=== PATIENT | female | born 1940 | race Caucasian/White ===

== ENCOUNTER → 2017-09-13 | Outpatient (REF) | payer MEDICARE, BC ==
[2017-09-13 19:43] LABS: VITAMIN B12 LEVEL 512 PG/ML (247-911)
== END ==
LOC: M LAB REF 18:09
DX: R21 Rash and other nonspecific skin eruption (principal)
CPT/HCPCS: 82607

== ENCOUNTER 2018-07-04 06:10 | Inpatient (IN) | payer MEDICARE, BC ==
--- NOTE | 2018-06-24 14:26 | HPE ---
DATE OF ADMISSION: 07/04/2018 CHIEF COMPLAINT: Lumbar spinal stenosis with myelopathy. HISTORY OF PRESENT ILLNESS: Briana is a pleasant, 77-year-old female with progressively worsening low back pain and bilateral lower extremity radiculopathy and myelopathy. She has failed to improve with conservative treatment. She has elected for surgery for her continued symptoms. She has pain with weightbearing activities and her activities of daily living. Her MRI was notable for subacute mild to moderate compression fracture at L4, severe spinal canal stenosis at L3-4 and L4-5, impingement upon the cauda equina L3-4 and L4-5. She has consented for a left unilateral laminectomy at L3-4 and L4-5 with posterior lateral fusion in situ. Medical optimization was by Dr. Sauceda. ALLERGIES: COMPAZINE. CURRENT MEDICATIONS: - Advair Diskus 250/50 mcg one twice a day - rimantadine tartrate - fluticasone propionate 50 mcg 2 sprays in each nostril daily - gabapentin 100 mg one at bedtime - ibuprofen 200 mg as needed - Synthroid 50 mcg a day - metformin 500 mg twice a day - Tradjenta 5 mg once a day - tramadol 50 mg one every 4-6 as needed - venlafaxine HCl 25 mg a day - Ventolin inhaler 2 puffs four times a day as needed PAST MEDICAL HISTORY: Includes diabetes, hypertension, and hypothyroidism. PAST SURGICAL HISTORY: Was not provided. SOCIAL HISTORY: The patient does not smoke or drink. She is retired. FAMILY HISTORY: Is noncontributory. REVIEW OF SYSTEMS: This patient denies chest pain, heart palpitations, cough, wheezing, difficulty breathing, and shortness of breath. She denies abdominal pain, nausea, vomiting, diarrhea, or constipation. She denies recent upper respiratory infection or urinary tract infection symptoms. She does complain of persistent pain in the low back and intermittently in both lower extremities. PHYSICAL EXAMINATION: General: She is well-nourished, well-developed, in no acute distress, alert female patient. She walks with a slow, steady gait today. She is not favoring or using assistive devices. Vital signs: She is 5 feet 1-1/2, weighs 140.6 pounds. Temperature of 98.3, blood pressure 130/80, pulse 86 and respirations of 14. Neck was supple without adenopathy or jugular venous distension. There were no carotid bruits upon auscultation. Lungs were clear to auscultation without rales or wheeze throughout. Heart: Regular rate and rhythm. Abdomen: Bowel sounds were present. Examination of the back revealed intact skin. LABORATORY DATA: No laboratory data was requested. She did have a preoperative EKG that showed sinus rhythm at 72 beats per minute. IMPRESSION: L3-4 and L4-5 severe spinal stenosis with impingement of the cauda equina causing bilateral lower extremity radiculopathy and myelopathy. PLAN: Consented for a left unilateral laminectomy at L3-4 and L4-5 with fusion in situ by Dr. Ashok Manning.
[2018-07-04] VITALS (8 sets, daily range): BP systolic 129–153; BP diastolic 64–76
[~2018-07-04] VITALS: Ht 157.5 cm; Wt 67.1 kg
[~2018-07-04 06:10] MED LIST: ADV250INH INH; BRIM2OPD OU; CIPR-249 PO; FLUTISP; GABA-1171 PO; GABAPENTIN 300 MG CAP PO ONE; IBUPOTC PO; LEVO50TA5 PO; LR 1,000 ML IV ONE; METF500T13 PO; PERCOCET 5MG/325MG TAB PO ONE; VENL1TAB35 PO; VENTAER INH; [UNRECOGNIZED DRUG - CODE] TOP
[2018-07-04] MEDS ORDERED: BUPIVACAINE/EPIN 0.25% 30 ML VIAL As Ordered ONE (07:10)
[2018-07-04] MEDS ORDERED: VANCOMYCIN HCL 500 MG/10 ML VIAL (J3370) As Ordered ONE (07:11)
[2018-07-04] MEDS ORDERED: BACITRACIN PWD 50,000 UNITS VIAL As Ordered ONE (07:11)
[2018-07-04] MEDS ORDERED: THROMBIN SOLN 20,000 UNITS KIT As Ordered ONE (07:11)
[2018-07-04] MEDS ORDERED: dexameTHASONE 4 MG/ML 1ML VIAL (J1100) As Ordered ONE (07:58)
[2018-07-04] MEDS ORDERED: LABETALOL HCL 100 MG/20 ML VIAL As Ordered ONE (08:15)
[2018-07-04] MEDS ORDERED: MIDAZOLAM INJ 2 MG/2 ML VIAL (J2250) As Ordered ONE (08:16)
[2018-07-04] MEDS ORDERED: PROPOFOL 200 MG/20 ML VIAL As Ordered ONE (08:16)
[2018-07-04] MEDS ORDERED: fentaNYL 100 MCG/2 ML INJECTION (J3010) As Ordered ONE ×2 (08:16→08:52)
[2018-07-04] MEDS ORDERED: LIDOCAINE 2% INJ 100 MG/5 ML SDV (FOR ANES.) As Ordered ONE (08:16)
[2018-07-04] MEDS ORDERED: ROCURONIUM BROMIDE 50 MG/5 ML VIAL As Ordered ONE (08:16)
[2018-07-04] MEDS ORDERED: ONDANSETRON 4MG/2ML VIAL (J2405) As Ordered ONE ×2 (08:20→11:38)
[2018-07-04] MEDS ORDERED: ePHEDrine SULFATE 25 MG/5 ML(5MG/ML) SYRINGE As Ordered ONE (08:23)
[2018-07-04] MEDS ORDERED: PHENYLephrine HCL 500 MCG/5 ML (100MCG/ML) SYRINGE (J2370) As Ordered ONE (08:36)
[2018-07-04] MEDS ORDERED: BUPIVACAINE HCL 0.5% 10 ML VIAL As Ordered ONE (09:07)
[2018-07-04] MEDS ORDERED: BUPIVACAINE LIPOSOME/PF 1.3% 20ML VIAL (13.3MG/ML)(EXPAREL)(C9290 PER1MG) As Ordered ONE (09:07)
[2018-07-04] MEDS ORDERED: PHENYLEPHRINE INJ 10MG/ML VIAL (J2370) As Ordered ONE (09:19)
[2018-07-04] MEDS ORDERED: DESFLURANE 240 ML INHALANT As Ordered ONE (09:54)
[2018-07-04] MEDS ORDERED: EPINEPHrine INJ 1 MG/ML 1ML AMP As Ordered ONE (10:39)
[2018-07-04] MEDS ORDERED: TRANEXAMIC ACID 100 MG/ML 10ML VIAL As Ordered ONE (10:39)
[2018-07-04] MEDS ORDERED: HYDROmorphone HCL 2 MG/ML 1ML VIAL (J1170) As Ordered ONE (11:12)
[2018-07-04] MEDS ORDERED: GLYCOPYRROLATE INJ 0.2 MG/ML 2 ML VIAL As Ordered ONE (11:38)
[2018-07-04] MEDS ORDERED: NEOSTIGMINE 10 MG/10 ML VIAL (J2710) As Ordered ONE (11:38)
--- NOTE | 2018-07-04 12:17 | REP ---
PARTIAL LUMBAR SPINE, ONE VIEW: HISTORY: Spinal stenosis. A single portable lateral radiograph was obtained. Two metal probes are present overlying the neural arch at the L3-4 and L5-S1 levels. Electronically Signed by Mauro Marin MD 07/04/2018 12:24 P
[2018-07-04] MEDS ORDERED: HYDROMORPHONE HCL 0.5 MG/ 0.5 ML SYRINGE (J1170 PER 1) IV PRN ×2 (13:15)
[2018-07-04] MEDS ORDERED: PERCOCET 5MG/325MG TAB PO PRN (13:15)
[2018-07-04] MEDS ORDERED: ACETAMINOPHEN TAB 650MG DOSE (2X325MG) PO PRN (13:15)
[2018-07-04] MEDS ORDERED: LR 1,000 ML IV SCH (13:15)
[2018-07-04] MEDS ORDERED: PILL CRUSHER/CUTTER 1 EACH XX PRN (13:15)
[2018-07-04] MEDS ORDERED: ALBUTEROL 90 MCG/ACT 8GM HFA INHALER INH PRN (13:15)
[2018-07-04] MEDS ORDERED: diazePAM 5 MG TAB PO PRN (13:15)
[2018-07-04] MEDS ORDERED: ONDANSETRON 4MG/2ML VIAL (J2405) IV PRN (13:15)
[2018-07-04] MEDS ORDERED: fentaNYL 100 MCG/2 ML INJECTION (J3010) IV PRN (13:15)
--- NOTE | 2018-07-04 14:35 | RO ---
DATE OF PROCEDURE: 07/04/2018 PREOPERATIVE DIAGNOSIS: Spinal stenosis L3-4, L4-5, spondylolisthesis at L4-5, neurogenic claudication left more than right. POSTOPERATIVE DIAGNOSIS: Spinal stenosis L3-4, L4-5, spondylolisthesis at L4-5 neurogenic claudication left more than right. PROCEDURE PERFORMED: Left L3 unilateral laminectomy for decompression of the thecal sac and exiting nerve root, left unilateral laminectomy L4 additional level, left unilateral laminectomy L5 additional level, posterior intertransverse spinal fusion in situ using iliac crest and donor bone graft, harvest and placement of iliac crest bone graft, harvest and placement of local bone graft and use of donor graft. SURGEON: Ashok Manning MD BREAST BUFFER: AMRIK Sanon ANESTHESIA: General. Estimated blood loss was 150 mL, replaced with crystalloid. No complications. INDICATIONS: Progressive neurogenic claudication effecting both lower extremities impacting the patient's ability to participate in activities of daily living. At this point, the patient has elected for operative intervention. Consent reviewed in detail including a mallory discussion of the pathology involved, the procedure proposed, alternatives including doing nothing and risks including but not limited to pain, failure, infection, bleeding, blood loss, incomplete relief of symptoms, need for additional surgery and other issues. The patient agrees to proceed with surgery. OPERATIVE COURSE: Identified in holding area. Site side verified. Brought to the operating room. Once anesthesia was administered, we positioned her for exposure on the Sagar frame. Once I and the marina dry dock manager were comfortable with the patient's positioning, she was then sterilely prepped and draped in usual fashion. At the beginning of the procedure, I stood on the patient's left and Mr. Keys stood on the right but at pertinent points we did swap sides. Next, first portion of procedure I did utilize 3.5 loupe ,magnification as well as a headlamp for the decompression to the procedure I did use a sterilely draped operating microscope. Next, time-out was accomplished. Incision was based on palpation of bony landmarks outlined with a marking pen infiltrated with 0.25% Marcaine with epinephrine made with a #10 blade knife developed down through skin and subcuticular tissues. We then reflected the posterior lumbar fascia off the spinous processes of the left of midline, dissected down to the L4 and L5 lamina and exposed the L3 lamina and inferior aspect. I drilled divots in the L3 and the L5 lamina, placed a curette and a probe in the L3 and L5 lamina. We then obtained a cross-table lateral x-ray to verify our levels as appropriate. Next, the dissection continued exposing out to the transverse processes. Mr. Keys utilized the Maulik retractor to assist in exposing the transverse processes. I completed the right-sided posterior spinal fascial and muscular dissection out to the transverse processes as well using a hot knife and Mr. Keys utilizing the Maulik. Next, once this exposure was accomplished, I packed the right side with a with a lap pad. We had utilized bipolar cautery for hemostasis. Next, I applied retractors on the left side. I removed posterior lamina using Leksell's and this was retained for use as bone graft. Next, once this was accomplished, the sterilely draped operating microscope was brought in. My loupes were exchanged out. We then utilized the high-speed bur and a Lukens trap to implement a left unilateral laminectomy across the midline beginning at L5 and extending superiorly undercutting the spinous processes to facilitate the midline decompression bur millings were collected using the Lukens trap and added to bone graft. Next, care was taken to preserve at least 50% of L3-4 facet complex and at least 50% of the L4-5 facet complex. Next, once the bony lamina had been removed adequately, I utilized curved curettes, Kerrison's and pituitaries to remove posterior longitudinal ligament. It was quite hypertrophic and causing stenosis. Next, once this was accomplished in the midline, I then utilized curettes to loosen hypertrophied ligamentum flavum in the subarticular space on the right side at L4-5 and L3-4, and was then further debrided using #2 Kerrison's decompressing the right lateral recess and subarticular space. Next, once this was accomplished, Mr. Keys then utilized to Radha suction retractor and we further decompressed the left lateral recess at L4-5 and L3-4. Able to pass a Christine Sudhir out the neural foramina at both levels. Next, thrombin Gelfoam was used utilized for hemostasis. I also instilled approximately 50 mL of tranexamic acid (TXA) solution in the wound for hemostasis. We irrigated the wound with saline solution. Next, at this stage, we obtained morselized iliac crest from the left posterior superior iliac spine through a separate fascial incision which was opened with the hot knife while Mr. Keys assisted in exposure using the Maulik retractor. I did remove iliac crest bone graft using Leksell and large Hatfield curettes. The harvest site was irrigated. I also utilized Exparel solution around the soft tissues, around the site as a local anesthetic and I closed the wound over Gelfoam. Next, once this was accomplished, Mr. Keys utilized Maulik retractors to expose the left transverse processes. I irrigated and then I decorticated the left transverse processes at L3, L4, and L5 using the high-speed bur and then I placed iliac crest bone graft over the transverse processes, and then over the top of the iliac crest bone graft I placed a mixture of local bone collected from the [facility] trap donor bone from the bone bank morselized and demineralized bone matrix putty as a bone graft sales representative raw fibers. Next, once this was accomplished, we sprinkled a small amount of vancomycin crystals in the wound. We removed Gelfoam from the lateral recess. We verified the were no cottonoids left in the decompression site of the wound. Next, we then exposed the intertransverse space using the Maulik retractor on the right side and again decorticated the transverse processes as well as the facet and lamina complexes on the patient's right side, then placed the remaining iliac crest bone graft and donor bone local bone mixture over the exposed bone. Again, sprinkled some vancomycin crystals in this area. Next, once this was accomplished, we inspected for bleeding. All counts were correct. Posterior lumbar fascia was approximated with interrupted stitch, deep dermis with interrupted stitch. Pernio dressing was utilized on skin. Then, the patient was able to be moved to the hospital bed, extubated and moved to recovery room in good condition. For further details, please refer to medical record. [facility]
[2018-07-04] MEDS ORDERED: ONDANSETRON 4 MG TAB (S0181) PO PRN (15:45)
[2018-07-04] MEDS ORDERED: DEXTROSE 50% 50 ML SYRINGE IV PRN (16:30)
[2018-07-04] MEDS ORDERED: GLUCOSE 4 GM CHEW TABLET PO PRN (16:30)
[2018-07-04] MEDS ORDERED: GLUCAGON FOR INJ 1 MG VIAL (J1610) SC PRN (16:30)
--- NOTE | 2018-07-04 16:40 | CR ---
DATE OF CONSULTATION: 07/04/2018 CONSULTATION REPORT FOR: Ashok Manning MD INFORMATICA ARCHITECT: Hospitalist group. This is a 77-year-old patient of Dr. Sauceda who underwent spinal surgery for spinal stenosis today. The patient's medical history is significant for recent episode of Escherichia (E) coli urinary tract infection (UTI) based on urine culture from 05/31/2018. She also had E. coli Enterobacter bacteremia from blood culture from 05/29/2018, apparently was treated through Dr. Sauceda's office. Her past medical history shows chronic lung disease for which she is on an inhaler, type 2 diabetes treated with metformin, hypothyroidism on thyroid replacement, history of depression for which she is taking venlafaxine. OUTPATIENT MEDICATIONS: - gabapentin 100 mg at bedtime - Flonase spray for nasal allergies - metformin 500 mg twice a day - levothyroxine 50 mcg daily - venlafaxine 12.5 mg twice a day - albuterol inhaler two puffs four times a day as needed - Advair 250/50 one inhalation twice a day - ibuprofen as needed - Valium 5 mg three times a day as needed - eye drops ALLERGIES: COMPAZINE SOCIAL HISTORY: Nonsmoker. CODE STATUS: FULL CODE. SURGICAL HISTORY: Porcine aortic valve replacement, I do not see where she is on aspirin on her home medication list, cataract extraction, ileostomy 07/19/1972, kidney stones removed on several occasions, some nasal surgery, sinus surgery. PHYSICAL EXAMINATION: She is lying in bed in no acute distress. Pupils are equal, round, reactive to light. Tympanic membranes (TMs) and oropharynx benign. Neck: No masses. Lungs: Clear. Heart: Regular rhythm, 1/6 systolic ejection murmur. Abdomen: Soft, nontender, no masses. No peripheral edema. IMPRESSION: 1. Type 2 diabetes. Sliding scale of insulin, finger stick blood sugars until her oral intake is assured, in which case she could restart her metformin. 2. History of chronic obstructive pulmonary disease (COPD) or asthma. Continue albuterol inhaler on an as needed basis. 3. Hypothyroidism. Continue her dose of levothyroxine. 4. History of chronic anxiety. She is on Valium it looks on a scheduled basis. I would recommend this be ordered on an as needed basis as we were not sure how sedated she will be from her anesthesia and her pain medications. 5. Obstructive sleep apnea (KYLE). In looking through her outpatient record she is on continuous positive airway pressure (CPAP) at home. Will make the nursing staff aware of this. She can use her own CPAP while she is here. The hospitalist will assume her medical care tomorrow.
[2018-07-04 18:17] LABS: APPEARANCE, URINE CLEAR (CLEAR); BACTERIA, URINE AUTO NEGATIVE (NEGATIVE); BILIRUBIN, URINE AUTO NEGATIVE (NEGATIVE); BLOOD, URINE BLOOD 1+ (NEGATIVE); COLOR, URINE YELLOW (YELLOW); GLUCOSE, URINE (UA) AUTO 1+ mg/dL (NEGATIVE); KETONE, URINE AUTO NEGATIVE (NEGATIVE); LEUKOCYTE ESTERASE, URINE AUTO NEGATIVE (NEGATIVE); MUCUS, URINE SMALL (NEGATIVE); NITRITE, URINE AUTO NEGATIVE (NEGATIVE); PROTEIN, URINE AUTO NEGATIVE (NEGATIVE); RBC, URINE AUTO 11 /HPF (0-3); SPECIFIC GRAVITY URINE AUTO 1.016 (1.002-1.035); SQUAMOUS EPITHELIAL CELL UR AU 1 /HPF (0-6); UROBILINOGEN, URINE AUTO 0.2 mg/dL (0.0-2.0); WBC, URINE AUTO 2 /HPF (0-3)
[2018-07-04] MEDS: HumaLOG INSULIN (NovoLOG) PER UNIT SC SCH (18:19)
[2018-07-04] MEDS: VENLAFAXINE 25 MG TAB PO SCH (20:32)
[2018-07-04] MEDS: ADVAIR HFA 115/21MCG INHALER INH SCH (20:57)
[2018-07-04] MEDS ORDERED: GABAPENTIN 100 MG CAP PO SCH (21:00)
[2018-07-04] MEDS ORDERED: ENTER DRUG NAME HERE (PATIENT'S OWN MED) OU SCH (21:00)
[2018-07-04] MEDS ORDERED: BRIMONIDINE 0.15% OPHTH SOLN 5 ML OU SCH (21:00)
[2018-07-04] MEDS ORDERED: HumaLOG INSULIN (NovoLOG) PER UNIT SC SCH (21:00)
[2018-07-04] MEDS: HYDROMORPHONE HCL 0.5 MG/ 0.5 ML SYRINGE (J1170 PER 1) IV PRN (23:59)
[2018-07-05 01:30] VITALS: BP 138/78
[2018-07-05 03:30] VITALS: BP 129/71
[2018-07-05] MEDS: HYDROMORPHONE HCL 0.5 MG/ 0.5 ML SYRINGE (J1170 PER 1) IV PRN (04:20)
[2018-07-05 05:30] VITALS: BP 97/58
[2018-07-05] MEDS ORDERED: LEVOTHYROXINE 50MCG TABLET (0.05MG) PO SCH (06:00)
[2018-07-05 06:38] LABS: HEMATOCRIT 27.7 % (36.0-47.0); HEMOGLOBIN 8.9 g/dl (12.0-15.5); MEAN CORPUSCULAR HEMOGLOBIN 27.9 pg (27.0-33.0); MEAN CORPUSCULAR HGB CONC 32.1 g/dl (32.0-36.5); MEAN CORPUSCULAR VOLUME 86.8 fl (80.0-96.0); PLATELET COUNT, AUTOMATED 249 10^3/uL (150-450); RED BLOOD COUNT 3.19 10^6/uL (4.00-5.40); WHITE BLOOD COUNT 10.8 10^3/uL (4.0-10.0)
[2018-07-05 06:59] LABS: CALCIUM LEVEL 8.6 MG/DL (8.8-10.2); CREATININE FOR GFR 1.16 MG/DL (0.55-1.30); GLOMERULAR FILTRATION RATE 48.1 (>39); POTASSIUM SERUM 3.7 MEQ/L (3.5-5.1)
[2018-07-05] MEDS: HumaLOG INSULIN (NovoLOG) PER UNIT SC SCH ×2 (07:30→12:17)
[2018-07-05 07:59] VITALS: BP 107/59
[2018-07-05] MEDS ORDERED: metFORMIN (GLUCOPHAGE) 500 MG TAB PO SCH (08:00)
[2018-07-05] MEDS: PERCOCET 5MG/325MG TAB PO PRN ×2 (09:00→13:17)
[2018-07-05] MEDS ORDERED: MOM 30ML SUSPENSION UDC PO SCH (09:00)
[2018-07-05] MEDS ORDERED: MIRALAX *UNIT DOSE* 17GM PACKET PO SCH (09:00)
[2018-07-05] MEDS: VENLAFAXINE 25 MG TAB PO SCH (09:00)
[2018-07-05] MEDS: ADVAIR HFA 115/21MCG INHALER INH SCH (09:05)
[2018-07-05 10:00] VITALS: BP 142/76
--- NOTE | 2018-07-05 21:51 | IPNPDOC ---
Date Seen The patient was seen on 07/05/18. Progress Note SUBJECTIVE: Patient without any acute complaint but requesting food that can soothe her throat. Patient is being discharged today to rehabilitation by surgery. Continue current medical management rehabilitation. OBJECTIVE PHYSICAL EXAMINATION: VITAL SIGNS: Please see below GENERAL APPEARANCE: Resting comfortably HEENT: Normocephalic, PERRLA, Mucous moist, CARDIOVASCULAR: S1,S2, pulse present, regularly, regular, no obvious murmur LUNGS: Equal air entry b/l, no wheezes or crackle ABDOMEN: Soft, BS present, no tenderness, no guarding EXTREMITIES: B/L no edema, capillary refill present SKIN: Warm, No fever NEUROLOGICAL: Cranial nerves grossly intact PSYCHIATRIC: Normal mood and affect for current situation LABORATORY DATA, IMAGING STUDIES, MICROBIOLOGY: Please see below. ASSESSMENT AND PLAN:77-year-old patient of Dr. Saucdea who underwent spinal surgery for spinal stenosis. The patient's medical history is significant for recent episode of Escherichia (E) coli urinary tract infection (UTI) based on urine culture from 05/31/2018. She also had E. coli Enterobacter bacteremia from blood culture from 05/29/2018, apparently was treated through Dr. Sauceda's office. Her past medical history shows chronic lung disease for which she is on an inhaler, type 2 diabetes treated with metformin, hypothyroidism on thyroid replacement, history of depression for which she is taking venlafaxine. IMPRESSION: 1. Type 2 diabetes. Sliding scale of insulin, finger stick blood sugars until her oral intake is assured, in which case she could restart her metformin. 2. History of chronic obstructive pulmonary disease (COPD) or asthma. Continue albuterol inhaler on an as needed basis. 3. Hypothyroidism. Continue her dose of levothyroxine. 4. History of chronic anxiety. She is on Valium it looks on a scheduled basis. I would recommend this be ordered on an as needed basis as we were not sure how sedated she will be from her anesthesia and her pain medications. 5. Obstructive sleep apnea (KYLE). In looking through her outpatient record she is on continuous positive airway pressure (CPAP) at home. Will make the nursing staff aware of this. She can use her own CPAP while she is here. DISPOSITION: [as per sx]. VS, I&O, 24H, Fishbone Vital Signs/I&O Vital Signs Date Time Temp Pulse Resp B/P (MAP) Pulse Ox O2 Delivery O2 Flow Rate FiO2 07/05/18 13:17 16 07/05/18 10:00 98.0 102 142/76 (98) 95 I&O- Last 24 Hours up to 6 AM 07/05/18 06:00 Intake Total 3287 ml Output Total 1850 ml Balance 1437 ml Laboratory Data 24H LABS Laboratory Tests 2 07/05/18 06:13: Nucleated Red Blood Cells % (auto) 0.0, Anion Gap 6L, Glomerular Filtration Rate 48.1, Blood Urea Nitrogen 14, Creatinine 1.16, Sodium Level 135L, Potassium Level 3.7, Chloride Level 102, Carbon Dioxide Level 27, Calcium Level 8.6L 07/05/18 11:49: Bedside Glucose (Misc Panel) 152H CBC/BMP Laboratory Tests 07/05/18 06:13 Red Blood Count 3.19 L, Mean Corpuscular Volume 86.8, Mean Corpuscular Hemog lobin 27.9, Mean Corpuscular Hemoglobin Concent 32.1, Red Cell Distribution Width 13.3, Calcium Level 8.6 L Microbiology Microbiology 07/04/18 Urine Culture - Final, Complete ADEN HAYDEN MD Jul 05, 2018 21:51
== END 2018-07-05 14:10 | DRG 454 ==
LOC: M OR 06:10 → M MS5PR 14:00
PROVIDERS: ADMIT Orthopaedic Surgery; ATTEND Orthopaedic Surgery
PROC: 0SG00AJ Fusion of Lumbar Vertebral Joint with Interbody Fusion Device, Posterior Approach, Anterior Column, Open Approach (ICD-10-PCS; 2018-07-04)
PROC: 0QB30ZZ Excision of Left Pelvic Bone, Open Approach (ICD-10-PCS; 2018-07-04)
PROC: 0SG0071 Fusion of Lumbar Vertebral Joint with Autologous Tissue Substitute, Posterior Approach, Posterior Column, Open Approach (ICD-10-PCS; principal; 2018-07-04 07:30)
DX: M48.062 Spinal stenosis, lumbar region with neurogenic claudication (principal); G83.4 Cauda equina syndrome; Z79.899 Other long term (current) drug therapy; E11.9 Type 2 diabetes mellitus without complications; E03.9 Hypothyroidism, unspecified; I10 Essential (primary) hypertension; Z88.8 Allergy status to other drugs, medicaments and biological substances; F32.9 Major depressive disorder, single episode, unspecified; Z95.2 Presence of prosthetic heart valve; J44.9 Chronic obstructive pulmonary disease, unspecified; G47.33 Obstructive sleep apnea (adult) (pediatric)

== ENCOUNTER 2018-07-05 13:10 | Inpatient (IN) | payer BC, MEDICARE ==
[~2018-07-05] VITALS: Ht 157.5 cm; Wt 64.2 kg
[~2018-07-05 13:10] MED LIST changes: -GABAPENTIN 300 MG CAP PO ONE; -LR 1,000 ML IV ONE; -PERCOCET 5MG/325MG TAB PO ONE
[2018-07-05 14:45] VITALS: BP 148/63
--- NOTE | 2018-07-05 17:17 | HPEPDOC ---
Director Of Volunteer Services Note DATE OF ADMISSION: Jul 05, 2018 at 14:20 SOURCE OF ADMISSION INFORMATION: patient and [facility] records CHIEF COMPLAINT: cauda equina syndrome 77F pmh hypothyroidism, HTN, diabetes, COPD anxiety, ileostomy, and low back pain with worsening bilateral lower extremity pain and weakness with myelopathy who presented to [facility] ED for elective surgery after having been cleared by medicine. She reports she had been to a chiropractor prior without any relief and denies any urinary incontinence or retention prior to the surgery. Most recent MRI from outside hospital showed a compression fracture of L4, severe spinal canal stenosis at L3-L4 and L4-L5 with cauda equina impingement. She was evaluated by Dr. Manning from orthopedics and underwent a left unilateral laminectomy L3-L4 and L4-L5 with posterior lateral fusion without complication. She was evaluated by therapy and found to have gait and ADL deficits below her prior level of function and deemed medically appropriate for discharge to ARU on 07/05/18. Upon arrival she states she has never been prescribed aspirin or anticoagulation for her prosthetic aortic valve. REVIEW OF SYSTEMS: The following is a completed review of systems and has been reviewed. Review of systems otherwise unremarkable. PAIN: Patient self reports incisional back pain EYES: Negative recent vision loss EARS, NOSE, & THROAT: denies dysphagia or sinus pressure CARDIOVASCULAR: denies chest pain or palpitations PULMONARY: Negative. Denies shortness of breath GASTROINTESTINAL: +ileostomy GENITOURINARY: +retention MUSCULOSKELETAL: low back pain and LE weakness NEUROLOGICAL: no tremor or seizure activity SKIN: lumbar incision and ostomy site c/d/i PSYCHIATRIC: Unremarkable All other review of systems found to be negative. PAST MEDICAL HISTORY: as per HPI PAST SURGICAL HISTORY: Porcine aortic valve replacement cataract surgery ileostomy 07/19/1972 kidney stone removal nasal and sinus surgery ALLERGIES: Please see below. MEDICATIONS: Please see below. SOCIAL HISTORY:non-smoker, no ETOH, lives alone, no illicit drugs, recently DIET: Regular PHYSICAL EXAMINATION: VITAL SIGNS: Please see below. GENERAL: Pleasant and cooperative. No acute distress. HEENT: PERRL. Extraocular movements intact. Clear conjunctiva CARDIOVASCULAR: Regular rate and rhythm. No murmurs, rubs, or gallops LUNGS: Clear to auscultation bilaterally. No wheezes. No rhonchi ABDOMEN: Soft, nontender, nondistended. Positive bowel sounds. Normal active bowel sounds, +ileostomy NEUROLOGICAL: Alert and oriented times three. Cranial nerves II through XII grossly intact. Sensation grossly intact to light touch EXTREMITIES: 5\5 strength bilateral upper extremities. 5-\5 strength right lower extremity. 4+/5 strength in left lower extremity. 3+ patellar reflexes SKIN: lumbar incision c/d/i, ostomy site c/d/i, no sacral ulcers FUNCTIONAL STATUS: Premorbid: Independent with all activities of daily life as well as mobility On Admission: Min assist for functional transfers, contact guard for ambulation 15 feet. GOALS: Modified Independent for household distances with RW, supervision for community ambulation, Mod-I for dressing, bathing, toileting, grooming, medical optimization, assess for DME needs. ASSESSMENT:77-year-old F with past medical history of HTN, anxiety, low back pain who presents status post laminectomy and fusion for cauda equina syndrome. PLAN: 1. rehab: PT/OT, assess for DME needs 2. Neuro: s/p left unilateral laminectomy L3-L4 and L4-L5 with posterior lateral fusion on 07/04/18 for cauda equina syndrome- laminectomy precautions, f/u with Dr. Manning on discharge-will consult ortho 3. CArdio: pmh aortic valve replacement, not on aspirin or anticoagulation- will consult medicine to follow 4. resp: omh COPD c/u breathing treatments, encourage incentive spirometry 5. Endo: pmh DM will do sliding scale coverage and monitor off metformin for now -Synthroid for hypothyroidism 6. Psych: pmh anxiety c/u effexor, was on valium, will hold while on opioids for pain 7. Pain: oxycodone prn, tylenol, gabapentin 8. : f/u admission UA and Ucx, monitor PVRs 9. GI ppx: protonix 10. DVT ppx: TEDs and heparin 11. Dispo: TBD POST ADMISSION PHYSICIAN EVALUATION: Medical and functional status: Description of medical status, medical ass essment: As above. Rehabilitation diagnosis and current and prior cold morbid medical conditions as above. Risk of complications and plans to mitigate them as above. Description of functional status current status is as above. Prior status as above. Status compared to preadmission: There are no clinically significant differences between the patient's current status and the information described on the preadmission screening document. Treatment plan anticipated: Treatment plan is as described above. Required disciplines including physical therapy, occupational therapy, others as noted above. Intensity of services: 3 hours a day, 6 days a week. Special considerations: There are no specific special or safety considerations that would likely preclude immediate implementation of an intensive rehabilitation program or subsequently influence the plan of care. ATTESTATION: Considering all the information above, it is my best judgment that this patient requires intensive rehabilitation therapy as described above and an inpatient hospital environment due to the complexity of nursing, medical, and rehabilitation needs required by the patient. Furthermore, this patient can reasonably be expected to participate in an benefit from an inpatient rehabilitation stay with an interdisciplinary team approach to the delivery of rehabilitation care under the direction and supervision of rehabilitation physician. PROGNOSIS: Excellent ESTIMATED LENGTH OF STAY:12-14 days. PROJECTED DISCHARGE DESTINATION: Home with family support and any durable medical equipment required to increase functional safety and mobility. TIME SPENT COUNSELING AND COORDINATING INITIAL CARE: Greater than 70 minutes. Vital Signs Vital Sign - Last 24 Hours 07/05/18 14:45 Temp 98.1 Pulse 97 Resp 19 B/P (MAP) 148/63 (91) Pulse Ox 97 Laboratory Data Labs 24H Laboratory Tests 2 07/05/18 16:35: Bedside Glucose (Misc Panel) 149H FSBS Laboratory Tests Test 07/05/18 16:35 Range/Units Bedside Glucose (Misc Panel) 149 83-110 MG/DL Home Medications Scheduled Brimonidine Tartrate (Brimonidine Tartrate) 100 Drop/5 Ml Soln, 1 DROP OU QHS, (Reported) Fluticasone Propionate (Fluticasone Propionate) 50 Mcg/Act Spr, 1 SPRAY NA BID, (Reported) Gabapentin (Gabapentin) 100 Mg Cap, 100 MG PO QHS, (Reported) Levothyroxine Sodium (Levothyroxine Sodium) 50 Mcg Tab, 50 MCG PO DAILY, (Reported) Metformin HCl (Metformin HCl) 500 Mg Tab, 500 MG PO BID, (Reported) Salmeterol/Fluticasone (Advair 250-50 Diskus) 14 Puff/Inhaler Aerp, 1 PUFF INH BID, (Reported) Venlafaxine HCl (Venlafaxine HCl) 25 Mg Tab, 12.5 MG PO BID, (Reported) Scheduled PRN Albuterol Sulfate (Ventolin Hfa) 108 Mcg/Act Aer, 108 MCG INH PRN PRN for SOB/WHEEZING, (Reported) Ibuprofen (Ibuprofen) 200 Mg Tab, 400 MG PO PRN PRN for PAIN, (Reported) Allergies Coded Allergies: [place] Solvents (Verified Allergy, Severe, RESPIRATORY ISSUES, 07/04/18) prochlorperazine (Verified Adverse Reaction, Intermediate, EYES ROLLED BACK, 07/04/18) AKSHAT MOORE MD Jul 05, 2018 17:17
[2018-07-05] MEDS ORDERED: ALBUTEROL 90 MCG/ACT 8GM HFA INHALER INH PRN (17:30)
[2018-07-05] MEDS ORDERED: BISACODYL 10 MG SUPP PR PRN (17:30)
[2018-07-05] MEDS ORDERED: oxyCODONE 5MG TAB PO PRN ×2 (17:30)
[2018-07-05] MEDS ORDERED: MOM 30ML SUSPENSION UDC PO PRN (17:30)
[2018-07-05] MEDS ORDERED: DEXTROSE 50% 50 ML SYRINGE IV PRN (17:30)
[2018-07-05] MEDS ORDERED: GLUCAGON FOR INJ 1 MG VIAL (J1610) SC PRN (17:30)
[2018-07-05] MEDS ORDERED: ONDANSETRON 4 MG TAB (S0181) PO PRN (17:30)
[2018-07-05] MEDS ORDERED: GLUCOSE 4 GM CHEW TABLET PO PRN (17:30)
[2018-07-05] MEDS ORDERED: MAALOX 30 ML SUSP *UDC PO PRN (17:30)
[2018-07-05] MEDS ORDERED: PILL CRUSHER/CUTTER 1 EACH XX PRN (17:45)
[2018-07-05] MEDS: HumaLOG INSULIN (NovoLOG) PER UNIT SC SCH ×2 (18:48→20:46)
[2018-07-05 20:00] VITALS: BP 140/64
[2018-07-05] MEDS: ADVAIR HFA 230/21MCG INHALER INH SCH (20:26)
[2018-07-05] MEDS: VENLAFAXINE 25 MG TAB PO SCH (20:43)
[2018-07-05] MEDS: SENNA 8.6 MG TAB (SENOKOT) PO SCH ×2 (20:43→20:47)
[2018-07-05] MEDS: SODIUM CHLORIDE NASAL 0.65% SPRAY BTL (OCEAN) SCH (20:43)
[2018-07-05] MEDS: ACETAMINOPHEN TAB 650MG DOSE (2X325MG) PO PRN (20:43)
[2018-07-05] MEDS: DOCUSATE SODIUM 100 MG CAP PO SCH ×2 (20:43→20:47)
[2018-07-05] MEDS: BRIMONIDINE 0.15% OPHTH SOLN 5 ML OU SCH (20:44)
[2018-07-05] MEDS ORDERED: GABAPENTIN 100 MG CAP PO SCH (21:00)
[2018-07-05 21:07] LABS: APPEARANCE, URINE CLEAR (CLEAR); BACTERIA, URINE AUTO NEGATIVE (NEGATIVE); BILIRUBIN, URINE AUTO NEGATIVE (NEGATIVE); BLOOD, URINE BLOOD NEGATIVE (NEGATIVE); COLOR, URINE STRAW (YELLOW); GLUCOSE, URINE (UA) AUTO NEGATIVE (NEGATIVE); KETONE, URINE AUTO NEGATIVE (NEGATIVE); LEUKOCYTE ESTERASE, URINE AUTO TRACE (NEGATIVE); NITRITE, URINE AUTO NEGATIVE (NEGATIVE); PROTEIN, URINE AUTO NEGATIVE (NEGATIVE); RBC, URINE AUTO 2 /HPF (0-3); SPECIFIC GRAVITY URINE AUTO 1.005 (1.002-1.035); SQUAMOUS EPITHELIAL CELL UR AU 0 /HPF (0-6); UROBILINOGEN, URINE AUTO 0.2 mg/dL (0.0-2.0); WBC, URINE AUTO 1 /HPF (0-3)
[2018-07-06] MEDS: PERCOCET 5MG/325MG TAB PO PRN ×2 (02:38→11:24)
--- NOTE | 2018-07-06 02:46 | CR.PDOC ---
General Date of Consultation: Jul 06, 2018 Consultation REASON FOR CONSULTATION/CHIEF COMPLAINT: back pain; Medical management. HISTORY OF PRESENT ILLNESS: 77 y/o F who was found with compression fracture of L4, severe spinal canal stenosis at L3-L4 and L4-L5 with cauda equina impingement and underwent a left unilateral laminectomy L3-L4 and L4-L5 with posterior lateral fusion without complication. Pt was admitted to inpatient rehab. Hospitalist service was consulted for comanagement and pain management. PAST MEDICAL HISTORY: hypothyroidism, HTN, diabetes, COPD anxiety, and low back pain with worsening bilateral lower extremity pain and weakness with myelopathy PAST SURGICAL HISTORY: [place] aortic valve replacement, cataract surgery, ileostomy 07/19/1972, kidney stone removal, nasal and sinus surgery, left unilateral laminectomy L3-L4 and L4-L5 with posterior lateral fusion for compression fracture of L4 and cauda equina syndrome on 07/04/18 Allergies- please see below Home meds- reviewed, please refer to permanent medical records SOCIAL HISTORY:non-smoker, no ETOH, lives alone, no illicit drugs, recently FH- reviewed non contributory REVIEW OF SYSTEMS: 10 points review of system was performed and it was negative except as per HPI PHYSICAL EXAMINATION: General- AAO x 3, not in acute distress HENT- oral mucosa moist RS- clear to auscultation, no added sounds. CVS- S1/S2 + Extremities- b/l lower extremities neurovascularly intact, no edema Abdomen- soft, colostomy bag in place COMMISSION SPECIALIST- NO focal deficit Psychiatry- mood normal LABORATORY DATA: reviewed, Hb 8.9 was 12.8 on 09/06/2015 ASSESSMENT: back pain related to recent laminectomy and fusion for cauda equina syndrome. PLAN: 1. Back pain to continue rehab: PT/OT, will start on PO percocet 1 tab q 6h prn for pain, continue gabapentin, tylenol 2. s/p left unilateral laminectomy L3-L4 and L4-L5 with posterior lateral fusion on for cauda equina syndrome- laminectomy precautions, f/u with Dr. Manning after discharge 3. H/o aortic valve replacement, not on aspirin or anticoagulation(might be related to chronic anemia) 4. COPD c/u breathing treatments, encourage incentive spirometry 5. DM type 2 sliding scale coverage and monitor off metformin for now 6. Hypothryoidism Home meds 7. Anxiety home meds 8. Chronic anemia- pt might have chronic anemia o/p GI and hematology f/u 9. DVT ppx: TEDs and lovenox Thank you for letting us participate in taking care of this patient Vital Signs/I&O Vital Signs Date Time Temp Pulse Resp B/P (MAP) Pulse Ox O2 Delivery O2 Flow Rate FiO2 07/05/18 23:00 98.7 07/05/18 20:00 115 20 140/64 (89) 95 I&O- Last 24 Hours up to 6 AM 07/06/18 05:59 Intake Total 180 ml Output Total 825 ml Balance -645 ml Laboratory Data Labs 24H Laboratory Tests 2 07/05/18 16:35: Bedside Glucose (Misc Panel) 149H 07/05/18 20:37: Bedside Glucose (Misc Panel) 159H 07/05/18 20:38: Urine Appearance CLEAR, Urine Color STRAW, Urine pH 5.0, Urine Specific [place] 1.005, Urine Protein NEGATIVE, Urine Glucose (UA) NEGATIVE, Urine Ketones NEGATIVE, Urine Urobilinogen 0.2, Urine Bilirubin NEGATIVE, Urine Leukocyte Esterase TRACEH, Urine Blood NEGATIVE, Urine Nitrite NEGATIVE, Urine WBC (Auto) 1, Urine RBC (Auto) 2, Urine Hyaline Casts (Auto) 0, Urine Bacteria (Auto) NEGATIVE, Urine Squamous Epithelial Cells 0, Urine Sperm (Auto) Microbiology Microbiology 07/05/18 Urine Culture, Received Pending Allergies Coded Allergies: [place] Solvents (Verified Allergy, Severe, RESPIRATORY ISSUES, 07/04/18) prochlorperazine (Verified Adverse Reaction, Intermediate, EYES ROLLED BACK, 07/04/18) Home Medications Scheduled Brimonidine Tartrate (Brimonidine Tartrate) 100 Drop/5 Ml Soln, 1 DROP OU QHS, (Reported) Fluticasone Propionate (Fluticasone Propionate) 50 Mcg/Act Spr, 1 SPRAY NA BID, #1 (Reported) Gabapentin (Gabapentin) 100 Mg Cap, 100 MG PO QHS, (Reported) Levothyroxine Sodium (Levothyroxine Sodium) 50 Mcg Tab, 50 MCG PO DAILY, (Reported) Metformin HCl (Metformin HCl) 500 Mg Tab, 500 MG PO BID, (Reported) Salmeterol/Fluticasone (Advair 250-50 Diskus) 14 Puff/Inhaler Aerp, 1 PUFF INH BID, (Reported) Venlafaxine HCl (Venlafaxine HCl) 25 Mg Tab, 12.5 MG PO BID, (Reported) Scheduled PRN Albuterol Sulfate (Ventolin Hfa) 108 Mcg/Act Aer, 108 MCG INH PRN PRN for SOB/WHEEZING, (Reported) Ibuprofen (Ibuprofen) 200 Mg Tab, 400 MG PO PRN PRN for PAIN, (Reported) PANCHO MONDRAGON MD Jul 06, 2018 02:44
[2018-07-06 06:00] VITALS: BP 137/71
[2018-07-06] MEDS: LEVOTHYROXINE 50MCG TABLET (0.05MG) PO SCH (06:10)
[2018-07-06 06:59] LABS: BASO # 0.1 10^3/uL (0.0-0.2); BASO % 0.7 % (0.0-1.0); EOS # 0.1 10^3/uL (0.0-0.50); EOS % 0.5 % (0.0-3.0); HEMATOCRIT 27.4 % (36.0-47.0); HEMOGLOBIN 8.9 g/dl (12.0-15.5); LYMPH # 1.3 10^3/uL (1.5-4.5); LYMPH % 12.9 % (24.0-44.0); MEAN CORPUSCULAR HEMOGLOBIN 28.7 pg (27.0-33.0); MEAN CORPUSCULAR HGB CONC 32.5 g/dl (32.0-36.5); MEAN CORPUSCULAR VOLUME 88.4 fl (80.0-96.0); MONO # 0.9 10^3/uL (0.0-0.8); MONO % 8.8 % (0.0-5.0); NEUTROPHILS # 7.8 10^3/uL (1.8-7.7); NEUTROPHILS % 76.6 % (36.0-66.0); PLATELET COUNT, AUTOMATED 237 10^3/uL (150-450); WHITE BLOOD COUNT 10.1 10^3/uL (4.0-10.0)
[2018-07-06 07:28] LABS: ALBUMIN 2.8 GM/DL (3.2-5.2); BILIRUBIN,TOTAL 0.6 MG/DL (0.2-1.0); CALCIUM LEVEL 8.4 MG/DL (8.8-10.2); CREATININE FOR GFR 1.03 MG/DL (0.55-1.30); GLOMERULAR FILTRATION RATE 55.2 (>39); PERCENT SATURATION 5.5 % (13.2-45.0); POTASSIUM SERUM 3.8 MEQ/L (3.5-5.1); TOTAL PROTEIN 6.7 GM/DL (6.4-8.2)
[2018-07-06] MEDS: HumaLOG INSULIN (NovoLOG) PER UNIT SC SCH ×4 (07:30→21:00)
[2018-07-06] MEDS: VENLAFAXINE 25 MG TAB PO SCH ×2 (08:15→21:03)
[2018-07-06] MEDS: ACETAMINOPHEN TAB 650MG DOSE (2X325MG) PO PRN (08:15)
[2018-07-06] MEDS: DOCUSATE SODIUM 100 MG CAP PO SCH ×2 (08:16→21:04)
[2018-07-06] MEDS: FLUTICASONE PROP 0.05% NASAL SPRAY 16 GM (FLONASE) NARES SCH (08:16)
[2018-07-06] MEDS: ENOXAPARIN 40 MG/0.4 ML SYRINGE (J1650) SC SCH (08:16)
[2018-07-06] MEDS: SODIUM CHLORIDE NASAL 0.65% SPRAY BTL (OCEAN) SCH ×3 (08:17→21:05)
[2018-07-06] MEDS: ADVAIR HFA 230/21MCG INHALER INH SCH ×2 (08:30→21:16)
--- NOTE | 2018-07-06 10:18 | IPNPDOC ---
PM&R Progress Note DATE OF SERVICE: Jul 06, 2018 Industrial Nurse Progress Note Subjective: Patient reports she has pain with certain movements, but otherwise has no pain with walking. REVIEW OF SYSTEMS: The following is a completed review of systems and has been reviewed. Review of systems otherwise unremarkable. PAIN: Patient self reports incisional back pain EYES: Negative recent vision loss EARS, NOSE, & THROAT: denies dysphagia or sinus pressure CARDIOVASCULAR: denies chest pain or palpitations PULMONARY: Negative. Denies shortness of breath GASTROINTESTINAL: +ileostomy GENITOURINARY: +retention (improving) MUSCULOSKELETAL: low back pain and LE weakness NEUROLOGICAL: no tremor or seizure activity SKIN: lumbar incision and ostomy site c/d/i PSYCHIATRIC: Unremarkable All other review of systems found to be negative. PHYSICAL EXAMINATION: VITAL SIGNS: Please see below. GENERAL: Pleasant and cooperative. No acute distress. HEENT: PERRL. Extraocular movements intact. Clear conjunctiva CARDIOVASCULAR: Regular rate and rhythm. No murmurs, rubs, or gallops LUNGS: Clear to auscultation bilaterally. No wheezes. No rhonchi ABDOMEN: Soft, nontender, nondistended. Positive bowel sounds. Normal active bowel sounds, +ileostomy NEUROLOGICAL: Alert and oriented times three. Cranial nerves II through XII grossly intact. Sensation grossly intact to light touch EXTREMITIES: 5\5 strength bilateral upper extremities. 5-\5 strength right lower extremity. 4+/5 strength in left lower extremity. 3+ patellar reflexes SKIN: lumbar incision c/d/i, ostomy site c/d/i, no sacral ulcers ASSESSMENT:77-year-old F with past medical history of HTN, anxiety, low back pain who presents status post laminectomy and fusion for cauda equina syndrome. PLAN: 1. rehab: PT/OT, assess for DME needs 2. Neuro: s/p left unilateral laminectomy L3-L4 and L4-L5 with posterior lateral fusion on 07/04/18 for cauda equina syndrome- laminectomy precautions, f/u with Dr. Manning on discharge-will consult ortho 3. CArdio: pmh aortic valve replacement, not on aspirin or anticoagulation- will consult medicine to follow 4. resp: omh COPD c/u breathing treatments, encourage incentive spirometry 5. Endo: pmh DM will do sliding scale coverage and monitor off metformin for now -Synthroid for hypothyroidism 6. Psych: pmh anxiety c/u effexor, was on valium, will hold while on opioids for pain 7. Pain: oxycodone prn, tylenol, gabapentin 8. : f/u admission UA and Ucx, monitor PVRs, retention improved today 9. GI ppx: protonix 10. DVT ppx: TEDs and heparin 11. Dispo: TBD Allergies Coded Allergies: [place] Solvents (Verified Allergy, Severe, RESPIRATORY ISSUES, 07/04/18) prochlorperazine (Verified Adverse Reaction, Intermediate, EYES ROLLED BACK, 07/04/18) Vital Signs Vital Signs Date Time Temp Pulse Resp B/P (MAP) Pulse Ox O2 Delivery O2 Flow Rate FiO2 07/06/18 06:00 97.8 95 18 137/71 (93) 96 Laboratory Data CBC/BMP Laboratory Tests 07/06/18 06:06 Red Blood Count 3.10 L, Mean Corpuscular Volume 88.4, Mean Corpuscular Hemoglobin 28.7, Mean Corpuscular Hemoglobin Concent 32.5, Red Cell Distribution Width 13.7, Neutrophils (%) (Auto) 76.6 H, Lymphocytes (%) (Auto) 12.9 L, Monocytes (%) (Auto) 8.8 H, Eosinophils (%) (Auto) 0.5, Basophils (%) (Auto) 0.7, Neutrophils # (Auto) 7.8 H, Lymphocytes # (Auto) 1.3 L, Monocytes # (Auto) 0.9 H, Eosinophils # (Auto) 0.1, Basophils # (Auto) 0.1, Calcium Level 8.4 L, Aspartate Amino Transf (AST/SGOT) 32, Alanine Aminotransferase (ALT/SGPT) 34, Alkaline Phosphatase 40 L, Total Bilirubin 0.6, Total Protein 6.7, Albumin 2.8 L Labs 24H Laboratory Tests 2 07/05/18 16:35: Bedside Glucose (Misc Panel) 149H 07/05/18 20:37: Bedside Glucose (Misc Panel) 159H 07/05/18 20:38: Urine Appearance CLEAR, Urine Color STRAW, Urine pH 5.0, Urine Specific [place] 1.005, Urine Protein NEGATIVE, Urine Glucose (UA) NEGATIVE, Urine Ketones NEGATIVE, Urine Urobilinogen 0.2, Urine Bilirubin NEGATIVE, Urine Leukocyte Esterase TRACEH, Urine Blood NEGATIVE, Urine Nitrite NEGATIVE, Urine WBC (Auto) 1, Urine RBC (Auto) 2, Urine Hyaline Casts (Auto) 0, Urine Bacteria (Auto) NEGATIVE, Urine Squamous Epithelial Cells 0, Urine Sperm (Auto) 07/06/18 06:06: Immature Granulocyte % (Auto) 0.5, White Blood Count 10.1H, Red Blood Count 3.10L, Hemoglobin 8.9L, Hematocrit 27.4L, Mean Corpuscular Volume 88.4, Mean Corpuscular Hemoglobin 28.7, Mean Corpuscular Hemoglobin Concent 32.5, Red Cell Distribution Width 13.7, Platelet Count 237, Neutrophils (%) (Auto) 76.6H, Lymphocytes (%) (Auto) 12.9L, Monocytes (%) (Auto) 8.8H, Eosinophils (%) (Auto) 0.5, Basophils (%) (Auto) 0.7, Neutrophils # (Auto) 7.8H, Lymphocytes # (Auto) 1.3L, Monocytes # (Auto) 0.9H, Eosinophils # (Auto) 0.1, Basophils # (Auto) 0.1, Nucleated Red Blood Cells % (auto) 0.0, Anion Gap 7L, Glomerular Filtration Rate 55.2, Blood Urea Nitrogen 11, Creatinine 1.03, Sodium Level 139, Potassium Level 3.8, Chloride Level 104, Carbon Dioxide Level 28, Calcium Level 8.4L, Aspartate Amino Transf (AST/SGOT) 32, Alanine Aminotransferase (ALT/SGPT) 34, Alkaline Phosphatase 40L, Total Bilirubin 0.6, Total Protein 6.7, Albumin 2.8L, Iron Level 17L, Total Iron Binding Capacity 309, Transferrin % Saturation 5.5L, Ferritin 71, Albumin/Globulin Ratio 0.72L 07/06/18 06:19: Bedside Glucose (Misc Panel) 133H Microbiology Microbiology 07/05/18 Urine Culture, Received Pending Current Medications Current Medications Current Medications Acetaminophen (Tylenol Tab) 650 mg Q4HP PRN PO MILD PAIN (PS 1-4) Last administered on 07/06/18at 08:15; Start 07/05/18 at 17:30 Al Hydrox/Mg Hydrox/Simethicone (Mylanta) 30 ml Q4HP PRN PO DYSPEPSIA; Start 07/05/18 at 17:30 Albuterol Sulfate (Proventil, Ventolin Hfa) 2 puff Q4HP PRN INH SHORTNESS OF BREATH; Start 07/05/18 at 17:30 Bisacodyl (Dulcolax Suppository) 10 mg DAILYPRN PRN [place] CONSTIPATION; Start 07/05/18 at 17:30 Brimonidine Tartrate (Alphagan P 0.15%) 1 drop QHS OU Last administered on 07/05/18at 20:44; Start 07/05/18 at 21:00 Dextrose (Dextrose 50%) 25 ml ASDIRECTED PRN IV SEE LABEL COMMENTS; Start 07/05/18 at 17:30 Docusate Sodium (Colace) 100 mg BID PO ; Start 07/05/18 at 21:00 Enoxaparin Sodium (Lovenox) 40 mg DAILY SC Last administered on 07/06/18at 08:16; Start 07/06/18 at 09:00 Fluticasone Propionate (Flonase 0.05% Nasal [place]) 2 spray DAILY NARES Last administered on 07/06/18at 08:16; Start 07/06/18 at 09:00 Gabapentin (Neurontin) 100 mg QHS PO Last administered on 07/05/18at 20:43; Start 07/05/18 at 21:00 Glucagon (Glucagon) 1 mg ASDIRECTED PRN SC SEE LABEL COMMENTS; Start 07/05/18 at 17:30 Glucose (Glucose) 16 GM ASDIRECTED PRN PO SEE LABEL COMMENTS; Start 07/05/18 at 17:30 Insulin Human Lispro (HumaLOG INSULIN) SEE PROTOCOL TABLE AC SC Last administered on 07/06/18at 07:30; Start 07/05/18 at 17:30 Insulin Human Lispro (HumaLOG INSULIN) SEE PROTOCOL TABLE QHS SC ; Start 07/05/18 at 21:00 Levothyroxine Sodium (Synthroid) 50 mcg DAILY@06 PO Last administered on 07/06/18at 06:10; Start 07/06/18 at 06:00 Magnesium Hydroxide (Milk Of Magnesia) 30 ml DAILYPRN PRN PO CONSTIPATION; Start 07/05/18 at 17:30 Ondansetron HCl (Zofran) 4 mg Q6HP PRN PO NAUSEA; Start 07/05/18 at 17:30 Oxycodone HCl (Roxicodone, Oxyir) 5 mg Q4HP PRN PO PAIN; Start 07/05/18 at 17:30; Stop 07/05/18 at 18:31; Status DC Oxycodone HCl (Roxicodone, Oxyir) 10 mg Q4HP PRN PO SEVERE PAIN (PS 8-10); Start 07/05/18 at 17:30; Stop 07/05/18 at 18:31; Status DC Oxycodone/ Acetaminophen (Percocet 5mg/ 325mg Tablet) 1 tab Q6HP PRN PO MILD/MODERATE PAIN (PS 1-7) Last administered on 07/06/18at 02:38; Start 07/06/18 at 02:30 Salmeterol Xinafoate/ Fluticasone (Advair Hfa 230/ 21) 2 puff BID INH Last administered on 07/06/18at 08:30; Start 07/05/18 at 21:00 Senna (Senokot) 1 tab QHS PO ; Start 07/05/18 at 21:00 Sodium Chloride ([place] Nasal [place]) 2 spray TID NA Last administered on 07/06/18at 08:17; Start 07/05/18 at 21:00 Venlafaxine HCl (Effexor) 12.5 mg BID PO Last administered on 07/06/18at 08:15; Start 07/05/18 at 21:00 A-FIB/CHADSVASC A-FIB History Current/History of A-Fib/PAF?: No Current Oral Anticoagulant The: No AKSHAT MOORE MD Jul 06, 2018 10:18
[2018-07-06 14:00] VITALS: BP 152/74
[2018-07-06] MEDS ORDERED: oxyCODONE 5MG TAB PO PRN (15:30)
[2018-07-06] MEDS ORDERED: ACETAMINOPHEN TAB 650MG DOSE (2X325MG) PO SCH (16:00)
[2018-07-06] MEDS: GABAPENTIN 100 MG CAP PO SCH ×2 (16:11→21:04)
[2018-07-06] MEDS: ACETAMINOPHEN 500 MG TAB PO SCH ×2 (16:11→21:03)
--- NOTE | 2018-07-06 20:23 | IPNPDOC ---
Date Seen The patient was seen on 07/06/18. Progress Note SUBJECTIVE: Feeling better. No complaints of sore throat today. Working with PT/OT. No complaint of dysuria. OBJECTIVE PHYSICAL EXAMINATION: VITAL SIGNS: Please see below GENERAL APPEARANCE: Resting comfortably HEENT: Normocephalic, PERRLA, Mucous moist, CARDIOVASCULAR: S1,S2, pulse present, regularly, regular, LUNGS: Equal air entry b/l, no wheezes or crackle ABDOMEN: Soft, BS present, no tenderness, no guarding EXTREMITIES: B/L no edema, capillary refill present SKIN: Warm, No fever NEUROLOGICAL: Cranial nerves grossly intact PSYCHIATRIC: Normal mood and affect for current situation LABORATORY DATA, IMAGING STUDIES, MICROBIOLOGY: Please see below. ASSESSMENT AND PLAN: 77 y/o F who was found with compression fracture of L4, severe spinal canal stenosis at L3-L4 and L4-L5 with cauda equina impingement and underwent a left unilateral laminectomy L3-L4 and L4-L5 with posterior la teral fusion without complication. Pt was admitted to inpatient rehab. Rehab as per primary team UA culture no growth Type 2 diabetes. May resume home regimen History of chronic obstructive pulmonary disease (COPD) or asthma. -Continue albuterol inhaler on an as needed basis. Hypothyroidism. Continue her dose of levothyroxine. History of chronic anxiety. Resume home regimen Obstructive sleep apnea (KYLE) -She can use her own CPAP while she is here. Anemia, likely hospital induce -limit blood draw if possible -outpatient anemia workup -monitor for active bleed -Iron supplement prn DVT prop as per rehab VS, I&O, 24H, Fishbone Vital Signs/I&O Vital Signs Date Time Temp Pulse Resp B/P (MAP) Pulse Ox O2 Delivery O2 Flow Rate FiO2 07/06/18 14:00 98.1 103 19 152/74 (100) 96 I&O- Last 24 Hours up to 6 AM 07/06/18 06:00 Intake Total 360 ml Output Total 1825 ml Balance -1465 ml Laboratory Data 24H LABS Laboratory Tests 2 07/05/18 20:37: Bedside Glucose (Misc Panel) 159H 07/05/18 20:38: Urine Appearance CLEAR, Urine Color STRAW, Urine pH 5.0, Urine Specific [place] 1.005, Urine Protein NEGATIVE, Urine Glucose (UA) NEGATIVE, Urine Ketones NEGATIVE, Urine Urobilinogen 0.2, Urine Bilirubin NEGATIVE, Urine Leukocyte Esterase TRACEH, Urine Blood NEGATIVE, Urine Nitrite NEGATIVE, Urine WBC (Auto) 1, Urine RBC (Auto) 2, Urine Hyaline Casts (Auto) 0, Urine Bacteria (Auto) NEGATIVE, Urine Squamous Epithelial Cells 0, Urine Sperm (Auto) 07/06/18 06:06: Immature Granulocyte % (Auto) 0.5, White Blood Count 10.1H, Red Blood Count 3.10L, Hemoglobin 8.9L, Hematocrit 27.4L, Mean Corpuscular Volume 88.4, Mean Corpuscular Hemoglobin 28.7, Mean Corpuscular Hemoglobin Concent 32.5, Red Cell Distribution Width 13.7, Platelet Count 237, Neutrophils (%) (Auto) 76.6H, Lymphocytes (%) (Auto) 12.9L, Monocytes (%) (Auto) 8.8H, Eosinophils (%) (Auto) 0.5, Basophils (%) (Auto) 0.7, Neutrophils # (Auto) 7.8H, Lymphocytes # (Auto) 1.3L, Monocytes # (Auto) 0.9H, Eosinophils # (Auto) 0.1, Basophils # (Auto) 0.1, Nucleated Red Blood Cells % (auto) 0.0, Anion Gap 7L, Glomerular Filtration Rate 55.2, Blood Urea Nitrogen 11, Creatinine 1.03, Sodium Level 139, Potassium Level 3.8, Chloride Level 104, Carbon Dioxide Level 28, Calcium Level 8.4L, Aspartate Amino Transf (AST/SGOT) 32, Alanine Aminotransferase (ALT/SGPT) 34, Alkaline Phosphatase 40L, Total Bilirubin 0.6, Total Protein 6.7, Albumin 2.8L, Iron Level 17L, Total Iron Binding Capacity 309, Transferrin % Saturation 5.5L, [place] ritin 71, Albumin/Globulin Ratio 0.72L 07/06/18 06:19: Bedside Glucose (Misc Panel) 133H 07/06/18 11:22: Bedside Glucose (Misc Panel) 131H CBC/BMP Laboratory Tests 07/06/18 06:06 Red Blood Count 3.10 L, Mean Corpuscular Volume 88.4, Mean Corpuscular Hemoglobin 28.7, Mean Corpuscular Hemoglobin Concent 32.5, Red Cell Distribution Width 13.7, Neutrophils (%) (Auto) 76.6 H, Lymphocytes (%) (Auto) 12.9 L, Monocytes (%) (Auto) 8.8 H, Eosinophils (%) (Auto) 0.5, Basophils (%) (Auto) 0.7, Neutrophils # (Auto) 7.8 H, Lymphocytes # (Auto) 1.3 L, Monocytes # (Auto) 0.9 H, Eosinophils # (Auto) 0.1, Basophils # (Auto) 0.1, Calcium Level 8.4 L, Aspartate Amino Transf (AST/SGOT) 32, Alanine Aminotransferase (ALT/SGPT) 34, Alkaline Phosphatase 40 L, Total Bilirubin 0.6, Total Protein 6.7, Albumin 2.8 L Microbiology Microbiology 07/05/18 Urine Culture - Final, Complete ADEN HAYDEN MD Jul 06, 2018 20:23
[2018-07-06 20:46] VITALS: BP 148/80
[2018-07-06] MEDS: SENNA 8.6 MG TAB (SENOKOT) PO SCH (21:04)
[2018-07-06] MEDS: BRIMONIDINE 0.15% OPHTH SOLN 5 ML OU SCH (21:04)
[2018-07-07 05:55] VITALS: BP 137/77
[2018-07-07] MEDS: LEVOTHYROXINE 50MCG TABLET (0.05MG) PO SCH (06:03)
[2018-07-07] MEDS: DOCUSATE SODIUM 100 MG CAP PO SCH ×2 (07:33→21:00)
[2018-07-07] MEDS: HumaLOG INSULIN (NovoLOG) PER UNIT SC SCH ×4 (07:33→21:00)
[2018-07-07] MEDS: ACETAMINOPHEN 500 MG TAB PO SCH ×4 (07:49→22:20)
[2018-07-07] MEDS: ADVAIR HFA 230/21MCG INHALER INH SCH ×2 (08:05→20:17)
[2018-07-07] MEDS: ENOXAPARIN 40 MG/0.4 ML SYRINGE (J1650) SC SCH (09:20)
[2018-07-07] MEDS: FLUTICASONE PROP 0.05% NASAL SPRAY 16 GM (FLONASE) NARES SCH (09:21)
[2018-07-07] MEDS: VENLAFAXINE 25 MG TAB PO SCH ×2 (09:21→20:45)
[2018-07-07] MEDS: SODIUM CHLORIDE NASAL 0.65% SPRAY BTL (OCEAN) SCH ×3 (09:21→21:00)
[2018-07-07] MEDS: GABAPENTIN 100 MG CAP PO SCH ×3 (09:21→20:45)
--- NOTE | 2018-07-07 10:14 | IPNPDOC ---
PM&R Progress Note DATE OF SERVICE: Jul 07, 2018 [employer] Progress Note Subjective: Patient reports she would like to try increasing her depression medication and is apprehensive about returning home without her . REVIEW OF SYSTEMS: The following is a completed review of systems and has been reviewed. Review of systems otherwise unremarkable. PAIN: Patient self reports incisional back pain EYES: Negative recent vision loss EARS, NOSE, & THROAT: denies dysphagia or sinus pressure CARDIOVASCULAR: denies chest pain or palpitations PULMONARY: Negative. Denies shortness of breath GASTROINTESTINAL: +ileostomy GENITOURINARY: +retention (improving) MUSCULOSKELETAL: low back pain and LE weakness NEUROLOGICAL: no tremor or seizure activity SKIN: lumbar incision and ostomy site c/d/i PSYCHIATRIC: Unremarkable All other review of systems found to be negative. PHYSICAL EXAMINATION: VITAL SIGNS: Please see below. GENERAL: Pleasant and cooperative. No acute distress. HEENT: PERRL. Extraocular movements intact. Clear conjunctiva CARDIOVASCULAR: Regular rate and rhythm. No murmurs, rubs, or gallops LUNGS: Clear to auscultation bilaterally. No wheezes. No rhonchi ABDOMEN: Soft, nontender, nondistended. Positive bowel sounds. Normal active bowel sounds, +ileostomy NEUROLOGICAL: Alert and oriented times three. Cranial nerves II through XII grossly intact. Sensation grossly intact to light touch EXTREMITIES: 5\5 strength bilateral upper extremities. 5-\5 strength right lower extremity. 4+/5 strength in left lower extremity. 3+ patellar reflexes SKIN: lumbar incision c/d/i, ostomy site c/d/i, no sacral ulcers ASSESSMENT:77-year-old F with past medical history of HTN, anxiety, low back pain who presents status post laminectomy and fusion for cauda equina syndrome. PLAN: 1. rehab: PT/OT, assess for DME needs, ambulating with RW 2. Neuro: s/p left unilateral laminectomy L3-L4 and L4-L5 with posterior lateral fusion on 07/04/18 for cauda equina syndrome- laminectomy precautions, f/u with Dr. Manning on discharge-ortho consulted 3. CArdio: pmh aortic valve replacement, not on aspirin or anticoagulation- will consult medicine to follow 4. resp: omh COPD c/u breathing treatments, encourage incentive spirometry 5. Endo: pmh DM will do sliding scale coverage and monitor off metformin for now -Synthroid for hypothyroidism 6. Psych: pmh anxiety will increase daytime effexor dosing and monitor, was on valium, will hold while on opioids for pain 7. Pain: oxycodone prn, tylenol, gabapentin 8. : admission UA and Ucx negative, monitor PVRs, retention slightly worse today 9. GI ppx: protonix 10. DVT ppx: TEDs and heparin 11. Dispo: TBD Allergies Coded Allergies: [place] Solvents (Verified Allergy, Severe, RESPIRATORY ISSUES, 07/04/18) prochlorperazine (Verified Adverse Reaction, Intermediate, EYES ROLLED BA CK, 07/04/18) Vital Signs Vital Signs Date Time Temp Pulse Resp B/P (MAP) Pulse Ox O2 Delivery O2 Flow Rate FiO2 07/07/18 05:55 98.8 102 18 137/77 (97) 98 Laboratory Data Labs 24H Laboratory Tests 2 07/06/18 11:22: Bedside Glucose (Misc Panel) 131H 07/06/18 16:42: Bedside Glucose (Misc Panel) 139H 07/06/18 20:43: Bedside Glucose (Misc Panel) 131H 07/07/18 05:50: Bedside Glucose (Misc Panel) 104 Microbiology Microbiology 07/05/18 Urine Culture - Final, Complete Current Medications Current Medications Current Medications Acetaminophen (Tylenol Tab) 650 mg Q4HP PRN PO MILD PAIN (PS 1-4) Last administered on 07/06/18at 08:15; Start 07/05/18 at 17:30; Stop 07/06/18 at 13:53; Status DC Acetaminophen (Tylenol Tab) 1,000 mg TID PO ; Start 07/06/18 at 16:00; Stop 07/06/18 at 16:03; Status DC Acetaminophen (Tylenol Tab) 1,000 mg TID PO Last administered on 07/07/18at 07:49; Start 07/06/18 at 16:00 Al Hydrox/Mg Hydrox/Simethicone (Mylanta) 30 ml Q4HP PRN PO DYSPEPSIA; Start 07/05/18 at 17:30 Albuterol Sulfate (Proventil, Ventolin Hfa) 2 puff Q4HP PRN INH SHORTNESS OF BREATH; Start 07/05/18 at 17:30 Bisacodyl (Dulcolax Suppository) 10 mg DAILYPRN PRN SC CONSTIPATION; Start 07/05/18 at 17:30 Brimonidine Tartrate ([place] P 0.15%) 1 drop QHS OU Last administered on 07/06/18at 21:04; Start 07/05/18 at 21:00 Dextrose (Dextrose 50%) 25 ml ASDIRECTED PRN IV SEE LABEL COMMENTS; Start 06/14 05/31 at 17:30 Docusate Sodium (Colace) 100 mg BID PO Last administered on 07/06/18at 21:04; Start 07/05/18 at 21:00 Enoxaparin Sodium (Lovenox) 40 mg DAILY SC Last administered on 07/07/18at 09:20; Start 07/06/18 at 09:00 Fluticasone Propionate (Flonase 0.05% Nasal [place]) 2 spray DAILY NARES Last administered on 07/07/18 09:21; Start 07/06/18 at 09:00 Gabapentin (Neurontin) 100 mg QHS PO Last administered on 07/05/18at 20:43; Start 07/05/18 at 21:00; Stop 07/06/18 at 13:53; Status DC Gabapentin (Neurontin) 100 mg TID PO Last administered on 07/07/18at 09:21; Start 07/06/18 at 16:00 Glucagon (Glucagon) 1 mg ASDIRECTED PRN SC SEE LABEL COMMENTS; Start 07/05/18 at 17:30 Glucose (Glucose) 16 GM ASDIRECTED PRN PO SEE LABEL COMMENTS; Start 07/05/18 at 17:30 Insulin Human Lispro (HumaLOG INSULIN) SEE PROTOCOL TABLE AC SC Last administered on 07/07/18at 07:33; Start 07/05/18 at 17:30 Insulin Human Lispro (HumaLOG INSULIN) SEE PROTOCOL TABLE QHS SC ; Start 07/05/18 at 21:00 Levothyroxine Sodium (Synthroid) 50 mcg DAILY@06 PO Last administered on 07/07/18at 06:03; Start 07/06/18 at 06:00 Magnesium Hydroxide (Milk Of Magnesia) 30 ml DAILYPRN PRN PO CONSTIPATION; Start 07/05/18 at 17:30 Ondansetron HCl (Zofran) 4 mg Q6HP PRN PO NAUSEA; Start 07/05/18 at 17:30 Oxycodone HCl (Roxicodone, Oxyir) 5 mg Q4HP PRN PO PAIN; Start 07/05/18 at 17:30; Stop 07/05/18 at 18:31; Status DC Oxycodone HCl (Roxicodone, Oxyir) 5 mg Q6HP PRN PO PAIN Last administered on 07/06/18at 21:44; Start 07/06/18 at 15:30 Oxycodone HCl (Roxicodone, Oxyir) 10 mg Q4HP PRN PO SEVERE PAIN (PS 8-10); Start 07/05/18 at 17:30; Stop 07/05/18 at 18:31; Status DC Oxycodone/ Acetaminophen (Percocet 5mg/ 325mg Tablet) 1 tab Q6HP PRN PO MILD/MODERATE PAIN (PS 1-7) Last administered on 07/06/18 11:24; Start 07/06/18 at 02:30; Stop 07/06/18 at 15:23; Status DC Salmeterol Xinafoate/ Fluticasone (Advair Hfa 230/ 21) 2 puff BID INH Last administered on 07/07/18 08:05; Start 07/05/18 at 21:00 Senna (Senokot) 1 tab QHS PO Last administered on 07/06/18 21:04; Start 07/05/18 at 21:00 Sodium Chloride ([place] Nasal [place]) 2 spray TID NA Last administered on 07/07/18 09:21; Start 07/05/18 at 21:00 Venlafaxine HCl (Effexor) 12.5 mg BID PO Last administered on 07/07/18 09:21; Start 07/05/18 at 21:00 A-FIB/CHADSVASC A-FIB History Current/History of A-Fib/PAF?: No AKSHAT MOORE MD Jul 07, 2018 10:14
--- NOTE | 2018-07-07 12:31 | REP ---
Bilateral lower extremity Duplex Doppler venous ultrasound: Real time compression and duplex Doppler interrogation of the bilateral lower extremity deep venous system is performed. Bilaterally, the common femoral, superficial femoral and popliteal veins are fully compressible with transducer pressure and demonstrate normal spontaneous and phasic flow, without evidence of deep venous thrombosis. Impression: No evidence of deep venous thrombosis of the bilateral lower extremity femoral popliteal venous system. Electronically Signed by Reagan Yip MD 07/07/2018 12:23 P
[2018-07-07 14:00] VITALS: BP 142/77
--- NOTE | 2018-07-07 17:11 | IPNPDOC ---
Date Seen The patient was seen on 07/07/18. Progress Note SUBJECTIVE: Patient more perky today. Patient cooperated with physical therapy. Patient still has a Montalvo but states that she was glad she had an overnight as she did not have to get up to use the restroom and got some rest overnight. Urine culture showed no growth. Did inform patient that at some point her Montalvo will need to be removed. In having Montalvo would increase her risk of infection. Patient seemed to understand. Lower extremity Doppler negative for DVT bilaterally. OBJECTIVE PHYSICAL EXAMINATION: VITAL SIGNS: Please see below GENERAL APPEARANCE: Resting comfortably HEENT: Normocephalic, PERRLA, Mucous moist, CARDIOVASCULAR: S1,S2, pulse present, regularly, regular, LUNGS: Equal air entry b/l, no wheezes or crackle ABDOMEN: Soft, BS present, no tenderness, no guarding EXTREMITIES: B/L no edema, capillary refill present SKIN: Warm, No fever NEUROLOGICAL: Cranial nerves grossly intact PSYCHIATRIC: Normal mood and affect for current situation LABORATORY DATA, IMAGING STUDIES, MICROBIOLOGY: Please see below. ASSESSMENT AND PLAN: 77 y/o F who was found with compression fracture of L4, severe spinal canal stenosis at L3-L4 and L4-L5 with cauda equina impingement and underwent a left unilateral laminectomy L3-L4 and L4-L5 with posterior lateral fusion without complication. Pt was admitted to inpatient rehab. Rehab as per primary team UA culture no growth, remove Montalvo as soon as possible and as tolerated Type 2 diabetes. May resume home regimen History of chronic obstructive pulmonary disease (COPD) or asthma. -Continue albuterol inhaler on an as needed basis. Hypothyroidism. Continue her dose of levothyroxine. History of chronic anxiety. Resume home regimen Obstructive sleep apnea (KYLE) -She can use her own CPAP while she is here. Anemia, likely hospital induce -limit blood draw if possible -outpatient anemia workup -monitor for active bleed -Iron supplement prn DVT prop as per rehab, lower extremity Doppler negative for DVT bilaterally VS, I&O, 24H, Fishbone Vital Signs/I&O Vital Signs Date Time Temp Pulse Resp B/P (MAP) Pulse Ox O2 Delivery O2 Flow Rate FiO2 07/07/18 14:00 98.7 102 18 142/77 (98) 98 I&O- Last 24 Hours up to 6 AM 07/07/18 06:00 Intake Total 1840 ml Output Total 1925 ml Balance -85 ml Laboratory Data 24H LABS Laboratory Tests 2 07/06/18 20:43: Bedside Glucose (Misc Panel) 131H 07/07/18 05:50: Bedside Glucose (Misc Panel) 104 07/07/18 11:29: Bedside Glucose (Misc Panel) 100 07/07/18 16:17: Bedside Glucose (Misc Panel) 111H Microbiology Microbiology 07/05/18 Urine Culture - Final, Complete ADEN HAYDEN MD Jul 07, 2018 17:11
[2018-07-07 20:00] VITALS: BP 135/73
[2018-07-07] MEDS ORDERED: VENLAFAXINE 25 MG TAB PO SCH (21:00)
[2018-07-07] MEDS ORDERED: ACETAMINOPHEN 325 MG TAB PO SCH (21:00)
[2018-07-07] MEDS: SENNA 8.6 MG TAB (SENOKOT) PO SCH (21:00)
[2018-07-07] MEDS: BRIMONIDINE 0.15% OPHTH SOLN 5 ML OU SCH (21:00)
[2018-07-08 05:46] VITALS: BP 130/90
[2018-07-08] MEDS: LEVOTHYROXINE 50MCG TABLET (0.05MG) PO SCH (06:00)
[2018-07-08 07:08] LABS: HEMATOCRIT 27.6 % (36.0-47.0); HEMOGLOBIN 8.7 g/dl (12.0-15.5); MEAN CORPUSCULAR HEMOGLOBIN 27.6 pg (27.0-33.0); MEAN CORPUSCULAR HGB CONC 31.5 g/dl (32.0-36.5); MEAN CORPUSCULAR VOLUME 87.6 fl (80.0-96.0); PLATELET COUNT, AUTOMATED 322 10^3/uL (150-450); RED BLOOD COUNT 3.15 10^6/uL (4.00-5.40); WHITE BLOOD COUNT 8.2 10^3/uL (4.0-10.0)
[2018-07-08] MEDS: DOCUSATE SODIUM 100 MG CAP PO SCH (07:34)
[2018-07-08 07:36] LABS: BLOOD UREA NITROGEN 11 MG/DL (7-18); CALCIUM LEVEL 8.2 MG/DL (8.8-10.2); CARBON DIOXIDE LEVEL 28 MEQ/L (21-32); CHLORIDE LEVEL 105 MEQ/L (98-107); FREE T4 1.35 NG/DL (0.76-1.46); GLOMERULAR FILTRATION RATE > 60.0 (>39); GLUCOSE, FASTING 121 MG/DL (70-100); POTASSIUM SERUM 3.8 MEQ/L (3.5-5.1); SODIUM LEVEL 139 MEQ/L (136-145)
[2018-07-08] MEDS: ENOXAPARIN 40 MG/0.4 ML SYRINGE (J1650) SC SCH (07:48)
[2018-07-08] MEDS: GABAPENTIN 100 MG CAP PO SCH ×3 (07:49→21:11)
[2018-07-08] MEDS: VENLAFAXINE 25 MG TAB PO SCH ×2 (07:49→21:11)
[2018-07-08] MEDS: HumaLOG INSULIN (NovoLOG) PER UNIT SC SCH ×4 (07:49→21:00)
[2018-07-08] MEDS: ACETAMINOPHEN 500 MG TAB PO SCH ×3 (07:51→21:11)
[2018-07-08] MEDS: FLUTICASONE PROP 0.05% NASAL SPRAY 16 GM (FLONASE) NARES SCH (07:52)
[2018-07-08] MEDS: SODIUM CHLORIDE NASAL 0.65% SPRAY BTL (OCEAN) SCH ×3 (07:52→21:14)
[2018-07-08] MEDS: ADVAIR HFA 230/21MCG INHALER INH SCH ×2 (08:20→19:29)
--- NOTE | 2018-07-08 12:09 | IPNPDOC ---
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 REVIEW OF SYSTEMS: The following is a completed review of systems and has been reviewed. Review of systems otherwise unremarkable. PAIN: Patient self reports incisional back pain EYES: Negative recent vision loss EARS, NOSE, & THROAT: denies dysphagia or sinus pressure CARDIOVASCULAR: denies chest pain or palpitations PULMONARY: Negative. Denies shortness of breath GASTROINTESTINAL: +ileostomy GENITOURINARY: +retention (improving) MUSCULOSKELETAL: low back pain and LE weakness NEUROLOGICAL: no tremor or seizure activity SKIN: lumbar incision and ostomy site c/d/i PSYCHIATRIC: Unremarkable All other review of systems found to be negative. PHYSICAL EXAMINATION: VITAL SIGNS: Please see below. GENERAL: Pleasant and cooperative. No acute distress. HEENT: PERRL. Extraocular movements intact. Clear conjunctiva CARDIOVASCULAR: Regular rate and rhythm. No murmurs, rubs, or gallops LUNGS: Clear to auscultation bilaterally. No wheezes. No rhonchi ABDOMEN: Soft, nontender, nondistended. Positive bowel sounds. Normal active bowel sounds, +ileostomy NEUROLOGICAL: Alert and oriented times three. Cranial nerves II through XII grossly intact. Sensation grossly intact to light touch EXTREMITIES: 5\5 strength bilateral upper extremities. 5-\5 strength right lower extremity. 4+/5 strength in left lower extremity. 3+ patellar reflexes SKIN: lumbar incision c/d/i, ostomy site c/d/i, no sacral ulcers ASSESSMENT:77-year-old F with past medical history of HTN, anxiety, low back pain who presents status post laminectomy and fusion for cauda equina syndrome. PLAN: 1. rehab: PT/OT, assess for DME needs, ambulating with RW 2. Neuro: s/p left unilateral laminectomy L3-L4 and L4-L5 with posterior lateral fusion on 07/04/18 for cauda equina syndrome- laminectomy precautions, f/u with Dr. Manning on discharge-ortho consulted 3. CArdio: pmh aortic valve replacement, not on aspirin or anticoagulation- will consult medicine to follow -elevated BPs and slighlty tachycardic, will start beta-gt 4. resp: omh COPD c/u breathing treatments, encourage incentive spirometry 5. Endo: pmh DM will do sliding scale coverage and monitor off metformin for now -Synthroid for hypothyroidism- TSH and FT4 normal 6. Psych: pmh anxiety wc/u increase daytime effexor dosing and monitor, was on valium, will hold while on opioids for pain 7. Pain: oxycodone prn, tylenol, gabapentin 8. : admission UA and Ucx negative, monitor PVRs, retention slightly worse today 9. GI ppx: protonix 10. DVT ppx: TEDs and heparin 11. Dispo: 07/15/18 to home, progressing towards goals. Allergies Coded Allergies: [place] Solvents (Verified Allergy, Severe, RESPIRATORY ISSUES, 07/04/18) prochlorperazine (Verified Adverse Reaction, Intermediate, EYES ROLLED BACK, 07/04/18) Vital Signs Vital Signs Date Time Temp Pulse Resp B/P (MAP) Pulse Ox O2 Delivery O2 Flow Rate FiO2 07/08/18 05:46 98.6 100 20 130/90 (103) 100 Laboratory Data CBC/BMP Laboratory Tests 07/08/18 06:43 Red Blood Count 3.15 L, Mean Corpuscular Volume 87.6, Mean Corpuscular Hemoglobin 27.6, Mean Corpuscular Hemoglobin Concent 31.5 L, Red Cell Distribution Width 13.9, Calcium Level 8.2 L Labs 24H Laboratory Tests 2 07/07/18 16:17: Bedside Glucose (Misc Panel) 111H 07/07/18 20:21: Bedside Glucose (Misc Panel) 131H 07/08/18 05:48: Bedside Glucose (Misc Panel) 116H 07/08/18 06:43: Nucleated Red Blood Cells % (auto) 0.0, Anion Gap 6L, Glomerular Filtration Rate > 60.0, Blood Urea Nitrogen 11, Creatinine 0.90, Sodium Level 139, Potassium Level 3.8, Chloride Level 105, Carbon Dioxide Level 28, Calcium Level 8.2L, Thyroid Stimulating Hormone (TSH) 3.650, Free Thyroxine 1.35 07/08/18 11:32: Bedside Glucose (Misc Panel) 198H Microbiology Microbiology 07/05/18 Urine Culture - Final, Complete Current Medications Current Medications Current Medications Acetaminophen (Tylenol Tab) 650 mg Q4HP PRN PO MILD PAIN (PS 1-4) Last administered on 07/06/18at 08:15; Start 07/05/18 at 17:30; Stop 07/06/18 at 13:53; Status DC Acetaminophen (Tylenol Tab) 650 mg QHS PO ; Start 07/07/18 at 21:00; Stop at 21:00; Status DC Acetaminophen (Tylenol Tab) 1,000 mg TID PO ; Start 07/06/18 at 16:00; Stop 07/06/18 at 16:03; Status DC Acetaminophen (Tylenol Tab) 1,000 mg TID PO Last administered on 07/08/18at 07:51; Start 07/06/18 at 16:00 Al Hydrox/Mg Hydrox/Simethicone (Mylanta) 30 ml Q4HP PRN PO DYSPEPSIA; Start 07/05/18 at 17:30 Albuterol Sulfate (Proventil, Ventolin Hfa) 2 puff Q4HP PRN INH SHORTNESS OF BREATH; Start 07/05/18 at 17:30 Bisacodyl (Dulcolax Suppository) 10 mg DAILYPRN PRN [place] CONSTIPATION; Start 07/05/18 at 17:30 Brimonidine Tartrate (Alphagan P 0.15%) 1 drop QHS OU Last administered on 07/07/18at 21:00; Start 07/05/18 at 21:00 Dextrose (Dextrose 50%) 25 ml ASDIRECTED PRN IV SEE LABEL COMMENTS; Start 07/05/18 at 17:30 Docusate Sodium (Colace) 100 mg BID PO Last administered on 07/06/18at 21:04; Start 07/05/18 at 21:00 Enoxaparin Sodium (Lovenox) 40 mg DAILY SC Last administered on 07/08/18at 07:48; Start 07/06/18 at 09:00 Fluticasone Propionate (Flonase 0.05% Nasal [place]) 2 spray DAILY NARES Last administered on 07/08/18at 07:52; Start 07/06/18 at 09:00 Gabapentin (Neurontin) 100 mg QHS PO Last administered on 07/05/18at 20:43; Start 07/05/18 at 21:00; Stop 07/06/18 at 13:53; Status DC Gabapentin (Neurontin) 100 mg TID PO Last administered on 07/08/18at 07:49; Start 07/06/18 at 16:00 Glucagon (Glucagon) 1 mg ASDIRECTED PRN SC SEE LABEL COMMENTS; Start 07/05/18 at 17:30 Glucose (Glucose) 16 GM ASDIRECTED PRN PO SEE LABEL COMMENTS; Start 07/05/18 at 17:30 Insulin Human Lispro (HumaLOG INSULIN) SEE PROTOCOL TABLE AC SC Last administered on 07/08/18at 07:49; Start 07/05/18 at 17:30 Insulin Human Lispro (HumaLOG INSULIN) SEE PROTOCOL TABLE QHS SC ; Start 07/05/18 at 21:00 Levothyroxine Sodium (Synthroid) 50 mcg DAILY@06 PO Last administered on 07/08at 06:00; Start 07/06/18 at 06:00 Magnesium Hydroxide (Milk Of Magnesia) 30 ml DAILYPRN PRN PO CONSTIPATION; Start 07/05/18 at 17:30 Ondansetron HCl (Zofran) 4 mg Q6HP PRN PO NAUSEA; Start 07/05/18 at 17:30 Oxycodone HCl (Roxicodone, Oxyir) 5 mg Q4HP PRN PO PAIN; Start 07/05/18 at 17:30; Stop 07/05/18 at 18:31; Status DC Oxycodone HCl (Roxicodone, Oxyir) 5 mg Q6HP PRN PO PAIN Last administered on 07/06/18at 21:44; Start 07/06/18 at 15:30; Stop 07/07/18 at 10:17; Status DC Oxycodone HCl (Roxicodone, Oxyir) 10 mg Q4HP PRN PO SEVERE PAIN (PS 8-10); Start 07/05/18 at 17:30; Stop 07/05/18 at 18:31; Status DC Oxycodone/ Acetaminophen (Percocet 5mg/ 325mg Tablet) 1 tab Q6HP PRN PO MILD/M ODERATE PAIN (PS 1-7) Last administered on 07/06/18at 11:24; Start 07/06/18 at 02:30; Stop 07/06/18 at 15:23; Status DC Salmeterol Xinafoate/ Fluticasone (Advair Hfa 230/ 21) 2 puff BID INH Last admi nistered on 07/07/18at 20:17; Start 07/05/18 at 21:00 Senna (Senokot) 1 tab QHS PO Last administered on 07/06/18at 21:04; Start 07/05/18 at 21:00 Sodium Chloride ([place] Nasal [place]) 2 spray TID NA Last administered on 07/08/18at 07:52; Start 07/05/18 at 21:00 Venlafaxine HCl (Effexor) 12.5 mg BID PO Last administered on 07/07/18at 09:21; Start 07/05/18 at 21:00; Stop 07/07/18 at 10:10; Status DC Venlafaxine HCl (Effexor) 12.5 mg QHS PO Last administered on 07/07/18at 20:45; Start 07/07/18 at 21:00 Venlafaxine HCl (Effexor) 25 mg BID PO ; Start 07/07/18 at 21:00; Stop 07/07/18 at 21:00; Status DC Venlafaxine HCl (Effexor) 25 mg DAILY PO Last administered on 07/08/18at 07:49; Start 07/08/18 at 09:00 A-FIB/CHADSVASC A-FIB History Current/History of A-Fib/PAF?: No AKSHAT MOORE MD Jul 08, 2018 12:09
[2018-07-08 14:00] VITALS: BP 170/78
[2018-07-08] MEDS: METOPROLOL SUCC *XL* 12.5MG PER 1/2 TAB (TopROL *XL*) PO SCH (14:14)
[2018-07-08] MEDS: guaiFENesin 200 MG TAB PO SCH ×2 (16:51→21:11)
--- NOTE | 2018-07-08 17:58 | IPNPDOC ---
Date Seen The patient was seen on 07/08/18. Progress Note SUBJECTIVE: Patient was in bed when I saw her today. Patient states that she might have over exerted herself today. Patient still utilizing Montalvo. Have informed patient that at some point the Montalvo will have to be removed. Patient express understanding. Patient resting until her next activity. OBJECTIVE PHYSICAL EXAMINATION: VITAL SIGNS: Please see below GENERAL APPEARANCE: Resting comfortably HEENT: Normocephalic, PERRLA, Mucous moist, CARDIOVASCULAR: S1,S2, pulse present, regularly, regular, LUNGS: Equal air entry b/l, no wheezes or crackle ABDOMEN: Soft, BS present, no tenderness, no guarding EXTREMITIES: B/L no edema, capillary refill present SKIN: Warm, No fever NEUROLOGICAL: Cranial nerves grossly intact PSYCHIATRIC: Normal mood and affect for current situation LABORATORY DATA, IMAGING STUDIES, MICROBIOLOGY: Please see below. ASSESSMENT AND PLAN: 77 y/o F who was found with compression fracture of L4, severe spinal canal stenosis at L3-L4 and L4-L5 with cauda equina impingement and underwent a left unilateral laminectomy L3-L4 and L4-L5 with posterior lateral fusion without complication. Pt was admitted to inpatient rehab. Rehab as per primary team UA culture no growth, remove Montalvo as soon as possible and as tolerated Type 2 diabetes. May resume home regimen History of chronic obstructive pulmonary disease (COPD) or asthma. -Continue albuterol inhaler on an as needed basis. Hypothyroidism. Continue her dose of levothyroxine. History of chronic anxiety. Resume home regimen Obstructive sleep apnea (KYLE) -She can use her own CPAP while she is here. Anemia, likely hospital induce -limit blood draw if possible -outpatient anemia workup -monitor for active bleed -Iron supplement prn DVT prop as per rehab, lower extremity Doppler negative for DVT bilaterally . VS, I&O, 24H, Fishbone Vital Signs/I&O Vital Signs Date Time Temp Pulse Resp B/P (MAP) Pulse Ox O2 Delivery O2 Flow Rate FiO2 07/08/18 14:14 104 170/78 07/08/18 14:00 98.6 19 96 I&O- Last 24 Hours up to 6 AM 07/08/18 06:00 Intake Total 1900 ml Output Total 2275 ml Balance -375 ml Laboratory Data 24H LABS Laboratory Tests 2 07/07/18 20:21: Bedside Glucose (Misc Panel) 131H 07/08/18 05:48: Bedside Glucose (Misc Panel) 116H 07/08/18 06:43: Nucleated Red Blood Cells % (auto) 0.0, Anion Gap 6L, Glomerular Filtration Rate > 60.0, Blood Urea Nitrogen 11, Creatinine 0.90, Sodium Level 139, Potassium Level 3.8, Chloride Level 105, Carbon Dioxide Level 28, Calcium Level 8.2L, Thyroid Stimulating Hormone (TSH) 3.650, Free Thyroxine 1.35 07/08/18 11:32: Bedside Glucose (Misc Panel) 198H 07/08/18 16:32: Bedside Glucose (Misc Panel) 78L CBC/BMP Laboratory Tests 07/08/18 06:43 Red Blood Count 3.15 L, Mean Corpuscular Volume 87.6, Mean Corpuscular Hemoglobin 27.6, Mean Corpuscular Hemoglobin Concent 31.5 L, Red Cell Distribution Width 13.9, Calcium Level 8.2 L Microbiology Microbiology 07/05/18 Urine Culture - Final, Complete ADEN HAYDEN MD Jul 08, 2018 17:58
[2018-07-08 20:00] VITALS: BP 141/78
[2018-07-08] MEDS: BRIMONIDINE 0.15% OPHTH SOLN 5 ML OU SCH (21:14)
[2018-07-09 06:00] VITALS: BP 157/77
[2018-07-09] MEDS: LEVOTHYROXINE 50MCG TABLET (0.05MG) PO SCH (06:23)
[2018-07-09] MEDS: HumaLOG INSULIN (NovoLOG) PER UNIT SC SCH ×4 (07:30→21:00)
[2018-07-09] MEDS: ADVAIR HFA 230/21MCG INHALER INH SCH ×2 (08:44→20:30)
[2018-07-09] MEDS: ENOXAPARIN 40 MG/0.4 ML SYRINGE (J1650) SC SCH (08:49)
[2018-07-09] MEDS: ACETAMINOPHEN 500 MG TAB PO SCH (08:49)
[2018-07-09] MEDS: GABAPENTIN 100 MG CAP PO SCH ×3 (08:49→21:05)
[2018-07-09] MEDS: VENLAFAXINE 25 MG TAB PO SCH ×2 (08:51→21:05)
[2018-07-09] MEDS: METOPROLOL SUCC *XL* 12.5MG PER 1/2 TAB (TopROL *XL*) PO SCH (08:51)
[2018-07-09] MEDS: guaiFENesin 200 MG TAB PO SCH ×3 (08:51→21:05)
[2018-07-09] MEDS: FLUTICASONE PROP 0.05% NASAL SPRAY 16 GM (FLONASE) NARES SCH (08:53)
[2018-07-09] MEDS: SODIUM CHLORIDE NASAL 0.65% SPRAY BTL (OCEAN) SCH ×3 (08:53→21:06)
[2018-07-09 14:00] VITALS: BP 136/66
--- NOTE | 2018-07-09 15:25 | IPNPDOC ---
Date Seen The patient was seen on 07/09/18. Progress Note SUBJECTIVE: Patient again in bed today. Not in acute distress. She states she had some extra pain overnight. Her pain medication was adjusted today to have lower dose TID but with additional PRN medications. OBJECTIVE PHYSICAL EXAMINATION: VITAL SIGNS: Please see below GENERAL APPEARANCE: Resting comfortably HEENT: Normocephalic, PERRLA, Mucous moist, CARDIOVASCULAR: S1,S2, pulse present, regularly, regular, LUNGS: Equal air entry b/l, no wheezes or crackle ABDOMEN: Soft, BS present, no tenderness, no guarding EXTREMITIES: B/L no edema, capillary refill present SKIN: Warm, No fever NEUROLOGICAL: Cranial nerves grossly intact PSYCHIATRIC: Normal mood and affect for current situation LABORATORY DATA, IMAGING STUDIES, MICROBIOLOGY: Please see below. ASSESSMENT AND PLAN: 77 y/o F who was found with compression fracture of L4, severe spinal canal stenosis at L3-L4 and L4-L5 with cauda equina impingement an d underwent a left unilateral laminectomy L3-L4 and L4-L5 with posterior lateral fusion without complication. Pt was admitted to inpatient rehab. Rehab as per primary team UA culture no growth, remove Montalvo as soon as possible and as tolerated Type 2 diabetes. May resume home regimen History of chronic obstructive pulmonary disease (COPD) or asthma. -Continue albuterol inhaler on an as needed basis. Hypothyroidism. Continue her dose of levothyroxine. History of chronic anxiety. Resume home regimen Obstructive sleep apnea (KYLE) -She can use her own CPAP while she is here. Anemia, likely hospital induce -limit blood draw if possible -outpatient anemia workup -monitor for active bleed -Iron supplement prn DVT prop as per rehab, lower extremity Doppler negative for DVT bilaterally. VS, I&O, 24H, [place] Vital Signs/I&O Vital Signs Date Time Temp Pulse Resp B/P (MAP) Pulse Ox O2 Delivery O2 Flow Rate FiO2 07/09/18 14:00 97.9 89 18 96 07/09/18 08:51 150/78 I&O- Last 24 Hours up to 6 AM 07/09/18 06:00 Intake Total 1740 ml Output Total 2000 ml Balance -260 ml Laboratory Data 24H LABS Laboratory Tests 2 07/08/18 16:32: Bedside Glucose (Misc Panel) 78L 07/08/18 19:52: Bedside Glucose (Misc Panel) 147H 07/09/18 05:57: Bedside Glucose (Misc Panel) 106 07/09/18 11:32: Bedside Glucose (Misc Panel) 108 Microbiology Microbiology 07/05/18 Urine Culture - Final, Complete ADEN HAYDEN MD Jul 09, 2018 15:25
[2018-07-09] MEDS: ACETAMINOPHEN TAB 650MG DOSE (2X325MG) PO SCH ×2 (16:11→21:05)
[2018-07-09 20:00] VITALS: BP 166/75
[2018-07-09] MEDS: BRIMONIDINE 0.15% OPHTH SOLN 5 ML OU SCH (21:06)
[2018-07-10] MEDS: ACETAMINOPHEN 500 MG TAB PO PRN (03:22)
[2018-07-10 06:00] VITALS: BP 156/88
[2018-07-10] MEDS: LEVOTHYROXINE 50MCG TABLET (0.05MG) PO SCH (06:34)
[2018-07-10] MEDS: ADVAIR HFA 230/21MCG INHALER INH SCH ×2 (07:33→20:39)
[2018-07-10] MEDS: HumaLOG INSULIN (NovoLOG) PER UNIT SC SCH ×4 (09:14→21:00)
[2018-07-10] MEDS: GABAPENTIN 100 MG CAP PO SCH ×3 (09:14→22:07)
[2018-07-10] MEDS: ENOXAPARIN 40 MG/0.4 ML SYRINGE (J1650) SC SCH (09:14)
[2018-07-10] MEDS: VENLAFAXINE 25 MG TAB PO SCH ×2 (09:14→22:07)
[2018-07-10] MEDS: guaiFENesin 200 MG TAB PO SCH ×3 (09:14→22:09)
[2018-07-10] MEDS: ACETAMINOPHEN TAB 650MG DOSE (2X325MG) PO SCH ×3 (09:15→22:06)
[2018-07-10] MEDS: METOPROLOL SUCC *XL* 25MG TAB (TopROL *XL*) PO SCH (09:17)
[2018-07-10] MEDS: SODIUM CHLORIDE NASAL 0.65% SPRAY BTL (OCEAN) SCH ×3 (09:17→22:08)
[2018-07-10] MEDS: FLUTICASONE PROP 0.05% NASAL SPRAY 16 GM (FLONASE) NARES SCH (09:18)
[2018-07-10 14:30] VITALS: BP 127/64
--- NOTE | 2018-07-10 15:41 | IPNPDOC ---
Date Seen The patient was seen on 07/10/18. Progress Note SUBJECTIVE: Patient without complaint today. Patient wants to try voiding trial. Will DC Montalvo today. Medication adjustment yesterday adequate for control of pain. OBJECTIVE PHYSICAL EXAMINATION: VITAL SIGNS: Please see below GENERAL APPEARANCE: Resting comfortably HEENT: Normocephalic, PERRLA, Mucous moist, CARDIOVASCULAR: S1,S2, pulse present, regularly, regular, LUNGS: Equal air entry b/l, no wheezes or crackle ABDOMEN: Soft, BS present, no tenderness, no guarding EXTREMITIES: B/L no edema, capillary refill present SKIN: Warm, No fever NEUROLOGICAL: Cranial nerves grossly intact PSYCHIATRIC: Normal mood and affect for current situation LABORATORY DATA, IMAGING STUDIES, MICROBIOLOGY: Please see below. ASSESSMENT AND PLAN: 77 y/o F who was found with compression fracture of L4, severe spinal canal stenosis at L3-L4 and L4-L5 with cauda equina impingement and underwent a left unilateral laminectomy L3-L4 and L4-L5 with posterior lateral fusion without complication. Pt was admitted to inpatient rehab. Rehab as per primary team UA culture no growth, remove Montalvo as soon as possible and as tolerated Type 2 diabetes. May resume home regimen History of chronic obstructive pulmonary disease (COPD) or asthma. -Continue albuterol inhaler on an as needed basis. Hypothyroidism. Continue her dose of levothyroxine. History of chronic anxiety. Resume home regimen Obstructive sleep apnea (KYLE) -She can use her own CPAP while she is here. Anemia, likely hospital induce -limit blood draw if possible -outpatient anemia workup -monitor for active bleed -Iron supplement prn DVT prop as per rehab, lower extremity Doppler negative for DVT bilaterally. VS, I&O, 24H, [facility] Vital Signs/I&O Vital Signs Date Time Temp Pulse Resp B/P (MAP) Pulse Ox O2 Delivery O2 Flow Rate FiO2 07/10/18 14:30 97.2 100 18 127/64 (85) 97 I&O- Last 24 Hours up to 6 AM 07/10/18 06:00 Intake Total 1380 ml Output Total 2225 ml Balance -845 ml Laboratory Data 24H LABS Laboratory Tests 2 07/09/18 16:34: Bedside Glucose (Misc Panel) 102 07/09/18 21:09: Bedside Glucose (Misc Panel) 118H 07/10/18 06:45: Bedside Glucose (Misc Panel) 114H 07/10/18 12:18: Bedside Glucose (Misc Panel) 100 Microbiology Microbiology 07/05/18 Urine Culture - Final, Complete ADEN HAYDEN MD Jul 10, 2018 15:41
[2018-07-10 20:00] VITALS: BP 160/78
[2018-07-10] MEDS: BRIMONIDINE 0.15% OPHTH SOLN 5 ML OU SCH (22:09)
[2018-07-11] MEDS: ACETAMINOPHEN 500 MG TAB PO PRN (05:31)
[2018-07-11] MEDS: LEVOTHYROXINE 50MCG TABLET (0.05MG) PO SCH (05:31)
[2018-07-11 05:35] VITALS: BP 160/80
[2018-07-11 06:43] LABS: HEMATOCRIT 27.1 % (36.0-47.0); HEMOGLOBIN 8.4 g/dl (12.0-15.5); MEAN CORPUSCULAR HEMOGLOBIN 27.4 pg (27.0-33.0); MEAN CORPUSCULAR VOLUME 88.3 fl (80.0-96.0); PLATELET COUNT, AUTOMATED 400 10^3/uL (150-450); RED BLOOD COUNT 3.07 10^6/uL (4.00-5.40)
[2018-07-11] MEDS: ADVAIR HFA 230/21MCG INHALER INH SCH ×2 (08:31→21:38)
[2018-07-11] MEDS: HumaLOG INSULIN (NovoLOG) PER UNIT SC SCH ×4 (08:45→21:00)
[2018-07-11] MEDS: ENOXAPARIN 40 MG/0.4 ML SYRINGE (J1650) SC SCH (08:45)
[2018-07-11] MEDS: GABAPENTIN 100 MG CAP PO SCH ×3 (08:46→22:07)
[2018-07-11] MEDS: VENLAFAXINE 25 MG TAB PO SCH ×2 (08:46→22:05)
[2018-07-11] MEDS: guaiFENesin 200 MG TAB PO SCH ×3 (08:46→22:07)
[2018-07-11] MEDS: METOPROLOL SUCC *XL* 25MG TAB (TopROL *XL*) PO SCH ×2 (08:47→22:06)
[2018-07-11] MEDS: ACETAMINOPHEN TAB 650MG DOSE (2X325MG) PO SCH ×3 (08:47→22:06)
[2018-07-11] MEDS: FLUTICASONE PROP 0.05% NASAL SPRAY 16 GM (FLONASE) NARES SCH (08:48)
[2018-07-11] MEDS: SODIUM CHLORIDE NASAL 0.65% SPRAY BTL (OCEAN) SCH ×3 (08:48→22:07)
--- NOTE | 2018-07-11 09:16 | DSES ---
DATE OF ADMISSION: 07/04/2018 DATE OF DISCHARGE: 07/05/2018 ATTENDING PHYSICIAN: Dr. Ashok Manning MD ADMISSION DIAGNOSIS: 1. Spinal stenosis at L3-4, L4-5 with spondylolisthesis at L4-5 with neurogenic claudication on the left greater than right. OTHER DIAGNOSES: 1. Diabetes 2. Hypertension 3. Hypothyroid 4. Asthma. DISCHARGE DIAGNOSIS: 1. Spinal stenosis at L3-4, L4-5 with spondylolisthesis at L4-5 and neurogenic claudication status post left unilateral laminectomy at L3-4 and L4-5 with fusion in situ. HISTORY: The patient is a 77-year-old female with progressively worsening low back and bilateral lower extremity radiculopathy. She failed to improve with conservative treatment. She consented for an elective left unilateral laminectomy at L3-4 and L4-5 with posterolateral fusion in situ by Dr. Manning. OPERATION PERFORMED: Left L3 unilateral laminectomy for decompression of the thecal sac in exiting nerve root, left unilateral laminectomy at L4 additional level, left unilateral laminectomy at L5 additional level, posterior intertransverse spinal fusion in situ using iliac crest and donor bone graft, harvest and placement of iliac crest bone graft, harvest and placement of local bone graft and use of donor graft. HOSPITAL COURSE: The patient underwent a left unilateral laminectomy at L3-4 and L4-5 with fusion in situ under general anesthesia which was uneventful. Her hospital course was without complication. She was discharged on oral pain medications and will resume her preoperative medications and diet. The patient will use her thromboembolic deterrent stockings as directed to prevent deep venous thrombosis. She will followup in our office in 7-10 days for wound check and reevaluation. She is encouraged to contact our office sooner if there is any increase in pain, drainage, redness, numbness or tingling in the lower extremities radiating pain into lower extremities, fever of greater than 101 degrees or any other concerns. Please see medical record for additional details. WINDYD
--- NOTE | 2018-07-11 16:10 | IPNPDOC ---
Date Seen The patient was seen on 07/11/18. Progress Note SUBJECTIVE: Patient working in physical therapy today. Patient is to return home but not planned for discharge for another 2 days. Patient denies any acute distress or pain. OBJECTIVE PHYSICAL EXAMINATION: VITAL SIGNS: Please see below GENERAL APPEARANCE: Resting comfortably HEENT: Normocephalic, PERRLA, Mucous moist, CARDIOVASCULAR: S1,S2, pulse present, regularly, regular LUNGS: Equal air entry b/l, no wheezes or crackle ABDOMEN: Soft, BS present, no tenderness, no guarding EXTREMITIES: B/L no edema, ca Is UA rehabilitation PMNR is a discharge summary for 3 pillary refill present SKIN: Warm, No fever NEUROLOGICAL: Cranial nerves grossly intact PSYCHIATRIC: Normal mood and affect for current situation LABORATORY DATA, IMAGING STUDIES, MICROBIOLOGY: Please see below. ASSESSMENT AND PLAN: 77 y/o F who was found with compression fracture of L4, severe spinal canal stenosis at L3-L4 and L4-L5 with cauda equina impingement and underwent a left unilateral laminectomy L3-L4 and L4-L5 with posterior lateral fusion without complication. Pt was admitted to inpatient rehab. Rehab as per primary team UA culture no growth, remove Montalvo as soon as possible and as tolerated Type 2 diabetes. May resume home regimen History of chronic obstructive pulmonary disease (COPD) or asthma. -Continue albuterol inhaler on an as needed basis. Hypothyroidism. Continue her dose of levothyroxine. History of chronic anxiety. Resume home regimen Obstructive sleep apnea (KYLE) -She can use her own CPAP while she is here. Anemia, likely hospital induce -limit blood draw if possible -outpatient anemia workup -monitor for active bleed -Iron supplement prn DVT prop as per rehab, lower extremity Doppler negative for DVT bilaterally. . VS, I&O, 24H, [place] Vital Signs/I&O Vital Signs Date Time Temp Pulse Resp B/P (MAP) Pulse Ox O2 Delivery O2 Flow Rate FiO2 07/11/18 08:47 85 160/80 07/11/18 05:35 98.8 18 98 I&O- Last 24 Hours up to 6 AM 07/11/18 06:00 Intake Total 2040 ml Output Total 975 ml Balance 1065 ml Laboratory Data 24H LABS Laboratory Tests 2 07/10/18 17:25: Bedside Glucose (Misc Panel) 165H 07/10/18 20:15: Bedside Glucose (Misc Panel) 126H 07/11/18 06:05: Nucleated Red Blood Cells % (auto) 0.0 07/11/18 06:19: Bedside Glucose (Misc Panel) 107 07/11/18 12:02: Bedside Glucose (Misc Panel) 101 CBC/BMP Laboratory Tests 07/11/18 06:05 Red Blood Count 3.07 L, Mean Corpuscular Volume 88.3, Mean Corpuscular Hemoglobin 27.4, Mean Corpuscular Hemoglobin Concent 31.0 L, Red Cell Distribution Width 13.8 Microbiology Microbiology 07/05/18 Urine Culture - Final, Complete ADEN HAYDEN MD Jul 11, 2018 16:10
[2018-07-11 20:28] VITALS: BP 149/67
[2018-07-11] MEDS: BRIMONIDINE 0.15% OPHTH SOLN 5 ML OU SCH (22:07)
[2018-07-12] MEDS: ACETAMINOPHEN 500 MG TAB PO PRN (03:26)
[2018-07-12] MEDS: LEVOTHYROXINE 50MCG TABLET (0.05MG) PO SCH (05:50)
[2018-07-12 05:59] VITALS: BP 154/72
[2018-07-12] MEDS: HumaLOG INSULIN (NovoLOG) PER UNIT SC SCH ×4 (07:53→20:26)
[2018-07-12] MEDS: VENLAFAXINE 25 MG TAB PO SCH ×2 (08:00→20:23)
[2018-07-12] MEDS: ENOXAPARIN 40 MG/0.4 ML SYRINGE (J1650) SC SCH (08:00)
[2018-07-12] MEDS: GABAPENTIN 100 MG CAP PO SCH ×3 (08:00→20:23)
[2018-07-12] MEDS: ADVAIR HFA 230/21MCG INHALER INH SCH ×3 (08:00→21:08)
[2018-07-12] MEDS: guaiFENesin 200 MG TAB PO SCH ×3 (08:01→20:23)
[2018-07-12] MEDS: ACETAMINOPHEN TAB 650MG DOSE (2X325MG) PO SCH ×3 (08:01→20:25)
[2018-07-12] MEDS: METOPROLOL SUCC *XL* 25MG TAB (TopROL *XL*) PO SCH ×2 (08:02→20:24)
[2018-07-12] MEDS: SODIUM CHLORIDE NASAL 0.65% SPRAY BTL (OCEAN) SCH ×3 (08:02→20:29)
[2018-07-12] MEDS: FLUTICASONE PROP 0.05% NASAL SPRAY 16 GM (FLONASE) NARES SCH (08:03)
[2018-07-12 14:00] VITALS: BP 142/57
--- NOTE | 2018-07-12 15:18 | IPNPDOC ---
Subjective Date Seen The patient was seen on 07/12/18. Subjective Chief Complaint/HPI 77 y/o F who was found with compression fracture of L4, severe spinal canal stenosis at L3-L4 and L4-L5 with cauda equina impingement and underwent a left unilateral laminectomy L3-L4 and L4-L5 with posterior lateral fusion without complication. Pt was admitted to inpatient rehab. Events since last encounter Reports weakness is really improving, was able to ambulate outside today with physical therapy. Feels she is walking really well. Staff reports patient still having some difficulty managing her right ileostomy. Otherwise, general improvement Objective Physical Examination Other physical findings Gen.: Elderly female in no acute distress. Skin: Warm, dry, intact. Cardiovascular: Regular rate and rhythm, systolic murmur noted, no jugular venous distention, no edema. Respiratory: Light auscultation bilaterally, no accessory muscle use noted. Abdomen: Bowel sounds present, Ileostomy draining, port intact, no erythema or drainage to Ileostomy site. Musculoskeletal: No joint deformities, Neurologic: Left-sided weakness, alert and oriented 3 Psychiatric: Appropriate mood and affect, no anxiety or agitation. A-FIB/CHADSVASC A-FIB History Current/History of A-Fib/PAF?: No Assessment /Plan Problems (1) Compression fracture of lumbar vertebra Status: Acute Response to Treatment: Improving Problem Text: -Status post left unilateral laminectomy --Currently in rehabilitation for immobilization and strengthening -Improving (2) Diabetes mellitus Status: Chronic Response to Treatment: Controlled Problem Text: -Fingerstick checks prior to meals and bedtime -Coverage with insulin per sliding scale protocol (3) Hypothyroidism Status: Chronic Response to Treatment: Stable Problem Text: -Continue Synthroid (4) Anemia Status: Chronic Response to Treatment: Stable Problem Text: -No acute sign of bleeding -Continue to monitor, transfuse. 4. Hemodynamic instability or hemoglobin less than 8 (5) COPD (chronic obstructive pulmonary disease) Status: Chronic Response to Treatment: Stable Problem Text: -No acute exacerbation (6) Obstructive sleep apnea Status: Chronic Response to Treatment: Stable Problem Text: -Continue CPAP use at bedtime Plan/VTE VTE Prophylaxis Ordered?: Yes VS, I&O, 24H, Fishbone Vital Signs/I&O Vital Signs Date Time Temp Pulse Resp B/P (MAP) Pulse Ox O2 Delivery O2 Flow Rate FiO2 07/12/18 14:00 97.9 80 17 142/57 (85) 99 I&O- Last 24 Hours up to 6 AM 07/12/18 06:00 Intake Total 3280 ml Output Total 325 ml Balance 2955 ml Laboratory Data 24H LABS Laboratory Tests 2 07/11/18 16:40: Bedside Glucose (Misc Panel) 88 07/11/18 20:06: Bedside Glucose (Misc Panel) 157H 07/12/18 05:54: Bedside Glucose (Misc Panel) 105 07/12/18 11:32: Bedside Glucose (Misc Panel) 84 Microbiology Microbiology 07/05/18 Urine Culture - Final, Complete DONG BENJAMIN SILO MAN Jul 12, 2018 15:18
--- NOTE | 2018-07-12 17:40 | IPNPDOC ---
PM&R Progress Note DATE OF SERVICE: Jul 12, 2018 Window Trimmer Apprentice Progress Note Subjective: Patient reports she fthinks she had trouble with her ileostomy care because she did not have her supplies set up as usual. REVIEW OF SYSTEMS: The following is a completed review of systems and has been reviewed. Review of systems otherwise unremarkable. PAIN: Patient self reports incisional back pain EYES: Negative recent vision loss EARS, NOSE, & THROAT: denies dysphagia or sinus pressure CARDIOVASCULAR: denies chest pain or palpitations PULMONARY: Negative. Denies shortness of breath GASTROINTESTINAL: +ileostomy GENITOURINARY: +retention (improving) MUSCULOSKELETAL: low back pain and LE weakness NEUROLOGICAL: no tremor or seizure activity SKIN: lumbar incision and ostomy site c/d/i PSYCHIATRIC: Unremarkable All other review of systems found to be negative. PHYSICAL EXAMINATION: VITAL SIGNS: Please see below. GENERAL: Pleasant and cooperative. No acute distress. HEENT: PERRL. Extraocular movements intact. Clear conjunctiva CARDIOVASCULAR: Regular rate and rhythm. No murmurs, rubs, or gallops LUNGS: Clear to auscultation bilaterally. No wheezes. No rhonchi ABDOMEN: Soft, nontender, nondistended. Positive bowel sounds. Normal active bowel sounds, +ileostomy NEUROLOGICAL: Alert and oriented times three. Cranial nerves II through XII grossly intact. Sensation grossly intact to light touch EXTREMITIES: 5\5 strength bilateral upper extremities. 5-\5 strength right lower extremity. 4+/5 strength in left lower extremity. 3+ patellar reflexes SKIN: lumbar incision c/d/i, ostomy site c/d/i, no sacral ulcers ASSESSMENT:77-year-old F with past medical history of HTN, anxiety, low back pain who presents status post laminectomy and fusion for cauda equina syndrome. PLAN: 1. rehab: PT/OT, assess for DME needs, ambulating further with RW at [facility], however safety concerns in OT with motor planning 2. Neuro: s/p left unilateral laminectomy L3-L4 and L4-L5 with posterior lateral fusion on 07/04/18 for cauda equina syndrome- laminectomy precautions, f/u with Dr. Manning on discharge-ortho consulted 3. CArdio: pmh aortic valve replacement, not on aspirin or anticoagulation- will consult medicine to follow -elevated BPs and slighlty tachycardic, c/u beta-gt, improving 4. resp: omh COPD c/u breathing treatments, encourage incentive spirometry 5. Endo: pmh DM will do sliding scale coverage and monitor off metformin for now -Synthroid for hypothyroidism- TSH and FT4 normal 6. Psych: pmh anxiety wc/u increase daytime effexor dosing and monitor, was on valium, will hold while on opioids for pain 7. Pain: oxycodone prn, tylenol, gabapentin 8. : admission UA and Ucx negative, monitor PVRs, wesley placed over the weekend, then discontinued, voiding well 9. GI ppx: protonix 10. DVT ppx: TEDs and heparin 11. Dispo: 07/15/18 to home, progressing towards goals Allergies Coded Allergies: [place] Solvents (Verified Allergy, Severe, RESPIRATORY ISSUES, 07/04/18) prochlorperazine (Verified Adverse Reaction, Intermediate, EYES ROLLED BACK, 07/04/18) Vital Signs Vital Signs Date Time Temp Pulse Resp B/P (MAP) Pulse Ox O2 Delivery O2 Flow Rate FiO2 07/12/18 14:00 97.9 80 17 142/57 (85) 99 Laboratory Data Labs 24H Laboratory Tests 2 07/11/18 20:06: Bedside Glucose (Misc Panel) 157H 07/12/18 05:54: Bedside Glucose (Misc Panel) 105 07/12/18 11:32: Bedside Glucose (Misc Panel) 84 07/12/18 16:38: Bedside Glucose (Misc Panel) 139H Microbiology Microbiology 07/05/18 Urine Culture - Final, Complete Current Medications Current Medications Current Medications Acetaminophen (Tylenol Tab) 500 mg Q6HP PRN PO PAIN / FEVER Last administered on 07/12/18at 03:26; Start 07/09/18 at 10:45 Acetaminophen (Tylenol Tab) 650 mg Q4HP PRN PO MILD PAIN (PS 1-4) Last administered on 07/06/18at 08:15; Start 07/05/18 at 17:30; Stop 07/06/18 at 13:53; Status DC Acetaminophen (Tylenol Tab) 650 mg QHS PO ; Start 07/07/18 at 21:00; Stop 07/07/18 at 21:00; Status DC Acetaminophen (Tylenol Tab) 650 mg TID PO Last administered on 07/12/18at 16:22; Start 07/09/18 at 16:00 Acetaminophen (Tylenol Tab) 1,000 mg TID PO ; Start 07/06/18 at 16:00; Stop 07/06/18 at 16:03; Status DC Acetaminophen (Tylenol Tab) 1,000 mg TID PO Last administered on 07/09/18 08:49; Start 07/06/18 at 16:00; Stop 07/09/18 at 10:37; Status DC Al Hydrox/Mg Hydrox/Simethicone (Mylanta) 30 ml Q4HP PRN PO DYSPEPSIA; Start 07/05/18 at 17:30 Albuterol Sulfate (Proventil, Ventolin Hfa) 2 puff Q4HP PRN INH SHORTNESS OF BREATH; Start 07/05/18 at 17:30 Bisacodyl (Dulcolax Suppository) [address] CONSTIPATION; Start 07/05/18 at 17:30 Brimonidine Tartrate (Alphagan P 0.15%) 1 drop QHS OU Last administered on 07/11/18at 22:07; Start 07/05/18 at 21:00 Dextrose (Dextrose 50%) 25 ml ASDIRECTED PRN IV SEE LABEL COMMENTS; Start 07/05/18 at 17:30 Docusate Sodium (Colace) 100 mg BID PO Last administered on 07/06/18at 21:04; Start 07/05/18 at 21:00; Stop 07/08/18 at 12:07; Status DC Enoxaparin Sodium (Lovenox) 40 mg DAILY SC Last administered on 07/12/18at 08:00; Start 07/06/18 at 09:00 Fluticasone Propionate (Flonase 0.05% Nasal [place]) 2 spray DAILY NARES Last administered on 07/12/18 08:03; Start 07/06/18 at 09:00 Gabapentin (Neurontin) 100 mg QHS PO Last administered on 07/05/18at 20:43; Start 07/05/18 at 21:00; Stop 07/06/18 at 13:53; Status DC Gabapentin (Neurontin) 100 mg TID PO Last administered on 07/12/18 16:22; Start 07/06/18 at 16:00 Glucagon (Glucagon) 1 mg ASDIRECTED PRN SC SEE LABEL COMMENTS; Start 07/05/18 at 17:30 Glucose (Glucose) 16 GM ASDIRECTED PRN PO SEE LABEL COMMENTS; Start 07/05/18 at 17:30 Guaifenesin (Robitussin Tab) 400 mg TID PO Last administered on 07/12/18at 16:22; Start 07/08/18 at 16:00 Insulin Human Lispro (HumaLOG INSULIN) SEE PROTOCOL TABLE AC SC Last administered on 07/12/18at 07:53; Start 07/05/18 at 17:30 Insulin Human Lispro (HumaLOG INSULIN) SEE PROTOCOL TABLE QHS SC ; Start 07/05/18 at 21:00 Levothyroxine Sodium (Synthroid) 50 mcg DAILY@06 PO Last administered on 07/12/18at 05:50; Start 07/06/18 at 06:00 Magnesium Hydroxide (Milk Of Magnesia) 30 ml DAILYPRN PRN PO CONSTIPATION; Start 07/05/18 at 17:30 Metoprolol Succinate (TopROL XL) 12.5 mg DAILY PO Last administered on 07/09/18at 08:51; Start 07/08/18 at 09:00; Stop 07/09/18 at 10:35; Status DC Metoprolol Succinate (TopROL XL) 25 mg BID PO Last administered on 07/12/18at 08:02; Start 07/11/18 at 21:00 Metoprolol Succinate (TopROL XL) 25 mg DAILY PO Last administered on 07/11/18at 08:47; Start 07/10/18 at 09:00; Stop 07/11/18 at 09:37; Status DC Miscellaneous (Unresolved Clarification Entry) SEE LABEL COMMENTS DAILY XX ; Start 07/12/18 at 09:00; Stop 07/12/18 at 14:07; Status DC Ondansetron HCl (Zofran) 4 mg Q6HP PRN PO NAUSEA; Start 07/05/18 at 17:30 Oxycodone HCl (Roxicodone, Oxyir) 5 mg Q4HP PRN PO PAIN; Start 07/05/18 at 17:30; Stop 07/05/18 at 18:31; Status DC Oxycodone HCl (Roxicodone, Oxyir) 5 mg Q6HP PRN PO PAIN Last administered on 07/06/18at 21:44; Start 07/06/18 at 15:30; Stop 07/07/18 at 10:17; Status DC Oxycodone HCl (Roxicodone, Oxyir) 10 mg Q4HP PRN PO SEVERE PAIN (PS 8-10); Start 07/05/18 at 17:30; Stop 07/05/18 at 18:31; Status DC Oxycodone/ Acetaminophen (Percocet 5mg/ 325mg Tablet) 1 tab Q6HP PRN PO MILD/MODERATE PAIN (PS 1-7) Last administered on 07/06/18 11:24; Start 07/06/18 at 02:30; Stop 07/06/18 at 15:23; Status DC Salmeterol Xinafoate/ Fluticasone (Advair Hfa 230/ 21) 2 puff BID INH Last administered on 07/11/18at 21:38; Start 07/05/18 at 21:00 Senna (Senokot) 1 tab QHS PO Last administered on 07/06/18 21:04; Start 07/05/18 at 21:00; Stop 07/08/18 at 12:07; Status DC Sodium Chloride ([place] Nasal [place]) 2 spray TID NA Last administered on 07/12/18 16:22; Start 07/05/18 at 21:00 Venlafaxine HCl (Effexor) 12.5 mg BID PO Last administered on 07/07/18 09:21; Start 07/05/18 at 21:00; Stop 07/07/18 at 10:10; Status DC Venlafaxine HCl (Effexor) 12.5 mg QHS PO Last administered on 07/11/18at 22:05; Start 07/07/18 at 21:00 Venlafaxine HCl (Effexor) 25 mg BID PO ; Start 07/07/18 at 21:00; Stop 07/07/18 at 21:00; Status DC Venlafaxine HCl (Effexor) 25 mg DAILY PO Last administered on 07/12/18at 08:00; Start 07/08/18 at 09:00 A-FIB/CHADSVASC A-FIB History Current/History of A-Fib/PAF?: No AKSHAT MOORE MD Jul 12, 2018 17:40
[2018-07-12 20:00] VITALS: BP 152/70
[2018-07-12] MEDS: BRIMONIDINE 0.15% OPHTH SOLN 5 ML OU SCH (20:28)
[2018-07-13] MEDS: ACETAMINOPHEN 500 MG TAB PO PRN (01:44)
[2018-07-13 06:00] VITALS: BP 139/67
[2018-07-13] MEDS: LEVOTHYROXINE 50MCG TABLET (0.05MG) PO SCH (06:20)
[2018-07-13] MEDS: ADVAIR HFA 230/21MCG INHALER INH SCH ×2 (07:37→20:16)
[2018-07-13] MEDS: GABAPENTIN 100 MG CAP PO SCH ×3 (08:32→21:36)
[2018-07-13] MEDS: HumaLOG INSULIN (NovoLOG) PER UNIT SC SCH ×2 (08:32→12:15)
[2018-07-13] MEDS: VENLAFAXINE 25 MG TAB PO SCH ×2 (08:32→21:36)
[2018-07-13] MEDS: METOPROLOL SUCC *XL* 25MG TAB (TopROL *XL*) PO SCH ×2 (08:32→21:36)
[2018-07-13] MEDS: ENOXAPARIN 40 MG/0.4 ML SYRINGE (J1650) SC SCH (08:32)
[2018-07-13] MEDS: guaiFENesin 200 MG TAB PO SCH ×3 (08:33→21:35)
[2018-07-13] MEDS: ACETAMINOPHEN TAB 650MG DOSE (2X325MG) PO SCH ×3 (08:33→21:37)
[2018-07-13] MEDS: SODIUM CHLORIDE NASAL 0.65% SPRAY BTL (OCEAN) SCH ×3 (08:33→21:40)
[2018-07-13] MEDS: FLUTICASONE PROP 0.05% NASAL SPRAY 16 GM (FLONASE) NARES SCH (08:33)
--- NOTE | 2018-07-13 10:38 | IPNPDOC ---
Subjective Date Seen The patient was seen on 07/13/18. Subjective Chief Complaint/HPI 77 y/o F who was found with compression fracture of L4, severe spinal canal stenosis at L3-L4 and L4-L5 with cauda equina impingement and underwent a left unilateral laminectomy L3-L4 and L4-L5 with posterior lateral fusion without complication. Pt was admitted to inpatient rehab. medical team following for management of underlying medicaL co-morbidities Events since last encounter Currently in rehab with therapists. Complains of persisting left thigh outer asp ect discomfort like a mild strain. otherwise doing well. Objective Physical Examination Other physical findings Gen.: Elderly female in rehab chair, in no acute distress. Skin: Warm, dry, intact. Cardiovascular: Regular rate and rhythm, systolic murmur noted, no jugular venous distention, no edema. Respiratory: clear to auscultation bilaterally, no accessory muscle use noted. Abdomen: Bowel sounds present, Ileostomy draining, port intact, no erythema or drainage to Ileostomy site. Musculoskeletal: No joint deformities, Neurologic: Left-sided weakness, alert and oriented 3 Psychiatric: Appropriate mood and affect, no anxiety or agitation. A-FIB/CHADSVASC A-FIB History Current/History of A-Fib/PAF?: No Assessment /Plan Problems (1) Compression fracture of lumbar vertebra Status: Acute Response to Treatment: Improving Problem Text: --S/P left unilateral laminectomy --Currently in rehabilitation for immobilization and strengthening --no acute issues --continues to improve (2) Diabetes mellitus Status: Chronic Response to Treatment: Controlled Problem Text: -fasting blood glucose has been usually <150 -continue fingerstick checks prior to meals and bedtime -Coverage with insulin per sliding scale protocol (3) Hypothyroidism Status: Chronic Response to Treatment: Stable Problem Text: -Continue Synthroid (4) Anemia Status: Chronic Response to Treatment: Stable Problem Text: -No acute sign of bleeding -Continue to monitor, transfuse. 4. Hemodynamic instability or hemoglobin less than 8 (5) COPD (chronic obstructive pulmonary disease) Status: Chronic Response to Treatment: Stable Problem Text: -No acute exacerbation (6) Obstructive sleep apnea Status: Chronic Response to Treatment: Stable Problem Text: -Continue CPAP use at bedtime Plan/VTE VTE Prophylaxis Ordered?: Yes (lovenox 40mg daily) VS, I&O, 24H, Fishbone Vital Signs/I&O Vital Signs Date Time Temp Pulse Resp B/P (MAP) Pulse Ox O2 Delivery O2 Flow Rate FiO2 07/13/18 08:32 74 139/67 07/13/18 06:00 98.2 18 96 I&O- Last 24 Hours up to 6 AM 07/13/18 05:59 Intake Total 1220 ml Balance 1220 ml Laboratory Data 24H LABS Laboratory Tests 2 07/12/18 11:32: Bedside Glucose (Misc Panel) 84 07/12/18 16:38: Bedside Glucose (Misc Panel) 139H 07/12/18 19:36: Bedside Glucose (Misc Panel) 122H 07/13/18 06:28: Bedside Glucose (Misc Panel) 116H Microbiology Microbiology 07/05/18 Urine Culture - Final, Complete DONG BENJAMIN PROMOTIONAL MARKETING ANALYST July 13, 2018 10:38
--- NOTE | 2018-07-13 10:57 | IPNPDOC ---
PM&R Progress Note DATE OF SERVICE: July 13, 2018 Chief Environmental Commitment Officer Progress Note Subjective: Patient reports she thinks her mood is better with the increased daily Effexor dose. REVIEW OF SYSTEMS: The following is a completed review of systems and has been reviewed. Review of systems otherwise unremarkable. PAIN: Patient self reports incisional back pain EYES: Negative recent vision loss EARS, NOSE, & THROAT: denies dysphagia or sinus pressure CARDIOVASCULAR: denies chest pain or palpitations PULMONARY: Negative. Denies shortness of breath GASTROINTESTINAL: +ileostomy GENITOURINARY: +retention (improving) MUSCULOSKELETAL: low back pain and LE weakness NEUROLOGICAL: no tremor or seizure activity SKIN: lumbar incision and ostomy site c/d/i PSYCHIATRIC: Unremarkable All other review of systems found to be negative. PHYSICAL EXAMINATION: VITAL SIGNS: Please see below. GENERAL: Pleasant and cooperative. No acute distress. HEENT: PERRL. Extraocular movements intact. Clear conjunctiva CARDIOVASCULAR: Regular rate and rhythm. No murmurs, rubs, or gallops LUNGS: Clear to auscultation bilaterally. No wheezes. No rhonchi ABDOMEN: Soft, nontender, nondistended. Positive bowel sounds. Normal active bowel sounds, +ileostomy NEUROLOGICAL: Alert and oriented times three. Cranial nerves II through XII grossly intact. Sensation grossly intact to light touch EXTREMITIES: 5\5 strength bilateral upper extremities. 5-\5 strength right lower extremity. 4+/5 strength in left lower extremity. 3+ patellar reflexes SKIN: lumbar incision c/d/i, ostomy site c/d/i, no sacral ulcers ASSESSMENT:77-year-old F with past medical history of HTN, anxiety, low back pain who presents status post laminectomy and fusion for cauda equina syndrome. PLAN: 1. rehab: PT/OT, assess for DME needs, ambulating further with RW at [facility] level, however safety concerns in OT with motor planning 2. Neuro: s/p left unilateral laminectomy L3-L4 and L4-L5 with posterior lateral fusion on 07/04/18 for cauda equina syndrome- laminectomy precautions, f/u with Dr. Manning on discharge-ortho consulted 3. CArdio: pmh aortic valve replacement, not on aspirin or anticoagulation- will consult medicine to follow -elevated BPs and slighlty tachycardic, c/u beta-gt, improving 4. resp: omh COPD c/u breathing treatments, encourage incentive spirometry 5. Endo: pmh DM will d/c sliding scale coverage and monitor off metformin for now with BID FS -Synthroid for hypothyroidism- TSH and FT4 normal 6. Psych: pmh anxiety c/u increase daytime effexor dosing and monitor-patient reporting feeling better mood in the daytime 7. Pain: oxycodone prn, tylenol, gabapentin 8. : admission UA and Ucx negative, monitor PVRs, wesley placed over the weekend, then discontinued, voiding well 9. GI ppx: protonix 10. DVT ppx: TEDs and heparin 11. Dispo: 07/15/18 to home, progressing towards goals Allergies Coded Allergies: [place] Solvents (Verified Allergy, Severe, RESPIRATORY ISSUES, 07/04/18) prochlorperazine (Verified Adverse Reaction, Intermediate, EYES ROLLED BACK, 07/04/18) Vital Signs Vital Signs Date Time Temp Pulse Resp B/P (MAP) Pulse Ox O2 Delivery O2 Flow Rate FiO2 07/13/18 08:32 74 139/67 07/13/18 06:00 98.2 18 96 Laboratory Data Labs 24H Laboratory Tests 2 07/12/18 11:32: Bedside Glucose (Misc Panel) 84 07/12/18 16:38: Bedside Glucose (Misc Panel) 139H 07/12/18 19:36: Bedside Glucose (Misc Panel) 122H 07/13/18 06:28: Bedside Glucose (Misc Panel) 116H Microbiology Microbiology 07/05/18 Urine Culture - Final, Complete Current Medications Current Medications Current Medications Acetaminophen (Tylenol Tab) 500 mg Q6HP PRN PO PAIN / FEVER Last administered on 07/13/18at 01:44; Start 07/09/18 at 10:45 Acetaminophen (Tylenol Tab) 650 mg Q4HP PRN PO MILD PAIN (PS 1-4) Last administered on 07/06/18at 08:15; Start 07/05/18 at 17:30; Stop 07/06/18 at 13:53; Status DC Acetaminophen (Tylenol Tab) 650 mg QHS PO ; Start 07/07/18 at 21:00; Stop 07/07/18 at 21:00; Status DC Acetaminophen (Tylenol Tab) 650 mg TID PO Last administered on 07/13/18at 08:33; Start 07/09/18 at 16:00 Acetaminophen (Tylenol Tab) 1,000 mg TID PO ; Start 07/06/18 at 16:00; Stop 07/06/18 at 16:03; Status DC Acetaminophen (Tylenol Tab) 1,000 mg TID PO Last administered on 07/09/18at 08:49; Start 07/06/18 at 16:00; Stop 07/09/18 at 10:37; Status DC Al Hydrox/Mg Hydrox/Simethicone (Mylanta) 30 ml Q4HP PRN PO DYSPEPSIA; Start 07/05/18 at 17:30 Albuterol Sulfate (Proventil, Ventolin Hfa) 2 puff Q4HP PRN INH SHORTNESS OF BREATH; Start 07/05/18 at 17:30 Bisacodyl (Dulcolax Suppository) 10 mg DAILYPRN PRN [place] CONSTIPATION; Start 07/05/18 at 17:30 Brimonidine Tartrate (Alphagan P 0.15%) 1 drop QHS OU Last administered on 07/12/18 20:28; Start 07/05/18 at 21:00 Dextrose (Dextrose 50%) 25 ml ASDIRECTED PRN IV SEE LABEL COMMENTS; Start 07/05/18 at 17:30 Docusate Sodium (Colace) 100 mg BID PO Last administered on 07/06/18 21:04; Start 07/05/18 at 21:00; Stop 07/08/18 at 12:07; Status DC Enoxaparin Sodium (Lovenox) 40 mg DAILY SC Last administered on 07/13/18 08:32; Start 07/06/18 at 09:00 Fluticasone Propionate (Flonase 0.05% Nasal [place]) 2 spray DAILY NARES Last administered on 07/13/18 08:33; Start 07/06/18 at 09:00 Gabapentin (Neurontin) 100 mg QHS PO Last administered on 07/05/18at 20:43; Start 07/05/18 at 21:00; Stop 07/06/18 at 13:53; Status DC Gabapentin (Neurontin) 100 mg TID PO Last administered on 07/13/18 08:32; Start 07/06/18 at 16:00 Glucagon (Glucagon) 1 mg ASDIRECTED PRN SC SEE LABEL COMMENTS; Start 07/05/18 at 17:30 Glucose (Glucose) 16 GM ASDIRECTED PRN PO SEE LABEL COMMENTS; Start 07/05/18 at 17:30 Guaifenesin (Robitussin Tab) 400 mg TID PO Last administered on 07/13/18at 08:33; Start 07/08/18 at 16:00 Insulin Human Lispro (HumaLOG INSULIN) SEE PROTOCOL TABLE AC SC Last administered on 07/13/18at 08:32; Start 07/05/18 at 17:30 Insulin Human Lispro (HumaLOG INSULIN) SEE PROTOCOL TABLE QHS SC ; Start 07/05/18 at 21:00 Levothyroxine Sodium (Synthroid) 50 mcg DAILY@06 PO Last administered on 07/13/18at 06:20; Start 07/06/18 at 06:00 Magnesium Hydroxide (Milk Of Magnesia) 30 ml DAILYPRN PRN PO CONSTIPATION; Start 07/05/18 at 17:30 Metoprolol Succinate (TopROL XL) 12.5 mg DAILY PO Last administered on 07/09/18at 08:51; Start 07/08/18 at 09:00; Stop 07/09/18 at 10:35; Status DC Metoprolol Succinate (TopROL XL) 25 mg BID PO Last administered on 07/13/18at 08:32; Start 07/11/18 at 21:00 Metoprolol Succinate (TopROL XL) 25 mg DAILY PO Last administered on 07/11/18at 08:47; Start 07/10/18 at 09:00; Stop 07/11/18 at 09:37; Status DC Miscellaneous (Unresolved Clarification Entry) SEE LABEL COMMENTS DAILY XX ; Start 07/12/18 at 09:00; Stop 07/12/18 at 14:07; Status DC Ondansetron HCl (Zofran) 4 mg Q6HP PRN PO NAUSEA; Start 07/05/18 at 17:30 Oxycodone HCl (Roxicodone, Oxyir) 5 mg Q4HP PRN PO PAIN; Start 07/05/18 at 17:30; Stop 07/05/18 at 18:31; Status DC Oxycodone HCl (Roxicodone, Oxyir) 5 mg Q6HP PRN PO PAIN Last administered on 07/06/18at 21:44; Start 07/06/18 at 15:30; Stop 07/07/18 at 10:17; Status DC Oxycodone HCl (Roxicodone, Oxyir) 10 mg Q4HP PRN PO SEVERE PAIN (PS 8-10); Start 07/05/18 at 17:30; Stop 07/05/18 at 18:31; Status DC Oxycodone/ Acetaminophen (Percocet 5mg/ 325mg Tablet) 1 tab Q6HP PRN PO MILD/MODERATE PAIN (PS 1-7) Last administered on 07/06/18at 11:24; Start 07/06/18 at 02:30; Stop 07/06/18 at 15:23; Status DC Salmeterol Xinafoate/ Fluticasone (Advair Hfa 230/ 21) 2 puff BID INH Last administered on 07/13/18 07:37; Start 07/05/18 at 21:00 Senna (Senokot) 1 tab QHS PO Last administered on 07/06/18 21:04; Start 07/05/18 at 21:00; Stop 07/08/18 at 12:07; Status DC Sodium Chloride ([place] Nasal [place]) 2 spray TID NA Last administered on 07/13/18 08:33; Start 07/05/18 at 21:00 Venlafaxine HCl (Effexor) 12.5 mg BID PO Last administered on 07/07/18at 09:21; Start 07/05/18 at 21:00; Stop 07/07/18 at 10:10; Status DC Venlafaxine HCl (Effexor) 12.5 mg QHS PO Last administered on 07/12/18at 20:23; Start 07/07/18 at 21:00 Venlafaxine HCl (Effexor) 25 mg BID PO ; Start 07/07/18 at 21:00; Stop 07/07/18 at 21:00; Status DC Venlafaxine HCl (Effexor) 25 mg DAILY PO Last administered on 07/13/18 08:32; Start 07/08/18 at 09:00 A-FIB/CHADSVASC A-FIB History Current/History of A-Fib/PAF?: No AKSHAT MOORE MD July 13, 2018 10:57
[2018-07-13 14:00] VITALS: BP 151/70
[2018-07-13] MEDS: BRIMONIDINE 0.15% OPHTH SOLN 5 ML OU SCH (21:39)
[2018-07-13 22:00] VITALS: BP 150/70
[2018-07-14] MEDS: ACETAMINOPHEN 500 MG TAB PO PRN (02:22)
[2018-07-14 06:00] VITALS: BP 135/65
[2018-07-14] MEDS: LEVOTHYROXINE 50MCG TABLET (0.05MG) PO SCH (06:27)
[2018-07-14 07:15] LABS: HEMOGLOBIN 8.4 g/dl (12.0-15.5); MEAN CORPUSCULAR HEMOGLOBIN 27.5 pg (27.0-33.0); MEAN CORPUSCULAR HGB CONC 31.1 g/dl (32.0-36.5); MEAN CORPUSCULAR VOLUME 88.2 fl (80.0-96.0); PLATELET COUNT, AUTOMATED 439 10^3/uL (150-450); RED BLOOD COUNT 3.06 10^6/uL (4.00-5.40)
[2018-07-14 07:36] LABS: ALBUMIN 2.9 GM/DL (3.2-5.2); BILIRUBIN,TOTAL 0.2 MG/DL (0.2-1.0); CREATININE FOR GFR 0.98 MG/DL (0.55-1.30); GLOMERULAR FILTRATION RATE 58.4 (>39); POTASSIUM SERUM 4.1 MEQ/L (3.5-5.1); TOTAL PROTEIN 6.9 GM/DL (6.4-8.2)
[2018-07-14] MEDS: GABAPENTIN 100 MG CAP PO SCH ×3 (09:22→21:41)
[2018-07-14] MEDS: VENLAFAXINE 25 MG TAB PO SCH ×2 (09:22→21:42)
[2018-07-14] MEDS: guaiFENesin 200 MG TAB PO SCH ×3 (09:22→21:42)
[2018-07-14] MEDS: METOPROLOL SUCC *XL* 25MG TAB (TopROL *XL*) PO SCH ×2 (09:23→21:42)
[2018-07-14] MEDS: ENOXAPARIN 40 MG/0.4 ML SYRINGE (J1650) SC SCH (09:23)
[2018-07-14] MEDS: ACETAMINOPHEN TAB 650MG DOSE (2X325MG) PO SCH ×3 (09:23→21:42)
[2018-07-14] MEDS: SODIUM CHLORIDE NASAL 0.65% SPRAY BTL (OCEAN) SCH ×3 (09:30→21:43)
[2018-07-14] MEDS: FLUTICASONE PROP 0.05% NASAL SPRAY 16 GM (FLONASE) NARES SCH (09:31)
[2018-07-14] MEDS: ADVAIR HFA 230/21MCG INHALER INH SCH ×2 (10:16→20:16)
--- NOTE | 2018-07-14 10:50 | IPNPDOC ---
PM&R Progress Note DATE OF SERVICE: July 14, 2018 Manufacturing Analyst Progress Note Subjective: Patient reports her back and leg pain is minimal and is agreeable to seeing a counselor once she is discharged to help her through the grieving process of her 's passing. REVIEW OF SYSTEMS: The following is a completed review of systems and has been reviewed. Review of systems otherwise unremarkable. PAIN: Patient self reports incisional back pain EYES: Negative recent vision loss EARS, NOSE, & THROAT: denies dysphagia or sinus pressure CARDIOVASCULAR: denies chest pain or palpitations PULMONARY: Negative. Denies shortness of breath GASTROINTESTINAL: +ileostomy GENITOURINARY: +retention (improving) MUSCULOSKELETAL: low back pain and LE weakness NEUROLOGICAL: no tremor or seizure activity SKIN: lumbar incision and ostomy site c/d/i PSYCHIATRIC: Unremarkable All other review of systems found to be negative. PHYSICAL EXAMINATION: VITAL SIGNS: Please see below. GENERAL: Pleasant and cooperative. No acute distress. HEENT: PERRL. Extraocular movements intact. Clear conjunctiva CARDIOVASCULAR: Regular rate and rhythm. No murmurs, rubs, or gallops LUNGS: Clear to auscultation bilaterally. No wheezes. No rhonchi ABDOMEN: Soft, nontender, nondistended. Positive bowel sounds. Normal active bowel sounds, +ileostomy NEUROLOGICAL: Alert and oriented times three. Cranial nerves II through XII grossly intact. Sensation grossly intact to light touch EXTREMITIES: 5\5 strength bilateral upper extremities. 5-\5 strength right lower extremity. 4+/5 strength in left lower extremity. 3+ patellar reflexes SKIN: lumbar incision c/d/i, ostomy site c/d/i, no sacral ulcers ASSESSMENT:77-year-old F with past medical history of HTN, anxiety, low back pain who presents status post laminectomy and fusion for cauda equina syndrome. PLAN: 1. rehab: PT/OT, assess for DME needs, ambulating further with RW at Mod-I level, however safety concerns in OT with motor planning 2. Neuro: s/p left unilateral laminectomy L3-L4 and L4-L5 with posterior lateral fusion on 07/04/18 for cauda equina syndrome- laminectomy precautions, f/u with Dr. Manning on discharge-ortho consulted 3. CArdio: pmh aortic valve replacement, not on aspirin or anticoagulation- will consult medicine to follow -elevated BPs and slighlty tachycardic, c/u beta-gt, improving 4. resp: omh COPD c/u breathing treatments, encourage incentive spirometry 5. Endo: pmh DM will d/c sliding scale coverage and monitor off metformin for now with BID FS- stable -Synthroid for hypothyroidism- TSH and FT4 normal 6. Psych: pmh anxiety c/u increase daytime effexor dosing and monitor-patient reporting feeling better mood in the daytime, will set up outpatient cousneling for grieving 7. Pain: oxycodone prn, tylenol, gabapentin 8. : admission UA and Ucx negative, monitor PVRs, wesley placed over the weekend, then discontinued, voiding well 9. GI ppx: protonix 10. DVT ppx: TEDs and lovenox 11. Dispo: 07/15/18 to home, progressing towards goals Allergies Coded Allergies: [place] Solvents (Verified Allergy, Severe, RESPIRATORY ISSUES, 07/04/18) prochlorperazine (Verified Adverse Reaction, Intermediate, EYES ROLLED BACK, 07/04/18) Vital Signs Vital Signs Date Time Temp Pulse Resp B/P (MAP) Pulse Ox O2 Delivery O2 Flow Rate FiO2 07/14/18 09:23 82 135/65 07/14/18 06:00 97.5 18 96 Laboratory Data CBC/BMP Laboratory Tests 07/14/18 06:22 Red Blood Count 3.06 L, Mean Corpuscular Volume 88.2, Mean Corpuscular Hemoglobin 27.5, Mean Corpuscular Hemoglobin Concent 31.1 L, Red Cell Distribution Width 13.8, Calcium Level 9.0, Aspartate Amino Transf (AST/SGOT) 20, Alanine Aminotransferase (ALT/SGPT) 30, Alkaline Phosphatase 55, Total Bilirubin 0.2, Total Protein 6.9, Albumin 2.9 L Labs 24H Laboratory Tests 2 07/13/18 11:50: Bedside Glucose (Misc Panel) 136H 07/13/18 17:33: Bedside Glucose (Misc Panel) 163H 07/14/18 06:22: Nucleated Red Blood Cells % (auto) 0.0, Anion Gap 7L, Glomerular Filtration Rate 58.4, Blood Urea Nitrogen 13, Creatinine 0.98, Sodium Level 140, Potassium Level 4.1, Chloride Level 110H, Carbon Dioxide Level 23, Calcium Level 9.0, Aspartate Amino Transf (AST/SGOT) 20, Alanine Aminotransferase (ALT/SGPT) 30, Alkaline Phosphatase 55, Total Bilirubin 0.2, Total Protein 6.9, Albumin 2.9L, Albumin/Globulin Ratio 0.73L Microbiology Microbiology 07/05/18 Urine Culture - Final, Complete Current Medications Current Medications Current Medications Acetaminophen (Tylenol Tab) 500 mg Q6HP PRN PO PAIN / FEVER Last administered on 07/14/18at 02:22; Start 07/09/18 at 10:45 Acetaminophen (Tylenol Tab) 650 mg Q4HP PRN PO MILD PAIN (PS 1-4) Last administered on 07/06/18at 08:15; Start 07/05/18 at 17:30; Stop 07/06/18 at 13:53; Status DC Acetaminophen (Tylenol Tab) 650 mg QHS PO ; Start 07/07/18 at 21:00; Stop 07/07/18 at 21:00; Status DC Acetaminophen (Tylenol Tab) 650 mg TID PO Last administered on 07/14/18at 09:23; Start 07/09/18 at 16:00 Acetaminophen (Tylenol Tab) 1,000 mg TID PO ; Start 07/06/18 at 16:00; Stop 07/06/18 at 16:03; Status DC Acetaminophen (Tylenol Tab) 1,000 mg TID PO Last administered on 07/09/18at 08:49; Start 07/06/18 at 16:00; Stop 07/09/18 at 10:37; Status DC Al Hydrox/Mg Hydrox/Simethicone (Mylanta) 30 ml Q4HP PRN PO DYSPEPSIA; Start 07/05/18 at 17:30 Albuterol Sulfate (Proventil, Ventolin Hfa) 2 puff Q4HP PRN INH SHORTNESS OF BREATH; Start 07/05/18 at 17:30 Bisacodyl (Dulcolax Suppository) 10 mg DAILYPRN PRN AR CONSTIPATION; Start 07/05/18 at 17:30 Brimonidine Tartrate (Alphagan P 0.15%) 1 drop QHS OU Last administered on 07/13/18at 21:39; Start 07/05/18 at 21:00 Dextrose (Dextrose 50%) 25 ml ASDIRECTED PRN IV SEE LABEL COMMENTS; Start 07/05/18 at 17:30 Docusate Sodium (Colace) 100 mg BID PO Last administered on 07/06/18at 21:04; Start 07/05/18 at 21:00; Stop 07/08/18 at 12:07; Status DC Enoxaparin Sodium (Lovenox) 40 mg DAILY SC Last administered on 07/14/18at 09:23; Start 07/06/18 at 09:00 Fluticasone Propionate (Flonase 0.05% Nasal [place]) 2 spray DAILY NARES Last administered on 07/14/18at 09:31; Start 07/06/18 at 09:00 Gabapentin (Neurontin) 100 mg QHS PO Last administered on 07/05/18at 20:43; Start 07/05/18 at 21:00; Stop 07/06/18 at 13:53; Status DC Gabapentin (Neurontin) 100 mg TID PO Last administered on 07/14/18at 09:22; Start 07/06/18 at 16:00 Glucagon (Glucagon) 1 mg ASDIRECTED PRN SC SEE LABEL COMMENTS; Start 07/05/18 at 17:30 Glucose (Glucose) 16 GM ASDIRECTED PRN PO SEE LABEL COMMENTS; Start 07/05/18 at 17:30 Guaifenesin (Robitussin Tab) 400 mg TID PO Last administered on 07/14/18at 09:22; Start 07/08/18 at 16:00 Insulin Human Lispro (HumaLOG INSULIN) SEE PROTOCOL TABLE AC SC Last administered on 07/13/18at 12:15; Start 07/05/18 at 17:30; Stop 07/13/18 at 15:02; Status DC Insulin Human Lispro (HumaLOG INSULIN) SEE PROTOCOL TABLE QHS SC ; Start 07/05/18 at 21:00; Stop 07/13/18 at 15:02; Status DC Levothyroxine Sodium (Synthroid) 50 mcg DAILY@06 PO Last administered on 07/14/18at 06:27; Start 07/06/18 at 06:00 Magnesium Hydroxide (Milk Of Magnesia) 30 ml DAILYPRN PRN PO CONSTIPATION; Start 07/05/18 at 17:30 Metoprolol Succinate (TopROL XL) 12.5 mg DAILY PO Last administered on 07/09/18at 08:51; Start 07/08/18 at 09:00; Stop 07/09/18 at 10:35; Status DC Metoprolol Succinate (TopROL XL) 25 mg BID PO Last administered on 07/14/18 09:23; Start 07/11/18 at 21:00 Metoprolol Succinate (TopROL XL) 25 mg DAILY PO Last administered on 07/11/18at 08:47; Start 07/10/18 at 09:00; Stop 07/11/18 at 09:37; Status DC Miscellaneous (Unresolved Clarification Entry) SEE LABEL COMMENTS DAILY XX ; Start 07/12/18 at 09:00; Stop 07/12/18 at 14:07; Status DC Ondansetron HCl (Zofran) 4 mg Q6HP PRN PO NAUSEA; Start 07/05/18 at 17:30 Oxycodone HCl (Roxicodone, Oxyir) 5 mg Q4HP PRN PO PAIN; Start 07/05/18 at 17:30; Stop 07/05/18 at 18:31; Status DC Oxycodone HCl (Roxicodone, Oxyir) 5 mg Q6HP PRN PO PAIN Last administered on 07/06/18at 21:44; Start 07/06/18 at 15:30; Stop 07/07/18 at 10:17; Status DC Oxycodone HCl (Roxicodone, Oxyir) 10 mg Q4HP PRN PO SEVERE PAIN (PS 8-10); Start 07/05/18 at 17:30; Stop 07/05/18 at 18:31; Status DC Oxycodone/ Acetaminophen (Percocet 5mg/ 325mg Tablet) 1 tab Q6HP PRN PO MILD/MODERATE PAIN (PS 1-7) Last administered on 07/06/18at 11:24; Start 07/06/18 at 02:30; Stop 07/06/18 at 15:23; Status DC Salmeterol Xinafoate/ Fluticasone (Advair Hfa 230/ 21) 2 puff BID INH Last administered on 07/14/18at 10:16; Start 07/05/18 at 21:00 Senna (Senokot) 1 tab QHS PO Last administered on 07/06/18at 21:04; Start 07/05/18 at 21:00; Stop 4/26/19 at 12:07; Status DC Sodium Chloride ([place] Nasal [place]) 2 spray TID NA Last administered on 07/14/18at 09:30; Start 07/05/18 at 21:00 Venlafaxine HCl (Effexor) 12.5 mg BID PO Last administered on 07/07/18at 09:21; Start 07/05/18 at 21:00; Stop 07/07/18 at 10:10; Status DC Venlafaxine HCl (Effexor) 12.5 mg QHS PO Last administered on 07/13/18at 21:36; Start 07/07/18 at 21:00 Venlafaxine HCl (Effexor) 25 mg BID PO ; Start 07/07/18 at 21:00; Stop 07/07/18 at 21:00; Status DC Venlafaxine HCl (Effexor) 25 mg DAILY PO Last administered on 07/14/18at 09:22; Start 07/08/18 at 09:00 A-FIB/CHADSVASC A-FIB History Current/History of A-Fib/PAF?: No AKSHAT MOORE MD July 14, 2018 10:50
[2018-07-14] MEDS ORDERED: LEVO50TA5 PO (10:53)
[2018-07-14] MEDS ORDERED: GABA-1171 PO (10:53)
[2018-07-14] MEDS ORDERED: METO1TAB32 PO (10:53)
[2018-07-14] MEDS ORDERED: VENL1TAB35 PO ×2 (10:53)
[2018-07-14 14:00] VITALS: BP 136/60
--- NOTE | 2018-07-14 15:20 | IPNPDOC ---
Subjective Date Seen The patient was seen on 07/14/18. Subjective Chief Complaint/HPI 77 y/o F who was found with compression fracture of L4, severe spinal canal stenosis at L3-L4 and L4-L5 with cauda equina impingement and underwent a left unilateral laminectomy L3-L4 and L4-L5 with posterior lateral fusion without complication. Pt was admitted to inpatient rehab. medical team following for management of underlying medicaL co-morbidities Events since last encounter Patient has no new complaints today. Reports she was able to make scrambled eggs and a brownie today. Reports improvement with her functional status. Has been tolerating occupational therapy and physical therapy without issues. Objective Physical Examination Other physical findings Gen.: NAD. Skin: Warm, dry, intact lumbar surgical scar Cardiovascular: Regular rate and rhythm, systolic murmur noted, no jugular venous distention, no edema. Respiratory: clear to auscultation bilaterally, no accessory muscle use noted. Abdomen: Bowel sounds present, Ileostomy draining, port intact, no erythema or drainage to Ileostomy site. Musculoskeletal: No joint deformities, Neurologic: Left-sided weakness, alert and oriented 3 Psychiatric: Appropriate mood and affect, no anxiety or agitation. A-FIB/CHADSVASC A-FIB History Current/History of A-Fib/PAF?: No Current Oral Anticoagulant The: No Assessment /Plan Problems (1) Compression fracture of lumbar vertebra Status: Acute Response to Treatment: Improving Problem Text: --S/P left unilateral laminectomy --Currently in rehabilitation for mobilization and strengthening -management by primary team (2) Diabetes mellitus Status: Chronic Response to Treatment: Controlled Problem Text: - fingerstick checks prior to meals and bedtime -Coverage with insulin per sliding scale protocol (3) Hypothyroidism Status: Chronic Response to Treatment: Stable Problem Text: -Continue Synthroid (4) Anemia Status: Chronic Response to Treatment: Stable Problem Text: -hemodynamically stable --No acute sign of bleeding -Continue to monitor and transfuse for hemodynamic instability or hemoglobin less than 8 (5) COPD (chronic obstructive pulmonary disease) Status: Chronic Response to Treatment: Stable Problem Text: -No acute exacerbation (6) Obstructive sleep apnea Status: Chronic Response to Treatment: Stable Problem Text: -Continue CPAP use at bedtime Plan/VTE VTE Prophylaxis Ordered?: Yes (lovenox 40mg daily) VS, I&O, 24H, Fishbone Vital Signs/I&O Vital Signs Date Time Temp Pulse Resp B/P (MAP) Pulse Ox O2 Delivery O2 Flow Rate FiO2 07/14/18 14:00 97.8 93 18 136/60 (85) 95 I&O- Last 24 Hours up to 6 AM 07/14/18 06:00 Intake Total 2200 ml Balance 2200 ml Laboratory Data 24H LABS Laboratory Tests 2 07/13/18 17:33: Bedside Glucose (Misc Panel) 163H 07/14/18 06:22: Nucleated Red Blood Cells % (auto) 0.0, Anion Gap 7L, Glomerular Filtration Rate 58.4, Blood Urea Nitrogen 13, Creatinine 0.98, Sodium Level 140, Potassium Level 4.1, Chloride Level 110H, Carbon Dioxide Level 23, Calcium Level 9.0, Aspartate Amino Transf (AST/SGOT) 20, Alanine Aminotransferase (ALT/SGPT) 30, Alkaline Phosphatase 55, Total Bilirubin 0.2, Total Protein 6.9, Albumin 2.9L, Albumin/Globulin Ratio 0.73L CBC/BMP Laboratory Tests 07/14/18 06:22 Red Blood Count 3.06 L, Mean Corpuscular Volume 88.2, Mean Corpuscular Hemoglobin 27.5, Mean Corpuscular Hemoglobin Concent 31.1 L, Red Cell Distribution Width 13.8, Calcium Level 9.0, Aspartate Amino Transf (AST/SGOT) 20, Alanine Aminotransferase (ALT/SGPT) 30, Alkaline Phosphatase 55, Total Bilirubin 0.2, Total Protein 6.9, Albumin 2.9 L Microbiology Microbiology 07/05/18 Urine Culture - Final, Complete DONG BENJAMIN July 14, 2018 15:20
[2018-07-14 21:00] VITALS: BP 127/59
[2018-07-14] MEDS: BRIMONIDINE 0.15% OPHTH SOLN 5 ML OU SCH (21:42)
[2018-07-15] MEDS: ACETAMINOPHEN 500 MG TAB PO PRN (03:35)
[2018-07-15 06:00] VITALS: BP 139/72
[2018-07-15] MEDS: LEVOTHYROXINE 50MCG TABLET (0.05MG) PO SCH (06:47)
[2018-07-15] MEDS: ADVAIR HFA 230/21MCG INHALER INH SCH (08:08)
[2018-07-15] MEDS: ENOXAPARIN 40 MG/0.4 ML SYRINGE (J1650) SC SCH (08:50)
[2018-07-15] MEDS: GABAPENTIN 100 MG CAP PO SCH ×2 (08:50→16:08)
[2018-07-15] MEDS: VENLAFAXINE 25 MG TAB PO SCH (08:50)
[2018-07-15] MEDS: guaiFENesin 200 MG TAB PO SCH ×2 (08:52→16:09)
[2018-07-15] MEDS: ACETAMINOPHEN TAB 650MG DOSE (2X325MG) PO SCH ×2 (08:53→16:09)
[2018-07-15] MEDS: FLUTICASONE PROP 0.05% NASAL SPRAY 16 GM (FLONASE) NARES SCH (08:54)
[2018-07-15] MEDS: SODIUM CHLORIDE NASAL 0.65% SPRAY BTL (OCEAN) SCH ×2 (08:54→16:00)
[2018-07-15 09:10] VITALS: BP 142/72
[2018-07-15] MEDS: METOPROLOL SUCC *XL* 25MG TAB (TopROL *XL*) PO SCH (09:10)
--- NOTE | 2018-07-15 17:09 | PMRDS ---
DATE OF ADMISSION: 07/05/2018 DATE OF DISCHARGE: 07/15/2018 CHIEF COMPLAINT/DISCHARGE DIAGNOSIS: Cauda equina syndrome status post laminectomy. HISTORY OF PRESENT ILLNESS: This is a 77-year-old female with past medical history of hypothyroidism, hypertension, diabetes, COPD, anxiety, ileostomy and low-back pain with worsening bilateral lower extremity pain and weakness with myelopathy who presented to [facility] ED for elective surgery after having been cleared by medicine. She reports she has been to a chiropractor prior without any relief and denies any urinary incontinence or retention prior to the surgery. Most recent MRI from outside hospital showed a compression fracture of L4, severe spinal canal stenosis at L3-L4 and L4-L5 with cauda equina impingement. She was evaluated by Dr. Manning from orthopedics and underwent a left unilateral laminectomy L3-L4 and L4-L5 with posterior lateral fusion without complication. She was evaluated by therapy, found to have gait and ADL deficits below her prior level of function and deemed medically appropriate for discharge to ARU. Upon arrival she states she has never been prescribed aspirin or anticoagulation for her prosthetic aortic valve. PAST MEDICAL HISTORY: As per HPI. HOSPITAL COURSE: The patient was admitted on a comprehensive PT, OT program. She received 24-hour nursing supervision and weekly team meetings were held to discuss her progress. The patient was instructed to maintain laminectomy precautions, performed well in therapy. She was found to have elevated blood pressures and tachycardia for which beta blockers were started with improvement in these symptoms. She was maintained initially on an insulin sliding scale with good glycemic control and was later monitored off any insulin sliding scale and deemed appropriate to return home without any diabetic medication. The patient's Effexor was increased for her history of depression and recent loss of her . Her admission UA was negative, initially she had difficulty voiding and [place] was placed, after a few days it was then discontinued and she was able to void well. DISCHARGE MEDICATIONS: - gabapentin 100 three times a day - Synthroid 50 daily - metoprolol succinate 25 by mouth twice a day - venlafaxine 25 by mouth daily - venlafaxine 12.5 by mouth nightly FUNCTIONAL HISTORY UPON DISCHARGE: The patient was modified independent for all functional transfers, ambulation, able to negotiate stairs and walk on different terrains. In occupational therapy she was independent for upper and lower body dressing and bathing and deemed functionally and medically stable to return home with outpatient followup with urology, primary care physician, neurosurgeon. Thank you for this referral.
== END 2018-07-15 16:20 | disposition home or self-care (01) | DRG 74 ==
LOC: M PM&R 14:20
PROVIDERS: ADMIT Physical Medicine & Rehabilitation; ATTEND Physical Medicine & Rehabilitation
DX: G83.4 Cauda equina syndrome (principal); E03.9 Hypothyroidism, unspecified; E11.9 Type 2 diabetes mellitus without complications; J44.9 Chronic obstructive pulmonary disease, unspecified; F41.9 Anxiety disorder, unspecified; M54.5 Low back pain; I10 Essential (primary) hypertension; Z95.2 Presence of prosthetic heart valve; Z79.899 Other long term (current) drug therapy; Z88.8 Allergy status to other drugs, medicaments and biological substances; G95.9 Disease of spinal cord, unspecified; M96.1 Postlaminectomy syndrome, not elsewhere classified; G47.33 Obstructive sleep apnea (adult) (pediatric); D64.9 Anemia, unspecified

== ENCOUNTER → 2019-01-02 | Outpatient (REF) | payer MEDICARE, BC ==
[~2019-01-02] MED LIST changes: +METO1TAB32 PO
== END ==
LOC: M LAB REF 16:57
PROVIDERS: ATTEND Nurse Practitioner Adult Health
DX: E83.52 Hypercalcemia (principal)

== ENCOUNTER → 2019-04-26 | Outpatient (CLI) | payer MEDICARE, BC ==
[~2019-04-26] MED LIST changes: +ADVA115A INH; +ASPI81CH33 PO; +ATOR80TA59 PO; +BRIM0.2S13 OU; +ENOX40IN3 SC; -FLUTISP; +FLUTISP NARES; +LISI-542 PO; +PLAV1TAB2 PO; +TRAD5TAB PO
--- NOTE | 2019-04-26 14:46 | REPPI ---
Clinical: Kidney stone. Technique: Single supine view of the abdomen and pelvis. Findings: 3 x 6 mm nonobstructing right renal calculus suggested. Calcifications in the pelvis likely represent phleboliths. The bowel gas pattern is nonspecific. Evidence for prior surgical intervention. The skeletal structures demonstrate age-related osteopenia and degenerative changes. Impression: Suspected 3 x 6 mm nonobstructing right renal calculus. Electronically Signed by Giancarlo Mims MD 04/26/2019 02:38 P
== END ==
LOC: M PLAIMG 13:58 → M PLALAB 13:58
PROVIDERS: ATTEND Nurse Practitioner Family
DX: N20.0 Calculus of kidney (principal)
CPT/HCPCS: 51798; 74018; G0463

== ENCOUNTER 2019-05-04 22:50 | Emergency (ER) | payer MEDICARE, BC ==
--- NOTE | 2019-05-04 23:48 | REPVR ---
PROCEDURE INFORMATION: Exam: CT Head Without Contrast Exam date and time: 05/04/2019 11:02 PM Age: 78 years old Clinical indication: Other: Stroke TECHNIQUE: Imaging protocol: Computed tomography of the head without contrast. Radiation optimization: All CT scans at this facility use at least one of these dose optimization techniques: automated exposure control; mA and/or kV adjustment per patient size (includes targeted exams where dose is matched to clinical indication); or iterative reconstruction. COMPARISON: No relevant prior studies available. FINDINGS: Brain: Mild nonspecific hypodensities of the periventricular and deep subcortical white matter, most likely secondary to chronic small vessel ischemic change. No intracranial hemorrhage or extra-axial fluid collection. No evidence of mass effect or midline shift. Yip-white matter differentiation is normal. Ventricles: Mild prominence of the ventricles and sulci, most likely attributed to parenchymal volume loss. Bones/joints: No acute osseus lesion or fracture. Sinuses: Moderate mucosal thickening of the paranasal sinuses. Mastoid air cells: Unremarkable. Soft tissues: Unremarkable. IMPRESSION: 1. No acute intracranial pathology. ASPECTS score 10. 2. Moderate mucosal thickening of the paranasal sinuses. 3. Other chronic findings, as above. Electronically signed by: Freedom Fan On 05/04/2019 23:47:54 PM
[2019-05-05 00:14] LABS: BASO # 0.1 10^3/uL (0.0-0.2); BASO % 1.5 % (0.0-1.0); EOS # 0.5 10^3/uL (0.0-0.5); HEMOGLOBIN 8.7 g/dl (12.0-15.5); LYMPH # 1.4 10^3/uL (1.5-5.0); LYMPH % 20.9 % (24.0-44.0); MEAN CORPUSCULAR HEMOGLOBIN 26.4 pg (27.0-33.0); MEAN CORPUSCULAR HGB CONC 31.1 g/dl (32.0-36.5); MEAN CORPUSCULAR VOLUME 84.8 fl (80.0-96.0); MONO # 0.5 10^3/uL (0.0-0.8); MONO % 7.8 % (0.0-5.0); NEUTROPHILS # 4.2 10^3/uL (1.5-8.5); NEUTROPHILS % 62.5 % (36.0-66.0); PLATELET COUNT, AUTOMATED 208 10^3/uL (150-450); WHITE BLOOD COUNT 6.8 10^3/uL (4.0-10.0)
[2019-05-05 00:15] LABS: INR 1.07; PROTHROMBIN TIME 13.6 SECONDS (11.8-14.0)
[2019-05-05 00:16] LABS: PARTIAL THROMBOPLASTIN TIME 29.9 SECONDS (25.0-38.4)
[2019-05-05 00:27] LABS: CK-MB VALUE MASS 18.3 NG/ML (<3.6); MB/CK RELATIVE INDEX 3.94 (< OR =4); TROPONIN I 0.03 NG/ML (< 0.10)
[2019-05-05] MEDS ORDERED: MIDAZOLAM INJ 2 MG/2 ML VIAL (J2250) IV STA (01:04)
[2019-05-05 01:14] VITALS: BP 184/89
--- NOTE | 2019-05-05 06:58 | ECGEPIP ---
[facility] - ED Test Date: 2019-05-04 Pat Name: LANDON VIEIRA Department: Room: - Gender: Female Community Cultural Development Officer: JULIO : 1940 Requested By: DARIN Skinner Order Number: [id number] Reading MD: John Moore Measurements Intervals [place] Rate: 95 P: -9 AR: 157 QRS: -26 QRSD: 91 T: 97 QT: 351 QTc: 442 Interpretive Statements SINUS RHYTHM BORDERLINE LEFT AXIS DEVIATION NSTTW ABNORMALITIES NO PRIORS FOR COMPARISON Electronically Signed on 05-05-2019 6:58:17 EST by John Moore
--- NOTE | 2019-05-05 08:01 | REP ---
Portable chest x-ray: Single view. History: CVA. Comparison chest x-ray: May 05, 2005. Findings: Monitoring electrodes overlie the chest. Prior sternotomy wires are seen. The heart is not enlarged. Lungs are symmetrically aerated and clear. Pleural angles are sharp. There is mild linear fibrosis in the right perihilar region unchanged. Impression: Mild linear fibrosis. Prior sternotomy. No acute cardiopulmonary disease seen. Electronically Signed by Flex Perez MD 05/05/2019 07:53 A
== END 2019-05-05 01:22 | disposition short-term general hospital (02) ==
LOC: M ED 22:50
DX: I63.59 Cerebral infarction due to unspecified occlusion or stenosis of other cerebral artery (principal); E11.9 Type 2 diabetes mellitus without complications; J44.9 Chronic obstructive pulmonary disease, unspecified; N20.0 Calculus of kidney; E03.9 Hypothyroidism, unspecified; Z88.8 Allergy status to other drugs, medicaments and biological substances; Z91.09 Other allergy status, other than to drugs and biological substances; Z79.899 Other long term (current) drug therapy
CPT/HCPCS: 70450; 71045; 74018; 80047; 82550; 82553; 84484; 85025; 85610; 85730; 86850; 86900; 86901; 93005; 93041; 94760; 96374; 99285; J2250

== ENCOUNTER → 2019-05-04 | Outpatient (REF) | payer MEDICARE, BC ==
[~2019-05-04] MED LIST changes: -ADVA115A INH; -ASPI81CH33 PO; -ATOR80TA59 PO; -BRIM0.2S13 OU; -ENOX40IN3 SC; +FLUTISP; -FLUTISP NARES; -LISI-542 PO; -PLAV1TAB2 PO; -TRAD5TAB PO
[2019-05-04 13:13] LABS: PARTIAL THROMBOPLASTIN TIME 29.5 SECONDS (25.0-38.4); PROTHROMBIN TIME 12.9 SECONDS (11.8-14.0)
== END ==
LOC: M LAB REF 12:29
PROVIDERS: ATTEND Internal Medicine
DX: Z01.810 Encounter for preprocedural cardiovascular examination (principal); N20.0 Calculus of kidney

== ENCOUNTER → 2019-05-04 | Outpatient (CLI) | payer MEDICARE, BC ==
--- NOTE | 2019-05-04 10:05 | REPPI ---
Clinical: Kidney stone. Technique: Single supine view of the abdomen and pelvis. Comparison: 04/26/2019. Findings: Stable 6 mm right intrarenal calculus again noted. Bowel gas pattern is nonspecific. Evidence of prior abdominal surgery noted. Skeletal structures demonstrate degenerative changes. Impression: Stable 6 mm right intrarenal calculus unchanged. Electronically Signed by Giancarlo Mims MD 05/04/2019 09:57 A
== END ==
LOC: M PLAIMG 09:11
PROVIDERS: ATTEND Nurse Practitioner Family
DX: N20.0 Calculus of kidney (principal)

== ENCOUNTER 2019-05-09 12:55 | Inpatient (IN) | payer MEDICARE, BC ==
[~2019-05-09] VITALS: Ht 157.5 cm; Wt 63.3 kg
[~2019-05-09 12:55] MED LIST changes: -FLUTISP; +FLUTISP NARES
[2019-05-09 14:00] VITALS: BP 128/78
[2019-05-09] MEDS ORDERED: DEXTROSE 50% 50 ML SYRINGE IV PRN (14:00)
[2019-05-09] MEDS ORDERED: GLUCOSE 4 GM CHEW TABLET PO PRN (14:00)
[2019-05-09] MEDS ORDERED: MOM 30ML SUSPENSION UDC PO PRN (14:00)
[2019-05-09] MEDS ORDERED: GLUCAGON FOR INJ 1 MG VIAL (J1610) SC PRN (14:00)
[2019-05-09] MEDS ORDERED: VENL1TAB35 PO (15:20)
[2019-05-09] MEDS ORDERED: TRAD5TAB PO (15:20)
[2019-05-09] MEDS ORDERED: PLAV1TAB2 PO (15:20)
[2019-05-09] MEDS ORDERED: METF500T13 PO (15:20)
[2019-05-09] MEDS ORDERED: METO1TAB32 PO (15:20)
[2019-05-09] MEDS ORDERED: ENOX40IN3 SC (15:20)
[2019-05-09] MEDS ORDERED: ATOR80TA59 PO (15:20)
[2019-05-09] MEDS ORDERED: BRIM0.2S13 OU (15:20)
[2019-05-09] MEDS ORDERED: LISI-542 PO (15:20)
[2019-05-09] MEDS ORDERED: ASPI81CH33 PO (15:21)
[2019-05-09] MEDS ORDERED: ADVA115A INH (15:22)
--- NOTE | 2019-05-09 16:00 | CR.PDOC ---
General Date of Consultation: May 09, 2019 Consultation REASON FOR CONSULTATION/CHIEF COMPLAINT: Who was transferred to [facility] acute rehabilitation after sustaining a stroke HISTORY OF PRESENT ILLNESS: Patient is a 8-year-old female with a past medical history of [id number] diabetes mellitus type 2, hypertension, aortic valve replacement 2002, without any anticoagulation, who presented to the emergency room with complaints of right facial droop, right upper extremity flaccidity and slurred speech. Upon evaluation in emergency room, patient was suspected of having a large vessel occlusion [facility] was constant consulted and patient was transferred to that facility urgently. Patients last well known time was greater than 4.5 hours ago and no TPA was given. Patient had a CT angiogram completed at [facility] which was negative for any large vessel occlusion. She was admitted to the hospitalist service at [facility] and urology was called on consultation. She received an echocardiogram and duplex ultrasound of her carotids that was within normal limits. Patient and MRI that was consistent with acute infarct at left lateral lenticular striate and focal icad. Patients hospital course was complicated with difficulty swallowing and patient was fed temporarily with nasal cannula tube feeds. She subsequently had a swallow evaluation completed and was put on a pured diet with honey thickened liquid. She was transferred to [facility] on 05/09/2019 for continued physical therapy and occupational therapy. ALLERGIES: Please see below. HOME MEDICATIONS: Please see below. 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, suspected to be inflammatory in 1972 Kidney stone 2069 FAMILY HISTORY: - Family history has been reviewed and is currently noncontributory to current hospitalization SOCIAL HISTORY: - Denies the use of alcohol, tobacco or illicit drugs - Lives with alone - Patient is a retired since 2002; reports her when year ago REVIEW OF SYSTEMS: 10 point review of systems complete all negative otherwise stated in history of present illness PHYSICAL EXAMINATION: - Vitals: BP 128/78, HR 100, RR 18, Sat 98%RA, Temp 96.6F - General: Lying in bed, No acute distress, AAOx3 - HEENT: NC, AT, PERRLA - CVS: RRR, +S1S2 - Lungs: Fair air entry bilaterally, No appreciable wheezing / rales / rhonchi - Abdomen: Soft, Non-distended, Non-tender - Extremities: No lower extremity edema, No calf tenderness - Neuro: No focal motor or sensory deficit - Skin: No visible rashes LABORATORY DATA: Please see below. ASSESSMENT/PLAN: Acute CVA - Continues to have RUE weakens, deviated tongue and aphasia - Will continue with physical therapy and occupational therapy as per ARU - c/w ASA + Plavix and Atorvastatin Dysphagia / Difficulty swallowing - Continue with modified diet Hypothyroidism - c/w Levothyroxine NIDDM2 - c/w Metformin - c/w ISS Depression - c/w Venlafaxine HTN - BP remains well controlled - c/w Metoprolol and Lisinopril GERD - c/w Protonix DVT prophylaxis - Will start Heparin Vital Signs/I&O Vital Signs Date Time Temp Pulse Resp B/P (MAP) Pulse Ox O2 Delivery O2 Flow Rate FiO2 05/09/19 14:00 96.6 100 18 128/78 (95) 98 Room Air Laboratory Data Labs 24H Laboratory Tests 2 05/09/19 13:43: Bedside Glucose (Misc Panel) 154H Allergies Coded Allergies: Peetz Solvents (Verified Allergy, Severe, RESPIRATORY ISSUES, 05/04/19) prochlorperazine (Verified Adverse Reaction, Intermediate, EYES ROLLED BACK, 05/04/19) Home Medications Scheduled Aspirin (Aspirin) 81 Mg Tab.chew, 81 MG PO DAILY, (Reported) Atorvastatin Calcium (Atorvastatin Calcium) 80 Mg Tablet, 80 MG PO QHS, (Reported) Brimonidine Tartrate (Brimonidine Tartrate) 0.2% 5ML Drops, 1 DROP OU BID, (Reported) Clopidogrel Bisulfate (Plavix) 75 Mg Tablet, 75 MG PO DAILY, (Reported) Enoxaparin Sodium (Enoxaparin Sodium) 40 Mg/0.4 Ml Syringe, 40 MG SC DAILY, (Reported) ORDER WAS DISCONTINUED AT [facility] Fluticasone Propion/Salmeterol (Advair Hfa 115-21 Mcg Inhaler) 12 Gm Hfa.aer.ad, 1 PUFF INH BID, (Reported) Fluticasone Propionate (Fluticasone Propionate) 50 Mcg/Act Spr, 1 SPRAY NARES BID, (Reported) Levothyroxine Sodium (Levothyroxine Sodium) 50 Mcg Tab, 50 MCG PO DAILY, (Reported) Linagliptin (Tradjenta) 5 Mg Tablet, 5 MG PO DAILY, (Reported) Lisinopril (Lisinopril) 5 Mg Tablet, 5 MG PO DAILY, (Reported) Metformin HCl (Metformin HCl) 500 Mg Tablet, 500 MG PO BID, (Reported) Metoprolol Succinate (Metoprolol Succinate) 25 Mg Tab.er.24h, 25 MG PO DAILY, (Reported) Venlafaxine HCl (Venlafaxine HCl) 25 Mg Tablet, 25 MG PO BID, (Reported) Scheduled PRN Albuterol Sulfate (Ventolin Hfa) 108 Mcg/Act Aer, 2 PUFF INH Q4H PRN for SOB/WHEEZING, (Reported) MAYRA SAHU MD May 09, 2019 16:00
--- NOTE | 2019-05-09 16:16 | REP ---
Portable chest, 03:51 p.m., single AP view with the patient upright: Comparison is 05/04/2019. The lung franks are clear. The cardiac size is normal. The von, mediastinum, and skeletal structures are unremarkable. There are sternotomy wires, unchanged. Impression: Negative portable chest. There is no interval change Electronically Signed by Reagan Silva MD 05/09/2019 04:08 P
[2019-05-09] MEDS: metFORMIN (GLUCOPHAGE) 500 MG TAB PO SCH (17:21)
[2019-05-09] MEDS: HumaLOG INSULIN (NovoLOG) PER UNIT SC SCH ×2 (17:23→20:00)
--- NOTE | 2019-05-09 17:48 | HPEPDOC ---
Lithographic Etcher Note DATE OF ADMISSION: 05-09-19 DATE OF SERVICE: 05-09-19 TIME OF ADMISSION: Please refer to physician's admission order. 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 on 05-05-19 outside of the tPA window. MRI brain showed, Acute left basal ganglia infarct. CTA head did not show any large vessel occlusions, but did show, 6. 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 ECHO was negative for bubble study, showing, "mild to moderate concentric left ventricular hypertrophy...LV systolic function is normal...LVEF 55 - 60%." She had significant dysphagia and weakness in her right leg with notable expressive aphasia. She was evaluated by therapy, noted to have significant impairments in mobility and ADLs and deemed medically appropriate for discharge to ARU on 05-09-19. REVIEW OF SYSTEMS: The following is a completed review of systems and has been reviewed. Review of systems otherwise unremarkable. PAIN: Patient self reports no pain EYES: No recent vision changes EARS, NOSE, & THROAT: +dysphagia CARDIOVASCULAR: Denies chest pain or palpitations PULMONARY: Denies shortness of breath GASTROINTESTINAL: Denies constipation/diarrhea GENITOURINARY: denies dysuria MUSCULOSKELETAL: right sided weakness NEUROLOGICAL:+aphasia, dysphagia, right sided paresis HEMATOLOGICAL: denies easy bruising SKIN: intact PSYCHIATRIC: Unremarkable All other review of systems found to be negative. PAST MEDICAL HISTORY: as per HPI PAST SURGICAL HISTORY: Porcine aortic valve replacement cataract surgery ileostomy 07/19/1972 kidney stone removal nasal and sinus surgery lumbar laminectomy ALLERGIES: Please see below. MEDICATIONS: Please see below. SOCIAL HISTORY: non-smoker, no ETOH, lives alone, no illicit drugs, recently DIET: puree and honey thickened PHYSICAL EXAMINATION: VITAL SIGNS: Please see below. GENERAL: Pleasant and cooperative. No acute distress. HEENT: PERRL. Extraocular movements intact. Clear conjunctiva. +right facial droop CARDIOVASCULAR: Regular rate and rhythm. No murmurs, rubs, or gallops LUNGS: +scattered rhonchi ABDOMEN: Soft, nontender, nondistended. Positive bowel sounds. Normal active bowel sounds, +colostomy NEUROLOGICAL: Alert and oriented times 3 (despite aphasia) Cranial nerves II through XII grossly intact. Sensation grossly intact in all 4 limbs +Babinski on right +expressive aphasia EXTREMITIES: 5\\5 strength left upper extremities. +flaccid RUE, 4\\5 strength right lower extremity except 2/5 ankle DF. 5/5 strength in left lower extremity. SKIN: intact LABORATORY DATA: Please see below. IMAGING:Imaging documentation personally reviewed by record FUNCTIONAL STATUS: Premorbid: Modified Independent with all activities of daily life as well as mobility On Admission: Maximum assistance for bathing, upper body dressing, bed chair and wheelchair transfers, toilet transfers, ambulation. GOALS: Mod-I with RW or quad cane for community household distances, stairs, fu nctional transfers, toileting, dressing, bathing, medical optimization ASSESSMENT:78-year-old F with past medical history of COPD, lumbar stenosis, who presents status post stroke PLAN: 1. 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 Neuro: s/p left basal ganglia infarct with Right sided hemiparesis, aphasia, and dysphagia -c/u secondary stroke prevention with ASA, statin, and good BP control -patient on SNRI 3. CArdio: pmh AVR not on AC-medicine consulted to assist in overall management -HTN c/u metoprolol and lisinopril 4. Resp: hx of COPD with rhonchi on exam, will start Duonebs, guaifenesin, and incentive spirometry, c/u Advair -patient reports hx of KYLE and uses CPAP at night- nocturnal 02 ordered 5. GI: Protonix for GI ppx -colostomy care 6. : denies dysuria, monitor PVRs 7. DVT ppx: heparin and TEDs 8. Psych: hx of depression/anxiety- c/u Effexor 9. Endo: hypothyroidism c/u Synthroid, DM c/u metformin and ISS 10. Dispo: TBD POST ADMISSION PHYSICIAN EVALUATION: Medical and functional status: Description of medical status, medical assessment: As above. Rehabilitation diagnosis and current and prior cold morbid medical conditions as above. Risk of complications and plans to mitigate them as above. Description of functional status current status is as above. Prior status as above. Status compared to preadmission: There are no clinically significant differences between the patient's current status and the information described on the preadmission screening document. Treatment plan anticipated: Treatment plan is as described above. Required disciplines including physical therapy, occupational therapy, others as noted above. Intensity of services: 3 hours a day, 6 days a week. Special considerations: There are no specific special or safety considerations that would likely preclude immediate implementation of an intensive rehabilitation program or subsequently influence the plan of care. ATTESTATION: Considering all the information above, it is my best judgment that this patient requires intensive rehabilitation therapy as described above and an inpatient hospital environment due to the complexity of nursing, medical, and rehabilitation needs required by the patient. Furthermore, this patient can reasonably be expected to participate in an benefit from an inpatient rehabilitation stay with an interdisciplinary team approach to the delivery of rehabilitation care under the direction and supervision of rehabilitation physician. PROGNOSIS: Good ESTIMATED LENGTH OF STAY:24-28 days. PROJECTED DISCHARGE DESTINATION: Home with family support and any durable medical equipment required to increase functional safety and mobility. TIME SPENT COUNSELING AND COORDINATING INITIAL CARE: Greater than 70 minutes. Vital Signs Vital Sign - Last 24 Hours 05/09/19 14:00 Temp 96.6 Pulse 100 Resp 18 B/P (MAP) 128/78 (95) Pulse Ox 98 O2 Delivery Room Air Laboratory Data Labs 24H Laboratory Tests 2 05/09/19 13:43: Bedside Glucose (Misc Panel) 154H 05/09/19 16:38: Bedside Glucose (Misc Panel) 192H FSBS Laboratory Tests Test 05/09/19 13:43 05/09/19 16:38 Range/Units Bedside Glucose (Misc Panel) 154 192 83-110 MG/DL Home Medications Scheduled Aspirin (Aspirin) 81 Mg Tab.chew, 81 MG PO DAILY, (Reported) Atorvastatin Calcium (Atorvastatin Calcium) 80 Mg Tablet, 80 MG PO QHS, (Reported) Brimonidine Tartrate (Brimonidine Tartrate) 0.2% 5ML Drops, 1 DROP OU BID, (Reported) Clopidogrel Bisulfate (Plavix) 75 Mg Tablet, 75 MG PO DAILY, (Reported) Enoxaparin Sodium (Enoxaparin Sodium) 40 Mg/0.4 Ml Syringe, 40 MG SC DAILY, (Reported) ORDER WAS DISCONTINUED AT [facility] Fluticasone Propion/Salmeterol (Advair Hfa 115-21 Mcg Inhaler) 12 Gm Hfa.aer.ad, 1 PUFF INH BID, (Reported) Fluticasone Propionate (Fluticasone Propionate) 50 Mcg/Act Spr, 1 SPRAY NARES BID, (Reported) Levothyroxine Sodium (Levothyroxine Sodium) 50 Mcg Tab, 50 MCG PO DAILY, (Reported) Linagliptin (Tradjenta) 5 Mg Tablet, 5 MG PO DAILY, (Reported) Lisinopril (Lisinopril) 5 Mg Tablet, 5 MG PO DAILY, (Reported) Metformin HCl (Metformin HCl) 500 Mg Tablet, 500 MG PO BID, (Reported) Metoprolol Succinate (Metoprolol Succinate) 25 Mg Tab.er.24h, 25 MG PO DAILY, (Reported) Venlafaxine HCl (Venlafaxine HCl) 25 Mg Tablet, 25 MG PO BID, (Reported) Scheduled PRN Albuterol Sulfate (Ventolin Hfa) 108 Mcg/Act Aer, 2 PUFF INH Q4H PRN for SOB/WHEEZING, (Reported) Allergies Coded Allergies: Kirwin Solvents (Verified Allergy, Severe, RESPIRATORY ISSUES, 05/04/19) prochlorperazine (Verified Adverse Reaction, Intermediate, EYES ROLLED BACK, 05/04/19) A-FIB/CHADSVASC A-FIB History Current/History of A-Fib/PAF?: No AKSHAT MOORE MD May 09, 2019 17:48
[2019-05-09 20:00] VITALS: BP 113/60
[2019-05-09] MEDS: IPRATROPIUM 0.5MG/ALBUTEROL 2.5MG INH SOL UD 3ML (DUONEB)(J7620) NEB SCH (20:00)
[2019-05-09] MEDS: ADVAIR HFA 115/21MCG INHALER INH SCH (20:13)
[2019-05-09] MEDS: guaiFENesin 200 MG TAB PO SCH (20:25)
[2019-05-09] MEDS: DOCUSATE SODIUM 100 MG CAP PO SCH (20:25)
[2019-05-09] MEDS: SENNA 8.6 MG TAB (SENOKOT) PO SCH (20:25)
[2019-05-09] MEDS: ATORVASTATIN 20 MG TAB PO SCH (20:26)
[2019-05-09] MEDS: BRIMONIDINE 0.15% OPHTH SOLN 5 ML OU SCH (20:26)
[2019-05-09] MEDS: ACETAMINOPHEN TAB 650MG DOSE (2X325MG) PO PRN ×2 (20:26→21:43)
[2019-05-09] MEDS: HEPARIN SOD (PORCINE) 5000 UNITS/ML VIAL (J1644 PER 1000UNITS) SC SCH (20:26)
[2019-05-09] MEDS: FLUTICASONE PROP 0.05% NASAL SPRAY 16 GM (FLONASE) NARES SCH (20:26)
[2019-05-09] MEDS: VENLAFAXINE 25 MG TAB PO SCH (20:28)
[2019-05-09] MEDS: REMEDY PHYTOPLEX Z-GUARD PASTE 113GM TUBE (FROM STOREROOM PRODUCT) TOP SCH (21:00)
[2019-05-10 06:00] VITALS: BP 141/62
[2019-05-10] MEDS: LEVOTHYROXINE 50MCG TABLET (0.05MG) PO SCH (06:24)
[2019-05-10 06:46] LABS: BASO # 0.1 10^3/uL (0.0-0.2); BASO % 1.3 % (0.0-1.0); EOS # 0.5 10^3/uL (0.0-0.5); EOS % 4.2 % (0.0-3.0); HEMATOCRIT 38.3 % (36.0-47.0); HEMOGLOBIN 11.9 g/dl (12.0-15.5); LYMPH # 3.1 10^3/uL (1.5-5.0); LYMPH % 29.4 % (24.0-44.0); MEAN CORPUSCULAR HEMOGLOBIN 26.6 pg (27.0-33.0); MEAN CORPUSCULAR HGB CONC 31.1 g/dl (32.0-36.5); MEAN CORPUSCULAR VOLUME 85.7 fl (80.0-96.0); MONO # 1.1 10^3/uL (0.0-0.8); MONO % 10.5 % (0.0-5.0); NEUTROPHILS # 5.7 10^3/uL (1.5-8.5); NEUTROPHILS % 54.1 % (36.0-66.0); PLATELET COUNT, AUTOMATED 341 10^3/uL (150-450); RED BLOOD COUNT 4.47 10^6/uL (4.00-5.40); WHITE BLOOD COUNT 10.6 10^3/uL (4.0-10.0)
[2019-05-10 07:11] LABS: ALBUMIN 3.4 GM/DL (3.2-5.2); BILIRUBIN,TOTAL 0.6 MG/DL (0.2-1.0); CALCIUM LEVEL 9.7 MG/DL (8.8-10.2); CREATININE FOR GFR 1.99 MG/DL (0.55-1.30); GLOMERULAR FILTRATION RATE 25.7 (>39); POTASSIUM SERUM 3.9 MEQ/L (3.5-5.1); TOTAL PROTEIN 8.2 GM/DL (6.4-8.2)
[2019-05-10] MEDS: HEPARIN SOD (PORCINE) 5000 UNITS/ML VIAL (J1644 PER 1000UNITS) SC SCH ×2 (07:59→20:55)
[2019-05-10] MEDS: IPRATROPIUM 0.5MG/ALBUTEROL 2.5MG INH SOL UD 3ML (DUONEB)(J7620) NEB SCH ×3 (08:00→20:00)
[2019-05-10] MEDS: metFORMIN (GLUCOPHAGE) 500 MG TAB PO SCH (08:00)
[2019-05-10] MEDS: ASPIRIN 81 MG ENTERIC TAB PO SCH (08:00)
[2019-05-10] MEDS: PANTOPRAZOLE 40MG TAB (PROTONIX) PO SCH ×2 (08:00→09:00)
[2019-05-10] MEDS: VENLAFAXINE 25 MG TAB PO SCH ×2 (08:00→20:55)
[2019-05-10] MEDS: CLOPIDOGREL 75 MG TAB PO SCH (08:00)
[2019-05-10] MEDS: METOPROLOL SUCC *XL* 25MG TAB (TopROL *XL*) PO SCH (08:01)
[2019-05-10] MEDS: guaiFENesin 200 MG TAB PO SCH ×3 (08:01→20:56)
[2019-05-10] MEDS: DOCUSATE SODIUM 100 MG CAP PO SCH ×2 (08:01→20:11)
[2019-05-10] MEDS: HumaLOG INSULIN (NovoLOG) PER UNIT SC SCH ×4 (08:02→20:55)
[2019-05-10] MEDS: BRIMONIDINE 0.15% OPHTH SOLN 5 ML OU SCH ×2 (08:10→20:56)
[2019-05-10] MEDS: FLUTICASONE PROP 0.05% NASAL SPRAY 16 GM (FLONASE) NARES SCH ×2 (08:10→20:56)
[2019-05-10] MEDS: ADVAIR HFA 115/21MCG INHALER INH SCH ×2 (08:33→20:00)
[2019-05-10] MEDS ORDERED: lisinopriL 5 MG TAB PO SCH (09:00)
[2019-05-10] MEDS ORDERED: NS 500 ML IV ONE (11:00)
[2019-05-10] MEDS: REMEDY PHYTOPLEX Z-GUARD PASTE 113GM TUBE (FROM STOREROOM PRODUCT) TOP SCH ×3 (11:22→20:56)
--- NOTE | 2019-05-10 11:50 | IPNPDOC ---
PM&R Progress Note DATE OF SERVICE: May 10, 2019 Rn [place] Progress Note Subjective: Patient reporting she was able to walk today in therapy, she still cannot move her right arm, but is motivated. REVIEW OF SYSTEMS: The following is a completed review of systems and has been reviewed. Review of systems otherwise unremarkable. PAIN: Patient self reports no pain EYES: No recent vision changes EARS, NOSE, & THROAT: +dysphagia CARDIOVASCULAR: Denies chest pain or palpitations PULMONARY: Denies shortness of breath GASTROINTESTINAL: Denies constipation/diarrhea GENITOURINARY: denies dysuria MUSCULOSKELETAL: right sided weakness NEUROLOGICAL:+aphasia, dysphagia, right sided paresis HEMATOLOGICAL: denies easy bruising SKIN: intact PSYCHIATRIC: Unremarkable All other review of systems found to be negative. PHYSICAL EXAMINATION: VITAL SIGNS: Please see below. GENERAL: Pleasant and cooperative. No acute distress. HEENT: PERRL. Extraocular movements intact. Clear conjunctiva. +right facial droop CARDIOVASCULAR: Regular rate and rhythm. No murmurs, rubs, or gallops LUNGS: +scattered rhonchi ABDOMEN: Soft, nontender, nondistended. Positive bowel sounds. Normal active bowel sounds, +colostomy NEUROLOGICAL: Alert and oriented times 3 (despite aphasia) Cranial nerves II through XII grossly intact. Sensation grossly intact in all 4 limbs +Babinski on right +expressive aphasia EXTREMITIES: 5\5 strength left upper extremities. +flaccid RUE, 4\5 strength right lower extremity except 2/5 ankle DF. 5/5 strength in left lower extremity. SKIN: intact ASSESSMENT:78-year-old F with past medical history of COPD, lumbar stenosis, who presents status post stroke PLAN: 1. 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 Neuro: s/p left basal ganglia infarct with Right sided hemiparesis, aphasia, and dysphagia -c/u secondary stroke prevention with ASA + Plavix x 90 days then to be followed by ASA alone, statin, and good BP control -patient on SNRI 3. CArdio: pmh AVR not on AC-medicine consulted to assist in overall management -HTN c/u metoprolol- holding lisinopril due to decline in renal function 4. Resp: hx of COPD with rhonchi on exam, will start Duonebs, guaifenesin, and incentive spirometry, c/u Advair -patient reports hx of KYLE and uses CPAP at night- nocturnal 02 ordered 5. GI: Lanzaprazole for GI ppx -colostomy care 6. : denies dysuria, monitor PVRs 7. DVT ppx: heparin and TEDs 8. Psych: hx of depression/anxiety- c/u Effexor 9. Endo: hypothyroidism c/u Synthroid, DM-given GFR <30 will hold metformin and c/u ISS 10. renal: CKD, possibly with DARWIN in setting of poor po intake will hold GERONIMO and give gentle hydration 10. Dispo: TBD Allergies Coded Allergies: Marcus Solvents (Verified Allergy, Severe, RESPIRATORY ISSUES, 05/04/19) prochlorperazine (Verified Adverse Reaction, Intermediate, EYES ROLLED BACK, 05/04/19) Vital Signs Vital Signs Date Time Temp Pulse Resp B/P (MAP) Pulse Ox O2 Delivery O2 Flow Rate FiO2 05/10/19 08:00 138/72 05/10/19 06:00 97.3 95 18 96 Room Air Laboratory Data CBC/BMP Laboratory Tests 05/10/19 06:22 Labs 24H Laboratory Tests 2 05/09/19 13:43: Bedside Glucose (Misc Panel) 154H 05/09/19 16:38: Bedside Glucose (Misc Panel) 192H 05/09/19 19:48: Bedside Glucose (Misc Panel) 191H 05/10/19 06:22: Immature Granulocyte % (Auto) 0.5, Neutrophils (%) (Auto) 54.1, Lymphocytes (%) (Auto) 29.4, Monocytes (%) (Auto) 10.5H, Eosinophils (%) (Auto) 4.2H, Basophils (%) (Auto) 1.3H, Neutrophils # (Auto) 5.7, Lymphocytes # (Auto) 3.1, Monocytes # (Auto) 1.1H, Eosinophils # (Auto) 0.5, Basophils # (Auto) 0.1, Nucleated Red Blood Cells % (auto) 0.0, Anion Gap 5L, Glomerular Filtration Rate 25.7L, Calcium Level 9.7, Total Bilirubin 0.6, Aspartate Amino Transf (AST/SGOT) 41H, Alanine Aminotransferase (ALT/SGPT) 54, Alkaline Phosphatase 57, Total Protein 8.2, Albumin 3.4, Albumin/Globulin Ratio 0.71L 05/10/19 06:30: Bedside Glucose (Misc Panel) 186H Current Medications Current Medications Current Medications Medications (Trade) Dose Ordered Sig/Charlie Route PRN Reason Start Time Stop Time Status Last Admin Dose Admin Acetaminophen (Tylenol Tab) 650 mg Q4HP PRN PO fever/MILD PAIN (PS 1-4) 05/09/19 14:00 05/09/19 20:26 Albuterol/ Ipratropium (Duoneb (Ipr 0.5mg/Alb 2.5mg)) 3 ml RTID NEB 05/09/19 20:00 Aspirin (Ecotrin) 81 mg DAILY PO 05/10/19 09:00 05/10/19 08:00 Atorvastatin Calcium (Lipitor) 80 mg QHS PO 05/09/19 21:00 05/09/19 20:26 Brimonidine Tartrate (Alphagan P 0.15%) 1 drop BID OU 05/09/19 21:00 05/10/19 08:10 Clopidogrel Bisulfate (PLAVix) 75 mg DAILY PO 05/10/19 09:00 08/07/19 09:01 05/10/19 08:00 Dextrose (Dextrose 50%) 25 ml ASDIRECTED PRN IV SEE LABEL COMMENTS 05/09/19 14:00 Docusate Sodium (Colace) 100 mg BID PO 05/09/19 21:00 05/10/19 08:01 Fluticasone Propionate (Flonase 0.05% Nasal Finley) 1 spray BID NARES 05/09/19 21:00 05/10/19 08:10 Glucagon (Glucagon) 1 mg ASDIRECTED PRN SC SEE LABEL COMMENTS 05/09/19 14:00 Glucose (Glucose) 16 GM ASDIRECTED PRN PO SEE LABEL COMMENTS 05/09/19 14:00 Guaifenesin (Robitussin Tab) 400 mg TID PO 05/09/19 21:00 05/10/19 08:01 Heparin Sodium (Porcine) (Heparin) 5,000 units Q12H SC 05/09/19 21:00 05/10/19 07:59 Home Med (Med Rec Complete!) ASDIRECTED XX 05/09/19 15:30 05/09/19 15:51 DC Insulin Human Lispro (HumaLOG INSULIN) SEE PROTOCOL TABLE AC SC 05/09/19 17:30 05/10/19 08:02 Insulin Human Lispro (HumaLOG INSULIN) SEE PROTOCOL TABLE QHS SC 05/09/19 21:00 Lansoprazole (First-Lansoprazole Oral Suspension) 30 mg DAILY PO 05/10/19 12:00 Levothyroxine Sodium (Synthroid) 50 mcg DAILY@06 PO 05/10/19 06:00 05/10/19 06:24 Lisinopril (Prinivil) 5 mg DAILY PO 05/10/19 09:00 05/10/19 10:38 DC 05/10/19 08:00 Magnesium Hydroxide (Milk Of Magnesia) 30 ml DAILYPRN PRN PO CONSTIPATION 05/09/19 14:00 Metformin HCl (Glucophage) 500 mg BID@08,18 PO 05/09/19 18:00 05/10/19 10:38 DC 05/10/19 08:00 Metoprolol Succinate (TopROL XL) 25 mg DAILY PO 05/10/19 09:00 05/10/19 08:01 Pantoprazole Sodium (Protonix) 40 mg DAILY PO 05/10/19 09:00 05/10/19 10:35 DC Salmeterol Xinafoate/ Fluticasone (Advair Hfa 115/ 21) 2 puff RBID INH 05/09/19 20:00 05/10/19 08:33 Senna (Senokot) 1 tab QHS PO 05/09/19 21:00 05/09/19 20:25 Venlafaxine HCl (Effexor) 25 mg BID PO 05/09/19 21:00 05/10/19 08:00 AKSHAT MOORE MD May 10, 2019 11:50
[2019-05-10] MEDS: LANSOPRAZOLE SUSPENSION 30 MG/10 ML ORAL SYRINGE (FIRST-LANSOPRAZOLE) PO SCH (13:39)
[2019-05-10 14:00] VITALS: BP 105/59
[2019-05-10] MEDS: SENNA 8.6 MG TAB (SENOKOT) PO SCH (20:11)
[2019-05-10] MEDS: ATORVASTATIN 20 MG TAB PO SCH (20:56)
[2019-05-10 21:08] VITALS: BP 124/59
[2019-05-11 05:48] VITALS: BP 139/65
[2019-05-11] MEDS: ADVAIR HFA 115/21MCG INHALER INH SCH ×2 (06:15→19:20)
[2019-05-11] MEDS: IPRATROPIUM 0.5MG/ALBUTEROL 2.5MG INH SOL UD 3ML (DUONEB)(J7620) NEB SCH ×3 (06:15→19:20)
[2019-05-11] MEDS: LEVOTHYROXINE 50MCG TABLET (0.05MG) PO SCH (06:52)
[2019-05-11 07:06] LABS: BASO # 0.1 10^3/uL (0.0-0.2); BASO % 1.2 % (0.0-1.0); EOS # 0.3 10^3/uL (0.0-0.5); EOS % 3.5 % (0.0-3.0); HEMATOCRIT 38.3 % (36.0-47.0); HEMOGLOBIN 11.8 g/dl (12.0-15.5); LYMPH # 3.2 10^3/uL (1.5-5.0); MEAN CORPUSCULAR HEMOGLOBIN 26.4 pg (27.0-33.0); MEAN CORPUSCULAR HGB CONC 30.8 g/dl (32.0-36.5); MEAN CORPUSCULAR VOLUME 85.7 fl (80.0-96.0); MONO # 0.8 10^3/uL (0.0-0.8); MONO % 8.3 % (0.0-5.0); NEUTROPHILS # 5.2 10^3/uL (1.5-8.5); NEUTROPHILS % 53.7 % (36.0-66.0); PLATELET COUNT, AUTOMATED 362 10^3/uL (150-450); RED BLOOD COUNT 4.47 10^6/uL (4.00-5.40); WHITE BLOOD COUNT 9.8 10^3/uL (4.0-10.0)
[2019-05-11 07:27] LABS: CREATININE FOR GFR 1.68 MG/DL (0.55-1.30); GLOMERULAR FILTRATION RATE 31.3 (>39); POTASSIUM SERUM 4.5 MEQ/L (3.5-5.1)
[2019-05-11] MEDS: HumaLOG INSULIN (NovoLOG) PER UNIT SC SCH ×4 (07:38→21:00)
[2019-05-11] MEDS: DOCUSATE SODIUM 100 MG CAP PO SCH ×2 (07:41→21:34)
[2019-05-11] MEDS ORDERED: VARIBAR NECTAR 40% w/v 240ML SUSP BTL As Ordered ONE (08:24)
[2019-05-11] MEDS ORDERED: E-Z-PAQUE 96% w/w SUSP 176GM BTL As Ordered ONE (08:24)
[2019-05-11] MEDS ORDERED: VARIBAR PUDDING 40% w/v 230ML TUBE As Ordered ONE (08:24)
[2019-05-11] MEDS: LANSOPRAZOLE SUSPENSION 30 MG/10 ML ORAL SYRINGE (FIRST-LANSOPRAZOLE) PO SCH (09:21)
[2019-05-11] MEDS: HEPARIN SOD (PORCINE) 5000 UNITS/ML VIAL (J1644 PER 1000UNITS) SC SCH ×2 (09:21→21:34)
[2019-05-11] MEDS: CLOPIDOGREL 75 MG TAB PO SCH (09:21)
[2019-05-11] MEDS: FLUTICASONE PROP 0.05% NASAL SPRAY 16 GM (FLONASE) NARES SCH ×2 (09:22→21:36)
[2019-05-11] MEDS: BRIMONIDINE 0.15% OPHTH SOLN 5 ML OU SCH ×2 (09:22→21:36)
[2019-05-11] MEDS: guaiFENesin 200 MG TAB PO SCH ×3 (09:22→21:35)
[2019-05-11] MEDS: METOPROLOL SUCC *XL* 25MG TAB (TopROL *XL*) PO SCH (09:22)
[2019-05-11] MEDS: VENLAFAXINE 25 MG TAB PO SCH ×2 (09:24→21:34)
[2019-05-11] MEDS: REMEDY PHYTOPLEX Z-GUARD PASTE 113GM TUBE (FROM STOREROOM PRODUCT) TOP SCH ×3 (09:24→21:38)
[2019-05-11] MEDS: ASPIRIN 81 MG ENTERIC TAB PO SCH (09:28)
[2019-05-11] MEDS ORDERED: NS 500 ML IV ONE (10:45)
--- NOTE | 2019-05-11 12:20 | IPNPDOC ---
PM&R Progress Note DATE OF SERVICE: May 11, 2019 Lead Generator Progress Note Subjective: Patient seen in OT brushing her teeth, stating her daughter brought in her CPAP machine. She denies pain, fever, chills. REVIEW OF SYSTEMS: The following is a completed review of systems and has been reviewed. Review of systems otherwise unremarkable. PAIN: Patient self reports no pain EYES: No recent vision changes EARS, NOSE, & THROAT: +dysphagia CARDIOVASCULAR: Denies chest pain or palpitations PULMONARY: Denies shortness of breath GASTROINTESTINAL: Denies constipation/diarrhea GENITOURINARY: denies dysuria MUSCULOSKELETAL: right sided weakness NEUROLOGICAL:+aphasia, dysphagia, right sided paresis HEMATOLOGICAL: denies easy bruising SKIN: intact PSYCHIATRIC: Unremarkable All other review of systems found to be negative. PHYSICAL EXAMINATION: VITAL SIGNS: Please see below. GENERAL: Pleasant and cooperative. No acute distress. HEENT: PERRL. Extraocular movements intact. Clear conjunctiva. +right facial droop CARDIOVASCULAR: Regular rate and rhythm. No murmurs, rubs, or gallops LUNGS: CTA ABDOMEN: Soft, nontender, nondistended. Positive bowel sounds. Normal active bowel sounds, +colostomy NEUROLOGICAL: Alert and oriented times 3 (despite aphasia) Cranial nerves II through XII grossly intact. Sensation grossly intact in all 4 limbs +Babinski on right +expressive aphasia EXTREMITIES: 5\5 strength left upper extremities. +flaccid RUE, 4\5 strength right lower extremity except 2/5 ankle DF. 5/5 strength in left lower extremity. SKIN: intact ASSESSMENT:78-year-old F with past medical history of COPD, lumbar stenosis, wh o presents status post stroke PLAN: 1. 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 Neuro: s/p left basal ganglia infarct with Right sided hemiparesis, aphasia, and dysphagia -c/u secondary stroke prevention with ASA + Plavix x 90 days then to be followed by ASA alone, statin, and good BP control -patient on SNRI 3. CArdio: pmh AVR not on AC-medicine consulted to assist in overall management -HTN c/u metoprolol- holding lisinopril due to decline in renal function 4. Resp: hx of COPD with rhonchi on exam (resolved, c/u Duonebs, guaifenesin, and incentive spirometry, c/u Advair -patient reports hx of KYLE and uses CPAP at night, daughter brought in equipment 5. GI: Lanzaprazole for GI ppx -colostomy care 6. : denies dysuria, monitor PVRs 7. DVT ppx: heparin and TEDs 8. Psych: hx of depression/anxiety- c/u Effexor 9. Endo: hypothyroidism c/u Synthroid, DM-given GFR <30 holding metformin and c/u ISS 10. 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 Dispo: TBD Allergies Coded Allergies: [place] Solvents (Verified Allergy, Severe, RESPIRATORY ISSUES, 05/04/19) prochlorperazine (Verified Adverse Reaction, Intermediate, EYES ROLLED BACK, 05/04/19) Vital Signs Vital Signs Date Time Temp Pulse Resp B/P (MAP) Pulse Ox O2 Delivery O2 Flow Rate FiO2 05/11/19 09:22 70 130/60 05/11/19 05:48 97.1 18 100 Room Air Laboratory Data CBC/BMP Laboratory Tests 05/11/19 06:34 Labs 24H Laboratory Tests 2 05/10/19 16:36: Bedside Glucose (Misc Panel) 104 05/10/19 20:46: Bedside Glucose (Misc Panel) 253H 05/11/19 06:00: Bedside Glucose (Misc Panel) 151H 05/11/19 06:34: Immature Granulocyte % (Auto) 0.3, Neutrophils (%) (Auto) 53.7, Lymphocytes (%) (Auto) 33.0, Monocytes (%) (Auto) 8.3H, Eosinophils (%) (Auto) 3.5H, Basophils (%) (Auto) 1.2H, Neutrophils # (Auto) 5.2, Lymphocytes # (Auto) 3.2, Monocytes # (Auto) 0.8, Eosinophils # (Auto) 0.3, Basophils # (Auto) 0.1, Nucleated Red Blood Cells % (auto) 0.0, Anion Gap 7L, Glomerular Filtration Rate 31.3L, Calcium Level 10.0 2/27/20 11:52: Bedside Glucose (Misc Panel) 178H Current Medications Current Medications Current Medications Medications (Trade) Dose Ordered Sig/Charlie Route PRN Reason Start Time Stop Time Status Last Admin Dose Admin Acetaminophen (Tylenol Tab) 650 mg Q4HP PRN PO fever/MILD PAIN (PS 1-4) 05/09/19 14:00 05/09/19 20:26 Albuterol/ Ipratropium (Duoneb (Ipr 0.5mg/Alb 2.5mg)) 3 ml RTID NEB 05/09/19 20:00 05/10/19 14:08 Aspirin (Ecotrin) 81 mg DAILY PO 05/10/19 09:00 05/11/19 09:28 Atorvastatin Calcium (Lipitor) 80 mg QHS PO 05/09/19 21:00 05/10/19 20:56 Brimonidine Tartrate (Alphagan P 0.15%) 1 drop BID OU 05/09/19 21:00 05/11/19 09:22 Clopidogrel Bisulfate (PLAVix) 75 mg DAILY PO 05/10/19 09:00 08/07/19 09:01 05/11/19 09:21 Dextrose (Dextrose 50%) 25 ml ASDIRECTED PRN IV SEE LABEL COMMENTS 05/09/19 14:00 Docusate Sodium (Colace) 100 mg BID PO 05/09/19 21:00 05/10/19 08:01 Fluticasone Propionate (Flonase 0.05% Nasal [place]) 1 spray BID NARES 05/09/19 21:00 05/11/19 09:22 Glucagon (Glucagon) 1 mg ASDIRECTED PRN SC SEE LABEL COMMENTS 05/09/19 14:00 Glucose (Glucose) 16 GM ASDIRECTED PRN PO SEE LABEL COMMENTS 05/09/19 14:00 Guaifenesin (Robitussin Tab) 400 mg TID PO 05/09/19 21:00 05/11/19 09:22 Heparin Sodium (Porcine) (Heparin) 5,000 units Q12H SC 05/09/19 21:00 05/11/19 09:21 Home Med (Med Rec Complete!) ASDIRECTED XX 05/09/19 15:30 05/09/19 15:51 DC Insulin Human Lispro (HumaLOG INSULIN) SEE PROTOCOL TABLE AC SC 05/09/19 17:30 05/11/19 12:09 Insulin Human Lispro (HumaLOG INSULIN) SEE PROTOCOL TABLE QHS SC 05/09/19 21:00 05/10/19 20:55 Lansoprazole (First-Lansoprazole Oral Suspension) 30 mg DAILY PO 05/10/19 12:00 05/11/19 09:21 Levothyroxine Sodium (Synthroid) 50 mcg DAILY@06 PO 05/10/19 06:00 05/11/19 06:52 Lisinopril (Prinivil) 5 mg DAILY PO 05/10/19 09:00 05/10/19 10:38 DC 05/10/19 08:00 Magnesium Hydroxide (Milk Of Magnesia) 30 ml DAILYPRN PRN PO CONSTIPATION 05/09/19 14:00 Metformin HCl (Glucophage) 500 mg BID@08,18 PO 05/09/19 18:00 05/10/19 10:38 DC 05/10/19 08:00 Metoprolol Succinate (TopROL XL) 25 mg DAILY PO 05/10/19 09:00 05/11/19 09:22 Pantoprazole Sodium (Protonix) 40 mg DAILY PO 05/10/19 09:00 05/10/19 10:35 DC Salmeterol Xinafoate/ Fluticasone (Advair Hfa 115/ 21) 2 puff RBID INH 05/09/19 20:00 05/11/19 06:15 Senna (Senokot) 1 tab QHS PO 05/09/19 21:00 05/09/19 20:25 Venlafaxine HCl (Effexor) 25 mg BID PO 05/09/19 21:00 05/11/19 09:24 AKSHAT MOORE MD May 11, 2019 12:20
[2019-05-11 14:34] VITALS: BP 130/66
--- NOTE | 2019-05-11 14:37 | REP ---
Examination Requested: Cookie Swallow Reason For Exam: Dysphasia The procedure was performed by KIMBERLY Jansen, under the direct supervision of Dr. Perez. The procedure was performed with [Stella Cid from speech pathology present. 5 ml aliquots of thin, pudding, mixed fruit, soft food, nectar, honey and pill consistency barium was administered. Flash penetration was visualized with thin consistency barium. The detailed report of this examination will be provided by speech pathology. 3.0 minutes of fluoroscopy time was utilized for this procedure. Reviewed by KIMBERLY Heller 05/11/2019 09:39 A Electronically Signed by Flex Perez MD 05/11/2019 02:29 P
[2019-05-11] MEDS: SENNA 8.6 MG TAB (SENOKOT) PO SCH (21:34)
[2019-05-11] MEDS: ATORVASTATIN 20 MG TAB PO SCH (21:35)
[2019-05-11 21:38] VITALS: BP 144/65
[2019-05-12] MEDS: LEVOTHYROXINE 50MCG TABLET (0.05MG) PO SCH (05:20)
[2019-05-12 05:37] VITALS: BP 153/83
[2019-05-12] MEDS: IPRATROPIUM 0.5MG/ALBUTEROL 2.5MG INH SOL UD 3ML (DUONEB)(J7620) NEB SCH ×3 (07:30→19:30)
[2019-05-12] MEDS: ADVAIR HFA 115/21MCG INHALER INH SCH ×2 (07:34→19:30)
[2019-05-12] MEDS: HumaLOG INSULIN (NovoLOG) PER UNIT SC SCH ×4 (08:15→21:00)
[2019-05-12] MEDS: HEPARIN SOD (PORCINE) 5000 UNITS/ML VIAL (J1644 PER 1000UNITS) SC SCH ×2 (08:15→22:07)
[2019-05-12] MEDS: VENLAFAXINE 25 MG TAB PO SCH ×2 (08:16→22:06)
[2019-05-12] MEDS: ASPIRIN 81 MG ENTERIC TAB PO SCH (08:16)
[2019-05-12] MEDS: CLOPIDOGREL 75 MG TAB PO SCH (08:16)
[2019-05-12] MEDS: DOCUSATE SODIUM 100 MG CAP PO SCH ×2 (08:16→22:06)
[2019-05-12] MEDS: LANSOPRAZOLE SUSPENSION 30 MG/10 ML ORAL SYRINGE (FIRST-LANSOPRAZOLE) PO SCH (08:16)
[2019-05-12] MEDS: guaiFENesin 200 MG TAB PO SCH ×3 (08:16→22:06)
[2019-05-12] MEDS: METOPROLOL SUCC *XL* 25MG TAB (TopROL *XL*) PO SCH (08:17)
[2019-05-12] MEDS: BRIMONIDINE 0.15% OPHTH SOLN 5 ML OU SCH ×2 (08:18→22:07)
[2019-05-12] MEDS: REMEDY PHYTOPLEX Z-GUARD PASTE 113GM TUBE (FROM STOREROOM PRODUCT) TOP SCH ×3 (08:18→21:00)
[2019-05-12] MEDS: FLUTICASONE PROP 0.05% NASAL SPRAY 16 GM (FLONASE) NARES SCH ×2 (08:18→22:07)
[2019-05-12 09:14] LABS: CALCIUM LEVEL 9.3 MG/DL (8.8-10.2); CREATININE FOR GFR 1.32 MG/DL (0.55-1.30); GLOMERULAR FILTRATION RATE 41.3 (>39); POTASSIUM SERUM 4.6 MEQ/L (3.5-5.1)
--- NOTE | 2019-05-12 11:51 | IPNPDOC ---
PM&R Progress Note DATE OF SERVICE: May 12, 2019 Improvement Lead Progress Note Subjective: Patient reporting a mild sore throat and that her voice is notably more hoarse since the stroke. She denies fevers or chills. REVIEW OF SYSTEMS: The following is a completed review of systems and has been reviewed. Review of systems otherwise unremarkable. PAIN: Patient self reports no pain EYES: No recent vision changes EARS, NOSE, & THROAT: +dysphagia, +mild sore throat CARDIOVASCULAR: Denies chest pain or palpitations PULMONARY: Denies shortness of breath GASTROINTESTINAL: Denies constipation/diarrhea GENITOURINARY: denies dysuria MUSCULOSKELETAL: right sided weakness NEUROLOGICAL:+aphasia, dysphagia, right sided paresis HEMATOLOGICAL: denies easy bruising SKIN: intact PSYCHIATRIC: Unremarkable All other review of systems found to be negative. PHYSICAL EXAMINATION: VITAL SIGNS: Please see below. GENERAL: Pleasant and cooperative. No acute distress. HEENT: PERRL. Extraocular movements intact. Clear conjunctiva. +right facial droop (-) neck lymphadenopathy CARDIOVASCULAR: Regular rate and rhythm. No murmurs, rubs, or gallops LUNGS: CTA ABDOMEN: Soft, nontender, nondistended. Positive bowel sounds. Normal active bowel sounds, +colostomy NEUROLOGICAL: Alert and oriented times 3 (despite aphasia) Cranial nerves II through XII grossly intact. Sensation grossly intact in all 4 limbs +Babinski on right +expressive aphasia EXTREMITIES: 5\5 strength left upper extremities. +flaccid RUE, 4\5 strength right lower extremity except 2/5 ankle DF. 5/5 strength in left lower extremity. SKIN: intact ASSESSMENT:78-year-old F with past medical history of COPD, lumbar stenosis, who presents status post stroke PLAN: 1. 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 Neuro: s/p left basal ganglia infarct with Right sided hemiparesis, aphasia, and dysphagia -c/u secondary stroke prevention with ASA + Plavix x 90 days then to be followed by ASA alone, statin, and good BP control -patient on SNRI 3. CArdio: pmh AVR not on AC-medicine consulted to assist in overall management -HTN c/u metoprolol- holding lisinopril due to decline in renal function 4. Resp: hx of COPD with rhonchi on exam (resolved), c/u Duonebs, guaifenesin, and incentive spirometry, c/u Advair -patient reports hx of KYLE and uses CPAP at night, daughter brought in equipment 5. ENT: patient with mild throat pain, will order strep test and throat cx 5. GI: Lanzaprazole for GI ppx -colostomy care 6. : denies dysuria, monitor PVRs 7. DVT ppx: heparin and TEDs 8. Psych: hx of depression/anxiety- c/u Effexor 9. Endo: hypothyroidism c/u Synthroid, DM-given recent decline in GFR- holding metformin and c/u ISS 10. renal: CKD, possibly with DARWIN in setting of poor po intake will hold GERONIMO s/p gentle hydration labs improving 11. Dispo: TBD Allergies Coded Allergies: [place] Solvents (Verified Allergy, Severe, RESPIRATORY ISSUES, 05/04/19) prochlorperazine (Verified Adverse Reaction, Intermediate, EYES ROLLED BACK, 05/04/19) Vital Signs Vital Signs Date Time Temp Pulse Resp B/P (MAP) Pulse Ox O2 Delivery O2 Flow Rate FiO2 05/12/19 08:17 87 153/83 05/12/19 05:37 97.0 18 92 Room Air Laboratory Data CBC/BMP Laboratory Tests 05/12/19 08:29 Labs 24H Laboratory Tests 2 05/11/19 11:52: Bedside Glucose (Misc Panel) 178H 05/11/19 16:44: Bedside Glucose (Misc Panel) 103 05/11/19 20:10: Bedside Glucose (Misc Panel) 183H 05/12/19 06:08: Bedside Glucose (Misc Panel) 134H 05/12/19 08:29: Anion Gap 7L, Glomerular Filtration Rate 41.3, Calcium Level 9.3 Current Medications Current Medications Current Medications Medications (Trade) Dose Ordered Sig/Charlie Route PRN Reason Start Time Stop Time Status Last Admin Dose Admin Acetaminophen (Tylenol Tab) 650 mg Q4HP PRN PO fever/MILD PAIN (PS 1-4) 05/09/19 14:00 05/09/19 20:26 Albuterol/ Ipratropium (Duoneb (Ipr 0.5mg/Alb 2.5mg)) 3 ml RTID NEB 05/09/19 20:00 05/11/19 19:20 Aspirin (Ecotrin) 81 mg DAILY PO 05/10/19 09:00 05/12/19 08:16 Atorvastatin Calcium (Lipitor) 80 mg QHS PO 05/09/19 21:00 05/11/19 21:35 Brimonidine Tartrate (Alphagan P 0.15%) 1 drop BID OU 05/09/19 21:00 05/12/19 08:18 Clopidogrel Bisulfate (PLAVix) 75 mg DAILY PO 05/10/19 09:00 08/07/19 09:01 05/12/19 08:16 Dextrose (Dextrose 50%) 25 ml ASDIRECTED PRN IV SEE LABEL COMMENTS 05/09/19 14:00 Docusate Sodium (Colace) 100 mg BID PO 05/09/19 21:00 05/12/19 08:16 Fluticasone Propionate (Flonase 0.05% Nasal [place]) 1 spray BID NARES 05/09/19 21:00 05/12/19 08:18 Glucagon (Glucagon) 1 mg ASDIRECTED PRN SC SEE LABEL COMMENTS 05/09/19 14:00 Glucose (Glucose) 16 GM ASDIRECTED PRN PO SEE LABEL COMMENTS 05/09/19 14:00 Guaifenesin (Robitussin Tab) 400 mg TID PO 05/09/19 21:00 05/12/19 08:16 Heparin Sodium (Porcine) (Heparin) 5,000 units Q12H SC 05/09/19 21:00 05/12/19 08:15 Home Med (Med Rec Complete!) ASDIRECTED XX 05/09/19 15:30 05/09/19 15:51 DC Insulin Human Lispro (HumaLOG INSULIN) SEE PROTOCOL TABLE AC SC 05/09/19 17:30 05/12/19 08:15 Insulin Human Lispro (HumaLOG INSULIN) SEE PROTOCOL TABLE QHS SC 05/09/19 21:00 05/10/19 20:55 Lansoprazole (First-Lansoprazole Oral Suspension) 30 mg DAILY PO 05/10/19 12:00 05/12/19 08:16 Levothyroxine Sodium (Synthroid) 50 mcg DAILY@06 PO 05/10/19 06:00 05/12/19 05:20 Lisinopril (Prinivil) 5 mg DAILY PO 05/10/19 09:00 05/10/19 10:38 DC 05/10/19 08:00 Magnesium Hydroxide (Milk Of Magnesia) 30 ml DAILYPRN PRN PO CONSTIPATION 05/09/19 14:00 Metformin HCl (Glucophage) 500 mg BID@08,18 PO 05/09/19 18:00 05/10/19 10:38 DC 05/10/19 08:00 Metoprolol Succinate (TopROL XL) 25 mg DAILY PO 05/10/19 09:00 05/12/19 08:17 Pantoprazole Sodium (Protonix) 40 mg DAILY PO 05/10/19 09:00 05/10/19 10:35 DC Salmeterol Xinafoate/ Fluticasone (Advair Hfa 115/ 21) 2 puff RBID INH 05/09/19 20:00 05/12/19 07:34 Senna (Senokot) 1 tab QHS PO 05/09/19 21:00 05/11/19 21:34 Venlafaxine HCl (Effexor) 25 mg BID PO 05/09/19 21:00 05/12/19 08:16 AKSHAT MOORE MD May 12, 2019 11:51
--- NOTE | 2019-05-12 12:38 | REP ---
Bilateral lower extremity deep vein duplex ultrasound: The deep veins demonstrate normal compression, normal Doppler color flow and normal Doppler waveforms with respiration augmentation from the popliteal veins to the common femoral veins bilaterally. Impression: There is no deep vein thrombus in the right or left lower extremities. Electronically Signed by Reagan Silva MD 05/12/2019 12:28 P
[2019-05-12 14:00] VITALS: BP 148/69
[2019-05-12 21:10] VITALS: BP 139/63
[2019-05-12] MEDS: SENNA 8.6 MG TAB (SENOKOT) PO SCH (22:06)
[2019-05-12] MEDS: ATORVASTATIN 20 MG TAB PO SCH (22:06)
[2019-05-13] MEDS: LEVOTHYROXINE 50MCG TABLET (0.05MG) PO SCH (05:33)
[2019-05-13 06:00] VITALS: BP 139/68
[2019-05-13] MEDS: IPRATROPIUM 0.5MG/ALBUTEROL 2.5MG INH SOL UD 3ML (DUONEB)(J7620) NEB SCH ×3 (07:30→20:00)
[2019-05-13] MEDS: ADVAIR HFA 115/21MCG INHALER INH SCH ×2 (07:31→20:36)
[2019-05-13] MEDS: DOCUSATE SODIUM 100 MG CAP PO SCH ×2 (08:29→22:03)
[2019-05-13] MEDS: ASPIRIN 81 MG ENTERIC TAB PO SCH (08:29)
[2019-05-13] MEDS: LANSOPRAZOLE SUSPENSION 30 MG/10 ML ORAL SYRINGE (FIRST-LANSOPRAZOLE) PO SCH (08:29)
[2019-05-13] MEDS: guaiFENesin 200 MG TAB PO SCH ×3 (08:29→22:03)
[2019-05-13] MEDS: VENLAFAXINE 25 MG TAB PO SCH ×2 (08:29→22:03)
[2019-05-13] MEDS: CLOPIDOGREL 75 MG TAB PO SCH (08:29)
[2019-05-13] MEDS: HumaLOG INSULIN (NovoLOG) PER UNIT SC SCH ×4 (08:30→21:00)
[2019-05-13] MEDS: HEPARIN SOD (PORCINE) 5000 UNITS/ML VIAL (J1644 PER 1000UNITS) SC SCH ×2 (08:30→22:04)
[2019-05-13] MEDS: METOPROLOL SUCC *XL* 25MG TAB (TopROL *XL*) PO SCH (08:31)
[2019-05-13] MEDS: BRIMONIDINE 0.15% OPHTH SOLN 5 ML OU SCH ×2 (08:31→22:05)
[2019-05-13] MEDS: FLUTICASONE PROP 0.05% NASAL SPRAY 16 GM (FLONASE) NARES SCH ×2 (08:31→22:05)
[2019-05-13] MEDS: REMEDY PHYTOPLEX Z-GUARD PASTE 113GM TUBE (FROM STOREROOM PRODUCT) TOP SCH ×3 (08:36→22:04)
[2019-05-13 13:56] VITALS: BP 135/66
[2019-05-13 20:00] VITALS: BP 128/71
[2019-05-13] MEDS: ATORVASTATIN 20 MG TAB PO SCH (22:03)
[2019-05-13] MEDS: SENNA 8.6 MG TAB (SENOKOT) PO SCH (22:03)
[2019-05-14 00:40] LABS: INFLUENZA A AMPLIFICATION NEGATIVE (NEGATIVE); INFLUENZA B AMPLIFICATION NEGATIVE (NEGATIVE)
[2019-05-14] MEDS: LEVOTHYROXINE 50MCG TABLET (0.05MG) PO SCH (05:39)
[2019-05-14 06:00] VITALS: BP 131/61
[2019-05-14] MEDS: IPRATROPIUM 0.5MG/ALBUTEROL 2.5MG INH SOL UD 3ML (DUONEB)(J7620) NEB SCH ×3 (07:31→20:00)
[2019-05-14] MEDS: ADVAIR HFA 115/21MCG INHALER INH SCH ×2 (07:31→20:15)
[2019-05-14] MEDS: HumaLOG INSULIN (NovoLOG) PER UNIT SC SCH ×4 (07:34→20:22)
[2019-05-14] MEDS: LANSOPRAZOLE SUSPENSION 30 MG/10 ML ORAL SYRINGE (FIRST-LANSOPRAZOLE) PO SCH (07:34)
[2019-05-14] MEDS: METOPROLOL SUCC *XL* 25MG TAB (TopROL *XL*) PO SCH (07:35)
[2019-05-14] MEDS: ASPIRIN 81 MG ENTERIC TAB PO SCH (07:35)
[2019-05-14] MEDS: CLOPIDOGREL 75 MG TAB PO SCH (07:35)
[2019-05-14] MEDS: HEPARIN SOD (PORCINE) 5000 UNITS/ML VIAL (J1644 PER 1000UNITS) SC SCH ×2 (07:35→20:39)
[2019-05-14] MEDS: VENLAFAXINE 25 MG TAB PO SCH ×2 (07:36→20:39)
[2019-05-14] MEDS: DOCUSATE SODIUM 100 MG CAP PO SCH ×2 (07:36→20:39)
[2019-05-14] MEDS: FLUTICASONE PROP 0.05% NASAL SPRAY 16 GM (FLONASE) NARES SCH ×2 (07:36→20:43)
[2019-05-14] MEDS: guaiFENesin 200 MG TAB PO SCH ×3 (07:36→20:39)
[2019-05-14] MEDS: BRIMONIDINE 0.15% OPHTH SOLN 5 ML OU SCH ×2 (07:36→20:44)
[2019-05-14] MEDS: REMEDY PHYTOPLEX Z-GUARD PASTE 113GM TUBE (FROM STOREROOM PRODUCT) TOP SCH ×3 (08:32→20:23)
[2019-05-14 14:00] VITALS: BP 121/58
[2019-05-14 14:54] LABS: HEMATOCRIT 37.6 % (36.0-47.0); HEMOGLOBIN 11.4 g/dl (12.0-15.5); MEAN CORPUSCULAR HEMOGLOBIN 26.5 pg (27.0-33.0); MEAN CORPUSCULAR HGB CONC 30.3 g/dl (32.0-36.5); MEAN CORPUSCULAR VOLUME 87.4 fl (80.0-96.0); PLATELET COUNT, AUTOMATED 366 10^3/uL (150-450)
[2019-05-14 20:00] VITALS: BP 136/74
[2019-05-14] MEDS: ATORVASTATIN 20 MG TAB PO SCH (20:39)
[2019-05-14] MEDS: SENNA 8.6 MG TAB (SENOKOT) PO SCH (20:39)
[2019-05-15] MEDS: LEVOTHYROXINE 50MCG TABLET (0.05MG) PO SCH (05:58)
[2019-05-15 06:00] VITALS: BP 120/67
[2019-05-15 06:34] LABS: BASO # 0.1 10^3/uL (0.0-0.2); BASO % 1.4 % (0.0-1.0); EOS # 0.4 10^3/uL (0.0-0.5); HEMATOCRIT 32.8 % (36.0-47.0); HEMOGLOBIN 10.4 g/dl (12.0-15.5); LYMPH # 2.2 10^3/uL (1.5-5.0); LYMPH % 31.4 % (24.0-44.0); MEAN CORPUSCULAR HEMOGLOBIN 27.2 pg (27.0-33.0); MEAN CORPUSCULAR HGB CONC 31.7 g/dl (32.0-36.5); MEAN CORPUSCULAR VOLUME 85.6 fl (80.0-96.0); MONO # 0.7 10^3/uL (0.0-0.8); MONO % 9.2 % (0.0-5.0); NEUTROPHILS # 3.7 10^3/uL (1.5-8.5); NEUTROPHILS % 52.6 % (36.0-66.0); PLATELET COUNT, AUTOMATED 305 10^3/uL (150-450); RED BLOOD COUNT 3.83 10^6/uL (4.00-5.40); WHITE BLOOD COUNT 7.1 10^3/uL (4.0-10.0)
[2019-05-15 06:57] LABS: CALCIUM LEVEL 8.7 MG/DL (8.8-10.2); CREATININE FOR GFR 1.12 MG/DL (0.55-1.30); POTASSIUM SERUM 4.4 MEQ/L (3.5-5.1)
[2019-05-15] MEDS: IPRATROPIUM 0.5MG/ALBUTEROL 2.5MG INH SOL UD 3ML (DUONEB)(J7620) NEB SCH ×3 (08:00→20:00)
[2019-05-15] MEDS: ADVAIR HFA 115/21MCG INHALER INH SCH ×2 (08:09→21:00)
[2019-05-15] MEDS: VENLAFAXINE 25 MG TAB PO SCH ×2 (08:13→20:43)
[2019-05-15] MEDS: ASPIRIN 81 MG ENTERIC TAB PO SCH (08:13)
[2019-05-15] MEDS: DOCUSATE SODIUM 100 MG CAP PO SCH ×2 (08:13→08:19)
[2019-05-15] MEDS: CLOPIDOGREL 75 MG TAB PO SCH (08:13)
[2019-05-15] MEDS: HumaLOG INSULIN (NovoLOG) PER UNIT SC SCH ×4 (08:13→21:00)
[2019-05-15] MEDS: METOPROLOL SUCC *XL* 25MG TAB (TopROL *XL*) PO SCH (08:13)
[2019-05-15] MEDS: HEPARIN SOD (PORCINE) 5000 UNITS/ML VIAL (J1644 PER 1000UNITS) SC SCH ×2 (08:13→20:43)
[2019-05-15] MEDS: guaiFENesin 200 MG TAB PO SCH ×3 (08:13→20:43)
[2019-05-15] MEDS: FLUTICASONE PROP 0.05% NASAL SPRAY 16 GM (FLONASE) NARES SCH ×2 (08:14→20:44)
[2019-05-15] MEDS: LANSOPRAZOLE SUSPENSION 30 MG/10 ML ORAL SYRINGE (FIRST-LANSOPRAZOLE) PO SCH (08:14)
[2019-05-15] MEDS: BRIMONIDINE 0.15% OPHTH SOLN 5 ML OU SCH ×2 (08:14→20:44)
[2019-05-15] MEDS: REMEDY PHYTOPLEX Z-GUARD PASTE 113GM TUBE (FROM STOREROOM PRODUCT) TOP SCH ×3 (08:15→20:44)
[2019-05-15 14:00] VITALS: BP 157/72
--- NOTE | 2019-05-15 14:50 | IPNPDOC ---
PM&R Progress Note DATE OF SERVICE: May 15, 2019 Technical Professional Progress Note Subjective: Patient reporting she thinks her throat was swabbed, but per nursing she refused on Wednesday. She reports he throat feels a little better today. REVIEW OF SYSTEMS: The following is a completed review of systems and has been reviewed. Review of systems otherwise unremarkable. PAIN: Patient self reports no pain EYES: No recent vision changes EARS, NOSE, & THROAT: +dysphagia, +mild sore throat CARDIOVASCULAR: Denies chest pain or palpitations PULMONARY: Denies shortness of breath GASTROINTESTINAL: Denies constipation/diarrhea GENITOURINARY: denies dysuria MUSCULOSKELETAL: right sided weakness NEUROLOGICAL:+aphasia, dysphagia, right sided paresis HEMATOLOGICAL: denies easy bruising SKIN: intact PSYCHIATRIC: Unremarkable All other review of systems found to be negative. PHYSICAL EXAMINATION: VITAL SIGNS: Please see below. GENERAL: Pleasant and cooperative. No acute distress. HEENT: PERRL. Extraocular movements intact. Clear conjunctiva. +right facial droop (-) neck lymphadenopathy CARDIOVASCULAR: Regular rate and rhythm. No murmurs, rubs, or gallops LUNGS: CTA ABDOMEN: Soft, nontender, nondistended. Positive bowel sounds. Normal active leatha wel sounds, +colostomy NEUROLOGICAL: Alert and oriented times 3 (despite aphasia) Cranial nerves II through XII grossly intact. Sensation grossly intact in all 4 limbs +Babinski on right +expressive aphasia EXTREMITIES: 5\5 strength left upper extremities. +flaccid RUE, 4\5 strength right lower extremity except 2/5 ankle DF. 5/5 strength in left lower extremity. SKIN: intact ASSESSMENT:78-year-old F with past medical history of COPD, lumbar stenosis, who presents status post stroke PLAN: 1. 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 Neuro: s/p left basal ganglia infarct with Right sided hemiparesis, aphasia, and dysphagia -c/u secondary stroke prevention with ASA + Plavix x 90 days then to be followed by ASA alone, statin, and good BP control -patient on SNRI 3. CArdio: pmh AVR not on AC-medicine consulted to assist in overall management -HTN c/u metoprolol- holding lisinopril due to decline in renal function 4. Resp: hx of COPD with rhonchi on exam (resolved), c/u Duonebs, guaifenesin, and incentive spirometry, c/u Advair -patient reports hx of KYLE and uses CPAP at night, daughter brought in equipment 5. ENT: patient with mild throat pain, ordered strep test and throat cx, but not obtained, will reorder today 5. GI: Lanzaprazole for GI ppx -colostomy care 6. : denies dysuria, monitor PVRs 7. DVT ppx: heparin and TEDs 8. Psych: hx of depression/anxiety- c/u Effexor 9. Endo: hypothyroidism c/u Synthroid, DM-given recent decline in GFR- holding metformin and c/u ISS 10. renal: CKD, possibly with DARWIN in setting of poor po intake will hold GERONIMO s/p gentle hydration labs improving 11. Dispo: TBD Allergies Coded Allergies: [place] Solvents (Verified Allergy, Severe, RESPIRATORY ISSUES, 05/04/19) prochlorperazine (Verified Adverse Reaction, Intermediate, EYES ROLLED BACK, 05/04/19) Vital Signs Vital Signs Date Time Temp Pulse Resp B/P (MAP) Pulse Ox O2 Delivery O2 Flow Rate FiO2 05/15/19 14:00 98.8 89 18 157/72 (100) 98 Room Air Laboratory Data CBC/BMP Laboratory Tests 05/15/19 06:04 Labs 24H Laboratory Tests 2 05/14/19 16:38: Bedside Glucose (Misc Panel) 149H 05/14/19 19:46: Bedside Glucose (Misc Panel) 126H 05/15/19 06:04: Immature Granulocyte % (Auto) 0.4, Neutrophils (%) (Auto) 52.6, Lymphocytes (%) (Auto) 31.4, Monocytes (%) (Auto) 9.2H, Eosinophils (%) (Auto) 5.0H, Basophils (%) (Auto) 1.4H, Neutrophils # (Auto) 3.7, Lymphocytes # (Auto) 2.2, Monocytes # (Auto) 0.7, Eosinophils # (Auto) 0.4, Basophils # (Auto) 0.1, Nucleated Red Blo od Cells % (auto) 0.0, Anion Gap 6L, Glomerular Filtration Rate 50.0, Calcium Level 8.7L 05/15/19 11:30: Bedside Glucose (Misc Panel) 139H Current Medications Current Medications Current Medications Medications (Trade) Dose Ordered Sig/Charlie Route PRN Reason Start Time Stop Time Status Last Admin Dose Admin Acetaminophen (Tylenol Tab) 650 mg Q4HP PRN PO fever/MILD PAIN (PS 1-4) 05/09/19 14:00 05/09/19 20:26 Albuterol/ Ipratropium (Duoneb (Ipr 0.5mg/Alb 2.5mg)) 3 ml RTID NEB 05/09/19 20:00 05/14/19 14:35 Aspirin (Ecotrin) 81 mg DAILY PO 05/10/19 09:00 05/15/19 08:13 Atorvastatin Calcium (Lipitor) 80 mg QHS PO 05/09/19 21:00 05/14/19 20:39 Brimonidine Tartrate (Alphagan P 0.15%) 1 drop BID OU 05/09/19 21:00 05/15/19 08:14 Clopidogrel Bisulfate (PLAVix) 75 mg DAILY PO 05/10/19 09:00 08/07/19 09:01 05/15/19 08:13 Dextrose (Dextrose 50%) 25 ml ASDIRECTED PRN IV SEE LABEL COMMENTS 05/09/19 14:00 Docusate Sodium (Colace) 100 mg BID PO 05/09/19 21:00 05/15/19 14:40 DC 05/14/19 20:39 Fluticasone Propionate (Flonase 0.05% Nasal [place]) 1 spray BID NARES 05/09/19 21:00 05/15/19 08:14 Glucagon (Glucagon) 1 mg ASDIRECTED PRN SC SEE LABEL COMMENTS 05/09/19 14:00 Glucose (Glucose) 16 GM ASDIRECTED PRN PO SEE LABEL COMMENTS 05/09/19 14:00 Guaifenesin (Robitussin Tab) 400 mg TID PO 05/09/19 21:00 05/15/19 08:13 Heparin Sodium (Porcine) (Heparin) 5,000 units Q12H SC 05/09/19 21:00 05/15/19 08:13 Home Med (Med Rec Complete!) ASDIRECTED XX 05/09/19 15:30 05/09/19 15:51 DC Insulin Human Lispro (HumaLOG INSULIN) SEE PROTOCOL TABLE AC SC 05/09/19 17:30 05/15/19 12:08 Insulin Human Lispro (HumaLOG INSULIN) SEE PROTOCOL TABLE QHS SC 05/09/19 21:00 05/10/19 20:55 Lansoprazole (First-Lansoprazole Oral Suspension) 30 mg DAILY PO 05/10/19 12:00 05/15/19 08:14 Levothyroxine Sodium (Synthroid) 50 mcg DAILY@06 PO 05/10/19 06:00 05/15/19 05:58 Lisinopril (Prinivil) 5 mg DAILY PO 05/10/19 09:00 05/10/19 10:38 DC 05/10/19 08:00 Magnesium Hydroxide (Milk Of Magnesia) 30 ml DAILYPRN PRN PO CONSTIPATION 05/09/19 14:00 Metformin HCl (Glucophage) 500 mg BID@08,18 PO 05/09/19 18:00 05/10/19 10:38 DC 05/10/19 08:00 Metoprolol Succinate (TopROL XL) 25 mg DAILY PO 05/10/19 09:00 05/15/19 08:13 Pantoprazole Sodium (Protonix) 40 mg DAILY PO 05/10/19 09:00 05/10/19 10:35 DC Salmeterol Xinafoate/ Fluticasone (Advair Hfa 115/ 21) 2 puff RBID INH 05/09/19 20:00 05/15/19 08:09 Senna (Senokot) 1 tab QHS PO 05/09/19 21:00 05/15/19 14:40 DC 05/14/19 20:39 Venlafaxine HCl (Effexor) 25 mg BID PO 05/09/19 21:00 05/15/19 08:13 AKSHAT MOORE MD May 15, 2019 14:50
[2019-05-15 20:00] VITALS: BP 148/66
[2019-05-15] MEDS: ATORVASTATIN 20 MG TAB PO SCH (20:43)
[2019-05-16] MEDS: LEVOTHYROXINE 50MCG TABLET (0.05MG) PO SCH (05:54)
[2019-05-16 06:00] VITALS: BP 148/67
[2019-05-16] MEDS: HumaLOG INSULIN (NovoLOG) PER UNIT SC SCH ×4 (06:49→20:22)
[2019-05-16] MEDS: IPRATROPIUM 0.5MG/ALBUTEROL 2.5MG INH SOL UD 3ML (DUONEB)(J7620) NEB SCH ×3 (07:39→20:00)
[2019-05-16] MEDS: ADVAIR HFA 115/21MCG INHALER INH SCH ×2 (07:39→21:05)
[2019-05-16] MEDS: HEPARIN SOD (PORCINE) 5000 UNITS/ML VIAL (J1644 PER 1000UNITS) SC SCH ×2 (08:33→20:22)
[2019-05-16] MEDS: ASPIRIN 81 MG ENTERIC TAB PO SCH (08:33)
[2019-05-16] MEDS: VENLAFAXINE 25 MG TAB PO SCH ×2 (08:33→20:22)
[2019-05-16] MEDS: METOPROLOL SUCC *XL* 25MG TAB (TopROL *XL*) PO SCH (08:33)
[2019-05-16] MEDS: FLUTICASONE PROP 0.05% NASAL SPRAY 16 GM (FLONASE) NARES SCH ×2 (08:33→20:22)
[2019-05-16] MEDS: CLOPIDOGREL 75 MG TAB PO SCH (08:33)
[2019-05-16] MEDS: LANSOPRAZOLE SUSPENSION 30 MG/10 ML ORAL SYRINGE (FIRST-LANSOPRAZOLE) PO SCH (08:33)
[2019-05-16] MEDS: guaiFENesin 200 MG TAB PO SCH ×3 (08:33→20:22)
[2019-05-16] MEDS: REMEDY PHYTOPLEX Z-GUARD PASTE 113GM TUBE (FROM STOREROOM PRODUCT) TOP SCH ×3 (08:34→20:23)
[2019-05-16] MEDS: BRIMONIDINE 0.15% OPHTH SOLN 5 ML OU SCH ×2 (08:34→20:21)
[2019-05-16 14:00] VITALS: BP 127/61
[2019-05-16 20:00] VITALS: BP 138/68
[2019-05-16] MEDS: ATORVASTATIN 20 MG TAB PO SCH (20:22)
[2019-05-17 05:34] VITALS: BP 138/66
[2019-05-17] MEDS: LEVOTHYROXINE 50MCG TABLET (0.05MG) PO SCH (05:46)
[2019-05-17] MEDS: ADVAIR HFA 115/21MCG INHALER INH SCH ×2 (07:12→19:01)
[2019-05-17] MEDS: IPRATROPIUM 0.5MG/ALBUTEROL 2.5MG INH SOL UD 3ML (DUONEB)(J7620) NEB SCH ×3 (07:13→19:01)
[2019-05-17] MEDS: REMEDY PHYTOPLEX Z-GUARD PASTE 113GM TUBE (FROM STOREROOM PRODUCT) TOP SCH ×3 (09:00→21:00)
[2019-05-17] MEDS: HEPARIN SOD (PORCINE) 5000 UNITS/ML VIAL (J1644 PER 1000UNITS) SC SCH ×2 (09:32→20:58)
[2019-05-17] MEDS: LANSOPRAZOLE SUSPENSION 30 MG/10 ML ORAL SYRINGE (FIRST-LANSOPRAZOLE) PO SCH (09:32)
[2019-05-17] MEDS: guaiFENesin 200 MG TAB PO SCH ×3 (09:33→20:58)
[2019-05-17] MEDS: HumaLOG INSULIN (NovoLOG) PER UNIT SC SCH ×4 (09:33→20:52)
[2019-05-17] MEDS: CLOPIDOGREL 75 MG TAB PO SCH (09:33)
[2019-05-17] MEDS: VENLAFAXINE 25 MG TAB PO SCH ×2 (09:33→20:58)
[2019-05-17] MEDS: METOPROLOL SUCC *XL* 25MG TAB (TopROL *XL*) PO SCH (09:33)
[2019-05-17] MEDS: ASPIRIN 81 MG ENTERIC TAB PO SCH (09:33)
[2019-05-17] MEDS: BRIMONIDINE 0.15% OPHTH SOLN 5 ML OU SCH ×2 (09:34→20:58)
[2019-05-17] MEDS: FLUTICASONE PROP 0.05% NASAL SPRAY 16 GM (FLONASE) NARES SCH ×2 (09:34→20:58)
[2019-05-17 14:00] VITALS: BP 140/61
[2019-05-17 20:51] VITALS: BP 142/66
[2019-05-17] MEDS: ATORVASTATIN 20 MG TAB PO SCH (20:58)
[2019-05-18 05:30] VITALS: BP 152/80
[2019-05-18] MEDS: LEVOTHYROXINE 50MCG TABLET (0.05MG) PO SCH (06:10)
[2019-05-18 07:42] LABS: BASO # 0.1 10^3/uL (0.0-0.2); BASO % 1.1 % (0.0-1.0); EOS # 0.4 10^3/uL (0.0-0.5); EOS % 4.6 % (0.0-3.0); HEMATOCRIT 35.9 % (36.0-47.0); HEMOGLOBIN 11.1 g/dl (12.0-15.5); LYMPH # 1.8 10^3/uL (1.5-5.0); LYMPH % 23.8 % (24.0-44.0); MEAN CORPUSCULAR HEMOGLOBIN 26.6 pg (27.0-33.0); MEAN CORPUSCULAR HGB CONC 30.9 g/dl (32.0-36.5); MEAN CORPUSCULAR VOLUME 85.9 fl (80.0-96.0); MONO # 0.5 10^3/uL (0.0-0.8); MONO % 6.6 % (0.0-5.0); NEUTROPHILS # 4.8 10^3/uL (1.5-8.5); NEUTROPHILS % 63.5 % (36.0-66.0); PLATELET COUNT, AUTOMATED 348 10^3/uL (150-450); RED BLOOD COUNT 4.18 10^6/uL (4.00-5.40); WHITE BLOOD COUNT 7.6 10^3/uL (4.0-10.0)
[2019-05-18] MEDS: VENLAFAXINE 25 MG TAB PO SCH ×2 (07:57→21:16)
[2019-05-18] MEDS: CLOPIDOGREL 75 MG TAB PO SCH (07:57)
[2019-05-18] MEDS: guaiFENesin 200 MG TAB PO SCH ×3 (07:57→21:16)
[2019-05-18] MEDS: HumaLOG INSULIN (NovoLOG) PER UNIT SC SCH ×4 (07:57→21:00)
[2019-05-18] MEDS: ASPIRIN 81 MG ENTERIC TAB PO SCH (07:57)
[2019-05-18] MEDS: LANSOPRAZOLE SUSPENSION 30 MG/10 ML ORAL SYRINGE (FIRST-LANSOPRAZOLE) PO SCH (07:58)
[2019-05-18] MEDS: FLUTICASONE PROP 0.05% NASAL SPRAY 16 GM (FLONASE) NARES SCH ×2 (07:58→21:17)
[2019-05-18] MEDS: BRIMONIDINE 0.15% OPHTH SOLN 5 ML OU SCH ×2 (07:58→21:17)
[2019-05-18] MEDS: METOPROLOL SUCC *XL* 25MG TAB (TopROL *XL*) PO SCH (07:58)
[2019-05-18] MEDS: HEPARIN SOD (PORCINE) 5000 UNITS/ML VIAL (J1644 PER 1000UNITS) SC SCH ×2 (07:58→21:16)
[2019-05-18] MEDS: IPRATROPIUM 0.5MG/ALBUTEROL 2.5MG INH SOL UD 3ML (DUONEB)(J7620) NEB SCH ×3 (08:00→19:58)
[2019-05-18 08:06] LABS: CREATININE FOR GFR 1.14 MG/DL (0.55-1.30); GLOMERULAR FILTRATION RATE 48.9 (>39); POTASSIUM SERUM 4.1 MEQ/L (3.5-5.1)
[2019-05-18] MEDS: ADVAIR HFA 115/21MCG INHALER INH SCH ×2 (08:28→19:58)
[2019-05-18 09:00] VITALS: BP 131/63
[2019-05-18] MEDS: REMEDY PHYTOPLEX Z-GUARD PASTE 113GM TUBE (FROM STOREROOM PRODUCT) TOP SCH ×3 (09:00→21:00)
--- NOTE | 2019-05-18 10:10 | IPNPDOC ---
PM&R Progress Note DATE OF SERVICE: May 16, 2019 Community Association Manager Progress Note Subjective: Patient seen in her bed asking to get up and transfer to her wheelchair. She reports she is better able to mobilize and feels her right leg is getting much s tronger. REVIEW OF SYSTEMS: The following is a completed review of systems and has been reviewed. Review of systems otherwise unremarkable. PAIN: Patient self reports no pain EYES: No recent vision changes EARS, NOSE, & THROAT: +dysphagia, +mild sore throat CARDIOVASCULAR: Denies chest pain or palpitations PULMONARY: Denies shortness of breath GASTROINTESTINAL: Denies constipation/diarrhea GENITOURINARY: denies dysuria MUSCULOSKELETAL: right sided weakness NEUROLOGICAL:+aphasia, dysphagia, right sided paresis HEMATOLOGICAL: denies easy bruising SKIN: intact PSYCHIATRIC: Unremarkable All other review of systems found to be negative. PHYSICAL EXAMINATION: VITAL SIGNS: Please see below. GENERAL: Pleasant and cooperative. No acute distress. HEENT: PERRL. Extraocular movements intact. Clear conjunctiva. +right facial droop (-) neck lymphadenopathy CARDIOVASCULAR: Regular rate and rhythm. No murmurs, rubs, or gallops LUNGS: CTA ABDOMEN: Soft, nontender, nondistended. Positive bowel sounds. Normal active bowel sounds, +colostomy NEUROLOGICAL: Alert and oriented times 3 (despite aphasia) Cranial nerves II through XII grossly intact. Sensation grossly intact in all 4 limbs +Babinski on right +expressive aphasia EXTREMITIES: 5\5 strength left upper extremities. +flaccid RUE, 4\5 strength right lower extremity except 2/5 ankle DF. 5/5 strength in left lower extremity. SKIN: intact ASSESSMENT:78-year-old F with past medical history of COPD, lumbar stenosis, who presents status post stroke PLAN: 1. 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 Neuro: s/p left basal ganglia infarct with Right sided hemiparesis, aphasia, and dysphagia -c/u secondary stroke prevention with ASA + Plavix x 90 days then to be followed by ASA alone, statin, and good BP control -patient on SNRI 3. CArdio: pmh AVR not on AC-medicine consulted to assist in overall management -HTN c/u metoprolol- holding lisinopril due to decline in renal function 4. Resp: hx of COPD with rhonchi on exam (resolved), c/u Duonebs, guaifenesin, and incentive spirometry, c/u Advair -patient reports hx of KYLE and uses CPAP at night, daughter brought in equipment 5. ENT: patient with mild throat pain, ordered strep test and throat cx, but not obtained, will reorder today 5. GI: Lanzaprazole for GI ppx -colostomy care 6. : denies dysuria, monitor PVRs 7. DVT ppx: heparin and TEDs 8. Psych: hx of depression/anxiety- c/u Effexor 9. Endo: hypothyroidism c/u Synthroid, DM-given recent decline in GFR- holding metformin and c/u ISS 10. renal: CKD, possibly with DARWIN in setting of poor po intake will hold GERONIMO s/p gentle hydration labs improving 11. Dispo: TBD Allergies Coded Allergies: [place] Solvents (Verified Allergy, Severe, RESPIRATORY ISSUES, 05/04/19) prochlorperazine (Verified Adverse Reaction, Intermediate, EYES ROLLED BACK, 05/04/19) Vital Signs Vital Signs Date Time Temp Pulse Resp B/P (MAP) Pulse Ox O2 Delivery O2 Flow Rate FiO2 05/18/19 09:00 86 131/63 (85) 05/18/19 05:30 97.3 18 97 Nasal Cannula 2.0 Laboratory Data CBC/BMP Laboratory Tests 05/18/19 06:47 Labs 24H Laboratory Tests 2 05/17/19 11:30: Bedside Glucose (Misc Panel) 101 05/17/19 16:48: Bedside Glucose (Misc Panel) 110 05/17/19 19:48: Bedside Glucose (Misc Panel) 159H 05/18/19 05:14: Bedside Glucose (Misc Panel) 119H 05/18/19 06:47: Immature Granulocyte % (Auto) 0.4, Neutrophils (%) (Auto) 63.5, Lymphocytes (%) (Auto) 23.8L, Monocytes (%) (Auto) 6.6H, Eosinophils (%) (Auto) 4.6H, Basophils (%) (Auto) 1.1H, Neutrophils # (Auto) 4.8, Lymphocytes # (Auto) 1.8, Monocytes # (Auto) 0.5, Eosinophils # (Auto) 0.4, Basophils # (Auto) 0.1, Nucleated Red Blood Cells % (auto) 0.0, Anion Gap 5L, Glomerular Filtration Rate 48.9, Calcium Level 10.0 Microbiology Microbiology 05/16/19 Group A Streptococcus Screen (ALECIA) - Final, Complete 05/16/19 Eye/Ear/Nose/Throat Culture - Final, Complete Current Medications Current Medications Current Medications Medications (Trade) Dose Ordered Sig/Charlie Route PRN Reason Start Time Stop Time Status Last Admin Dose Admin Acetaminophen (Tylenol Tab) 650 mg Q4HP PRN PO fever/MILD PAIN (PS 1-4) 05/09/19 14:00 05/09/19 20:26 Albuterol/ Ipratropium (Duoneb (Ipr 0.5mg/Alb 2.5mg)) 3 ml RTID NEB 05/09/19 20:00 05/17/19 19:01 Aspirin (Ecotrin) 81 mg DAILY PO 05/10/19 09:00 05/18/19 07:57 Atorvastatin Calcium (Lipitor) 80 mg QHS PO 05/09/19 21:00 05/17/19 20:58 Brimonidine Tartrate (Alphagan P 0.15%) 1 drop BID OU 05/09/19 21:00 05/18/19 07:58 Clopidogrel Bisulfate (PLAVix) 75 mg DAILY PO 05/10/19 09:00 08/07/19 09:01 05/18/19 07:57 Dextrose (Dextrose 50%) 25 ml ASDIRECTED PRN IV SEE LABEL COMMENTS 05/09/19 14:00 Docusate Sodium (Colace) 100 mg BID PO 05/09/19 21:00 05/15/19 14:40 DC 05/14/19 20:39 Fluticasone Propionate (Flonase 0.05% Nasal [place]) 1 spray BID NARES 05/09/19 21:00 05/18/19 07:58 Glucagon (Glucagon) 1 mg ASDIRECTED PRN SC SEE LABEL COMMENTS 05/09/19 14:00 Glucose (Glucose) 16 GM ASDIRECTED PRN PO SEE LABEL COMMENTS 05/09/19 14:00 Guaifenesin (Robitussin Tab) 400 mg TID PO 05/09/19 21:00 05/18/19 07:57 Heparin Sodium (Porcine) (Heparin) 5,000 units Q12H SC 05/09/19 21:00 05/18/19 07:58 Home Med (Med Rec Complete!) ASDIRECTED XX 05/09/19 15:30 05/09/19 15:51 DC Insulin Human Lispro (HumaLOG INSULIN) SEE PROTOCOL TABLE AC SC 05/09/19 17:30 05/18/19 07:57 Insulin Human Lispro (HumaLOG INSULIN) SEE PROTOCOL TABLE QHS SC 05/09/19 21:00 05/10/19 20:55 Lansoprazole (First-Lansoprazole Oral Suspension) 30 mg DAILY PO 05/10/19 12:00 05/18/19 07:58 Levothyroxine Sodium (Synthroid) 50 mcg DAILY@06 PO 05/10/19 06:00 05/18/19 06:10 Lisinopril (Prinivil) 5 mg DAILY PO 05/10/19 09:00 05/10/19 10:38 DC 05/10/19 08:00 Magnesium Hydroxide (Milk Of Magnesia) 30 ml DAILYPRN PRN PO CONSTIPATION 05/09/19 14:00 Metformin HCl (Glucophage) 500 mg BID@08,18 PO 05/09/19 18:00 05/10/19 10:38 DC 05/10/19 08:00 Metoprolol Succinate (TopROL XL) 25 mg DAILY PO 05/10/19 09:00 05/18/19 07:58 Pantoprazole Sodium (Protonix) 40 mg DAILY PO 05/10/19 09:00 05/10/19 10:35 DC Salmeterol Xinafoate/ Fluticasone (Advair Hfa 115/ 21) 2 puff RBID INH 05/09/19 20:00 05/18/19 08:28 Senna (Senokot) 1 tab QHS PO 05/09/19 21:00 05/15/19 14:40 DC 05/14/19 20:39 Venlafaxine HCl (Effexor) 25 mg BID PO 05/09/19 21:00 05/18/19 07:57 AKSHAT MOORE MD May 18, 2019 10:10
--- NOTE | 2019-05-18 10:12 | IPNPDOC ---
PM&R Progress Note DATE OF SERVICE: May 17, 2019 Grocery Store Associate Progress Note Subjective: Patient seen in her room reporting she is feeling well overall and is hoping the strength comes back in her right arm. She is agreeable to staying the full 24 days in order to be able to return home alone. REVIEW OF SYSTEMS: The following is a completed review of systems and has been reviewed. Review of systems otherwise unremarkable. PAIN: Patient self reports no pain EYES: No recent vision changes EARS, NOSE, & THROAT: +dysphagia, +mild sore throat (improving) CARDIOVASCULAR: Denies chest pain or palpitations PULMONARY: Denies shortness of breath GASTROINTESTINAL: Denies constipation/diarrhea GENITOURINARY: denies dysuria MUSCULOSKELETAL: right sided weakness NEUROLOGICAL:+aphasia, dysphagia, right sided paresis HEMATOLOGICAL: denies easy bruising SKIN: intact PSYCHIATRIC: Unremarkable All other review of systems found to be negative. PHYSICAL EXAMINATION: VITAL SIGNS: Please see below. GENERAL: Pleasant and cooperative. No acute distress. HEENT: PERRL. Extraocular movements intact. Clear conjunctiva. +right facial droop (-) neck lymphadenopathy CARDIOVASCULAR: Regular rate and rhythm. No murmurs, rubs, or gallops LUNGS: CTA ABDOMEN: Soft, nontender, nondistended. Positive bowel sounds. Normal active bowel sounds, +colostomy NEUROLOGICAL: Alert and oriented times 3 (despite aphasia) Cranial nerves II through XII grossly intact. Sensation grossly intact in all 4 limbs +Babinski on right +expressive aphasia EXTREMITIES: 5\5 strength left upper extremities. +flaccid RUE, 4\5 strength right lower extremity except 2/5 ankle DF. 5/5 strength in left lower extremity. SKIN: intact ASSESSMENT:78-year-old F with past medical history of COPD, lumbar stenosis, who presents status post stroke PLAN: 1. 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 Neuro: s/p left basal ganglia infarct with Right sided hemiparesis, aphasia, and dysphagia -c/u secondary stroke prevention with ASA + Plavix x 90 days then to be followed by ASA alone, statin, and good BP control -patient on SNRI 3. CArdio: pmh AVR not on AC-medicine consulted to assist in overall management -HTN c/u metoprolol- holding lisinopril due to decline in renal function 4. Resp: hx of COPD with rhonchi on exam (resolved), c/u Duonebs, guaifenesin, and incentive spirometry, c/u Advair -patient reports hx of KYLE and uses CPAP at night, daughter brought in equipment 5. ENT: patient with mild throat pain, ordered strep test and throat cx negative 5. GI: Lanzaprazole for GI ppx -colostomy care 6. : denies dysuria, monitor PVRs 7. DVT ppx: heparin and TEDs 8. Psych: hx of depression/anxiety- c/u Effexor 9. Endo: hypothyroidism c/u Synthroid, DM-given recent decline in GFR- holding metformin and c/u ISS 10. renal: CKD, possibly with DARIWN in setting of poor po intake will hold GERONIMO s/p gentle hydration labs improving 11. Dispo: 06/01/19 to home, progressing towards goals Allergies Coded Allergies: [place] Solvents (Verified Allergy, Severe, RESPIRATORY ISSUES, 05/04/19) prochlorperazine (Verified Adverse Reaction, Intermediate, EYES ROLLED BACK, 05/04/19) Vital Signs Vital Signs Date Time Temp Pulse Resp B/P (MAP) Pulse Ox O2 Delivery O2 Flow Rate FiO2 05/18/19 09:00 86 131/63 (85) 05/18/19 05:30 97.3 18 97 Nasal Cannula 2.0 Laboratory Data CBC/BMP Laboratory Tests 05/18/19 06:47 Labs 24H Laboratory Tests 2 05/17/19 11:30: Bedside Glucose (Misc Panel) 101 05/17/19 16:48: Bedside Glucose (Misc Panel) 110 05/17/19 19:48: Bedside Glucose (Misc Panel) 159H 05/18/19 05:14: Bedside Glucose (Misc Panel) 119H 05/18/19 06:47: Immature Granulocyte % (Auto) 0.4, Neutrophils (%) (Auto) 63.5, Lymphocytes (%) (Auto) 23.8L, Monocytes (%) (Auto) 6.6H, Eosinophils (%) (Auto) 4.6H, Basophils (%) (Auto) 1.1H, Neutrophils # (Auto) 4.8, Lymphocytes # (Auto) 1.8, Monocytes # (Auto) 0.5, Eosinophils # (Auto) 0.4, Basophils # (Auto) 0.1, Nucleated Red Blood Cells % (auto) 0.0, Anion Gap 5L, Glomerular Filtration Rate 48.9, Calcium Level 10.0 Microbiology Microbiology 05/16/19 Group A Streptococcus Screen (ALECIA) - Final, Complete 05/16/19 Eye/Ear/Nose/Throat Culture - Final, Complete Current Medications Current Medications Current Medications Medications (Trade) Dose Ordered Sig/Charlie Route PRN Reason Start Time Stop Time Status Last Admin Dose Admin Acetaminophen (Tylenol Tab) 650 mg Q4HP PRN PO fever/MILD PAIN (PS 1-4) 05/09/19 14:00 05/09/19 20:26 Albuterol/ Ipratropium (Duoneb (Ipr 0.5mg/Alb 2.5mg)) 3 ml RTID NEB 05/09/19 20:00 05/17/19 19:01 Aspirin (Ecotrin) 81 mg DAILY PO 05/10/19 09:00 05/18/19 07:57 Atorvastatin Calcium (Lipitor) 80 mg QHS PO 05/09/19 21:00 05/17/19 20:58 Brimonidine Tartrate (Alphagan P 0.15%) 1 drop BID OU 05/09/19 21:00 05/18/19 07:58 Clopidogrel Bisulfate (PLAVix) 75 mg DAILY PO 05/10/19 09:00 08/07/19 09:01 05/18/19 07:57 Dextrose (Dextrose 50%) 25 ml ASDIRECTED PRN IV SEE LABEL COMMENTS 05/09/19 14:00 Docusate Sodium (Colace) 100 mg BID PO 05/09/19 21:00 05/15/19 14:40 DC 05/14/19 20:39 Fluticasone Propionate (Flonase 0.05% Nasal [place]) 1 spray BID NARES 05/09/19 21:00 05/18/19 07:58 Glucagon (Glucagon) 1 mg ASDIRECTED PRN SC SEE LABEL COMMENTS 05/09/19 14:00 Glucose (Glucose) 16 GM ASDIRECTED PRN PO SEE LABEL COMMENTS 05/09/19 14:00 Guaifenesin (Robitussin Tab) 400 mg TID PO 05/09/19 21:00 05/18/19 07:57 Heparin Sodium (Porcine) (Heparin) 5,000 units Q12H SC 05/09/19 21:00 05/18/19 07:58 Home Med (Med Rec Complete!) ASDIRECTED XX 05/09/19 15:30 05/09/19 15:51 DC Insulin Human Lispro (HumaLOG INSULIN) SEE PROTOCOL TABLE AC SC 05/09/19 17:30 05/18/19 07:57 Insulin Human Lispro (HumaLOG INSULIN) SEE PROTOCOL TABLE QHS SC 05/09/19 21:00 05/10/19 20:55 Lansoprazole (First-Lansoprazole Oral Suspension) 30 mg DAILY PO 05/10/19 12:00 05/18/19 07:58 Levothyroxine Sodium (Synthroid) 50 mcg DAILY@06 PO 05/10/19 06:00 05/18/19 06:10 Lisinopril (Prinivil) 5 mg DAILY PO 05/10/19 09:00 05/10/19 10:38 DC 05/10/19 08:00 Magnesium Hydroxide (Milk Of Magnesia) 30 ml DAILYPRN PRN PO CONSTIPATION 05/09/19 14:00 Metformin HCl (Glucophage) 500 mg BID@08,18 PO 05/09/19 18:00 05/10/19 10:38 DC 05/10/19 08:00 Metoprolol Succinate (TopROL XL) 25 mg DAILY PO 05/10/19 09:00 05/18/19 07:58 Pantoprazole Sodium (Protonix) 40 mg DAILY PO 05/10/19 09:00 05/10/19 10:35 DC Salmeterol Xinafoate/ Fluticasone (Advair Hfa 115/ 21) 2 puff RBID INH 05/09/19 20:00 05/18/19 08:28 Senna (Senokot) 1 tab QHS PO 05/09/19 21:00 05/15/19 14:40 DC 05/14/19 20:39 Venlafaxine HCl (Effexor) 25 mg BID PO 05/09/19 21:00 05/18/19 07:57 AKSHAT MOORE MD May 18, 2019 10:12
--- NOTE | 2019-05-18 10:13 | IPNPDOC ---
PM&R Progress Note DATE OF SERVICE: May 18, 2019 Proposal Development Manager Progress Note Subjective: Patient reporting she is feeling well, has no pain, and is getting stronger in therapy. REVIEW OF SYSTEMS: The following is a completed review of systems and has been reviewed. Review of systems otherwise unremarkable. PAIN: Patient self reports no pain EYES: No recent vision changes EARS, NOSE, & THROAT: +dysphagia, +mild sore throat (improving) CARDIOVASCULAR: Denies chest pain or palpitations PULMONARY: Denies shortness of breath GASTROINTESTINAL: Denies constipation/diarrhea GENITOURINARY: denies dysuria MUSCULOSKELETAL: right sided weakness NEUROLOGICAL:+aphasia, dysphagia, right sided paresis HEMATOLOGICAL: denies easy bruising SKIN: intact PSYCHIATRIC: Unremarkable All other review of systems found to be negative. PHYSICAL EXAMINATION: VITAL SIGNS: Please see below. GENERAL: Pleasant and cooperative. No acute distress. HEENT: PERRL. Extraocular movements intact. Clear conjunctiva. +right facial droop (-) neck lymphadenopathy CARDIOVASCULAR: Regular rate and rhythm. No murmurs, rubs, or gallops LUNGS: CTA ABDOMEN: Soft, nontender, nondistended. Positive bowel sounds. Normal active bowel sounds, +colostomy NEUROLOGICAL: Alert and oriented times 3 (despite aphasia) Cranial nerves II through XII grossly intact. Sensation grossly intact in all 4 limbs +Babinski on right +expressive aphasia EXTREMITIES: 5\5 strength left upper extremities. +flaccid RUE, 4\5 strength right lower extremity except 2/5 ankle DF. 5/5 strength in left lower extremity. SKIN: intact ASSESSMENT:78-year-old F with past medical history of COPD, lumbar stenosis, who presents status post stroke PLAN: 1. 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 Neuro: s/p left basal ganglia infarct with Right sided hemiparesis, aphasia, and dysphagia -c/u secondary stroke prevention with ASA + Plavix x 90 days then to be followed by ASA alone, statin, and good BP control -patient on SNRI 3. CArdio: pmh AVR not on AC-medicine consulted to assist in overall management -HTN c/u metoprolol- holding lisinopril due to decline in renal function 4. Resp: hx of COPD with rhonchi on exam (resolved), c/u Duonebs, guaifenesin, and incentive spirometry, c/u Advair -patient reports hx of KYLE and uses CPAP at night, daughter brought in equipment 5. ENT: patient with mild throat pain, ordered strep test and throat cx negative 5. GI: Lanzaprazole for GI ppx -colostomy care 6. : denies dysuria, monitor PVRs 7. DVT ppx: heparin and TEDs 8. Psych: hx of depression/anxiety- c/u Effexor 9. Endo: hypothyroidism c/u Synthroid, DM-given recent decline in GFR- holding metformin and c/u ISS 10. renal: CKD, possibly with DARWIN in setting of poor po intake will hold GERONIMO s/p gentle hydration labs improving 11. Dispo: 06/01/19 to home, progressing towards goals Allergies Coded Allergies: [place] Solvents (Verified Allergy, Severe, RESPIRATORY ISSUES, 05/04/19) prochlorperazine (Verified Adverse Reaction, Intermediate, EYES ROLLED BACK, 05/04/19) Vital Signs Vital Signs Date Time Temp Pulse Resp B/P (MAP) Pulse Ox O2 Delivery O2 Flow Rate FiO2 05/18/19 09:00 86 131/63 (85) 05/18/19 05:30 97.3 18 97 Nasal Cannula 2.0 Laboratory Data CBC/BMP Laboratory Tests 05/18/19 06:47 Labs 24H Laboratory Tests 2 05/17/19 11:30: Bedside Glucose (Misc Panel) 101 05/17/19 16:48: Bedside Glucose (Misc Panel) 110 05/17/19 19:48: Bedside Glucose (Misc Panel) 159H 05/18/19 05:14: Bedside Glucose (Misc Panel) 119H 05/18/19 06:47: Immature Granulocyte % (Auto) 0.4, Neutrophils (%) (Auto) 63.5, Lymphocytes (%) (Auto) 23.8L, Monocytes (%) (Auto) 6.6H, Eosinophils (%) (Auto) 4.6H, Basophils (%) (Auto) 1.1H, Neutrophils # (Auto) 4.8, Lymphocytes # (Auto) 1.8, Monocytes # (Auto) 0.5, Eosinophils # (Auto) 0.4, Basophils # (Auto) 0.1, Nucleated Red Blood Cells % (auto) 0.0, Anion Gap 5L, Glomerular Filtration Rate 48.9, Calcium Level 10.0 Microbiology Microbiology 05/16/19 Group A Streptococcus Screen (ALECIA) - Final, Complete 05/16/19 Eye/Ear/Nose/Throat Culture - Final, Complete Current Medications Current Medications Current Medications Medications (Trade) Dose Ordered Sig/Charlie Route PRN Reason Start Time Stop Time Status Last Admin Dose Admin Acetaminophen (Tylenol Tab) 650 mg Q4HP PRN PO fever/MILD PAIN (PS 1-4) 05/09/19 14:00 05/09/19 20:26 Albuterol/ Ipratropium (Duoneb (Ipr 0.5mg/Alb 2.5mg)) 3 ml RTID NEB 05/09/19 20:00 05/17/19 19:01 Aspirin (Ecotrin) 81 mg DAILY PO 05/10/19 09:00 05/18/19 07:57 Atorvastatin Calcium (Lipitor) 80 mg QHS PO 05/09/19 21:00 05/17/19 20:58 Brimonidine Tartrate (Alphagan P 0.15%) 1 drop BID OU 05/09/19 21:00 05/18/19 07:58 Clopidogrel Bisulfate (PLAVix) 75 mg DAILY PO 05/10/19 09:00 08/07/19 09:01 05/18/19 07:57 Dextrose (Dextrose 50%) 25 ml ASDIRECTED PRN IV SEE LABEL COMMENTS 05/09/19 14:00 Docusate Sodium (Colace) 100 mg BID PO 05/09/19 21:00 05/15/19 14:40 DC 05/14/19 20:39 Fluticasone Propionate (Flonase 0.05% Nasal [place]) 1 spray BID NARES 05/09/19 21:00 05/18/19 07:58 Glucagon (Glucagon) 1 mg ASDIRECTED PRN SC SEE LABEL COMMENTS 05/09/19 14:00 Glucose (Glucose) 16 GM ASDIRECTED PRN PO SEE LABEL COMMENTS 05/09/19 14:00 Guaifenesin (Robitussin Tab) 400 mg TID PO 05/09/19 21:00 05/18/19 07:57 Heparin Sodium (Porcine) (Heparin) 5,000 units Q12H SC 05/09/19 21:00 05/18/19 07:58 Home Med (Med Rec Complete!) ASDIRECTED XX 05/09/19 15:30 05/09/19 15:51 DC Insulin Human Lispro (HumaLOG INSULIN) SEE PROTOCOL TABLE AC SC 05/09/19 17:30 05/18/19 07:57 Insulin Human Lispro (HumaLOG INSULIN) SEE PROTOCOL TABLE QHS SC 05/09/19 21:00 05/10/19 20:55 Lansoprazole (First-Lansoprazole Oral Suspension) 30 mg DAILY PO 05/10/19 12:00 05/18/19 07:58 Levothyroxine Sodium (Synthroid) 50 mcg DAILY@06 PO 05/10/19 06:00 05/18/19 06:10 Lisinopril (Prinivil) 5 mg DAILY PO 05/10/19 09:00 05/10/19 10:38 DC 05/10/19 08:00 Magnesium Hydroxide (Milk Of Magnesia) 30 ml DAILYPRN PRN PO CONSTIPATION 05/09/19 14:00 Metformin HCl (Glucophage) 500 mg BID@08,18 PO 05/09/19 18:00 05/10/19 10:38 DC 05/10/19 08:00 Metoprolol Succinate (TopROL XL) 25 mg DAILY PO 05/10/19 09:00 05/18/19 07:58 Pantoprazole Sodium (Protonix) 40 mg DAILY PO 05/10/19 09:00 05/10/19 10:35 DC Salmeterol Xinafoate/ Fluticasone (Advair Hfa 115/ 21) 2 puff RBID INH 05/09/19 20:00 05/18/19 08:28 Senna (Senokot) 1 tab QHS PO 05/09/19 21:00 05/15/19 14:40 DC 05/14/19 20:39 Venlafaxine HCl (Effexor) 25 mg BID PO 05/09/19 21:00 05/18/19 07:57 AKSHAT MOORE MD May 18, 2019 10:13
--- NOTE | 2019-05-18 13:29 | IPNPDOC ---
Subjective Date Seen The patient was seen on 05/18/19. Subjective Chief Complaint/HPI Ms. Anderson is a 78-year-old female who was admitted to the ARU on May 09, following an acute CVA. Patient is seen sitting up in her chair this afternoon. She is looking very well. She reported that the only issue she is having right now is with sleep. She goes to sleep at 10 and is awake by midnight, cannot fall asleep again. This issue is made worse since she has been in hospital. She denied any other medical symptoms. General: Reports: Normal Appetite; Denies: Chills, Night Sweats, Fatigue, Malaise Constitutional: Denies: Chills, Fever, Night Sweats Eyes: Denies: Pain ENT: Reports: Dysphagia; Denies: Head Aches Skin: Denies: Rash Pulmonary: Denies: Dyspnea, Cough Cardiovascular: Denies: Chest Pain, Palpitations, Orthopnea, Paroxysmal Noc. Dyspnea, Edema, Lt Headedness Gastrointestinal: Reports: Diarrhea (with colostomy ); Denies: Nausea, Vomiting, Abdominal Pain, Constipation Hematologic: Denies: Bruising Musculoskeletal: Denies: Neck Pain, Back Pain, Joint Pain, Muscle Pain, Spasms Neurological: Reports: Weakness (right side); Denies: Numbness Objective Physical Examination General Exam: Positive: Alert, Cooperative, No Acute Distress, Other (seen in a wheelchair. Right-sided weakness) Eye Exam: Positive: PERRLA, Conjunctiva & lids normal, EOMI; Negative: Sclera icteric ENT Exam: Positive: Atraumatic, Mucous membr. moist/pink, Pharynx Normal Neck Exam: Positive: Supple; Negative: JVD, thyromegaly Chest Exam: Positive: Clear to auscultation, Normal air movement Heart Exam: Positive: Rate Normal, Regular Rhythm, Murmurs (prosthetic valve murmur ); Negative: Gallops, Rubs Telemetry: Positive: No significant arrhythmia Abdomen Exam: Positive: Normal bowel sounds, Soft; Negative: Tenderness Extremity Exam: Negative: Clubbing, Cyanosis, Edema Skin Exam: Positive: Nl turgor and temperature Neuro Exam: Negative: Normal Speech Psych Exam: Positive: Mood NL, Oriented x 3 Assessment /Plan Assessment Ms. Anderson is a 78-year-old female who was admitted to the ARU on May 09, following an acute CVA. Per the medical record. Patient presented to the ED complaining of right sided weakness, slurred speech, right-sided facial droop. Upon evaluation, she was transferred to [facility] for further treatment. She was not given TPA. CT angiogram at [facility] was negative, echo and USG of the carotids was also negative. Patient had an MRI that was consistent with "acute left basal ganglia infarct." While in hospital, patient had a temporary feeding tube secondary to swallowing difficulties. She developed an expressive aphasia. 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 #1. Acute CVA. Continue rehabilitation per prepress manager Continue with plasma Plavix for 90 days, aspirin, atorvastatin #2 Dysphagia and Aphasia. Swallow study previously completed on May 10 Continue with modified diet Continue to work with speech therapy #3. Hypertension. Continue with metoprolol and lisinopril #4. Diabetes type 2 - ISS with FBS achs #5. Hypothyroidism. Continue with levothyroxine. #6 Depression. -Continue with Venlafaxine #7. GERD. Continue with lansoprazole #8. Insomnia. Start ramelteon Plan/VTE VTE Prophylaxis Ordered?: Yes (heparin) VS, I&O, 24H, [facility] Vital Signs/I&O Vital Signs Date Time Temp Pulse Resp B/P (MAP) Pulse Ox O2 Delivery O2 Flow Rate FiO2 05/18/19 09:00 86 131/63 (85) 05/18/19 05:30 97.3 18 97 Nasal Cannula 2.0 I&O- Last 24 Hours up to 6 AM 05/18/19 06:00 Intake Total 560 ml Output Total 325 ml Balance 235 ml Laboratory Data 24H LABS Laboratory Tests 2 05/17/19 16:48: Bedside Glucose (Misc Panel) 110 05/17/19 19:48: Bedside Glucose (Misc Panel) 159H 05/18/19 05:14: Bedside Glucose (Misc Panel) 119H 05/18/19 06:47: Immature Granulocyte % (Auto) 0.4, Neutrophils (%) (Auto) 63.5, Lymphocytes (%) (Auto) 23.8L, Monocytes (%) (Auto) 6.6H, Eosinophils (%) (Auto) 4.6H, Basophils (%) (Auto) 1.1H, Neutrophils # (Auto) 4.8, Lymphocytes # (Auto) 1.8, Monocytes # (Auto) 0.5, Eosinophils # (Auto) 0.4, Basophils # (Auto) 0.1, Nucleated Red Blood Cells % (auto) 0.0, Anion Gap 5L, Glomerular Filtration Rate 48.9, Calcium Level 10.0 05/18/19 12:03: Bedside Glucose (Misc Panel) 103 CBC/BMP Laboratory Tests 05/18/19 06:47 Microbiology Microbiology 05/16/19 Group A Streptococcus Screen (ALECIA) - Final, Complete 05/16/19 Eye/Ear/Nose/Throat Culture - Final, Complete TYRONE GAINES PA-C May 18, 2019 13:29
[2019-05-18 14:00] VITALS: BP 138/66
[2019-05-18 20:00] VITALS: BP 129/55
[2019-05-18] MEDS: RAMELTEON 8 MG TAB (ROZEREM) PO SCH (21:16)
[2019-05-18] MEDS: ATORVASTATIN 20 MG TAB PO SCH (21:16)
[2019-05-19 06:00] VITALS: BP 127/71
[2019-05-19] MEDS: LEVOTHYROXINE 50MCG TABLET (0.05MG) PO SCH (06:03)
[2019-05-19] MEDS: ADVAIR HFA 115/21MCG INHALER INH SCH ×2 (07:22→20:01)
[2019-05-19] MEDS: IPRATROPIUM 0.5MG/ALBUTEROL 2.5MG INH SOL UD 3ML (DUONEB)(J7620) NEB SCH ×3 (07:22→20:00)
[2019-05-19] MEDS: LANSOPRAZOLE SUSPENSION 30 MG/10 ML ORAL SYRINGE (FIRST-LANSOPRAZOLE) PO SCH (08:43)
[2019-05-19] MEDS: HumaLOG INSULIN (NovoLOG) PER UNIT SC SCH ×4 (08:43→21:00)
[2019-05-19] MEDS: VENLAFAXINE 25 MG TAB PO SCH ×2 (08:44→21:05)
[2019-05-19] MEDS: guaiFENesin 200 MG TAB PO SCH ×3 (08:44→21:05)
[2019-05-19] MEDS: METOPROLOL SUCC *XL* 25MG TAB (TopROL *XL*) PO SCH (08:44)
[2019-05-19] MEDS: CLOPIDOGREL 75 MG TAB PO SCH (08:44)
[2019-05-19] MEDS: ASPIRIN 81 MG ENTERIC TAB PO SCH (08:44)
[2019-05-19] MEDS: HEPARIN SOD (PORCINE) 5000 UNITS/ML VIAL (J1644 PER 1000UNITS) SC SCH ×2 (08:44→21:05)
[2019-05-19] MEDS: FLUTICASONE PROP 0.05% NASAL SPRAY 16 GM (FLONASE) NARES SCH ×2 (08:45→21:06)
[2019-05-19] MEDS: BRIMONIDINE 0.15% OPHTH SOLN 5 ML OU SCH ×2 (08:46→21:06)
[2019-05-19] MEDS: REMEDY PHYTOPLEX Z-GUARD PASTE 113GM TUBE (FROM STOREROOM PRODUCT) TOP SCH ×3 (08:51→21:06)
[2019-05-19 14:00] VITALS: BP 138/60
[2019-05-19 20:00] VITALS: BP 134/65
[2019-05-19] MEDS: ATORVASTATIN 20 MG TAB PO SCH (21:05)
[2019-05-19] MEDS: RAMELTEON 8 MG TAB (ROZEREM) PO SCH (21:05)
[2019-05-20 06:00] VITALS: BP 135/70
[2019-05-20] MEDS: LEVOTHYROXINE 50MCG TABLET (0.05MG) PO SCH (06:10)
[2019-05-20] MEDS: IPRATROPIUM 0.5MG/ALBUTEROL 2.5MG INH SOL UD 3ML (DUONEB)(J7620) NEB SCH ×3 (07:14→19:32)
[2019-05-20] MEDS: ADVAIR HFA 115/21MCG INHALER INH SCH ×2 (07:14→19:32)
[2019-05-20] MEDS: HEPARIN SOD (PORCINE) 5000 UNITS/ML VIAL (J1644 PER 1000UNITS) SC SCH ×2 (07:59→22:02)
[2019-05-20] MEDS: METOPROLOL SUCC *XL* 25MG TAB (TopROL *XL*) PO SCH (08:00)
[2019-05-20] MEDS: guaiFENesin 200 MG TAB PO SCH ×3 (08:00→22:02)
[2019-05-20] MEDS: VENLAFAXINE 25 MG TAB PO SCH ×2 (08:00→22:03)
[2019-05-20] MEDS: CLOPIDOGREL 75 MG TAB PO SCH (08:00)
[2019-05-20] MEDS: ASPIRIN 81 MG ENTERIC TAB PO SCH (08:00)
[2019-05-20] MEDS: HumaLOG INSULIN (NovoLOG) PER UNIT SC SCH ×4 (08:00→21:00)
[2019-05-20] MEDS: LANSOPRAZOLE SUSPENSION 30 MG/10 ML ORAL SYRINGE (FIRST-LANSOPRAZOLE) PO SCH (08:00)
[2019-05-20] MEDS: FLUTICASONE PROP 0.05% NASAL SPRAY 16 GM (FLONASE) NARES SCH ×2 (08:01→22:04)
[2019-05-20] MEDS: BRIMONIDINE 0.15% OPHTH SOLN 5 ML OU SCH ×2 (08:01→22:04)
[2019-05-20] MEDS: REMEDY PHYTOPLEX Z-GUARD PASTE 113GM TUBE (FROM STOREROOM PRODUCT) TOP SCH ×3 (08:01→22:04)
[2019-05-20 14:00] VITALS: BP 124/67
[2019-05-20 20:30] VITALS: BP 131/63
[2019-05-20] MEDS: ATORVASTATIN 20 MG TAB PO SCH (22:03)
[2019-05-20] MEDS: RAMELTEON 8 MG TAB (ROZEREM) PO SCH (22:06)
[2019-05-21] MEDS: LEVOTHYROXINE 50MCG TABLET (0.05MG) PO SCH (05:30)
[2019-05-21 05:44] VITALS: BP 138/68
[2019-05-21] MEDS: IPRATROPIUM 0.5MG/ALBUTEROL 2.5MG INH SOL UD 3ML (DUONEB)(J7620) NEB SCH ×3 (07:20→19:59)
[2019-05-21] MEDS: ADVAIR HFA 115/21MCG INHALER INH SCH ×2 (07:20→19:59)
[2019-05-21] MEDS: HumaLOG INSULIN (NovoLOG) PER UNIT SC SCH ×4 (08:10→20:09)
[2019-05-21] MEDS: METOPROLOL SUCC *XL* 25MG TAB (TopROL *XL*) PO SCH (08:10)
[2019-05-21] MEDS: LANSOPRAZOLE SUSPENSION 30 MG/10 ML ORAL SYRINGE (FIRST-LANSOPRAZOLE) PO SCH (08:10)
[2019-05-21] MEDS: ASPIRIN 81 MG ENTERIC TAB PO SCH (08:10)
[2019-05-21] MEDS: CLOPIDOGREL 75 MG TAB PO SCH (08:10)
[2019-05-21] MEDS: HEPARIN SOD (PORCINE) 5000 UNITS/ML VIAL (J1644 PER 1000UNITS) SC SCH ×2 (08:10→20:09)
[2019-05-21] MEDS: guaiFENesin 200 MG TAB PO SCH ×3 (08:10→20:08)
[2019-05-21] MEDS: VENLAFAXINE 25 MG TAB PO SCH ×2 (08:10→20:08)
[2019-05-21] MEDS: BRIMONIDINE 0.15% OPHTH SOLN 5 ML OU SCH ×2 (08:11→20:10)
[2019-05-21] MEDS: REMEDY PHYTOPLEX Z-GUARD PASTE 113GM TUBE (FROM STOREROOM PRODUCT) TOP SCH ×3 (08:11→20:10)
[2019-05-21] MEDS: FLUTICASONE PROP 0.05% NASAL SPRAY 16 GM (FLONASE) NARES SCH ×2 (08:11→20:09)
[2019-05-21 14:00] VITALS: BP 113/57
[2019-05-21] MEDS: ATORVASTATIN 20 MG TAB PO SCH (20:09)
[2019-05-21] MEDS: RAMELTEON 8 MG TAB (ROZEREM) PO SCH (20:09)
[2019-05-21 20:10] VITALS: BP 119/57
[2019-05-22] MEDS: LEVOTHYROXINE 50MCG TABLET (0.05MG) PO SCH (05:23)
[2019-05-22 05:27] VITALS: BP 114/55
[2019-05-22 06:24] LABS: BASO # 0.1 10^3/uL (0.0-0.2); BASO % 1.3 % (0.0-1.0); EOS # 0.3 10^3/uL (0.0-0.5); EOS % 5.2 % (0.0-3.0); HEMOGLOBIN 10.2 g/dl (12.0-15.5); LYMPH # 1.9 10^3/uL (1.5-5.0); LYMPH % 30.5 % (24.0-44.0); MEAN CORPUSCULAR HEMOGLOBIN 26.6 pg (27.0-33.0); MEAN CORPUSCULAR HGB CONC 30.9 g/dl (32.0-36.5); MEAN CORPUSCULAR VOLUME 86.2 fl (80.0-96.0); MONO # 0.6 10^3/uL (0.0-0.8); MONO % 9.6 % (0.0-5.0); NEUTROPHILS # 3.3 10^3/uL (1.5-8.5); NEUTROPHILS % 53.2 % (36.0-66.0); PLATELET COUNT, AUTOMATED 287 10^3/uL (150-450); RED BLOOD COUNT 3.83 10^6/uL (4.00-5.40); WHITE BLOOD COUNT 6.1 10^3/uL (4.0-10.0)
[2019-05-22 06:52] LABS: CALCIUM LEVEL 9.7 MG/DL (8.8-10.2); CREATININE FOR GFR 1.18 MG/DL (0.55-1.30); POTASSIUM SERUM 4.4 MEQ/L (3.5-5.1)
[2019-05-22] MEDS: HumaLOG INSULIN (NovoLOG) PER UNIT SC SCH ×4 (07:30→21:00)
[2019-05-22] MEDS: IPRATROPIUM 0.5MG/ALBUTEROL 2.5MG INH SOL UD 3ML (DUONEB)(J7620) NEB SCH ×3 (07:39→19:30)
[2019-05-22] MEDS: ADVAIR HFA 115/21MCG INHALER INH SCH ×2 (07:39→19:31)
[2019-05-22] MEDS: HEPARIN SOD (PORCINE) 5000 UNITS/ML VIAL (J1644 PER 1000UNITS) SC SCH ×2 (08:54→21:23)
[2019-05-22] MEDS: LANSOPRAZOLE SUSPENSION 30 MG/10 ML ORAL SYRINGE (FIRST-LANSOPRAZOLE) PO SCH (08:54)
[2019-05-22] MEDS: METOPROLOL SUCC *XL* 25MG TAB (TopROL *XL*) PO SCH (08:54)
[2019-05-22] MEDS: REMEDY PHYTOPLEX Z-GUARD PASTE 113GM TUBE (FROM STOREROOM PRODUCT) TOP SCH ×3 (08:55→21:00)
[2019-05-22] MEDS: guaiFENesin 200 MG TAB PO SCH ×3 (08:55→21:23)
[2019-05-22] MEDS: VENLAFAXINE 25 MG TAB PO SCH ×2 (08:55→21:23)
[2019-05-22] MEDS: FLUTICASONE PROP 0.05% NASAL SPRAY 16 GM (FLONASE) NARES SCH ×2 (08:55→21:25)
[2019-05-22] MEDS: CLOPIDOGREL 75 MG TAB PO SCH (08:55)
[2019-05-22] MEDS: BRIMONIDINE 0.15% OPHTH SOLN 5 ML OU SCH ×2 (08:55→21:25)
[2019-05-22] MEDS: ASPIRIN 81 MG ENTERIC TAB PO SCH (08:55)
--- NOTE | 2019-05-22 10:00 | IPNPDOC ---
Text Note Date of Service The patient was seen on 05/22/19. NOTE Chief Complaint/HPI Ms. Anderson is a 78-year-old female who was admitted to the ARU on May 09, following an acute CVA. Patient is seen sitting up in her chair this morning taking her medications. She stated that she is doing well, continues to have trouble with insomnia. She has only taken ramelteon once and prefers not to take anything for sleep at this time. No further issues reported. General: Reports: Normal Appetite; Denies: Chills, Night Sweats, Fatigue, Malaise Constitutional: Denies: Chills, Fever, Night Sweats Eyes: Denies: Pain ENT: Reports: Dysphagia; Denies: Head Aches Skin: Denies: Rash Pulmonary: Denies: Dyspnea, Cough Cardiovascular: Denies: Chest Pain, Palpitations, Orthopnea, Paroxysmal Noc. Dyspnea, Edema, Lt Headedness Gastrointestinal: Reports: Diarrhea (with colostomy ); Denies: Nausea, Vomiting, Abdominal Pain, Constipation Hematologic: Denies: Bruising Musculoskeletal: Denies: Neck Pain, Back Pain, Joint Pain, Muscle Pain, Spasms Neurological: Reports: Weakness (right side); Denies: Numbness Objective Physical Examination General Exam: Positive: Alert, Cooperative, No Acute Distress, Other (Right- sided hemiparesis) Eye Exam: Positive: PERRLA, Conjunctiva & lids normal, EOMI; Negative: Sclera icteric ENT Exam: Positive: Atraumatic, Mucous membr. moist/pink, Pharynx Normal Neck Exam: Positive: Supple; Negative: JVD, thyromegaly Chest Exam: Positive: Clear to auscultation, Normal air movement Heart Exam: Positive: Rate Normal, Regular Rhythm, Murmurs (prosthetic valve murmur ); Negative: Gallops, Rubs Telemetry: Positive: No significant arrhythmia Abdomen Exam: Positive: Normal bowel sounds, Soft; Negative: Tenderness Extremity Exam: Negative: Clubbing, Cyanosis, Edema Skin Exam: Positive: Nl turgor and temperature Neuro Exam: Negative: Normal Speech Psych Exam: Positive: Mood NL, Oriented x 3 Assessment /Plan Assessment Ms. Anderson is a 78-year-old female who was admitted to the ARU on May 09, following an acute CVA. Per the medical record. Patient presented to the ED complaining of right sided weakness, slurred speech, right-sided facial droop. Upon evaluation, she was transferred to [facility] for further treatment. She was not given TPA. CT angiogram at [facility] was negative, echo and USG of the carotids was also negative. Patient had an MRI that was consistent with "acute left basal ganglia infarct." While in hospital, patient had a temporary feeding tube secondary to swallowing difficulties. She developed an expressive aphasia. 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 #1. Acute CVA. Continue rehabilitation per dental hygiene professor Continue with plasma Plavix for 90 days, aspirin, atorvastatin #2 Dysphagia and Aphasia. Swallow study previously completed on May 10 Continue with modified diet Continue to work with speech therapy #3. Hypertension. Continue with metoprolol and lisinopril #4. Diabetes type 2 - ISS with FBS achs #5. Hypothyroidism. Continue with levothyroxine. #6 Depression. -Continue with Venlafaxine #7. GERD. Continue with lansoprazole #8. Insomnia. prn ramelteon Plan/VTE VTE Prophylaxis Ordered?: Yes (heparin) Disposition: Possible discharge on 05/31 Candace LAZO I+O VSCandace I+O Laboratory Tests 05/22/19 06:01 Vital Signs Date Time Temp Pulse Resp B/P (MAP) Pulse Ox O2 Delivery O2 Flow Rate FiO2 05/22/19 08:54 78 114/55 05/22/19 05:27 97.0 18 100 Nasal Cannula 2.0 I&O- Last 24 Hours up to 6 AM 05/22/19 05:59 Intake Total 790 ml Output Total 300 ml Balance 490 ml TYRONE GAINES PA-C May 22, 2019 09:59
[2019-05-22] MEDS: ATORVASTATIN 20 MG TAB PO SCH (21:23)
[2019-05-22] MEDS: RAMELTEON 8 MG TAB (ROZEREM) PO SCH (21:24)
[2019-05-22 22:00] VITALS: BP 131/60
[2019-05-23] MEDS: LEVOTHYROXINE 50MCG TABLET (0.05MG) PO SCH (05:52)
[2019-05-23 06:00] VITALS: BP 146/70
[2019-05-23] MEDS: IPRATROPIUM 0.5MG/ALBUTEROL 2.5MG INH SOL UD 3ML (DUONEB)(J7620) NEB SCH ×3 (08:00→20:00)
[2019-05-23] MEDS: ADVAIR HFA 115/21MCG INHALER INH SCH ×2 (08:36→19:59)
[2019-05-23] MEDS: HEPARIN SOD (PORCINE) 5000 UNITS/ML VIAL (J1644 PER 1000UNITS) SC SCH ×2 (08:54→22:23)
[2019-05-23] MEDS: LANSOPRAZOLE SUSPENSION 30 MG/10 ML ORAL SYRINGE (FIRST-LANSOPRAZOLE) PO SCH (08:54)
[2019-05-23] MEDS: CLOPIDOGREL 75 MG TAB PO SCH (08:55)
[2019-05-23] MEDS: VENLAFAXINE 25 MG TAB PO SCH ×2 (08:55→22:23)
[2019-05-23] MEDS: METOPROLOL SUCC *XL* 25MG TAB (TopROL *XL*) PO SCH (08:55)
[2019-05-23] MEDS: ASPIRIN 81 MG ENTERIC TAB PO SCH (08:55)
[2019-05-23] MEDS: HumaLOG INSULIN (NovoLOG) PER UNIT SC SCH ×4 (08:55→21:00)
[2019-05-23] MEDS: guaiFENesin 200 MG TAB PO SCH ×3 (08:55→22:22)
[2019-05-23] MEDS: FLUTICASONE PROP 0.05% NASAL SPRAY 16 GM (FLONASE) NARES SCH ×2 (08:56→22:28)
[2019-05-23] MEDS: BRIMONIDINE 0.15% OPHTH SOLN 5 ML OU SCH ×2 (08:56→22:28)
[2019-05-23] MEDS: REMEDY PHYTOPLEX Z-GUARD PASTE 113GM TUBE (FROM STOREROOM PRODUCT) TOP SCH ×3 (09:00→21:00)
[2019-05-23 14:00] VITALS: BP 107/58
--- NOTE | 2019-05-23 18:34 | IPNPDOC ---
PM&R Progress Note DATE OF SERVICE: May 23, 2019 Optical Dispenser Progress Note Subjective: Patient reporting she still has an intermittent cough, but denies fevers or chills. She denies having any pain in her right toe. REVIEW OF SYSTEMS: The following is a completed review of systems and has been reviewed. Review of systems otherwise unremarkable. PAIN: Patient self reports no pain EYES: No recent vision changes EARS, NOSE, & THROAT: +dysphagia, +mild sore throat (improving) CARDIOVASCULAR: Denies chest pain or palpitations PULMONARY: Denies shortness of breath GASTROINTESTINAL: Denies constipation/diarrhea GENITOURINARY: denies dysuria MUSCULOSKELETAL: right sided weakness NEUROLOGICAL:+aphasia, dysphagia, right sided paresis HEMATOLOGICAL: denies easy bruising SKIN: intact PSYCHIATRIC: Unremarkable All other review of systems found to be negative. PHYSICAL EXAMINATION: VITAL SIGNS: Please see below. GENERAL: Pleasant and cooperative. No acute distress. HEENT: PERRL. Extraocular movements intact. Clear conjunctiva. +right facial droop (-) neck lymphadenopathy CARDIOVASCULAR: Regular rate and rhythm. No murmurs, rubs, or gallops LUNGS: CTA except +rhonchi RLL ABDOMEN: Soft, nontender, nondistended. Positive bowel sounds. Normal active bowel sounds, +colostomy NEUROLOGICAL: Alert and oriented times 3 (despite aphasia) Cranial nerves II through XII grossly intact. Sensation grossly intact in all 4 limbs +Babinski on right +expressive aphasia 1/4+ right hip flexor tone and 1+/4 EHL tone EXTREMITIES: 5\5 strength left upper extremities. +flaccid RUE, 4\5 strength right lower extremity except 2/5 ankle DF. 5/5 strength in left lower extremity. SKIN: intact ASSESSMENT:78-year-old F with past medical history of COPD, lumbar stenosis, who presents status post stroke PLAN: 1. 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 Neuro: s/p left basal ganglia infarct with Right sided hemiparesis, aphasia, and dysphagia -c/u secondary stroke prevention with ASA + Plavix x 90 days then to be followed by ASA alone, statin, and good BP control -patient on SNRI -+tone RLE but contributing to stability, patient encouraged to stretch right toes 3. CArdio: pmh AVR not on AC-medicine consulted to assist in overall management -HTN c/u metoprolol- holding lisinopril due to decline in renal function 4. Resp: hx of COPD with rhonchi on exam (resolved), c/u Duonebs, guaifenesin, and incentive spirometry, c/u Advair -patient reports hx of KYLE and uses CPAP at night, daughter brought in equipment, however patient prefers nocturnal 02 -will order CXR to r/o infiltrate 5. ENT: patient with mild throat pain, ordered strep test and throat cx negative- will refer as outpatient for hypophonia 5. GI: Lanzaprazole for GI ppx -colostomy care 6. : denies dysuria, monitor PVRs 7. DVT ppx: heparin and TEDs 8. Psych: hx of depression/anxiety- c/u Effexor 9. Endo: hypothyroidism c/u Synthroid, DM-given recent decline in GFR- holding metformin and c/u ISS 10. renal: CKD, possibly with DARWIN in setting of poor po intake will hold GERONIMO s/p gentle hydration labs improving 11. Dispo: 06/01/19 to home, progressing towards goals Allergies Coded Allergies: [place] Solvents (Verified Allergy, Severe, RESPIRATORY ISSUES, 05/04/19) prochlorperazine (Verified Adverse Reaction, Intermediate, EYES ROLLED BACK, 05/04/19) Vital Signs Vital Signs Date Time Temp Pulse Resp B/P (MAP) Pulse Ox O2 Delivery O2 Flow Rate FiO2 05/23/19 14:00 97.5 76 19 107/58 (74) 93 Room Air 05/23/19 06:00 2.0 Laboratory Data Labs 24H Laboratory Tests 2 05/22/19 20:39: Bedside Glucose (Misc Panel) 141H 05/23/19 04:53: Bedside Glucose (Misc Panel) 112H 05/23/19 11:21: Bedside Glucose (Misc Panel) 121H 05/23/19 16:23: Bedside Glucose (Misc Panel) 101 Microbiology Microbiology 05/16/19 Group A Streptococcus Screen (ALECIA) - Final, Complete 05/16/19 Eye/Ear/Nose/Throat Culture - Final, Complete Current Medications Current Medications Current Medications Medications (Trade) Dose Ordered Sig/Charlie Route PRN Reason Start Time Stop Time Status Last Admin Dose Admin Acetaminophen (Tylenol Tab) 650 mg Q4HP PRN PO fever/MILD PAIN (PS 1-4) 05/09/19 14:00 05/09/19 20:26 Albuterol/ Ipratropium (Duoneb (Ipr 0.5mg/Alb 2.5mg)) 3 ml RTID NEB 05/09/19 20:00 05/21/19 13:26 Aspirin (Ecotrin) 81 mg DAILY PO 05/10/19 09:00 05/23/19 08:55 Atorvastatin Calcium (Lipitor) 80 mg QHS PO 05/09/19 21:00 05/22/19 21:23 Brimonidine Tartrate (Alphagan P 0.15%) 1 drop BID OU 05/09/19 21:00 05/23/19 08:56 Clopidogrel Bisulfate (PLAVix) 75 mg DAILY PO 05/10/19 09:00 08/07/19 09:01 05/23/19 08:55 Dextrose (Dextrose 50%) 25 ml ASDIRECTED PRN IV SEE LABEL COMMENTS 05/09/19 14:00 Docusate Sodium (Colace) 100 mg BID PO 05/09/19 21:00 05/15/19 14:40 DC 05/14/19 20:39 Fluticasone Propionate (Flonase 0.05% Nasal [place]) 1 spray BID NARES 05/09/19 21:00 05/23/19 08:56 Glucagon (Glucagon) 1 mg ASDIRECTED PRN SC SEE LABEL COMMENTS 05/09/19 14:00 Glucose (Glucose) 16 GM ASDIRECTED PRN PO SEE LABEL COMMENTS 05/09/19 14:00 Guaifenesin (Robitussin Tab) 400 mg TID PO 05/09/19 21:00 05/23/19 17:34 Heparin Sodium (Porcine) (Heparin) 5,000 units Q12H SC 05/09/19 21:00 05/23/19 08:54 Home Med (Med Rec Complete!) ASDIRECTED XX 05/09/19 15:30 05/09/19 15:51 DC Insulin Human Lispro (HumaLOG INSULIN) SEE PROTOCOL TABLE AC SC 05/09/19 17:30 05/23/19 12:28 Insulin Human Lispro (HumaLOG INSULIN) SEE PROTOCOL TABLE QHS SC 05/09/19 21:00 05/10/19 20:55 Lansoprazole (First-Lansoprazole Oral Suspension) 30 mg DAILY PO 05/10/19 12:00 05/23/19 08:54 Levothyroxine Sodium (Synthroid) 50 mcg DAILY@06 PO 05/10/19 06:00 05/23/19 05:52 Lisinopril (Prinivil) 5 mg DAILY PO 05/10/19 09:00 05/10/19 10:38 DC 05/10/19 08:00 Magnesium Hydroxide (Milk Of Magnesia) 30 ml DAILYPRN PRN PO CONSTIPATION 05/09/19 14:00 Metformin HCl (Glucophage) 500 mg BID@08,18 PO 05/09/19 18:00 05/10/19 10:38 DC 05/10/19 08:00 Metoprolol Succinate (TopROL XL) 25 mg DAILY PO 05/10/19 09:00 05/23/19 08:55 Miscellaneous (Unresolved Clarification Entry) SEE LABEL COMMENTS DAILY XX 05/21/19 09:00 05/21/19 12:16 DC Pantoprazole Sodium (Protonix) 40 mg DAILY PO 05/10/19 09:00 05/10/19 10:35 DC Ramelteon (Rozerem) 8 mg QHS PO 05/18/19 21:00 05/22/19 21:24 Salmeterol Xinafoate/ Fluticasone (Advair Hfa 115/ 21) 2 puff RBID INH 05/09/19 20:00 05/23/19 08:36 Senna (Senokot) 1 tab QHS PO 05/09/19 21:00 05/15/19 14:40 DC 05/14/19 20:39 Venlafaxine HCl (Effexor) 25 mg BID PO 05/09/19 21:00 05/23/19 08:55 AKSHAT MOORE MD May 23, 2019 18:34
[2019-05-23 20:00] VITALS: BP_SYST 126; BP_SYST 140; BP_DIAS 58; BP_DIAS 66
[2019-05-23] MEDS: RAMELTEON 8 MG TAB (ROZEREM) PO SCH (22:22)
[2019-05-23] MEDS: ATORVASTATIN 20 MG TAB PO SCH (22:23)
[2019-05-24] MEDS: ACETAMINOPHEN TAB 650MG DOSE (2X325MG) PO PRN (00:42)
[2019-05-24 02:16] LABS: CK-MB VALUE MASS 6.5 NG/ML (<3.6); CPK CREATINE PHOSPHOKINASE 172 U/L (26-192); MB/CK RELATIVE INDEX 3.78 (< OR =4); TROPONIN I < 0.02 NG/ML (< 0.10)
[2019-05-24 06:00] VITALS: BP 160/73
--- NOTE | 2019-05-24 06:15 | ECGEPIP ---
[facility] Test Date: 2019-05-24 Pat Name: LANDON VIEIRA Department: Room: [place] [address] Gender: Female Key Worker: : 1940 Requested By: KIRSTEN CAMPBELL Order Number: [id number] Reading MD: Patricia Zarate Measurements Intervals [place] Rate: 80 P: 55 DC: 181 QRS: -18 QRSD: 102 T: 75 QT: 377 QTc: 436 Interpretive Statements SINUS RHYTHM LAE NONSPECIFIC T-WAVE ABNORMALITY POSSIBLE Left ventricular hypertrophy WITH REPOLAR ABN/OTHER SIMILAR TO 05/04/19 Electronically Signed on 05-24-2019 6:15:41 EDT by Patricia Zarate
[2019-05-24] MEDS: LEVOTHYROXINE 50MCG TABLET (0.05MG) PO SCH (06:29)
[2019-05-24 07:10] LABS: BASO # 0.1 10^3/uL (0.0-0.2); BASO % 1.3 % (0.0-1.0); EOS # 0.2 10^3/uL (0.0-0.5); EOS % 4.6 % (0.0-3.0); HEMATOCRIT 32.6 % (36.0-47.0); HEMOGLOBIN 10.2 g/dl (12.0-15.5); LYMPH # 1.8 10^3/uL (1.5-5.0); LYMPH % 33.7 % (24.0-44.0); MEAN CORPUSCULAR HGB CONC 31.3 g/dl (32.0-36.5); MEAN CORPUSCULAR VOLUME 86.2 fl (80.0-96.0); MONO # 0.5 10^3/uL (0.0-0.8); MONO % 9.4 % (0.0-5.0); NEUTROPHILS # 2.7 10^3/uL (1.5-8.5); NEUTROPHILS % 50.8 % (36.0-66.0); PLATELET COUNT, AUTOMATED 286 10^3/uL (150-450); RED BLOOD COUNT 3.78 10^6/uL (4.00-5.40); WHITE BLOOD COUNT 5.2 10^3/uL (4.0-10.0)
[2019-05-24] MEDS: ADVAIR HFA 115/21MCG INHALER INH SCH ×2 (07:27→19:38)
[2019-05-24] MEDS: IPRATROPIUM 0.5MG/ALBUTEROL 2.5MG INH SOL UD 3ML (DUONEB)(J7620) NEB SCH ×3 (07:28→19:38)
[2019-05-24 07:37] LABS: CALCIUM LEVEL 9.5 MG/DL (8.8-10.2); CREATININE FOR GFR 1.22 MG/DL (0.55-1.30); GLOMERULAR FILTRATION RATE 45.3 (>39); POTASSIUM SERUM 4.5 MEQ/L (3.5-5.1)
[2019-05-24 07:43] LABS: CK-MB VALUE MASS 6.4 NG/ML (<3.6); CPK CREATINE PHOSPHOKINASE 164 U/L (26-192); TROPONIN I < 0.02 NG/ML (< 0.10)
[2019-05-24] MEDS: FLUTICASONE PROP 0.05% NASAL SPRAY 16 GM (FLONASE) NARES SCH ×2 (08:37→22:25)
[2019-05-24] MEDS: VENLAFAXINE 25 MG TAB PO SCH ×2 (08:38→22:23)
[2019-05-24] MEDS: METOPROLOL SUCC *XL* 25MG TAB (TopROL *XL*) PO SCH (08:38)
[2019-05-24] MEDS: HEPARIN SOD (PORCINE) 5000 UNITS/ML VIAL (J1644 PER 1000UNITS) SC SCH ×2 (08:38→22:18)
[2019-05-24] MEDS: LANSOPRAZOLE SUSPENSION 30 MG/10 ML ORAL SYRINGE (FIRST-LANSOPRAZOLE) PO SCH (08:38)
[2019-05-24] MEDS: ASPIRIN 81 MG ENTERIC TAB PO SCH (08:38)
[2019-05-24] MEDS: guaiFENesin 200 MG TAB PO SCH ×3 (08:38→22:20)
[2019-05-24] MEDS: CLOPIDOGREL 75 MG TAB PO SCH (08:38)
[2019-05-24] MEDS: REMEDY PHYTOPLEX Z-GUARD PASTE 113GM TUBE (FROM STOREROOM PRODUCT) TOP SCH ×3 (08:39→22:26)
[2019-05-24] MEDS: BRIMONIDINE 0.15% OPHTH SOLN 5 ML OU SCH ×2 (08:39→22:27)
[2019-05-24] MEDS: HumaLOG INSULIN (NovoLOG) PER UNIT SC SCH ×4 (08:39→22:15)
[2019-05-24] MEDS ORDERED: MAALOX 30 ML SUSP *UDC PO PRN (11:00)
--- NOTE | 2019-05-24 12:30 | REP ---
Chest AP sitting and lateral views, two views: Comparison is the portable chest dated 05/09/2019. The lung franks are clear. The cardiac size is normal. The von, mediastinum, and skeletal structures are unremarkable. There are sternotomy wires, unchanged. Impression: Negative AP and lateral chest. There is no interval change. Electronically Signed by Reagan Silva MD 05/24/2019 12:20 P
[2019-05-24 14:00] VITALS: BP 123/57
--- NOTE | 2019-05-24 16:54 | IPNPDOC ---
PM&R Progress Note DATE OF SERVICE: May 24, 2019 Aircraft Load Controller Progress Note Subjective: Patient seen in therapy on the Nu-step in good spirits, able to walk far distances with the platform rolling walker. REVIEW OF SYSTEMS: The following is a completed review of systems and has been reviewed. Review of systems otherwise unremarkable. PAIN: Patient self reports no pain EYES: No recent vision changes EARS, NOSE, & THROAT: +dysphagia, +mild sore throat (improving) CARDIOVASCULAR: Denies chest pain or palpitations PULMONARY: Denies shortness of breath GASTROINTESTINAL: Denies constipation/diarrhea GENITOURINARY: denies dysuria MUSCULOSKELETAL: right sided weakness NEUROLOGICAL:+aphasia, dysphagia, right sided paresis HEMATOLOGICAL: denies easy bruising SKIN: intact PSYCHIATRIC: Unremarkable All other review of systems found to be negative. PHYSICAL EXAMINATION: VITAL SIGNS: Please see below. GENERAL: Pleasant and cooperative. No acute distress. HEENT: PERRL. Extraocular movements intact. Clear conjunctiva. +right facial droop (-) neck lymphadenopathy CARDIOVASCULAR: Regular rate and rhythm. No murmurs, rubs, or gallops LUNGS: CTA except +rhonchi RLL ABDOMEN: Soft, nontender, nondistended. Positive bowel sounds. Normal active bowel sounds, +colostomy NEUROLOGICAL: Alert and oriented times 3 (despite aphasia) Cranial nerves II through XII grossly intact. Sensation grossly intact in all 4 limbs +Babinski on right +expressive aphasia 1/4+ right hip flexor tone and 1+/4 EHL tone EXTREMITIES: 5\5 strength left upper extremities. +flaccid RUE, 4\5 strength right lower extremity except 2/5 ankle DF. 5/5 strength in left lower extremity. SKIN: intact ASSESSMENT:78-year-old F with past medical history of COPD, lumbar stenosis, who presents status post stroke PLAN: 1. 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 Neuro: s/p left basal ganglia infarct with Right sided hemiparesis, aphasia, and dysphagia -c/u secondary stroke prevention with ASA + Plavix x 90 days then to be followed by ASA alone, statin, and good BP control -patient on SNRI -+tone RLE but contributing to stability, patient encouraged to stretch right toes 3. CArdio: pmh AVR not on AC-medicine consulted to assist in overall management -HTN c/u metoprolol- holding lisinopril due to decline in renal function 4. Resp: hx of COPD with rhonchi on exam (resolved), c/u Duonebs, guaifenesin, and incentive spirometry, c/u Advair -patient reports hx of KYLE and uses CPAP at night, daughter brought in equipment, however patient prefers nocturnal 02 -CXR negative for infiltrate 5. ENT: patient with mild throat pain, ordered strep test and throat cx negative- will refer as outpatient for hypophonia 5. GI: Lanzaprazole for GI ppx -colostomy care 6. : denies dysuria, monitor PVRs 7. DVT ppx: heparin and TEDs 8. Psych: hx of depression/anxiety- c/u Effexor 9. Endo: hypothyroidism c/u Synthroid, DM-given recent decline in GFR- holding metformin and c/u ISS 10. renal: CKD, possibly with DARWIN in setting of poor po intake will hold GERONIMO s/p gentle hydration labs improving 11. Dispo: 06/01/19 to home, progressing towards goals Allergies Coded Allergies: [place] Solvents (Verified Allergy, Severe, RESPIRATORY ISSUES, 05/04/19) prochlorperazine (Verified Adverse Reaction, Intermediate, EYES ROLLED BACK, 05/04/19) Vital Signs Vital Signs Date Time Temp Pulse Resp B/P (MAP) Pulse Ox O2 Delivery O2 Flow Rate FiO2 05/24/19 14:00 98.4 83 18 123/57 (79) 97 Room Air 05/24/19 06:00 2.0 Laboratory Data CBC/BMP Laboratory Tests 05/24/19 06:24 Labs 24H Laboratory Tests 2 05/23/19 20:26: Bedside Glucose (Misc Panel) 148H 05/24/19 01:31: Total Creatine Kinase 172, Creatine Kinase MB 6.5H, Creatine Kinase MB Relative Index 3.78, Troponin I < 0.02 05/24/19 05:53: Bedside Glucose (Misc Panel) 121H 05/24/19 06:24: Total Creatine Kinase 164, Creatine Kinase MB 6.4H, Creatine Kinase MB Relative Index 3.90, Troponin I < 0.02, Immature Granulocyte % (Auto) 0.2, Neutrophils (%) (Auto) 50.8, Lymphocytes (%) (Auto) 33.7, Monocytes (%) (Auto) 9.4H, Eosinophils (%) (Auto) 4.6H, Basophils (%) (Auto) 1.3H, Neutrophils # (Auto) 2.7, Lymphocytes # (Auto) 1.8, Monocytes # (Auto) 0.5, Eosinophils # (Auto) 0.2, Basophils # (Auto) 0.1, Nucleated Red Blood Cells % (auto) 0.0, Anion Gap 6L, Glomerular Filtration Rate 45.3, Calcium Level 9.5 05/24/19 12:11: Bedside Glucose (Misc Panel) 90 05/24/19 16:14: Bedside Glucose (Misc Panel) 101 Microbiology Microbiology 05/16/19 Group A Streptococcus Screen (ALECIA) - Final, Complete 05/16/19 Eye/Ear/Nose/Throat Culture - Final, Complete Current Medications Current Medications Current Medications Medications (Trade) Dose Ordered Sig/Charlie Route PRN Reason Start Time Stop Time Status Last Admin Dose Admin Acetaminophen (Tylenol Tab) 650 mg Q4HP PRN PO fever/MILD PAIN (PS 1-4) 05/09/19 14:00 05/24/19 00:42 Al Hydrox/Mg Hydrox/Simethicone (Mylanta) 30 ml Q6HP PRN PO HEARTBURN 05/24/19 11:00 Albuterol/ Ipratropium (Duoneb (Ipr 0.5mg/Alb 2.5mg)) 3 ml RTID NEB 05/09/19 20:00 05/24/19 15:13 Aspirin (Ecotrin) 81 mg DAILY PO 05/10/19 09:00 05/24/19 08:38 Atorvastatin Calcium (Lipitor) 80 mg QHS PO 05/09/19 21:00 05/23/19 22:23 Brimonidine Tartrate (Alphagan P 0.15%) 1 drop BID OU 05/09/19 21:00 05/23/19 22:28 Clopidogrel Bisulfate (PLAVix) 75 mg DAILY PO 05/10/19 09:00 08/07/19 09:01 05/24/19 08:38 Dextrose (Dextrose 50%) 25 ml ASDIRECTED PRN IV SEE LABEL COMMENTS 05/09/19 14:00 Docusate Sodium (Colace) 100 mg BID PO 05/09/19 21:00 05/15/19 14:40 DC 05/14/19 20:39 Fluticasone Propionate (Flonase 0.05% Nasal [place]) 1 spray BID NARES 05/09/19 21:00 05/24/19 08:37 Glucagon (Glucagon) 1 mg ASDIRECTED PRN SC SEE LABEL COMMENTS 05/09/19 14:00 Glucose (Glucose) 16 GM ASDIRECTED PRN PO SEE LABEL COMMENTS 05/09/19 14:00 Guaifenesin (Robitussin Tab) 400 mg TID PO 05/09/19 21:00 05/24/19 16:01 Heparin Sodium (Porcine) (Heparin) 5,000 units Q12H SC 05/09/19 21:00 05/24/19 08:38 Home Med (Med Rec Complete!) ASDIRECTED XX 05/09/19 15:30 05/09/19 15:51 DC Insulin Human Lispro (HumaLOG INSULIN) SEE PROTOCOL TABLE AC SC 05/09/19 17:30 05/24/19 08:39 Insulin Human Lispro (HumaLOG INSULIN) SEE PROTOCOL TABLE QHS SC 05/09/19 21:00 05/10/19 20:55 Lansoprazole (First-Lansoprazole Oral Suspension) 30 mg DAILY PO 05/10/19 12:00 05/24/19 08:38 Levothyroxine Sodium (Synthroid) 50 mcg DAILY@06 PO 05/10/19 06:00 05/24/19 06:29 Lisinopril (Prinivil) 5 mg DAILY PO 05/10/19 09:00 05/10/19 10:38 DC 05/10/19 08:00 Magnesium Hydroxide (Milk Of Magnesia) 30 ml DAILYPRN PRN PO CONSTIPATION 05/09/19 14:00 Metformin HCl (Glucophage) 500 mg BID@08,18 PO 05/09/19 18:00 05/10/19 10:38 DC 05/10/19 08:00 Metoprolol Succinate (TopROL XL) 25 mg DAILY PO 05/10/19 09:00 05/24/19 08:38 Miscellaneous (Unresolved Clarification Entry) SEE LABEL COMMENTS DAILY XX 05/21/19 09:00 05/21/19 12:16 DC Pantoprazole Sodium (Protonix) 40 mg DAILY PO 05/10/19 09:00 05/10/19 10:35 DC Ramelteon (Rozerem) 8 mg QHS PO 05/18/19 21:00 05/23/19 22:22 Salmeterol Xinafoate/ Fluticasone (Advair Hfa 115/ 21) 2 puff RBID INH 05/09/19 20:00 05/24/19 07:27 Senna (Senokot) 1 tab QHS PO 05/09/19 21:00 05/15/19 14:40 DC 05/14/19 20:39 Venlafaxine HCl (Effexor Xr) 37.5 mg DAILY PO 05/25/19 09:00 Venlafaxine HCl (Effexor) 25 mg BID PO 05/09/19 21:00 05/24/19 23:00 05/24/19 08:38 AKSHAT MOORE MD May 24, 2019 16:54
[2019-05-24 21:00] VITALS: BP 131/60
[2019-05-24] MEDS: ATORVASTATIN 20 MG TAB PO SCH (22:18)
[2019-05-24] MEDS: RAMELTEON 8 MG TAB (ROZEREM) PO SCH (22:18)
[2019-05-24] MEDS: VENLAFAXINE **XR** 37.5 MG CAPSULE PO SCH (22:19)
[2019-05-25 05:41] VITALS: BP 129/60
[2019-05-25] MEDS: LEVOTHYROXINE 50MCG TABLET (0.05MG) PO SCH (06:08)
[2019-05-25] MEDS: IPRATROPIUM 0.5MG/ALBUTEROL 2.5MG INH SOL UD 3ML (DUONEB)(J7620) NEB SCH ×3 (07:20→19:40)
[2019-05-25] MEDS: ADVAIR HFA 115/21MCG INHALER INH SCH ×2 (07:20→19:41)
[2019-05-25] MEDS: LANSOPRAZOLE SUSPENSION 30 MG/10 ML ORAL SYRINGE (FIRST-LANSOPRAZOLE) PO SCH (08:33)
[2019-05-25] MEDS: FLUTICASONE PROP 0.05% NASAL SPRAY 16 GM (FLONASE) NARES SCH ×2 (08:33→21:00)
[2019-05-25] MEDS: BRIMONIDINE 0.15% OPHTH SOLN 5 ML OU SCH ×2 (08:33→21:09)
[2019-05-25] MEDS: CLOPIDOGREL 75 MG TAB PO SCH (08:34)
[2019-05-25] MEDS: HEPARIN SOD (PORCINE) 5000 UNITS/ML VIAL (J1644 PER 1000UNITS) SC SCH ×2 (08:34→21:11)
[2019-05-25] MEDS: VENLAFAXINE **XR** 37.5 MG CAPSULE PO SCH (08:34)
[2019-05-25] MEDS: guaiFENesin 200 MG TAB PO SCH ×3 (08:35→21:09)
[2019-05-25] MEDS: METOPROLOL SUCC *XL* 25MG TAB (TopROL *XL*) PO SCH (08:35)
[2019-05-25] MEDS: ASPIRIN 81 MG ENTERIC TAB PO SCH (08:35)
[2019-05-25] MEDS: HumaLOG INSULIN (NovoLOG) PER UNIT SC SCH ×2 (08:36→11:57)
[2019-05-25] MEDS: REMEDY PHYTOPLEX Z-GUARD PASTE 113GM TUBE (FROM STOREROOM PRODUCT) TOP SCH ×3 (08:37→21:10)
[2019-05-25 14:00] VITALS: BP 123/64
--- NOTE | 2019-05-25 15:16 | IPNPDOC ---
PM&R Progress Note DATE OF SERVICE: May 25, 2019 [employer] Consultant Progress Note Subjective: Patient seen in her room, stating her cough is not bothering her today and that she continues to get strengthen back in her right arm, but very slowly. She was encouraged to practice eccentric biceps training while in bed. REVIEW OF SYSTEMS: The following is a completed review of systems and has been reviewed. Review of systems otherwise unremarkable. PAIN: Patient self reports no pain EYES: No recent vision changes EARS, NOSE, & THROAT: +dysphagia, +mild sore throat (improving) CARDIOVASCULAR: Denies chest pain or palpitations PULMONARY: Denies shortness of breath GASTROINTESTINAL: Denies constipation/diarrhea GENITOURINARY: denies dysuria MUSCULOSKELETAL: right sided weakness NEUROLOGICAL:+aphasia, dysphagia, right sided paresis HEMATOLOGICAL: denies easy bruising SKIN: intact PSYCHIATRIC: Unremarkable All other review of systems found to be negative. PHYSICAL EXAMINATION: VITAL SIGNS: Please see below. GENERAL: Pleasant and cooperative. No acute distress. HEENT: PERRL. Extraocular movements intact. Clear conjunctiva. +right facial droop (-) neck lymphadenopathy CARDIOVASCULAR: Regular rate and rhythm. No murmurs, rubs, or gallops LUNGS: CTA except +rhonchi RLL ABDOMEN: Soft, nontender, nondistended. Positive bowel sounds. Normal active bowel sounds, +colostomy NEUROLOGICAL: Alert and oriented times 3 (despite aphasia) Cranial nerves II through XII grossly intact. Sensation grossly intact in all 4 limbs +Babinski on right +expressive aphasia 1/4+ right hip flexor tone and 1+/4 EHL tone EXTREMITIES: 5\5 strength left upper extremities. +flaccid RUE with 1/5 biceps, 4\5 strength right lower extremity except 2/5 ankle DF. 5/5 strength in left lower extremity. SKIN: intact ASSESSMENT:78-year-old F with past medical history of COPD, lumbar stenosis, who presents status post stroke PLAN: 1. Rehab- PT/OT advance gait and ADL training, trial of E-stim to RUE, maintain ROM/strengthen/stretch all 4 limbs, evaluate for AFO-ambulating with RW -GRINDER HAND- upgraded to level 2 and thins 2. Neuro: s/p left basal ganglia infarct with Right sided hemiparesis, aphasia, and dysphagia -c/u secondary stroke prevention with ASA + Plavix x 90 days then to be followed by ASA alone, statin, and good BP control -patient on SNRI -+tone RLE but contributing to stability, patient encouraged to stretch right toes- consulted orthotics for customized AFO 3. CArdio: pmh AVR not on AC-medicine consulted to assist in overall management -HTN c/u metoprolol- holding lisinopril due to decline in renal function 4. Resp: hx of COPD with rhonchi on exam (resolved), c/u Duonebs, guaifenesin, and incentive spirometry, c/u Advair -patient reports hx of KYLE and uses CPAP at night, daughter brought in equipment, however patient prefers nocturnal 02 -CXR negative for infiltrate 5. ENT: patient with mild throat pain, ordered strep test and throat cx negative- will refer as outpatient for hypophonia 5. GI: Lanzaprazole for GI ppx -colostomy care 6. : denies dysuria, monitor PVRs 7. DVT ppx: heparin and TEDs 8. Psych: hx of depression/anxiety- c/u Effexor 9. Endo: hypothyroidism c/u Synthroid, DM-given recent decline in GFR- holding metformin and will d/c ISS due to low FS, monitor BID 10. renal: CKD, possibly with DARWIN in setting of poor po intake will hold GERONIMO s/p gentle hydration labs improved 11. Dispo: 06/01/19 to home, progressing towards goals Allergies Coded Allergies: [place] Solvents (Verified Allergy, Severe, RESPIRATORY ISSUES, 05/04/19) prochlorperazine (Verified Adverse Reaction, Intermediate, EYES ROLLED BACK, 05/04/19) Vital Signs Vital Signs Date Time Temp Pulse Resp B/P (MAP) Pulse Ox O2 Delivery O2 Flow Rate FiO2 05/25/19 14:00 97.8 88 18 123/64 (83) 95 Room Air 05/25/19 05:41 2.0 Laboratory Data Labs 24H Laboratory Tests 2 05/24/19 16:14: Bedside Glucose (Misc Panel) 101 05/24/19 20:11: Bedside Glucose (Misc Panel) 126H 05/25/19 06:24: Bedside Glucose (Misc Panel) 129H 05/25/19 11:48: Bedside Glucose (Misc Panel) 73L Microbiology Microbiology 05/16/19 Group A Streptococcus Screen (ALECIA) - Final, Complete 05/16/19 Eye/Ear/Nose/Throat Culture - Final, Complete Current Medications Current Medications Current Medications Medications (Trade) Dose Ordered Sig/Charlie Route PRN Reason Start Time Stop Time Status Last Admin Dose Admin Acetaminophen (Tylenol Tab) 650 mg Q4HP PRN PO fever/MILD PAIN (PS 1-4) 05/09/19 14:00 05/24/19 00:42 Al Hydrox/Mg Hydrox/Simethicone (Mylanta) 30 ml Q6HP PRN PO HEARTBURN 05/24/19 11:00 Albuterol/ Ipratropium (Duoneb (Ipr 0.5mg/Alb 2.5mg)) 3 ml RTID NEB 05/09/19 20:00 05/24/19 15:13 Aspirin (Ecotrin) 81 mg DAILY PO 05/10/19 09:00 05/25/19 08:35 Atorvastatin Calcium (Lipitor) 80 mg QHS PO 05/09/19 21:00 05/24/19 22:18 Brimonidine Tartrate (Alphagan P 0.15%) 1 drop BID OU 05/09/19 21:00 05/25/19 08:33 Clopidogrel Bisulfate (PLAVix) 75 mg DAILY PO 05/10/19 09:00 08/07/19 09:01 05/25/19 08:34 Dextrose (Dextrose 50%) 25 ml ASDIRECTED PRN IV SEE LABEL COMMENTS 05/09/19 14:00 Docusate Sodium (Colace) 100 mg BID PO 05/09/19 21:00 05/15/19 14:40 DC 05/14/19 20:39 Fluticasone Propionate (Flonase 0.05% Nasal [place]) 1 spray BID NARES 05/09/19 21:00 05/24/19 08:37 Glucagon (Glucagon) 1 mg ASDIRECTED PRN SC SEE LABEL COMMENTS 05/09/19 14:00 Glucose (Glucose) 16 GM ASDIRECTED PRN PO SEE LABEL COMMENTS 05/09/19 14:00 Guaifenesin (Robitussin Tab) 400 mg TID PO 05/09/19 21:00 05/25/19 08:35 Heparin Sodium (Porcine) (Heparin) 5,000 units Q12H SC 05/09/19 21:00 05/25/19 08:34 Home Med (Med Rec Complete!) ASDIRECTED XX 05/09/19 15:30 05/09/19 15:51 DC Insulin Human Lispro (HumaLOG INSULIN) SEE PROTOCOL TABLE AC SC 05/09/19 17:30 05/25/19 08:36 Insulin Human Lispro (HumaLOG INSULIN) SEE PROTOCOL TABLE QHS SC 05/09/19 21:00 05/10/19 20:55 Lansoprazole (First-Lansoprazole Oral Suspension) 30 mg DAILY PO 05/10/19 12:00 05/25/19 08:33 Levothyroxine Sodium (Synthroid) 50 mcg DAILY@06 PO 05/10/19 06:00 05/25/19 06:08 Lisinopril (Prinivil) 5 mg DAILY PO 05/10/19 09:00 05/10/19 10:38 DC 05/10/19 08:00 Magnesium Hydroxide (Milk Of Magnesia) 30 ml DAILYPRN PRN PO CONSTIPATION 05/09/19 14:00 Metformin HCl (Glucophage) 500 mg BID@08,18 PO 05/09/19 18:00 05/10/19 10:38 DC 05/10/19 08:00 Metoprolol Succinate (TopROL XL) 25 mg DAILY PO 05/10/19 09:00 05/25/19 08:35 Miscellaneous (Unresolved Clarification Entry) SEE LABEL COMMENTS DAILY XX 05/21/19 09:00 05/21/19 12:16 DC Pantoprazole Sodium (Protonix) 40 mg DAILY PO 05/10/19 09:00 05/10/19 10:35 DC Ramelteon (Rozerem) 8 mg QHS PO 05/18/19 21:00 05/24/19 22:18 Salmeterol Xinafoate/ Fluticasone (Advair Hfa 115/ 21) 2 puff RBID INH 05/09/19 20:00 05/25/19 07:20 Senna (Senokot) 1 tab QHS PO 05/09/19 21:00 05/15/19 14:40 DC 05/14/19 20:39 Venlafaxine HCl (Effexor Xr) 37.5 mg DAILY PO 05/25/19 09:00 05/25/19 08:34 Venlafaxine HCl (Effexor) 25 mg BID PO 05/09/19 21:00 05/24/19 23:00 DC 05/24/19 22:23 AKSHAT MOORE MD May 25, 2019 15:16
[2019-05-25 21:00] VITALS: BP 134/66
[2019-05-25] MEDS: ATORVASTATIN 20 MG TAB PO SCH (21:09)
[2019-05-25] MEDS: RAMELTEON 8 MG TAB (ROZEREM) PO SCH (21:09)
[2019-05-26] MEDS: LEVOTHYROXINE 50MCG TABLET (0.05MG) PO SCH (06:31)
[2019-05-26 06:45] VITALS: BP 140/63
[2019-05-26 07:16] LABS: BASO # 0.1 10^3/uL (0.0-0.2); BASO % 1.3 % (0.0-1.0); EOS # 0.2 10^3/uL (0.0-0.5); EOS % 3.9 % (0.0-3.0); HEMATOCRIT 35.2 % (36.0-47.0); HEMOGLOBIN 10.9 g/dl (12.0-15.5); LYMPH # 1.9 10^3/uL (1.5-5.0); LYMPH % 34.9 % (24.0-44.0); MEAN CORPUSCULAR VOLUME 87.3 fl (80.0-96.0); MONO # 0.4 10^3/uL (0.0-0.8); MONO % 7.2 % (0.0-5.0); NEUTROPHILS # 2.8 10^3/uL (1.5-8.5); NEUTROPHILS % 52.5 % (36.0-66.0); PLATELET COUNT, AUTOMATED 283 10^3/uL (150-450); RED BLOOD COUNT 4.03 10^6/uL (4.00-5.40); WHITE BLOOD COUNT 5.4 10^3/uL (4.0-10.0)
[2019-05-26 07:36] LABS: CALCIUM LEVEL 9.7 MG/DL (8.8-10.2); CREATININE FOR GFR 1.16 MG/DL (0.55-1.30)
[2019-05-26] MEDS: ADVAIR HFA 115/21MCG INHALER INH SCH ×2 (08:00→19:53)
[2019-05-26] MEDS: IPRATROPIUM 0.5MG/ALBUTEROL 2.5MG INH SOL UD 3ML (DUONEB)(J7620) NEB SCH ×3 (08:00→20:00)
[2019-05-26] MEDS: REMEDY PHYTOPLEX Z-GUARD PASTE 113GM TUBE (FROM STOREROOM PRODUCT) TOP SCH ×3 (09:00→21:00)
[2019-05-26] MEDS: LANSOPRAZOLE SUSPENSION 30 MG/10 ML ORAL SYRINGE (FIRST-LANSOPRAZOLE) PO SCH (09:17)
[2019-05-26] MEDS: CLOPIDOGREL 75 MG TAB PO SCH (09:18)
[2019-05-26] MEDS: HEPARIN SOD (PORCINE) 5000 UNITS/ML VIAL (J1644 PER 1000UNITS) SC SCH ×2 (09:18→21:55)
[2019-05-26] MEDS: ASPIRIN 81 MG ENTERIC TAB PO SCH (09:19)
[2019-05-26] MEDS: BRIMONIDINE 0.15% OPHTH SOLN 5 ML OU SCH ×2 (09:19→21:55)
[2019-05-26] MEDS: guaiFENesin 200 MG TAB PO SCH ×3 (09:19→21:55)
[2019-05-26] MEDS: FLUTICASONE PROP 0.05% NASAL SPRAY 16 GM (FLONASE) NARES SCH ×2 (09:19→21:55)
[2019-05-26] MEDS: METOPROLOL SUCC *XL* 25MG TAB (TopROL *XL*) PO SCH (09:22)
--- NOTE | 2019-05-26 11:02 | IPNPDOC ---
PM&R Progress Note DATE OF SERVICE: May 26, 2019 [employer] Technician Progress Note Subjective: Patient reporting she feels good today and is looking forward to going home. REVIEW OF SYSTEMS: The following is a completed review of systems and has been reviewed. Review of systems otherwise unremarkable. PAIN: Patient self reports no pain EYES: No recent vision changes EARS, NOSE, & THROAT: +dysphagia, +mild sore throat (improving) CARDIOVASCULAR: Denies chest pain or palpitations PULMONARY: Denies shortness of breath GASTROINTESTINAL: Denies constipation/diarrhea GENITOURINARY: denies dysuria MUSCULOSKELETAL: right sided weakness NEUROLOGICAL:+aphasia, dysphagia, right sided paresis HEMATOLOGICAL: denies easy bruising SKIN: intact PSYCHIATRIC: Unremarkable All other review of systems found to be negative. PHYSICAL EXAMINATION: VITAL SIGNS: Please see below. GENERAL: Pleasant and cooperative. No acute distress. HEENT: PERRL. Extraocular movements intact. Clear conjunctiva. +right facial droop (-) neck lymphadenopathy CARDIOVASCULAR: Regular rate and rhythm. No murmurs, rubs, or gallops LUNGS: CTA except +rhonchi RLL ABDOMEN: Soft, nontender, nondistended. Positive bowel sounds. Normal active bowel sounds, +colostomy NEUROLOGICAL: Alert and oriented times 3 (despite aphasia) Cranial nerves II through XII grossly intact. Sensation grossly intact in all 4 limbs +Babinski on right +expressive aphasia 1/4+ right hip flexor tone and 1+/4 EHL tone EXTREMITIES: 5\5 strength left upper extremities. +flaccid RUE with 1/5 biceps, 4\5 strength right lower extremity except 2/5 ankle DF. 5/5 strength in left lower extremity. SKIN: intact ASSESSMENT:78-year-old F with past medical history of COPD, lumbar stenosis, who presents status post stroke PLAN: 1. Rehab- PT/OT advance gait and ADL training, trial of E-stim to RUE, maintain ROM/strengthen/stretch all 4 limbs, evaluate for AFO-ambulating with RW -BRONZER- upgraded to level 2 and thins 2. Neuro: s/p left basal ganglia infarct with Right sided hemiparesis, aphasia, and dysphagia -c/u secondary stroke prevention with ASA + Plavix x 90 days then to be followed by ASA alone, statin, and good BP control -patient on SNRI -+tone RLE but contributing to stability, patient encouraged to stretch right toes- consulted orthotics for customized AFO 3. CArdio: pmh AVR not on AC-medicine consulted to assist in overall management -HTN c/u metoprolol- holding lisinopril due to decline in renal function 4. Resp: hx of COPD with rhonchi on exam (resolved), c/u Duonebs, guaifenesin, and incentive spirometry, c/u Advair -patient reports hx of KYLE and uses CPAP at night, daughter brought in equipment, however patient prefers nocturnal 02 -CXR negative for infiltrate 5. ENT: patient with mild throat pain, ordered strep test and throat cx negative- will refer as outpatient for hypophonia 5. GI: Lanzaprazole for GI ppx -colostomy care 6. : denies dysuria, monitor PVRs 7. DVT ppx: heparin and TEDs 8. Psych: hx of depression/anxiety- c/u Effexor 9. Endo: hypothyroidism c/u Synthroid, DM-given recent decline in GFR- holding metformin and will d/c ISS due to low FS, monitor BID 10. renal: CKD, possibly with DARWIN in setting of poor po intake will hold GERONIMO s/p gentle hydration labs improved 11. Dispo: 06/01/19 to home, progressing towards goals Allergies Coded Allergies: [place] Solvents (Verified Allergy, Severe, RESPIRATORY ISSUES, 05/04/19) prochlorperazine (Verified Adverse Reaction, Intermediate, EYES ROLLED BACK, 05/04/19) Vital Signs Vital Signs Date Time Temp Pulse Resp B/P (MAP) Pulse Ox O2 Delivery O2 Flow Rate FiO2 05/26/19 09:22 87 115/86 05/26/19 06:45 97.4 18 97 Room Air 05/25/19 05:41 2.0 Laboratory Data CBC/BMP Laboratory Tests 05/26/19 06:51 Labs 24H Laboratory Tests 2 05/25/19 11:48: Bedside Glucose (Misc Panel) 73L 05/25/19 16:57: Bedside Glucose (Misc Panel) 107 05/26/19 06:51: Immature Granulocyte % (Auto) 0.2, Neutrophils (%) (Auto) 52.5, Lymphocytes (%) (Auto) 34.9, Monocytes (%) (Auto) 7.2H, Eosinophils (%) (Auto) 3.9H, Basophils (%) (Auto) 1.3H, Neutrophils # (Auto) 2.8, Lymphocytes # (Auto) 1.9, Monocytes # (Auto) 0.4, Eosinophils # (Auto) 0.2, Basophils # (Auto) 0.1, Nucleated Red Blood Cells % (auto) 0.0, Anion Gap 7L, Glomerular Filtration Rate 48.0, Calcium Level 9.7 Microbiology Microbiology 05/16/19 Group A Streptococcus Screen (ALECIA) - Final, Complete 05/16/19 Eye/Ear/Nose/Throat Culture - Final, Complete Current Medications Current Medications Current Medications Medications (Trade) Dose Ordered Sig/Charlie Route PRN Reason Start Time Stop Time Status Last Admin Dose Admin Acetaminophen (Tylenol Tab) 650 mg Q4HP PRN PO fever/MILD PAIN (PS 1-4) 05/09/19 14:00 05/24/19 00:42 Al Hydrox/Mg Hydrox/Simethicone (Mylanta) 30 ml Q6HP PRN PO HEARTBURN 05/24/19 11:00 Albuterol/ Ipratropium (Duoneb (Ipr 0.5mg/Alb 2.5mg)) 3 ml RTID NEB 05/09/19 20:00 05/24/19 15:13 Aspirin (Ecotrin) 81 mg DAILY PO 05/10/19 09:00 05/26/19 09:19 Atorvastatin Calcium (Lipitor) 80 mg QHS PO 05/09/19 21:00 05/25/19 21:09 Brimonidine Tartrate (Alphagan P 0.15%) 1 drop BID OU 05/09/19 21:00 05/26/19 09:19 Clopidogrel Bisulfate (PLAVix) 75 mg DAILY PO 05/10/19 09:00 08/07/19 09:01 05/26/19 09:18 Dextrose (Dextrose 50%) 25 ml ASDIRECTED PRN IV SEE LABEL COMMENTS 05/09/19 14:00 Docusate Sodium (Colace) 100 mg BID PO 05/09/19 21:00 05/15/19 14:40 DC 05/14/19 20:39 Fluticasone Propionate (Flonase 0.05% Nasal [place]) 1 spray BID NARES 05/09/19 21:00 05/26/19 09:19 Glucagon (Glucagon) 1 mg ASDIRECTED PRN SC SEE LABEL COMMENTS 05/09/19 14:00 Glucose (Glucose) 16 GM ASDIRECTED PRN PO SEE LABEL COMMENTS 05/09/19 14:00 Guaifenesin (Robitussin Tab) 400 mg TID PO 05/09/19 21:00 05/26/19 09:19 Heparin Sodium (Porcine) (Heparin) 5,000 units Q12H SC 05/09/19 21:00 05/26/19 09:18 Home Med (Med Rec Complete!) ASDIRECTED XX 05/09/19 15:30 05/09/19 15:51 DC Insulin Human Lispro (HumaLOG INSULIN) SEE PROTOCOL TABLE AC SC 05/09/19 17:30 05/25/19 16:59 DC 05/25/19 08:36 Insulin Human Lispro (HumaLOG INSULIN) SEE PROTOCOL TABLE QHS SC 05/09/19 21:00 05/25/19 16:59 DC 05/10/19 20:55 Lansoprazole (First-Lansoprazole Oral Suspension) 30 mg DAILY PO 05/10/19 12:00 05/26/19 09:17 Levothyroxine Sodium (Synthroid) 50 mcg DAILY@06 PO 05/10/19 06:00 05/26/19 06:31 Lisinopril (Prinivil) 5 mg DAILY PO 05/10/19 09:00 05/10/19 10:38 DC 05/10/19 08:00 Magnesium Hydroxide (Milk Of Magnesia) 30 ml DAILYPRN PRN PO CONSTIPATION 05/09/19 14:00 Metformin HCl (Glucophage) 500 mg BID@08,18 PO 05/09/19 18:00 05/10/19 10:38 DC 05/10/19 08:00 Metoprolol Succinate (TopROL XL) 25 mg DAILY PO 05/10/19 09:00 05/26/19 09:22 Miscellaneous (Unresolved Clarification Entry) SEE LABEL COMMENTS DAILY XX 05/21/19 09:00 05/21/19 12:16 DC Pantoprazole Sodium (Protonix) 40 mg DAILY PO 05/10/19 09:00 05/10/19 10:35 DC Ramelteon (Rozerem) 8 mg QHS PO 05/18/19 21:00 05/25/19 21:09 Salmeterol Xinafoate/ Fluticasone (Advair Hfa 115/ 21) 2 puff RBID INH 05/09/19 20:00 05/25/19 19:41 Senna (Senokot) 1 tab QHS PO 05/09/19 21:00 05/15/19 14:40 DC 05/14/19 20:39 Venlafaxine HCl (Effexor Xr) 37.5 mg DAILY PO 05/25/19 09:00 05/25/19 08:34 Venlafaxine HCl (Effexor) 25 mg BID PO 05/09/19 21:00 05/24/19 23:00 DC 05/24/19 22:23 AKSHAT MOORE MD May 26, 2019 11:02
[2019-05-26] MEDS: VENLAFAXINE **XR** 37.5 MG CAPSULE PO SCH (11:30)
[2019-05-26 14:00] VITALS: BP 125/62
[2019-05-26 20:00] VITALS: BP 103/56
[2019-05-26] MEDS: RAMELTEON 8 MG TAB (ROZEREM) PO SCH (21:55)
[2019-05-26] MEDS: ATORVASTATIN 20 MG TAB PO SCH (21:55)
[2019-05-27 06:10] VITALS: BP 138/65
[2019-05-27] MEDS: LEVOTHYROXINE 50MCG TABLET (0.05MG) PO SCH (06:20)
[2019-05-27] MEDS: IPRATROPIUM 0.5MG/ALBUTEROL 2.5MG INH SOL UD 3ML (DUONEB)(J7620) NEB SCH ×3 (08:00→19:36)
[2019-05-27] MEDS: ADVAIR HFA 115/21MCG INHALER INH SCH ×2 (08:14→19:36)
[2019-05-27] MEDS: LANSOPRAZOLE SUSPENSION 30 MG/10 ML ORAL SYRINGE (FIRST-LANSOPRAZOLE) PO SCH (08:37)
[2019-05-27] MEDS: HEPARIN SOD (PORCINE) 5000 UNITS/ML VIAL (J1644 PER 1000UNITS) SC SCH ×2 (08:38→20:08)
[2019-05-27] MEDS: guaiFENesin 200 MG TAB PO SCH ×3 (08:38→20:07)
[2019-05-27] MEDS: CLOPIDOGREL 75 MG TAB PO SCH (08:38)
[2019-05-27] MEDS: VENLAFAXINE **XR** 37.5 MG CAPSULE PO SCH (08:38)
[2019-05-27] MEDS: ASPIRIN 81 MG ENTERIC TAB PO SCH (08:39)
[2019-05-27] MEDS: METOPROLOL SUCC *XL* 25MG TAB (TopROL *XL*) PO SCH (08:39)
[2019-05-27] MEDS: FLUTICASONE PROP 0.05% NASAL SPRAY 16 GM (FLONASE) NARES SCH ×2 (08:40→20:08)
[2019-05-27] MEDS: REMEDY PHYTOPLEX Z-GUARD PASTE 113GM TUBE (FROM STOREROOM PRODUCT) TOP SCH ×3 (08:40→20:08)
[2019-05-27] MEDS: BRIMONIDINE 0.15% OPHTH SOLN 5 ML OU SCH ×2 (08:40→20:09)
[2019-05-27 14:00] VITALS: BP 129/62
[2019-05-27 20:00] VITALS: BP 123/60
[2019-05-27] MEDS: ATORVASTATIN 20 MG TAB PO SCH (20:07)
[2019-05-27] MEDS: RAMELTEON 8 MG TAB (ROZEREM) PO SCH (20:07)
[2019-05-28] MEDS: LEVOTHYROXINE 50MCG TABLET (0.05MG) PO SCH (05:57)
[2019-05-28 06:00] VITALS: BP 131/62
[2019-05-28] MEDS: IPRATROPIUM 0.5MG/ALBUTEROL 2.5MG INH SOL UD 3ML (DUONEB)(J7620) NEB SCH ×3 (08:00→20:00)
[2019-05-28] MEDS: ADVAIR HFA 115/21MCG INHALER INH SCH ×2 (08:01→20:00)
[2019-05-28] MEDS: REMEDY PHYTOPLEX Z-GUARD PASTE 113GM TUBE (FROM STOREROOM PRODUCT) TOP SCH ×3 (09:00→20:40)
[2019-05-28] MEDS: FLUTICASONE PROP 0.05% NASAL SPRAY 16 GM (FLONASE) NARES SCH ×2 (09:00→20:40)
[2019-05-28] MEDS: ASPIRIN 81 MG ENTERIC TAB PO SCH (09:16)
[2019-05-28] MEDS: LANSOPRAZOLE SUSPENSION 30 MG/10 ML ORAL SYRINGE (FIRST-LANSOPRAZOLE) PO SCH (09:16)
[2019-05-28] MEDS: CLOPIDOGREL 75 MG TAB PO SCH (09:16)
[2019-05-28] MEDS: HEPARIN SOD (PORCINE) 5000 UNITS/ML VIAL (J1644 PER 1000UNITS) SC SCH ×2 (09:16→20:40)
[2019-05-28] MEDS: METOPROLOL SUCC *XL* 25MG TAB (TopROL *XL*) PO SCH (09:17)
[2019-05-28] MEDS: guaiFENesin 200 MG TAB PO SCH ×3 (09:17→20:40)
[2019-05-28] MEDS: VENLAFAXINE **XR** 37.5 MG CAPSULE PO SCH (09:17)
[2019-05-28] MEDS: BRIMONIDINE 0.15% OPHTH SOLN 5 ML OU SCH ×2 (09:19→20:41)
[2019-05-28 14:00] VITALS: BP 124/58
[2019-05-28] MEDS: RAMELTEON 8 MG TAB (ROZEREM) PO SCH (20:39)
[2019-05-28] MEDS: ATORVASTATIN 20 MG TAB PO SCH (20:40)
[2019-05-28 22:00] VITALS: BP 111/58
[2019-05-29] MEDS: LEVOTHYROXINE 50MCG TABLET (0.05MG) PO SCH (05:39)
[2019-05-29 06:00] VITALS: BP 133/73
[2019-05-29] MEDS: IPRATROPIUM 0.5MG/ALBUTEROL 2.5MG INH SOL UD 3ML (DUONEB)(J7620) NEB SCH ×3 (08:00→19:45)
[2019-05-29] MEDS: LANSOPRAZOLE SUSPENSION 30 MG/10 ML ORAL SYRINGE (FIRST-LANSOPRAZOLE) PO SCH (08:09)
[2019-05-29] MEDS: ASPIRIN 81 MG ENTERIC TAB PO SCH (08:10)
[2019-05-29] MEDS: HEPARIN SOD (PORCINE) 5000 UNITS/ML VIAL (J1644 PER 1000UNITS) SC SCH ×2 (08:10→20:22)
[2019-05-29] MEDS: guaiFENesin 200 MG TAB PO SCH ×3 (08:10→20:21)
[2019-05-29] MEDS: CLOPIDOGREL 75 MG TAB PO SCH (08:10)
[2019-05-29] MEDS: VENLAFAXINE **XR** 37.5 MG CAPSULE PO SCH (08:10)
[2019-05-29] MEDS: METOPROLOL SUCC *XL* 25MG TAB (TopROL *XL*) PO SCH (08:11)
[2019-05-29] MEDS: FLUTICASONE PROP 0.05% NASAL SPRAY 16 GM (FLONASE) NARES SCH ×2 (08:13→20:22)
[2019-05-29] MEDS: BRIMONIDINE 0.15% OPHTH SOLN 5 ML OU SCH ×2 (08:13→20:23)
[2019-05-29] MEDS: REMEDY PHYTOPLEX Z-GUARD PASTE 113GM TUBE (FROM STOREROOM PRODUCT) TOP SCH ×3 (08:14→20:25)
[2019-05-29] MEDS: ADVAIR HFA 115/21MCG INHALER INH SCH ×2 (08:24→19:44)
[2019-05-29 14:00] VITALS: BP 128/61
[2019-05-29] MEDS: RAMELTEON 8 MG TAB (ROZEREM) PO SCH (20:21)
[2019-05-29] MEDS: ATORVASTATIN 20 MG TAB PO SCH (20:21)
[2019-05-29 21:00] VITALS: BP 145/68
[2019-05-30 05:56] VITALS: BP 127/63
[2019-05-30] MEDS: LEVOTHYROXINE 50MCG TABLET (0.05MG) PO SCH (06:28)
[2019-05-30 06:46] LABS: BASO # 0.1 10^3/uL (0.0-0.2); BASO % 0.9 % (0.0-1.0); EOS # 0.2 10^3/uL (0.0-0.5); HEMATOCRIT 33.8 % (36.0-47.0); HEMOGLOBIN 10.6 g/dl (12.0-15.5); LYMPH # 1.8 10^3/uL (1.5-5.0); LYMPH % 34.7 % (24.0-44.0); MEAN CORPUSCULAR HGB CONC 31.4 g/dl (32.0-36.5); MEAN CORPUSCULAR VOLUME 86.2 fl (80.0-96.0); MONO # 0.5 10^3/uL (0.0-0.8); MONO % 10.2 % (0.0-5.0); NEUTROPHILS # 2.7 10^3/uL (1.5-8.5); PLATELET COUNT, AUTOMATED 234 10^3/uL (150-450); RED BLOOD COUNT 3.92 10^6/uL (4.00-5.40); WHITE BLOOD COUNT 5.3 10^3/uL (4.0-10.0)
[2019-05-30 07:07] LABS: CALCIUM LEVEL 9.8 MG/DL (8.8-10.2); CREATININE FOR GFR 1.14 MG/DL (0.55-1.30); GLOMERULAR FILTRATION RATE 48.9 (>39); POTASSIUM SERUM 4.2 MEQ/L (3.5-5.1)
[2019-05-30] MEDS: IPRATROPIUM 0.5MG/ALBUTEROL 2.5MG INH SOL UD 3ML (DUONEB)(J7620) NEB SCH ×3 (07:07→20:00)
[2019-05-30] MEDS: ADVAIR HFA 115/21MCG INHALER INH SCH ×2 (07:07→19:37)
[2019-05-30] MEDS: FLUTICASONE PROP 0.05% NASAL SPRAY 16 GM (FLONASE) NARES SCH ×2 (08:04→21:00)
[2019-05-30] MEDS: BRIMONIDINE 0.15% OPHTH SOLN 5 ML OU SCH ×2 (08:04→21:20)
[2019-05-30] MEDS: HEPARIN SOD (PORCINE) 5000 UNITS/ML VIAL (J1644 PER 1000UNITS) SC SCH ×2 (08:05→21:17)
[2019-05-30] MEDS: METOPROLOL SUCC *XL* 25MG TAB (TopROL *XL*) PO SCH (08:06)
[2019-05-30] MEDS: LANSOPRAZOLE SUSPENSION 30 MG/10 ML ORAL SYRINGE (FIRST-LANSOPRAZOLE) PO SCH (08:06)
[2019-05-30] MEDS: guaiFENesin 200 MG TAB PO SCH ×3 (08:06→21:16)
[2019-05-30] MEDS: CLOPIDOGREL 75 MG TAB PO SCH (08:06)
[2019-05-30] MEDS: ASPIRIN 81 MG ENTERIC TAB PO SCH (08:06)
[2019-05-30] MEDS: REMEDY PHYTOPLEX Z-GUARD PASTE 113GM TUBE (FROM STOREROOM PRODUCT) TOP SCH ×3 (08:07→21:00)
[2019-05-30] MEDS: VENLAFAXINE **XR** 37.5 MG CAPSULE PO SCH (08:08)
[2019-05-30 14:00] VITALS: BP 118/62
--- NOTE | 2019-05-30 14:42 | IPNPDOC ---
PM&R Progress Note DATE OF SERVICE: May 29, 2019 [employer] Transporter Progress Note Subjective: Patient asking to go home this week as she is worried about the Coronavirus. REVIEW OF SYSTEMS: The following is a completed review of systems and has been reviewed. Review of systems otherwise unremarkable. PAIN: Patient self reports no pain EYES: No recent vision changes EARS, NOSE, & THROAT: +dysphagia, +mild sore throat (improving) CARDIOVASCULAR: Denies chest pain or palpitations PULMONARY: Denies shortness of breath GASTROINTESTINAL: Denies constipation/diarrhea GENITOURINARY: denies dysuria MUSCULOSKELETAL: right sided weakness NEUROLOGICAL:+aphasia, dysphagia, right sided paresis HEMATOLOGICAL: denies easy bruising SKIN: intact PSYCHIATRIC: Unremarkable All other review of systems found to be negative. PHYSICAL EXAMINATION: VITAL SIGNS: Please see below. GENERAL: Pleasant and cooperative. No acute distress. HEENT: PERRL. Extraocular movements intact. Clear conjunctiva. +right facial droop (-) neck lymphadenopathy CARDIOVASCULAR: Regular rate and rhythm. No murmurs, rubs, or gallops LUNGS: CTA except +rhonchi RLL ABDOMEN: Soft, nontender, nondistended. Positive bowel sounds. Normal active bowel sounds, +colostomy NEUROLOGICAL: Alert and oriented times 3 (despite aphasia) Cranial nerves II through XII grossly intact. Sensation grossly intact in all 4 limbs +Babinski on right +expressive aphasia 1/4+ right hip flexor tone and 1+/4 EHL tone EXTREMITIES: 5\5 strength left upper extremities. +flaccid RUE with 1/5 biceps, 4\5 strength right lower extremity except 2/5 ankle DF. 5/5 strength in left lower extremity. SKIN: intact ASSESSMENT:78-year-old F with past medical history of COPD, lumbar stenosis, who presents status post stroke PLAN: 1. 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 Neuro: s/p left basal ganglia infarct with Right sided hemiparesis, aphasia, and dysphagia -c/u secondary stroke prevention with ASA + Plavix x 90 days then to be followed by ASA alone, statin, and good BP control -patient on SNRI -+tone RLE but contributing to stability, patient encouraged to stretch right toes- consulted orthotics for customized AFO 3. CArdio: pmh AVR not on AC-medicine consulted to assist in overall management -HTN c/u metoprolol- holding lisinopril due to decline in renal function 4. Resp: hx of COPD with rhonchi on exam (resolved), c/u Duonebs, guaifenesin, and incentive spirometry, c/u Advair -patient reports hx of KYLE and uses CPAP at night, daughter brought in equipment, however patient prefers nocturnal 02 -CXR negative for infiltrate 5. ENT: patient with mild throat pain, ordered strep test and throat cx negative- will refer as outpatient for hypophonia 5. GI: Lansoprazole for GI ppx -colostomy care 6. : denies dysuria, monitor PVRs 7. DVT ppx: heparin and TEDs 8. Psych: hx of depression/anxiety- c/u Effexor 9. Endo: hypothyroidism c/u Synthroid, DM-given recent decline in GFR- holding metformin and d/c'd ISS due to low FS, monitor BID 10. renal: CKD, possibly with DARWIN in setting of poor po intake will hold GERONIMO s/p gentle hydration labs improved 11. Dispo: 06/01/19 to home, progressing towards goals Allergies Coded Allergies: [place] Solvents (Verified Allergy, Severe, RESPIRATORY ISSUES, 05/04/19) prochlorperazine (Verified Adverse Reaction, Intermediate, EYES ROLLED BACK, 05/04/19) Vital Signs Vital Signs Date Time Temp Pulse Resp B/P (MAP) Pulse Ox O2 Delivery O2 Flow Rate FiO2 05/30/19 14:00 98.3 80 18 118/62 (80) 98 Room Air 05/30/19 05:56 2.0 Laboratory Data CBC/BMP Laboratory Tests 05/30/19 06:22 Labs 24H Laboratory Tests 2 05/29/19 16:24: Bedside Glucose (Misc Panel) 116H 05/30/19 06:22: Immature Granulocyte % (Auto) 0.2, Neutrophils (%) (Auto) 50.0, Lymphocytes (%) (Auto) 34.7, Monocytes (%) (Auto) 10.2H, Eosinophils (%) (Auto) 4.0H, Basophils (%) (Auto) 0.9, Neutrophils # (Auto) 2.7, Lymphocytes # (Auto) 1.8, Monocytes # (Auto) 0.5, Eosinophils # (Auto) 0.2, Basophils # (Auto) 0.1, Nucleated Red Blood Cells % (auto) 0.0, Anion Gap 3L, Glomerular Filtration Rate 48.9, Calcium Level 9.8 Current Medications Current Medications Current Medications Medications (Trade) Dose Ordered Sig/Charlie Route PRN Reason Start Time Stop Time Status Last Admin Dose Admin Acetaminophen (Tylenol Tab) 650 mg Q4HP PRN PO fever/MILD PAIN (PS 1-4) 05/09/19 14:00 05/24/19 00:42 Al Hydrox/Mg Hydrox/Simethicone (Mylanta) 30 ml Q6HP PRN PO HEARTBURN 05/24/19 11:00 Albuterol/ Ipratropium (Duoneb (Ipr 0.5mg/Alb 2.5mg)) 3 ml RTID NEB 05/09/19 20:00 05/30/19 13:04 Aspirin (Ecotrin) 81 mg DAILY PO 05/10/19 09:00 05/30/19 08:06 Atorvastatin Calcium (Lipitor) 80 mg QHS PO 05/09/19 21:00 05/29/19 20:21 Brimonidine Tartrate (Alphagan P 0.15%) 1 drop BID OU 05/09/19 21:00 05/30/19 08:04 Clopidogrel Bisulfate (PLAVix) 75 mg DAILY PO 05/10/19 09:00 08/07/19 09:01 05/30/19 08:06 Dextrose (Dextrose 50%) 25 ml ASDIRECTED PRN IV SEE LABEL COMMENTS 05/09/19 14:00 Docusate Sodium (Colace) 100 mg BID PO 05/09/19 21:00 05/15/19 14:40 DC 05/14/19 20:39 Fluticasone Propionate (Flonase 0.05% Nasal [place]) 1 spray BID NARES 05/09/19 21:00 05/29/19 20:22 Glucagon (Glucagon) 1 mg ASDIRECTED PRN SC SEE LABEL COMMENTS 05/09/19 14:00 Glucose (Glucose) 16 GM ASDIRECTED PRN PO SEE LABEL COMMENTS 05/09/19 14:00 Guaifenesin (Robitussin Tab) 400 mg TID PO 05/09/19 21:00 05/30/19 08:06 Heparin Sodium (Porcine) (Heparin) 5,000 units Q12H SC 05/09/19 21:00 05/30/19 08:05 Home Med (Med Rec Complete!) ASDIRECTED XX 05/09/19 15:30 05/09/19 15:51 DC Insulin Human Lispro (HumaLOG INSULIN) SEE PROTOCOL TABLE AC SC 05/09/19 17:30 05/25/19 16:59 DC 05/25/19 08:36 Insulin Human Lispro (HumaLOG INSULIN) SEE PROTOCOL TABLE QHS SC 05/09/19 21:00 05/25/19 16:59 DC 05/10/19 20:55 Lansoprazole (First-Lansoprazole Oral Suspension) 30 mg DAILY PO 05/10/19 12:00 05/30/19 08:06 Levothyroxine Sodium (Synthroid) 50 mcg DAILY@06 PO 05/10/19 06:00 05/30/19 06:28 Lisinopril (Prinivil) 5 mg DAILY PO 05/10/19 09:00 05/10/19 10:38 DC 05/10/19 08:00 Magnesium Hydroxide (Milk Of Magnesia) 30 ml DAILYPRN PRN PO CONSTIPATION 05/09/19 14:00 Metformin HCl (Glucophage) 500 mg BID@08,18 PO 05/09/19 18:00 05/10/19 10:38 DC 05/10/19 08:00 Metoprolol Succinate (TopROL XL) 25 mg DAILY PO 05/10/19 09:00 05/30/19 08:06 Miscellaneous (Unresolved Clarification Entry) SEE LABEL COMMENTS DAILY XX 05/27/19 09:00 Cancel Miscellaneous (Unresolved Clarification Entry) SEE LABEL COMMENTS DAILY XX 05/21/19 09:00 05/21/19 12:16 DC Pantoprazole Sodium (Protonix) 40 mg DAILY PO 05/10/19 09:00 05/10/19 10:35 DC Ramelteon (Rozerem) 8 mg QHS PO 05/18/19 21:00 05/29/19 20:21 Salmeterol Xinafoate/ Fluticasone (Advair Hfa 115/ 21) 2 puff RBID INH 05/09/19 20:00 05/30/19 07:07 Senna (Senokot) 1 tab QHS PO 05/09/19 21:00 05/15/19 14:40 DC 05/14/19 20:39 Venlafaxine HCl (Effexor Xr) 37.5 mg DAILY PO 05/25/19 09:00 05/30/19 08:08 Venlafaxine HCl (Effexor) 25 mg BID PO 05/09/19 21:00 05/24/19 23:00 DC 05/24/19 22:23 AKSHAT MOORE MD May 30, 2019 14:42
--- NOTE | 2019-05-30 14:43 | IPNPDOC ---
PM&R Progress Note DATE OF SERVICE: May 30, 2019 Clip And Hanger Attacher Progress Note Subjective: Patient reporting she feels well and ready to go home . REVIEW OF SYSTEMS: The following is a completed review of systems and has been reviewed. Review of systems otherwise unremarkable. PAIN: Patient self reports no pain EYES: No recent vision changes EARS, NOSE, & THROAT: +dysphagia, +mild sore throat (improving) CARDIOVASCULAR: Denies chest pain or palpitations PULMONARY: Denies shortness of breath GASTROINTESTINAL: Denies constipation/diarrhea GENITOURINARY: denies dysuria MUSCULOSKELETAL: right sided weakness NEUROLOGICAL:+aphasia, dysphagia, right sided paresis HEMATOLOGICAL: denies easy bruising SKIN: intact PSYCHIATRIC: Unremarkable All other review of systems found to be negative. PHYSICAL EXAMINATION: VITAL SIGNS: Please see below. GENERAL: Pleasant and cooperative. No acute distress. HEENT: PERRL. Extraocular movements intact. Clear conjunctiva. +right facial droop (-) neck lymphadenopathy CARDIOVASCULAR: Regular rate and rhythm. No murmurs, rubs, or gallops LUNGS: CTA except +rhonchi RLL ABDOMEN: Soft, nontender, nondistended. Positive bowel sounds. Normal active bowel sounds, +colostomy NEUROLOGICAL: Alert and oriented times 3 (despite aphasia) Cranial nerves II through XII grossly intact. Sensation grossly intact in all 4 limbs +Babinski on right +expressive aphasia 1/4+ right hip flexor tone and 1+/4 EHL tone EXTREMITIES: 5\5 strength left upper extremities. +flaccid RUE with 1/5 biceps, 4\5 strength right lower extremity except 2/5 ankle DF. 5/5 strength in left lower extremity. SKIN: intact ASSESSMENT:78-year-old F with past medical history of COPD, lumbar stenosis, who presents status post stroke PLAN: 1. 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 Neuro: s/p left basal ganglia infarct with Right sided hemiparesis, aphasia, and dysphagia -c/u secondary stroke prevention with ASA + Plavix x 90 days then to be followed by ASA alone, statin, and good BP control -patient on SNRI -+tone RLE but contributing to stability, patient encouraged to stretch right toes- consulted orthotics for customized AFO 3. CArdio: pmh AVR not on AC-medicine consulted to assist in overall management -HTN c/u metoprolol- holding lisinopril due to decline in renal function 4. Resp: hx of COPD with rhonchi on exam (resolved), c/u Duonebs, guaifenesin, and incentive spirometry, c/u Advair -patient reports hx of KYLE and uses CPAP at night, daughter brought in equipment, however patient prefers nocturnal 02 -CXR negative for infiltrate 5. ENT: patient with mild throat pain-resolved- ordered strep test and throat cx negative- will refer as outpatient ENT for hypophonia 5. GI: Lansoprazole for GI ppx -colostomy care 6. : denies dysuria, monitor PVRs 7. DVT ppx: heparin and TEDs 8. Psych: hx of depression/anxiety- c/u Effexor 9. Endo: hypothyroidism c/u Synthroid, DM-given recent decline in GFR- holding metformin and d/c'd ISS due to low FS, monitor BID 10. renal: CKD, possibly with DARWIN in setting of poor po intake will hold GERONIMO s/p gentle hydration labs improved 11. Dispo: 06/01/19 to home, progressing towards goals Allergies Coded Allergies: [place] Solvents (Verified Allergy, Severe, RESPIRATORY ISSUES, 05/04/19) prochlorperazine (Verified Adverse Reaction, Intermediate, EYES ROLLED BACK, 05/04/19) Vital Signs Vital Signs Date Time Temp Pulse Resp B/P (MAP) Pulse Ox O2 Delivery O2 Flow Rate FiO2 05/30/19 14:00 98.3 80 18 118/62 (80) 98 Room Air 05/30/19 05:56 2.0 Laboratory Data CBC/BMP Laboratory Tests 05/30/19 06:22 Labs 24H Laboratory Tests 2 05/29/19 16:24: Bedside Glucose (Misc Panel) 116H 05/30/19 06:22: Immature Granulocyte % (Auto) 0.2, Neutrophils (%) (Auto) 50.0, Lymphocytes (%) (Auto) 34.7, Monocytes (%) (Auto) 10.2H, Eosinophils (%) (Auto) 4.0H, Basophils (%) (Auto) 0.9, Neutrophils # (Auto) 2.7, Lymphocytes # (Auto) 1.8, Monocytes # (Auto) 0.5, Eosinophils # (Auto) 0.2, Basophils # (Auto) 0.1, Nucleated Red Blood Cells % (auto) 0.0, Anion Gap 3L, Glomerular Filtration Rate 48.9, Calcium Level 9.8 Current Medications Current Medications Current Medications Medications (Trade) Dose Ordered Sig/Charlie Route PRN Reason Start Time Stop Time Status Last Admin Dose Admin Acetaminophen (Tylenol Tab) 650 mg Q4HP PRN PO fever/MILD PAIN (PS 1-4) 05/09/19 14:00 05/24/19 00:42 Al Hydrox/Mg Hydrox/Simethicone (Mylanta) 30 ml Q6HP PRN PO HEARTBURN 05/24/19 11:00 Albuterol/ Ipratropium (Duoneb (Ipr 0.5mg/Alb 2.5mg)) 3 ml RTID NEB 05/09/19 20:00 05/30/19 13:04 Aspirin (Ecotrin) 81 mg DAILY PO 05/10/19 09:00 05/30/19 08:06 Atorvastatin Calcium (Lipitor) 80 mg QHS PO 05/09/19 21:00 05/29/19 20:21 Brimonidine Tartrate (Alphagan P 0.15%) 1 drop BID OU 05/09/19 21:00 05/30/19 08:04 Clopidogrel Bisulfate (PLAVix) 75 mg DAILY PO 05/10/19 09:00 08/07/19 09:01 05/30/19 08:06 Dextrose (Dextrose 50%) 25 ml ASDIRECTED PRN IV SEE LABEL COMMENTS 05/09/19 14:00 Docusate Sodium (Colace) 100 mg BID PO 05/09/19 21:00 05/15/19 14:40 DC 05/14/19 20:39 Fluticasone Propionate (Flonase 0.05% Nasal [place]) 1 spray BID NARES 05/09/19 21:00 05/29/19 20:22 Glucagon (Glucagon) 1 mg ASDIRECTED PRN SC SEE LABEL COMMENTS 05/09/19 14:00 Glucose (Glucose) 16 GM ASDIRECTED PRN PO SEE LABEL COMMENTS 05/09/19 14:00 Guaifenesin (Robitussin Tab) 400 mg TID PO 05/09/19 21:00 05/30/19 08:06 Heparin Sodium (Porcine) (Heparin) 5,000 units Q12H SC 05/09/19 21:00 05/30/19 08:05 Home Med (Med Rec Complete!) ASDIRECTED XX 05/09/19 15:30 05/09/19 15:51 DC Insulin Human Lispro (HumaLOG INSULIN) SEE PROTOCOL TABLE AC SC 05/09/19 17:30 05/25/19 16:59 DC 05/25/19 08:36 Insulin Human Lispro (HumaLOG INSULIN) SEE PROTOCOL TABLE QHS SC 05/09/19 21:00 05/25/19 16:59 DC 05/10/19 20:55 Lansoprazole (First-Lansoprazole Oral Suspension) 30 mg DAILY PO 05/10/19 12:00 05/30/19 08:06 Levothyroxine Sodium (Synthroid) 50 mcg DAILY@06 PO 05/10/19 06:00 05/30/19 06:28 Lisinopril (Prinivil) 5 mg DAILY PO 05/10/19 09:00 05/10/19 10:38 DC 05/10/19 08:00 Magnesium Hydroxide (Milk Of Magnesia) 30 ml DAILYPRN PRN PO CONSTIPATION 05/09/19 14:00 Metformin HCl (Glucophage) 500 mg BID@08,18 PO 05/09/19 18:00 05/10/19 10:38 DC 05/10/19 08:00 Metoprolol Succinate (TopROL XL) 25 mg DAILY PO 05/10/19 09:00 05/30/19 08:06 Miscellaneous (Unresolved Clarification Entry) SEE LABEL COMMENTS DAILY XX 05/27/19 09:00 Cancel Miscellaneous (Unresolved Clarification Entry) SEE LABEL COMMENTS DAILY XX 05/21/19 09:00 05/21/19 12:16 DC Pantoprazole Sodium (Protonix) 40 mg DAILY PO 05/10/19 09:00 05/10/19 10:35 DC Ramelteon (Rozerem) 8 mg QHS PO 05/18/19 21:00 05/29/19 20:21 Salmeterol Xinafoate/ Fluticasone (Advair Hfa 115/ 21) 2 puff RBID INH 05/09/19 20:00 05/30/19 07:07 Senna (Senokot) 1 tab QHS PO 05/09/19 21:00 05/15/19 14:40 DC 05/14/19 20:39 Venlafaxine HCl (Effexor Xr) 37.5 mg DAILY PO 05/25/19 09:00 05/30/19 08:08 Venlafaxine HCl (Effexor) 25 mg BID PO 05/09/19 21:00 05/24/19 23:00 DC 05/24/19 22:23 AKSHAT MOORE MD May 30, 2019 14:43
[2019-05-30 20:00] VITALS: BP 121/65
[2019-05-30] MEDS: RAMELTEON 8 MG TAB (ROZEREM) PO SCH (21:00)
[2019-05-30] MEDS: ATORVASTATIN 20 MG TAB PO SCH (21:16)
[2019-05-31 06:00] VITALS: BP_SYST 132; BP_SYST 136; BP_DIAS 63; BP_DIAS 84
[2019-05-31] MEDS: LEVOTHYROXINE 50MCG TABLET (0.05MG) PO SCH (06:34)
[2019-05-31] MEDS: ADVAIR HFA 115/21MCG INHALER INH SCH ×2 (07:52→19:34)
[2019-05-31] MEDS: IPRATROPIUM 0.5MG/ALBUTEROL 2.5MG INH SOL UD 3ML (DUONEB)(J7620) NEB SCH ×3 (07:52→20:00)
[2019-05-31] MEDS: CLOPIDOGREL 75 MG TAB PO SCH (09:40)
[2019-05-31] MEDS: LANSOPRAZOLE SUSPENSION 30 MG/10 ML ORAL SYRINGE (FIRST-LANSOPRAZOLE) PO SCH (09:40)
[2019-05-31] MEDS: VENLAFAXINE **XR** 37.5 MG CAPSULE PO SCH (09:40)
[2019-05-31] MEDS: METOPROLOL SUCC *XL* 25MG TAB (TopROL *XL*) PO SCH (09:40)
[2019-05-31] MEDS: HEPARIN SOD (PORCINE) 5000 UNITS/ML VIAL (J1644 PER 1000UNITS) SC SCH ×2 (09:40→21:17)
[2019-05-31] MEDS: guaiFENesin 200 MG TAB PO SCH ×3 (09:40→21:17)
[2019-05-31] MEDS: ASPIRIN 81 MG ENTERIC TAB PO SCH (09:40)
[2019-05-31] MEDS: BRIMONIDINE 0.15% OPHTH SOLN 5 ML OU SCH ×2 (10:12→21:18)
[2019-05-31] MEDS: FLUTICASONE PROP 0.05% NASAL SPRAY 16 GM (FLONASE) NARES SCH ×2 (10:12→21:18)
[2019-05-31] MEDS: REMEDY PHYTOPLEX Z-GUARD PASTE 113GM TUBE (FROM STOREROOM PRODUCT) TOP SCH ×3 (10:12→21:00)
[2019-05-31 14:00] VITALS: BP 110/65
[2019-05-31] MEDS ORDERED: LEVO50TA5 PO (15:53)
[2019-05-31] MEDS ORDERED: FLUTISP NARES (15:53)
[2019-05-31] MEDS ORDERED: ASPI81CH33 PO (15:53)
[2019-05-31] MEDS ORDERED: PLAV1TAB2 PO (15:53)
[2019-05-31] MEDS ORDERED: VENL1TAB35 PO (15:53)
[2019-05-31] MEDS ORDERED: VENTAER INH (15:53)
[2019-05-31] MEDS ORDERED: ADVA115A INH (15:53)
[2019-05-31] MEDS ORDERED: RAME8TAB2 PO (15:53)
[2019-05-31] MEDS ORDERED: ATOR80TA59 PO (15:53)
[2019-05-31] MEDS ORDERED: METO1TAB32 PO (15:53)
--- NOTE | 2019-05-31 16:04 | IPNPDOC ---
PM&R Progress Note DATE OF SERVICE: May 31, 2019 Filler Blender Progress Note Subjective: Patient agrees she will use her own CPAP machine when she goes home which is working, but that she prefers to use the nocturnal 02. REVIEW OF SYSTEMS: The following is a completed review of systems and has been reviewed. Review of systems otherwise unremarkable. PAIN: Patient self reports no pain EYES: No recent vision changes EARS, NOSE, & THROAT: +dysphagia, +mild sore throat (improving) CARDIOVASCULAR: Denies chest pain or palpitations PULMONARY: Denies shortness of breath GASTROINTESTINAL: Denies constipation/diarrhea GENITOURINARY: denies dysuria MUSCULOSKELETAL: right sided weakness NEUROLOGICAL:+aphasia, dysphagia, right sided paresis HEMATOLOGICAL: denies easy bruising SKIN: intact PSYCHIATRIC: Unremarkable All other review of systems found to be negative. PHYSICAL EXAMINATION: VITAL SIGNS: Please see below. GENERAL: Pleasant and cooperative. No acute distress. HEENT: PERRL. Extraocular movements intact. Clear conjunctiva. +right facial droop (-) neck lymphadenopathy CARDIOVASCULAR: Regular rate and rhythm. No murmurs, rubs, or gallops LUNGS: CTA except +rhonchi RLL ABDOMEN: Soft, nontender, nondistended. Positive bowel sounds. Normal active bowel sounds, +colostomy NEUROLOGICAL: Alert and oriented times 3 (despite aphasia) Cranial nerves II through XII grossly intact. Sensation grossly intact in all 4 limbs +Babinski on right +expressive aphasia 1/4+ right hip flexor tone and 1+/4 EHL tone EXTREMITIES: 5\5 strength left upper extremities. +flaccid RUE with 1/5 biceps, 4\5 strength right lower extremity except 2/5 ankle DF. 5/5 strength in left lower extremity. SKIN: intact ASSESSMENT:78-year-old F with past medical history of COPD, lumbar stenosis, who presents status post stroke PLAN: 1. 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 Neuro: s/p left basal ganglia infarct with Right sided hemiparesis, aphasia, and dysphagia -c/u secondary stroke prevention with ASA + Plavix x 90 days then to be followed by ASA alone, statin, and good BP control -patient on SNRI -+tone RLE but contributing to stability, patient encouraged to stretch right toes- consulted orthotics for customized AFO 3. CArdio: pmh AVR not on AC-medicine consulted to assist in overall management -HTN c/u metoprolol- holding lisinopril due to decline in renal function 4. Resp: hx of COPD with rhonchi on exam (resolved), c/u Duonebs, guaifenesin, and incentive spirometry, c/u Advair -patient reports hx of KYLE and uses CPAP at night, daughter brought in equipment, however patient prefers nocturnal 02 -CXR negative for infiltrate 5. ENT: patient with mild throat pain-resolved- ordered strep test and throat cx negative- will refer as outpatient ENT for hypophonia 5. GI: Lansoprazole for GI ppx -colostomy care 6. : denies dysuria, monitor PVRs 7. DVT ppx: heparin and TEDs 8. Psych: hx of depression/anxiety- c/u Effexor 9. Endo: hypothyroidism c/u Synthroid, DM-given recent decline in GFR- holding metformin and d/c'd ISS due to low FS, monitor BID 10. renal: CKD, possibly with DARWIN in setting of poor po intake will hold GERONIMO s/p gentle hydration labs improved 11. Dispo: 06/01/19 to home, progressing towards goals Allergies Coded Allergies: [place] Solvents (Verified Allergy, Severe, RESPIRATORY ISSUES, 05/04/19) prochlorperazine (Verified Adverse Reaction, Intermediate, EYES ROLLED BACK, 05/04/19) Vital Signs Vital Signs Date Time Temp Pulse Resp B/P (MAP) Pulse Ox O2 Delivery O2 Flow Rate FiO2 05/31/19 14:00 97.7 65 18 110/65 (80) 96 Room Air 05/31/19 06:00 2.0 Laboratory Data Labs 24H Laboratory Tests 2 05/30/19 16:18: Bedside Glucose (Misc Panel) 107 05/31/19 07:06: Bedside Glucose (Misc Panel) 136H Current Medications Current Medications Current Medications Medications (Trade) Dose Ordered Sig/Charlie Route PRN Reason Start Time Stop Time Status Last Admin Dose Admin Acetaminophen (Tylenol Tab) 650 mg Q4HP PRN PO fever/MILD PAIN (PS 1-4) 05/09/19 14:00 05/24/19 00:42 Al Hydrox/Mg Hydrox/Simethicone (Mylanta) 30 ml Q6HP PRN PO HEARTBURN 05/24/19 11:00 Albuterol/ Ipratropium (Duoneb (Ipr 0.5mg/Alb 2.5mg)) 3 ml RTID NEB 05/09/19 20:00 05/30/19 13:04 Aspirin (Ecotrin) 81 mg DAILY PO 05/10/19 09:00 05/31/19 09:40 Atorvastatin Calcium (Lipitor) 80 mg QHS PO 05/09/19 21:00 05/30/19 21:16 Brimonidine Tartrate (Alphagan P 0.15%) 1 drop BID OU 05/09/19 21:00 05/31/19 10:12 Clopidogrel Bisulfate (PLAVix) 75 mg DAILY PO 05/10/19 09:00 08/07/19 09:01 05/31/19 09:40 Dextrose (Dextrose 50%) 25 ml ASDIRECTED PRN IV SEE LABEL COMMENTS 05/09/19 14:00 Docusate Sodium (Colace) 100 mg BID PO 05/09/19 21:00 05/15/19 14:40 DC 05/14/19 20:39 Fluticasone Propionate (Flonase 0.05% Nasal [place]) 1 spray BID NARES 05/09/19 21:00 05/31/19 10:12 Glucagon (Glucagon) 1 mg ASDIRECTED PRN SC SEE LABEL COMMENTS 05/09/19 14:00 Glucose (Glucose) 16 GM ASDIRECTED PRN PO SEE LABEL COMMENTS 05/09/19 14:00 Guaifenesin (Robitussin Tab) 400 mg TID PO 05/09/19 21:00 05/31/19 15:49 Heparin Sodium (Porcine) (Heparin) 5,000 units Q12H SC 05/09/19 21:00 05/31/19 09:40 Home Med (Med Rec Complete!) ASDIRECTED XX 05/09/19 15:30 05/09/19 15:51 DC Insulin Human Lispro (HumaLOG INSULIN) SEE PROTOCOL TABLE AC SC 05/09/19 17:30 05/25/19 16:59 DC 05/25/19 08:36 Insulin Human Lispro (HumaLOG INSULIN) SEE PROTOCOL TABLE QHS SC 05/09/19 21:00 05/25/19 16:59 DC 05/10/19 20:55 Lansoprazole (First-Lansoprazole Oral Suspension) 30 mg DAILY PO 05/10/19 12:00 05/31/19 09:40 Levothyroxine Sodium (Synthroid) 50 mcg DAILY@06 PO 05/10/19 06:00 05/31/19 06:34 Lisinopril (Prinivil) 5 mg DAILY PO 05/10/19 09:00 05/10/19 10:38 DC 05/10/19 08:00 Magnesium Hydroxide (Milk Of Magnesia) 30 ml DAILYPRN PRN PO CONSTIPATION 05/09/19 14:00 Metformin HCl (Glucophage) 500 mg BID@ PO 05/09/19 18:00 05/10/19 10:38 DC 05/10/19 08:00 Metoprolol Succinate (TopROL XL) 25 mg DAILY PO 05/10/19 09:00 05/31/19 09:40 Miscellaneous (Unresolved Clarification Entry) SEE LABEL COMMENTS DAILY XX 05/27/19 09:00 Cancel Miscellaneous (Unresolved Clarification Entry) SEE LABEL COMMENTS DAILY XX 05/21/19 09:00 05/21/19 12:16 DC Pantoprazole Sodium (Protonix) 40 mg DAILY PO 05/10/19 09:00 05/10/19 10:35 DC Ramelteon (Rozerem) 8 mg QHS PO 05/18/19 21:00 05/29/19 20:21 Salmeterol Xinafoate/ Fluticasone (Advair Hfa 115/ 21) 2 puff RBID INH 05/09/19 20:00 05/31/19 07:52 Senna (Senokot) 1 tab QHS PO 05/09/19 21:00 05/15/19 14:40 DC 05/14/19 20:39 Venlafaxine HCl (Effexor Xr) 37.5 mg DAILY PO 05/25/19 09:00 05/31/19 09:40 Venlafaxine HCl (Effexor) 25 mg BID PO 05/09/19 21:00 05/24/19 23:00 DC 05/24/19 22:23 AKSHAT MOORE MD May 31, 2019 16:04
[2019-05-31 20:47] VITALS: BP 141/65
[2019-05-31] MEDS: RAMELTEON 8 MG TAB (ROZEREM) PO SCH (21:17)
[2019-05-31] MEDS: ATORVASTATIN 20 MG TAB PO SCH (21:18)
[2019-06-01] MEDS: LEVOTHYROXINE 50MCG TABLET (0.05MG) PO SCH (05:35)
[2019-06-01 05:58] VITALS: BP 137/68
[2019-06-01] MEDS: ADVAIR HFA 115/21MCG INHALER INH SCH (07:12)
[2019-06-01] MEDS: IPRATROPIUM 0.5MG/ALBUTEROL 2.5MG INH SOL UD 3ML (DUONEB)(J7620) NEB SCH (07:12)
[2019-06-01 08:48] VITALS: BP 133/63
[2019-06-01] MEDS: HEPARIN SOD (PORCINE) 5000 UNITS/ML VIAL (J1644 PER 1000UNITS) SC SCH (08:48)
[2019-06-01] MEDS: ASPIRIN 81 MG ENTERIC TAB PO SCH (08:48)
[2019-06-01] MEDS: METOPROLOL SUCC *XL* 25MG TAB (TopROL *XL*) PO SCH (08:48)
[2019-06-01] MEDS: guaiFENesin 200 MG TAB PO SCH (08:48)
[2019-06-01] MEDS: LANSOPRAZOLE SUSPENSION 30 MG/10 ML ORAL SYRINGE (FIRST-LANSOPRAZOLE) PO SCH (08:49)
[2019-06-01] MEDS: REMEDY PHYTOPLEX Z-GUARD PASTE 113GM TUBE (FROM STOREROOM PRODUCT) TOP SCH (08:49)
[2019-06-01] MEDS: BRIMONIDINE 0.15% OPHTH SOLN 5 ML OU SCH (08:49)
[2019-06-01] MEDS: FLUTICASONE PROP 0.05% NASAL SPRAY 16 GM (FLONASE) NARES SCH (08:49)
[2019-06-01] MEDS: CLOPIDOGREL 75 MG TAB PO SCH (08:49)
[2019-06-01] MEDS: VENLAFAXINE **XR** 37.5 MG CAPSULE PO SCH (08:52)
[2019-06-01 09:30] VITALS: BP 133/63
--- NOTE | 2019-06-05 13:50 | PMRDS ---
DATE OF ADMISSION: 05/09/2019 DATE OF DISCHARGE: 06/01/2019 CHIEF COMPLAINT/DISCHARGE DIAGNOSIS: Stroke. HISTORY OF PRESENT ILLNESS: 78F pmh HTN, DM, Hypothyroidism, AVR not on AC, spinal stenosis with cauda equine s/p laminectomy 2019, colostomy, who presented to [facility] on 05-04-19 with right sided weakness and dysarthria and transferred to [facility] on 05-05-19 outside of the tPA window. MRI brain showed, Acute left basal ganglia infarct. CTA head did not show any large vessel occlusions, but did show, 6. 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 ECHO was negative for bubble study, showing, "mild to moderate concentric left ventricular hypertrophy...LV systolic function is normal...LVEF 55 - 60%." She had significant dysphagia and weakness in her right leg with notable expressive aphasia. She was evaluated by therapy, noted to have significant impairments in mobility and ADLs and deemed medically appropriate for discharge to [facility]U on 05-09-19. PAST MEDICAL HISTORY: As per history of present illness (HPI). HOSPITAL COURSE: The patient was admitted and enrolled in a comprehensive physical therapy (PT), occupational therapy (OT), speech language pathology program. She received 24-hour nursing supervision and weekly team meetings were held to discuss her progress. Patient was maintained on aspirin and Plavix during hospital course for secondary stroke prevention and she was maintained on her home dose of serotonin-norepinephrine reuptake inhibitor (SNRI). She was evaluated later on in her hospital course by smash piecer for foot drop on the right with ankle tone. Her diabetes was controlled with insulin sliding scale, metformin was held due to worsening GFR function on admission which did gradually improve after IV hydration and improved by mouth intake. The patient complained of mild throat pain initially, throat cultures were negative and her throat pain improved. She was however found to have persistent hypophonia despite gradual improvement in her swallow. The patient was placed initially on CPAP at night. However she declined usage of her home CPAP machine because she believes it not fit her properly and instead used nocturnal oxygen. The patient had persistent intermittent cough, per daughter and per the patient she has had this cough for many many years. Chest x-ray is negative for any infiltrate and did not develop any fevers, chills or leukocytosis. Overall the patient did very well in therapy and was deemed medically and functionally stable to return home. DISCHARGE MEDICATIONS: As per instructions. FUNCTIONAL HISTORY ON DISCHARGE: The patient was modified independent for functional transfers able to ambulate 200 feet with a platform rolling walker, contact guard for stairs and in occupational therapy she was standby assist for upper body dressing and lower body dressing.
== END 2019-06-01 13:15 | disposition home health service (06) | DRG 57 ==
LOC: M PM&R 13:32
PROVIDERS: ADMIT Physical Medicine & Rehabilitation; ATTEND Physical Medicine & Rehabilitation
DX: I69.351 Hemiplegia and hemiparesis following cerebral infarction affecting right dominant side (principal); I69.322 Dysarthria following cerebral infarction; I12.9 Hypertensive chronic kidney disease with stage 1 through stage 4 chronic kidney disease, or unspecified chronic kidney disease; E11.9 Type 2 diabetes mellitus without complications; I69.320 Aphasia following cerebral infarction; E03.9 Hypothyroidism, unspecified; J44.9 Chronic obstructive pulmonary disease, unspecified; Z93.3 Colostomy status; G47.33 Obstructive sleep apnea (adult) (pediatric); Z79.82 Long term (current) use of aspirin; Z79.899 Other long term (current) drug therapy; Z95.2 Presence of prosthetic heart valve; K21.9 Gastro-esophageal reflux disease without esophagitis; F32.9 Major depressive disorder, single episode, unspecified; Z88.8 Allergy status to other drugs, medicaments and biological substances; F41.9 Anxiety disorder, unspecified; N18.9 Chronic kidney disease, unspecified

== ENCOUNTER → 2019-07-13 | Outpatient (REF) | payer MEDICARE, BC ==
[~2019-07-13] MED LIST changes: +ADVA115A INH; +ASPI81CH33 PO; +ATOR80TA59 PO; +BRIM0.2S13 OU; +CLOP75TA2 PO; +ENOX40IN3 SC; +FLON1SPR; +LISI-542 PO; +PLAV1TAB2 PO; +RAME8TAB2 PO; +TRAD5TAB PO
[2019-07-13 11:53] LABS: AMORPHOUS SEDIMENT SMALL (NEGATIVE); APPEARANCE, URINE HAZY (CLEAR); BACTERIA, URINE AUTO 1+ (NEGATIVE); BILIRUBIN, URINE AUTO NEGATIVE (NEGATIVE); BLOOD, URINE BLOOD NEGATIVE (NEGATIVE); COLOR, URINE YELLOW (YELLOW); GLUCOSE, URINE (UA) AUTO NEGATIVE (NEGATIVE); KETONE, URINE AUTO NEGATIVE (NEGATIVE); LEUKOCYTE ESTERASE, URINE AUTO 2+ (NEGATIVE); NITRITE, URINE AUTO NEGATIVE (NEGATIVE); PROTEIN, URINE AUTO NEGATIVE (NEGATIVE); RBC, URINE AUTO 5 /HPF (0-3); SPECIFIC GRAVITY URINE AUTO 1.018 (1.002-1.035); SQUAMOUS EPITHELIAL CELL UR AU 1 /HPF (0-6); UROBILINOGEN, URINE AUTO 0.2 mg/dL (0.0-2.0); WBC, URINE AUTO 46 /HPF (0-3)
[2019-07-13 12:00] LABS: INR 1.04; PROTHROMBIN TIME 13.3 SECONDS (11.8-14.0)
[2019-07-13 12:01] LABS: PARTIAL THROMBOPLASTIN TIME 29.6 SECONDS (25.0-38.4)
== END ==
LOC: M LAB REF 11:31
PROVIDERS: ATTEND Internal Medicine
DX: Z01.818 Encounter for other preprocedural examination (principal); N20.0 Calculus of kidney

== ENCOUNTER → 2019-07-13 | Outpatient (CLI) | payer MEDICARE, BC ==
--- NOTE | 2019-07-13 11:24 | REPPI ---
CHEST, TWO VIEWS: Two views of the chest are performed. COMPARISON: 05/24/2019. There is mild bibasilar fibrotic change. No acute infiltrate is seen. The heart is normal in size. The mediastinal silhouette is unremarkable. Multiple sternal wires are present as well as mediastinal clips. There is osteopenia with mild degenerative change of the spine. IMPRESSION: Chronic changes without evidence of acute pulmonary disease. Electronically Signed by Reagan Yip MD 07/13/2019 12:03 P
== END ==
LOC: M PLAIMG 10:12
PROVIDERS: ATTEND Nurse Practitioner Family
DX: Z01.818 Encounter for other preprocedural examination (principal); N20.0 Calculus of kidney; M85.88 Other specified disorders of bone density and structure, other site

== ENCOUNTER → 2019-07-17 | Outpatient (CLI) | payer MEDICARE, BC ==
[~2019-07-17] MED LIST changes: -FLON1SPR; +FLON1SPR NARES
== END ==
LOC: M LABSMTC 09:36
PROVIDERS: ATTEND Urology
DX: Z11.59 Encounter for screening for other viral diseases (principal); Z01.818 Encounter for other preprocedural examination

== ENCOUNTER 2019-07-19 19:32 | Inpatient (IN) | payer MEDICARE, BC ==
[~2019-07-19] VITALS: Ht 157.5 cm; Wt 63.2 kg
[2019-07-19 20:03] LABS: BASO # 0.1 10^3/uL (0.0-0.2); BASO % 1.1 % (0.0-1.0); EOS # 0.4 10^3/uL (0.0-0.5); EOS % 5.1 % (0.0-3.0); HEMATOCRIT 34.8 % (36.0-47.0); HEMOGLOBIN 10.9 g/dl (12.0-15.5); LYMPH # 1.9 10^3/uL (1.5-5.0); LYMPH % 23.5 % (24.0-44.0); MEAN CORPUSCULAR HGB CONC 31.3 g/dl (32.0-36.5); MEAN CORPUSCULAR VOLUME 86.4 fl (80.0-96.0); MONO # 0.8 10^3/uL (0.0-0.8); MONO % 9.8 % (0.0-5.0); NEUTROPHILS # 4.9 10^3/uL (1.5-8.5); NEUTROPHILS % 60.1 % (36.0-66.0); PLATELET COUNT, AUTOMATED 241 10^3/uL (150-450); RED BLOOD COUNT 4.03 10^6/uL (4.00-5.40); WHITE BLOOD COUNT 8.1 10^3/uL (4.0-10.0)
[2019-07-19 20:12] LABS: INR 1.06; PROTHROMBIN TIME 13.5 SECONDS (11.8-14.0)
[2019-07-19 20:13] LABS: PARTIAL THROMBOPLASTIN TIME 26.9 SECONDS (25.0-38.4)
--- NOTE | 2019-07-19 20:14 | REPVR ---
PROCEDURE INFORMATION: Exam: CT Head Without Contrast Exam date and time: 07/19/2019 8:00 PM Age: 78 years old Clinical indication: Weakness, facial; Additional info: Facial droop TECHNIQUE: Imaging protocol: Computed tomography of the head without contrast. Radiation optimization: All CT scans at this facility use at least one of these dose optimization techniques: automated exposure control; mA and/or kV adjustment per patient size (includes targeted exams where dose is matched to clinical indication); or iterative reconstruction. COMPARISON: CT Head without contrast 05/04/2019 10:54 PM FINDINGS: Brain: Chronic infarct of the left basal ganglia. The hamlin-white differentiation is maintained. No hemorrhage. No edema. There are mild periventricular and subcortical lucencies consistent with chronic microvascular ischemic changes. Ventricles: Normal. No ventriculomegaly. Bones/joints: Unremarkable. No acute fracture. Sinuses: Evidence of prior bilateral maxillary sinus surgery. Mastoid air cells: Visualized mastoid air cells are well aerated. Soft tissues: Unremarkable. Vasculature: Vascular calcifications. IMPRESSION: No acute intracranial abnormality. Chronic microvascular ischemic changes. Electronically signed by: Dhruv Mills On 07/19/2019 20:14:15 PM
--- NOTE | 2019-07-19 20:29 | REP ---
Chest x-ray: Single view portable exam. History: CVA. Comparison chest x-ray: May 24, 2019. Findings: Median sternotomy wires are noted. Monitoring electrodes are seen. The lungs are symmetrically aerated. Pleural angles are sharp. Benign pleural thickening is seen along the left lateral chest wall. No acute bony abnormality. Impression: Prior sternotomy. No active disease. Electronically Signed by Flex Perez MD 07/19/2019 08:20 P
[2019-07-19 20:32] LABS: BLOOD UREA NITROGEN 20 MG/DL (7-18); CALCIUM LEVEL 9.5 MG/DL (8.8-10.2); CARBON DIOXIDE LEVEL 27 MEQ/L (21-32); CHLORIDE LEVEL 107 MEQ/L (98-107); CK-MB VALUE MASS 6.1 NG/ML (<3.6); CPK CREATINE PHOSPHOKINASE 162 U/L (26-192); GLOMERULAR FILTRATION RATE 42.1 (>39); GLUCOSE, FASTING 132 MG/DL (70-100); MB/CK RELATIVE INDEX 3.77 (< OR =4); POTASSIUM SERUM 4.7 MEQ/L (3.5-5.1); SODIUM LEVEL 139 MEQ/L (136-145); TROPONIN I < 0.02 NG/ML (< 0.10)
--- NOTE | 2019-07-19 20:34 | ECGEPIP ---
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
--- NOTE | 2019-07-19 20:59 | HPEPDOC ---
[facility] Medical History & Physical Date of Admission July 19, 2019 Date of Service: July 19, 2019 Primary Care Physician: Jr Mcintyre Collins Attending Physician: GREGORY ONEAL MD History and Physical TIME OF SERVICE: 9:30 PM CHIEF COMPLAINT: Slurred speech HISTORY OF PRESENT ILLNESS: This is a 77-year-old female who was sent by her primary care physician for evaluation of slurred speech that began at 8 AM. She admits to drooling but denies having chest pain, headaches, palpitations falling or dropping any objects. Her Plavix and been on hold for 5 days in preparation for shockwave lithotripsy tomorrow. discussed the case with who recommended MRI/MRA and a target BP 140-180. 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 Chronic HTN NIDDM COPD Hypothyroidism Dyslipidemia KYLE Restless leg syndrome Osteoporosis with history of L4 compression fracture History of spinal stenosis with cauda equina status post laminectomy Porcine aortic valve to manage to manage severe symptomatic aortic stenosis Ileostomy 1973 Nasal and sinus surgery Cataract surgery Unilateral laminectomy with posterior lateral fusion to manage severe spinal canal stenosis at L3-L4 with L4-L5 cauda equina impingement PCI with normal coronary arteries in 2001 SOCIAL HISTORY: Quit smoking She doesn't drink alcohol Lives alone FAMILY HISTORY: Depression Hypothyroidism ALLERGIES: Please see below. HOME MEDICATIONS: Please see below. PHYSICAL EXAMINATION: Vital Signs Date Time Temp Pulse Resp B/P (MAP) Pulse Ox O2 Delivery O2 Flow Rate FiO2 07/19/19 19:32 97.1 95 16 155/71 (99) 98 Room Air GEN: well-nourished / well developed/ NAD INTEGUMENT: not flushed HEENT: NCAT CVS: RRR/NMRG/ no lower extremity edema LUNGS: able to speak full sentences without stopping to take a breath / lungs are clear to auscultation bilaterally on room air MSK/EXTREMITIES: range of motion intact in all left upper and lower extremities / she has right upper and lower extremity weakness, which she reports are at her baseline NEURO: Her speech is slightly dysarthric/she has nasolabial flattening with slight facial droop on the right and her tongue deviates to the right PSYCH: alert and oriented / able to understand and follow all commands LABORATORY DATA: Immature Granulocyte % (Auto) 0.4, Neutrophils (%) (Auto) 60.1, Lymphocytes (%) (Auto) 23.5L, Monocytes (%) (Auto) 9.8H, Eosinophils (%) (Auto) 5.1H, Basophils (%) (Auto) 1.1H, Neutrophils # (Auto) 4.9, Lymphocytes # (Auto) 1.9, Monocytes # (Auto) 0.8, Eosinophils # (Auto) 0.4, Basophils # (Auto) 0.1, Nucleated Red Blood Cells % (auto) 0.0, Prothrombin Time 13.5, Prothromb Time International Ratio 1.06, Activated Partial Thromboplast Time 26.9, Anion Gap 5L, Glomerular Filtration Rate 42.1, Calcium Level 9.5, Total Creatine Kinase 162, Creatine Kinase MB 6.1H, Creatine Kinase MB Relative Index 3.77, Troponin I < 0.02 IMAGING: CT head without contrast "IMPRESSION: No acute intracranial abnormality. Chronic microvascular ischemic changes." Chest x-ray "Impression: Prior sternotomy. No active disease." MRI Brain "IMPRESSION: Subacute to chronic infarct of the left periventricular region. Effusion in the right mastoid air cells." MRA brain w/o contrast "IMPRESSION: No acute abnormality. " MICROBIOLOGY: Please see below. ASSESSMENT: is a 78 yr old F w a PMH of left basal ganglia CVA with residual right sided weakness, HTN, NIDDM, COPD, hypothyroidism, dyslipidemia, KYLE, RLS, osteoporosis, history of spinal stenosis requiring laminectomy, and aortic valve repair who is admitted for evaluation of abnormal speech that is suspicious for stroke. PLAN: 1. Possible Acute/Subacute CVA ? According to the patient's daughter, the patient's speech is slurred and this began today; at the the time of arrival she was out of the window for tPA. The patient previously had left-sided basal ganglia CVA. MRI of the brain today shows a subacute to chronic infarct at the left periventricular region. I discussed these findings with who recommended that we resume Plavix as soon as possible. It is unclear if the subacute "periventricular " lesion on MRI represents the old stroke rather than a new infarct. I was unable to get a hold of the radiologist termination clerk to discuss whether the lesion seen on MRI is indeed located at the basal ganglia and could be due to the old CVA. For now, because of her new symptom of slurred speech we will assume that the patient had a new CVA and treat her accordingly. Plan: admit to floor/ telemetry /fall precautions / aspiration precautions /f/u lipid panel, A1C, TSH / the day time team can determine if an Echo is necessary / NPO pending swallow evaluation / PT/OT/SPL consult / c/w ASA, Plavix statin / post stroke target glycemic range between 140 and 180 / will ask the day time team to discuss the MRI findings with the Radiologist termination clerk during the day 2. Chronic HTN - per target SBP 140-180 / metoprolol / if her BP is above target the day time team may consider adding an ACEI or ARB 3. Nephrolithiasis. She ws scheduled for shockwave lithotripsy tomorrow - she can f/u with at a later date to reschedule the procedure; he is aware that she has been admitted to the hospital 4. COPD - albuterol 5. NIDDM - f/u accuchecks & A1C / hypoglycemia protocol / sliding scale insulin / hold oral anti-glycemics 6. Hypothyroidism - levothyroxine 7. dyslipidemia -statin 8. KYLE - own CPAP 9. NN Anemia. At baseline - f/u CBC 10. Osteoporosis (by definition bc of vertebral fx) - Oscal D / f/u w PCP for work-up to r/o secondary causes if not done in the past and start antiresorptive tx DVT PROPHYLAXIS: lovenox DISPOSITION: home after more than 2 midnight's stay Home Medications Scheduled Aspirin (Aspirin) 81 Mg Tab.chew, 81 MG PO DAILY Atorvastatin Calcium (Atorvastatin Calcium) 80 Mg Tablet, 80 MG PO QPM Brimonidine Tartrate (Brimonidine Tartrate) 0.2% 5ML Drops, 1 DROP OU QHS Clopidogrel Bisulfate (Clopidogrel) 75 Mg Tablet, 75 MG PO DAILY ON OLD FOR SCHEDULED SURGERY 07/20/19 Levothyroxine Sodium (Levothyroxine Sodium) 50 Mcg Tablet, 50 MCG PO QAM Linagliptin (Tradjenta) 5 Mg Tablet, 5 MG PO DAILY Metoprolol Succinate (Metoprolol Succinate) 25 Mg Tab.er.24h, 25 MG PO DAILY Venlafaxine HCl (Venlafaxine HCl) 25 Mg Tablet, 25 MG PO BID Scheduled PRN Albuterol Sulfate (Ventolin Hfa) 18 Gm Hfa.aer.ad, 2 PUFF INH Q4H PRN for SOB/WHEEZING Fluticasone Propion/Salmeterol (Advair Hfa 115-21 Mcg Inhaler) 12 Gm Hfa.aer.ad, 2 PUFF INH BIDP PRN for WHEEZING Fluticasone Propionate (Flonase Allergy Relief) 9.9 Ml [place].susp, 1 SPRAY NARES BID PRN for CONGESTION Allergies Coded Allergies: ENVIROMENTAL (Verified Allergy, Unknown, 07/19/19) prochlorperazine (Verified Adverse Reaction, Intermediate, EYES ROLLED BACK, 07/12/19) A-FIB/CHADSVASC A-FIB History Current/History of A-Fib/PAF?: No Current PO Anticoag Therapy: No GREGORY ONEAL MD July 19, 2019 20:59
[2019-07-19] MEDS: HumaLOG INSULIN (NovoLOG) PER UNIT SC SCH (21:00)
[2019-07-19] MEDS ORDERED: MOM 30ML SUSPENSION UDC PO PRN (21:00)
[2019-07-19] MEDS ORDERED: DEXTROSE 50% 50 ML SYRINGE IV PRN (21:00)
[2019-07-19] MEDS ORDERED: ACETAMINOPHEN TAB 650MG DOSE (2X325MG) PO PRN (21:00)
[2019-07-19] MEDS ORDERED: GLUCOSE 4GM CHEW TABLET PO PRN (21:00)
[2019-07-19] MEDS ORDERED: MAALOX 30 ML SUSP *UDC PO PRN (21:00)
[2019-07-19] MEDS ORDERED: ASPIRIN 325 MG TAB PO ONE (21:00)
[2019-07-19] MEDS ORDERED: GLUCAGON INJ 1MG VIAL SC PRN (21:00)
[2019-07-19] MEDS ORDERED: VENL1TAB35 PO (21:27)
[2019-07-19] MEDS ORDERED: LEVO50TA5 PO (21:27)
[2019-07-19] MEDS ORDERED: VENTAER INH (21:28)
[2019-07-19] MEDS ORDERED: METO1TAB32 PO (21:28)
[2019-07-19] MEDS ORDERED: ATOR80TA59 PO (21:28)
[2019-07-19] MEDS ORDERED: ASPI81CH33 PO (21:28)
[2019-07-19 21:30] LABS: HEMOGLOBIN A1c 6.7 %
[2019-07-19] MEDS ORDERED: NS 1,000 ML IV SCH (21:45)
--- NOTE | 2019-07-19 22:04 | REPVR ---
PROCEDURE INFORMATION: Exam: MR Head Without Contrast Exam date and time: 07/19/2019 9:15 PM Age: 78 years old Clinical indication: Speech disturbance; Patient HX: Slurred speech, HX CVA TECHNIQUE: Imaging protocol: MR of the head without contrast. COMPARISON: CT Head without contrast 07/19/2019 7:57 PM FINDINGS: Brain: No acute infarct. Subacute to chronic infarct of the left periventricular region. Ventricles: Normal. No ventriculomegaly. Bones/joints: Unremarkable. Soft tissues: Unremarkable. Sinuses: Normal as visualized. No acute sinusitis. Mastoid air cells: Effusion in the right mastoid air cells. Orbits: Bilateral cataract surgery. Other findings: No hemorrhage. IMPRESSION: Subacute to chronic infarct of the left periventricular region. Effusion in the right mastoid air cells. Electronically signed by: Dhruv Mills On 07/19/2019 22:03:49 PM
--- NOTE | 2019-07-19 22:07 | REPVR ---
PROCEDURE INFORMATION: Exam: MR Angiogram Head Without Contrast, Arteries Exam date and time: 07/19/2019 9:15 PM Age: 78 years old Clinical indication: Speech disturbance; Patient HX: Slurred speech, HX of CVA TECHNIQUE: Imaging protocol: MR angiogram head without contrast. Exam focused on the arteries. 3D rendering: MIP and/or 3D reconstructed images were created by the technologist. COMPARISON: CT Head without contrast 07/19/2019 7:57 PM FINDINGS: Anterior cerebral arteries: Intracranial segment is patent with no significant stenosis. No aneurysm. Right internal carotid artery: Intracranial segment is patent with no significant stenosis. No aneurysm. Right middle cerebral artery: No occlusion or significant stenosis. No aneurysm. Right posterior cerebral artery: No occlusion or significant stenosis. No aneurysm. Right vertebral artery: No occlusion or significant stenosis. No aneurysm. Left internal carotid artery: Intracranial segment is patent with no significant stenosis. No aneurysm. Left middle cerebral artery: No occlusion or significant stenosis. No aneurysm. Left posterior cerebral artery: No occlusion or significant stenosis. No aneurysm. Left vertebral artery: No occlusion or significant stenosis. No aneurysm. Basilar artery: No occlusion or significant stenosis. No aneurysm. IMPRESSION: No acute abnormality. Electronically signed by: Dhruv Mills On 07/19/2019 22:07:18 PM
[2019-07-19] MEDS ORDERED: ALBUTEROL 90 MCG/ACT 8GM HFA INHALER INH PRN (22:15)
[2019-07-19] MEDS ORDERED: BRIMONIDINE 0.1% OPHTH SOLN 5 ML OU SCH (22:15)
[2019-07-19] MEDS ORDERED: FLUTICASONE PROP 0.05% NASAL SPRAY 16 GM (FLONASE) NARES PRN (22:15)
[2019-07-19 23:00] VITALS: BP 153/75
[2019-07-19] MEDS ORDERED: CLOPIDOGREL 75 MG TAB PO ONE (23:00)
[2019-07-20 00:10] LABS: CHOLESTEROL LEVEL 129 MG/DL (<200); CHOLESTEROL RISK RATIO 2.224 (<5); HDL CHOLESTEROL 58 MG/DL (>40); LDL CHOLESTEROL 35 MG/DL (<100); NON-HDL-C 71 MG/DL; THYROID STIMULATING HORMONE 0.414 uIU/ML (0.358-3.740); TRIGLYCERIDES LEVEL 182 MG/DL (<150)
[2019-07-20 04:00] VITALS: BP 145/73
[2019-07-20] MEDS: LEVOTHYROXINE 50MCG TABLET (0.05MG) PO SCH (06:01)
[2019-07-20 06:07] LABS: HEMATOCRIT 30.9 % (36.0-47.0); HEMOGLOBIN 9.8 g/dl (12.0-15.5); MEAN CORPUSCULAR HEMOGLOBIN 27.2 pg (27.0-33.0); MEAN CORPUSCULAR HGB CONC 31.7 g/dl (32.0-36.5); MEAN CORPUSCULAR VOLUME 85.8 fl (80.0-96.0); PLATELET COUNT, AUTOMATED 212 10^3/uL (150-450); WHITE BLOOD COUNT 5.9 10^3/uL (4.0-10.0)
[2019-07-20 06:26] LABS: CALCIUM LEVEL 9.2 MG/DL (8.8-10.2); CREATININE FOR GFR 1.01 MG/DL (0.55-1.30); GLOMERULAR FILTRATION RATE 56.3 (>39); POTASSIUM SERUM 4.2 MEQ/L (3.5-5.1)
[2019-07-20] MEDS: HumaLOG INSULIN (NovoLOG) PER UNIT SC SCH ×4 (07:30→20:52)
[2019-07-20 08:00] VITALS: BP 161/72
[2019-07-20] MEDS: CALCIUM/VITAMIN D 500 MG TAB PO SCH (08:51)
[2019-07-20] MEDS: VENLAFAXINE 25 MG TAB PO SCH ×2 (08:51→20:59)
[2019-07-20] MEDS: ENOXAPARIN 30MG/0.3ML SYRINGE (J1650 PER 10MG) SC SCH (08:52)
[2019-07-20] MEDS: METOPROLOL SUCC *XL* 25MG TAB (TopROL *XL*) PO SCH (08:52)
[2019-07-20] MEDS ORDERED: ASPIRIN 81 MG CHEW TABLET PO SCH (09:00)
[2019-07-20] MEDS: ADVAIR HFA 115/21MCG INHALER INH PRN ×2 (09:57→20:30)
[2019-07-20 12:00] VITALS: BP 128/63
--- NOTE | 2019-07-20 12:59 | REP ---
CAROTID ULTRASOUND: Real-time ultrasound evaluation and duplex Doppler interrogation of the extracranial carotid vasculature is performed. There is mild plaquing and narrowing in both carotid bulbs extending into the internal and external carotid arteries. Luminal narrowing is less than 50%. There is no evidence of hemodynamically significant stenosis of either internal carotid artery. Normal flow velocities are seen. The vertebral arteries demonstrate normal direction of flow. RIGHT LEFT Peak systolic velocity ICA 49.6 cm/s 68.4 cm/s End diastolic velocity ICA 10.3 cm/s 21.4 cm/s Peak systolic velocity CCA 90 cm/s 86.8 cm/s Peak systolic velocity ECA 62.2 cm/s 67.8 cm/s ICA/CCA ratio 0.55 0.79 IMPRESSION: Bilateral luminal narrowing of the internal carotid arteries less than 50%. No evidence of hemodynamically significant stenosis. Electronically Signed by Reagan Yip MD 07/20/2019 12:50 P
[2019-07-20 16:00] VITALS: BP 152/67
[2019-07-20] MEDS ORDERED: CLOPIDOGREL 75 MG TAB PO ONE (16:00)
--- NOTE | 2019-07-20 18:02 | IPNPDOC ---
Date Seen The patient was seen on 07/20/19. Progress Note SSUBJECTIVE: Echo, carotid US to be done today. F/u results. No new focal deficits, did well with speech and started on diet. Denies any increased weakness, sob, chest pain. OBJECTIVE: VITAL SIGNS: Please see below PHYSICAL EXAMINATION: GEN: well-nourished / well developed/ NAD INTEGUMENT: no lesions, rashes, good skin turgor HEENT: NCAT CVS: RRR/NMRG/ no lower extremity edema LUNGS: able to speak full sentences without stopping to take a breath / lungs are clear to auscultation bilaterally on room air MSK/EXTREMITIES: RUE weakness 1/5- chronic from prior stroke. ROM all left upper and lower extremities NEURO: Her speech is slightly dysarthric- baseline as per patient/she has nasolabial flattening with slight facial droop on the right and her tongue deviates to the right PSYCH: alert and oriented / able to understand and follow all commands LABORATORY DATA: Please see below. IMAGING: Echo pending US carotid pending ASSESSMENT: 78 yr old F treated for subacute CVA vs. TIA. PLAN: 1. TIA vs. Subacute CVA. Patient has been off plavix for past 5 days for planned outpatient procedure (lithotripsy) but on statin. Acute symptoms are long resolved. Echo, carotid doppler pending. F/u results. If neg tomorrow, can d/c home with prior regimen of ASA, Plavix and statin. Holding ASA while on Plavix and heparin currently, c/w statin. PT/OT cleared today. 2. Chronic HTN. Stable. On home metoprolol. 3. Nephrolithiasis. Cancelled upcoming lithotripsy and restarted on Plavix. She should discuss with PCP after discharge as to when to have since being off plavix she developed these symptoms. 4. COPD . Stable. Albuterol. 5. NIDDM. BS stable. C/w accuchecks & A1C, consistent carb diet. Holding home PO meds. 6. Hypothyroidism. C/w levothyroxine. 7. HLD. C/w statin. 8. KYLE. C/w own CPAP. 9. NN Anemia. Stable. Daily CBC. 10. Osteoporosis (by definition bc of vertebral fx) - Oscal D / f/u w PCP for work-up to r/o secondary causes if not done in the past and start antiresorptive tx 11. DVT px. Lovenox DISPOSITION: Possible d/c to home tomorrow if all tests neg. Called daughter Briana Anderson at [phone]; however, voice mailbox was full and was unable to leave message. VS, I&O, 24H, Fishbone Vital Signs/I&O Vital Signs Date Time Temp Pulse Resp B/P (MAP) Pulse Ox O2 Delivery O2 Flow Rate FiO2 07/20/19 16:00 98.4 83 18 152/67 (95) 98 Room Air I&O- Last 24 Hours up to 6 AM 07/20/19 06:00 Intake Total 480 ml Output Total 200 ml Balance 280 ml Laboratory Data 24H LABS Laboratory Tests 2 07/19/19 19:53: Immature Granulocyte % (Auto) 0.4, Neutrophils (%) (Auto) 60.1, Lymphocytes (%) (Auto) 23.5L, Monocytes (%) (Auto) 9.8H, Eosinophils (%) (Auto) 5.1H, Basophils (%) (Auto) 1.1H, Neutrophils # (Auto) 4.9, Lymphocytes # (Auto) 1.9, Monocytes # (Auto) 0.8, Eosinophils # (Auto) 0.4, Basophils # (Auto) 0.1, Nucleated Red Blood Cells % (auto) 0.0, Prothrombin Time 13.5, Prothromb Time International Ratio 1.06, Activated Partial Thromboplast Time 26.9, Anion Gap 5L, Glomerular Filtration Rate 42.1, Estimated Mean Plasma Glucose 146H, Hemoglobin A1c 6.7, Calcium Level 9.5, Total Creatine Kinase 162, Creatine Kinase MB 6.1H, Creatine Kinase MB Relative Index 3.77, Troponin I < 0.02, Triglycerides Level 182H, Total Cholesterol 129, LDL Cholesterol 35, Non-HDL Cholesterol (LDL + VLDL) 71, Total HDL Cholesterol 58, Cholesterol/HDL Ratio 2.224, Thyroid Stimulating Horm one (TSH) 0.414 07/20/19 05:11: Nucleated Red Blood Cells % (auto) 0.0, Anion Gap 7L, Glomerular Filtration Rate 56.3, Calcium Level 9.2 07/20/19 11:39: Bedside Glucose (Misc Panel) 99 07/20/19 16:45: Bedside Glucose (Misc Panel) 109 CBC/BMP Laboratory Tests 07/19/19 19:53 07/20/19 05:11 Current Medications Current Medications Medications (Trade) Dose Ordered Sig/Charlie Route PRN Reason Start Time Stop Time Status Last Admin Dose Admin Acetaminophen (Tylenol Tab) 650 mg Q4H PRN PO PAIN OR FEVER 07/19/19 21:00 Al Hydrox/Mg Hydrox/Simethicone (Mylanta) 30 ml DAILY PRN PO DYSPEPSIA 07/19/19 21:00 Albuterol Sulfate (Proventil, Ventolin Hfa) 2 puff Q4H PRN INH SOB/WHEEZING 07/19/19 22:15 Aspirin (Aspirin Chewable) 81 mg DAILY PO 07/20/19 09:00 07/20/19 12:01 DC 07/20/19 08:51 Atorvastatin Calcium (Lipitor) 80 mg QPM PO 07/20/19 21:00 Brimonidine Tartrate (Alphagan P 0.1%) 1 drop TID OU 07/19/19 22:15 07/19/19 22:54 DC Calcium/Vitamin D (Oscal D) 1,000 mg DAILY PO 07/20/19 09:00 07/20/19 08:51 Clopidogrel Bisulfate (PLAVix) 75 mg DAILY PO 07/21/19 09:00 Dextrose (Dextrose 50%) 25 ml ASDIRECTED PRN IV SEE LABEL COMMENTS 07/19/19 21:00 Enoxaparin Sodium (Lovenox) 30 mg DAILY SC 07/20/19 09:00 07/20/19 08:52 Fluticasone Propionate (Flonase 0.05% Nasal [place]) 1 spray BID PRN NARES CONGESTION 07/19/19 22:15 Glucagon (Glucagon) 1 mg ASDIRECTED PRN SC SEE LABEL COMMENTS 07/19/19 21:00 Glucose (Glucose) 16 GM ASDIRECTED PRN PO SEE LABEL COMMENTS 07/19/19 21:00 Home Med (Med Rec Complete!) ASDIRECTED XX 07/19/19 21:30 07/19/19 21:32 DC Insulin Human Lispro (HumaLOG INSULIN) See Protocol Table AC SC 07/20/19 07:30 Insulin Human Lispro (HumaLOG INSULIN) See Protocol Table QHS SC 07/19/19 21:00 Levothyroxine Sodium (Synthroid) 50 mcg QAM@0600 PO 07/20/19 06:00 07/20/19 06:01 Magnesium Hydroxide (Milk Of Magnesia) 30 ml DAILY PRN PO CONSTIPATION 07/19/19 21:00 Metoprolol Succinate (TopROL XL) 25 mg DAILY PO 07/20/19 09:00 07/20/19 08:52 Salmeterol Xinafoate/ Fluticasone (Advair Hfa 115/ 21) 2 puff BIDP PRN INH WHEEZING 07/19/19 22:15 07/20/19 09:57 Sodium Chloride 1,000 ml @ 60 mls/hr [id number] IV 07/19/19 21:45 07/20/19 12:01 DC 07/19/19 22:07 Venlafaxine HCl (Effexor) 25 mg BID PO 07/20/19 09:00 07/20/19 08:51 Allergies Coded Allergies: ENVIROMENTAL (Verified Allergy, Unknown, 07/19/19) prochlorperazine (Verified Adverse Reaction, Intermediate, EYES ROLLED BACK, 07/12/19) Renetta Benson MD July 20, 2019 18:02
[2019-07-20 20:00] VITALS: BP 153/70
[2019-07-20] MEDS ORDERED: ATORVASTATIN 20 MG TAB PO SCH (21:00)
--- NOTE | 2019-07-20 21:11 | ECHO ---
DATE OF PROCEDURE: 07/20/2019 Date of : 1940 Age: 78 Gender: Female Height: 157 cm Weight: 62 kg Body surface area: 1.62 meters squared Inpatient: Progressive care unit (PCU), room 3217 REFERRING PHYSICIAN: Dr. Renetta Benson INDICATION: CVA - cardiac source of embolic material questionable. MEASUREMENTS: 2D Measurements: RV: 3.6 cm LV: 4.2 cm Septum: 1.1 cm Posterior wall: 1.1 cm Aortic root: 3.1 cm LA: 2.9 cm LVEF: 75% Doppler Measurements: AV: 3.4 meters per second LVOT: 0.97 meters per second LVOT diameter: 1.9 cm Mean AV gradient: 19 mmHg Dimensionless index: 0.3 MV-E: 88, A: 102, EA ratio: 0.9. Early mitral deceleration time: 261 milliseconds E prime medial: 5.3, A prime medial: 6.3, E prime lateral: 3.6. Average E/E prime ratio: 19.8/pulmonary capillary wedge pressure: 26 mmHg. PV: 0.8 meters per second Pulmonary artery acceleration time: 116 milliseconds RVSP: 31 mmHg IVC: 1.2 cm COMMENTS: Normal sinus rhythm without intraventricular conduction disturbance. M-mode and two-dimensional echocardiography was performed with pulsed, continuous wave, color flow and tissue Doppler studies. Normal left ventricular size and wall thickness with hyperkinetic wall motion. Normal left atrial size with grade 1 LV diastolic dysfunction and elevated estimated mean left atrial pressure. Normal right heart chamber sizes and motion with Doppler evidence of borderline pulmonary hypertension. Normal inferior vena cava (IVC) size and collapse against an elevated central venous pressure. Normal aortic dimensions. Bioprosthetic aortic valve with appropriate prosthetic valve function. Trace aortic insufficiency. Moderate mitral annular calcification and mild thickening of the mitral leaflets but adequate leaflet excursion and no posterior systolic buckling. Only trace mitral insufficiency. Normal appearing tricuspid valve with mild - moderate insufficiency. No apparent separate intracardiac mass or pericardial effusion.
[2019-07-21] VITALS: BP 152/72
[2019-07-21 04:00] VITALS: BP 146/70
[2019-07-21] MEDS: LEVOTHYROXINE 50MCG TABLET (0.05MG) PO SCH (04:47)
[2019-07-21 06:19] LABS: ALBUMIN 2.9 GM/DL (3.2-5.2); BILIRUBIN,TOTAL 0.5 MG/DL (0.2-1.0); CALCIUM LEVEL 8.9 MG/DL (8.8-10.2); CREATININE FOR GFR 1.03 MG/DL (0.55-1.30); POTASSIUM SERUM 3.9 MEQ/L (3.5-5.1); TOTAL PROTEIN 6.1 GM/DL (6.4-8.2)
[2019-07-21] MEDS: ADVAIR HFA 115/21MCG INHALER INH PRN (07:19)
[2019-07-21 08:00] VITALS: BP 130/58
[2019-07-21 08:06] VITALS: BP 130/58
[2019-07-21] MEDS: HumaLOG INSULIN (NovoLOG) PER UNIT SC SCH (08:06)
[2019-07-21] MEDS: METOPROLOL SUCC *XL* 25MG TAB (TopROL *XL*) PO SCH (08:06)
[2019-07-21] MEDS: VENLAFAXINE 25 MG TAB PO SCH (08:06)
[2019-07-21] MEDS: CALCIUM/VITAMIN D 500 MG TAB PO SCH (08:06)
[2019-07-21] MEDS: ENOXAPARIN 30MG/0.3ML SYRINGE (J1650 PER 10MG) SC SCH (08:07)
[2019-07-21] MEDS ORDERED: CLOPIDOGREL 75 MG TAB PO SCH (09:00)
--- NOTE | 2019-07-21 12:39 | DS.PDOC ---
Discharge Summary General Date of Admission July 19, 2019 at 20:53 Date of Discharge 07/21/19 Primary Care Physician: Jr Mcintyre Collins Attending Physician: Renetta Benson MD Discharge Summary HISTORY OF PRESENT ILLNESS: This is a 77-year-old female who was sent by her primary care physician for evaluation of slurred speech that began at 8 AM. She admits to drooling but denies having chest pain, headaches, palpitations falling or dropping any objects. Her Plavix and been on hold for 5 days in preparation for shockwave lithotripsy tomorrow. discussed the case with who recommended MRI/MRA and a target BP 140-180. She was admitted for r/o subacute CVA vs. TIA. HOSPITAL COURSE: CT head without contrast showed no acute intracranial abnormality with chronic microvascular ischemic changes. MRI Brain could not rule out subacute or chronic infarct of the left periventricular region. MRA brain w/o contrast showed no acute abnormality. New echo: preserved EF, no acute concerns. US Carotid: <50% stenosis bilaterally. Patient had no new focal deficits that persisted and performed well with PT and OT, speech therapy. Patient was discharged home on 07/21/19 with ASA, statin, plavix to continue. She should discuss with her PCP about what to do about her upcoming lithotripsy and the risk involved with stopping Plavix. At discharge she denied chest pain, n/v/d, shortness of breath, increased weakness. 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 Chronic HTN NIDDM COPD Hypothyroidism Dyslipidemia KYLE Restless leg syndrome Osteoporosis with history of L4 compression fracture History of spinal stenosis with cauda equina status post laminectomy Porcine aortic valve to manage to manage severe symptomatic aortic stenosis Ileostomy 1972 Nasal and sinus surgery Cataract surgery Unilateral laminectomy with posterior lateral fusion to manage severe spinal canal stenosis at L3-L4 with L4-L5 cauda equina impingement PCI with normal coronary arteries in 2001 SOCIAL HISTORY: Quit smoking She doesn't drink alcohol Lives alone FAMILY HISTORY: Depression Hypothyroidism ALLERGIES: Please see below. DISCHARGE MEDICATIONS: Please see below. PHYSICAL EXAMINATION: VS: Please see below GEN: well-nourished / well developed/ NAD INTEGUMENT: no lesions, rashes, good skin turgor HEENT: NCAT CVS: RRR/NMRG/ no lower extremity edema LUNGS: able to speak full sentences without stopping to take a breath / lungs are clear to auscultation bilaterally on room air MSK/EXTREMITIES: RUE weakness 1/5- chronic from prior stroke. ROM all left upper and lower extremities NEURO: Her speech is slightly dysarthric- baseline as per patient/she has nasolabial flattening with slight facial droop on the right and her tongue deviates to the right PSYCH: alert and oriented / able to understand and follow all commands IMAGING: CT head without contrast "IMPRESSION: No acute intracranial abnormality. Chronic microvascular ischemic changes." Chest x-ray "Impression: Prior sternotomy. No active disease." MRI Brain "IMPRESSION: Subacute to chronic infarct of the left periventricular region. Effusion in the right mastoid air cells." MRA brain w/o contrast "IMPRESSION: No acute abnormality. " Echo: preserved EF, no acute concerns US Carotid: <50% stenosis bilaterally ASSESSMENT: 78 yr old F treated for subacute CVA vs. TIA. PLAN: 1. TIA vs. Subacute CVA. Patient had been off plavix for past 5 days for planned outpatient procedure (lithotripsy) but on statin- cannot say that being off this did not precipitate current issue. No new focal deficts. At this time would not change current medication management. Recommend continued PT/OT, speech therapy and same diet as was previously on. C/w ASA, Plavix and statin. 2. Chronic HTN. Stable. C/w home medications. 3. Nephrolithiasis. Cancelled upcoming lithotripsy and restarted on Plavix. 4. COPD . Stable. Albuterol. 5. NIDDM. C/w home medications. 6. Hypothyroidism. C/w levothyroxine. 7. HLD. C/w statin. 8. KYLE. C/w own CPAP. 9. NN Anemia. Stable. 10. Osteoporosis (by definition bc of vertebral fx) - Oscal D / f/u w PCP for work-up to r/o secondary causes if not done in the past and start antiresorptive tx DISPOSITION: Discharged today in improved condition. Plan is for patient to follow up with PCP, c/w PT/OT and speech therapy. TOTAL TIME OF DISCHARGE: 25 mins Vital Signs/I&Os Laboratory Tests 07/19/19 19:53 07/20/19 05:11 07/21/19 05:27 Laboratory Data Labs 24H Laboratory Tests 2 07/20/19 16:45: Bedside Glucose (Misc Panel) 109 07/20/19 20:49: Bedside Glucose (Misc Panel) 106 07/21/19 05:27: Anion Gap 6L, Glomerular Filtration Rate 55.0, Calcium Level 8.9, Total Bilirubin 0.5, Aspartate Amino Transf (AST/SGOT) 14, Alanine Aminotransferase (ALT/SGPT) 30, Alkaline Phosphatase 57, Total Protein 6.1L, Albumin 2.9L, A lbumin/Globulin Ratio 0.91L CBC/BMP Laboratory Tests 07/21/19 05:27 FSBS Laboratory Tests Test 07/20/19 16:45 07/20/19 20:49 Range/Units Bedside Glucose (Misc Panel) 109 106 83-110 MG/DL Discharge Medications Scheduled Aspirin (Aspirin) 81 Mg Tab.chew, 81 MG PO DAILY, (Reported) Atorvastatin Calcium (Atorvastatin Calcium) 80 Mg Tablet, 80 MG PO QPM, (Reported) Brimonidine Tartrate (Brimonidine Tartrate) 0.2% 5ML Drops, 1 DROP OU QHS, (Reported) Clopidogrel Bisulfate (Clopidogrel) 75 Mg Tablet, 75 MG PO DAILY, (Reported) ON OLD FOR SCHEDULED SURGERY 07/20/19 Levothyroxine Sodium (Levothyroxine Sodium) 50 Mcg Tablet, 50 MCG PO QAM, (Reported) Linagliptin (Tradjenta) 5 Mg Tablet, 5 MG PO DAILY, (Reported) Metoprolol Succinate (Metoprolol Succinate) 25 Mg Tab.er.24h, 25 MG PO DAILY, (Reported) Venlafaxine HCl (Venlafaxine HCl) 25 Mg Tablet, 25 MG PO BID, (Reported) Scheduled PRN Albuterol Sulfate (Ventolin Hfa) 18 Gm Hfa.aer.ad, 2 PUFF INH Q4H PRN for SOB/WHEEZING, (Reported) Fluticasone Propion/Salmeterol (Advair Hfa 115-21 Mcg Inhaler) 12 Gm Hfa.aer.ad, 2 PUFF INH BIDP PRN for WHEEZING, (Reported) Fluticasone Propionate (Flonase Allergy Relief) 9.9 Ml [place].susp, 1 SPRAY NARES BID PRN for CONGESTION, (Reported) Allergies Coded Allergies: ENVIROMENTAL (Verified Allergy, Unknown, 07/19/19) prochlorperazine (Verified Adverse Reaction, Intermediate, EYES ROLLED BACK, 07/12/19) Renetta Benson MD July 21, 2019 12:39
== END 2019-07-21 10:57 | disposition home health service (06) | DRG 65 ==
LOC: M ED 19:32 → M ED INP 20:53 → ENRESERV 21:34 → M PCU 23:00
PROVIDERS: ADMIT Internal Medicine; ATTEND Internal Medicine
DX: I63.9 Cerebral infarction, unspecified (principal); I69.351 Hemiplegia and hemiparesis following cerebral infarction affecting right dominant side; I10 Essential (primary) hypertension; J44.9 Chronic obstructive pulmonary disease, unspecified; N20.0 Calculus of kidney; E11.9 Type 2 diabetes mellitus without complications; E03.9 Hypothyroidism, unspecified; G47.33 Obstructive sleep apnea (adult) (pediatric); M81.0 Age-related osteoporosis without current pathological fracture; Z79.82 Long term (current) use of aspirin; Z79.899 Other long term (current) drug therapy; Z88.8 Allergy status to other drugs, medicaments and biological substances; E78.5 Hyperlipidemia, unspecified; Z87.891 Personal history of nicotine dependence; D64.9 Anemia, unspecified

== ENCOUNTER → 2019-11-03 | Outpatient (REF) | payer MEDICARE, BC ==
[~2019-11-03] MED LIST changes: +TAMS1CAP17 PO
[2019-11-03 19:40] LABS: APPEARANCE, URINE TURBID (CLEAR); BACTERIA, URINE AUTO NEGATIVE (NEGATIVE); BILIRUBIN, URINE AUTO NEGATIVE (NEGATIVE); BLOOD, URINE BLOOD 3+ (NEGATIVE); CALCIUM OXALATE CRYSTALS LARGE; COLOR, URINE AMBER (YELLOW); GLUCOSE, URINE (UA) AUTO NEGATIVE (NEGATIVE); KETONE, URINE AUTO NEGATIVE (NEGATIVE); LEUKOCYTE ESTERASE, URINE AUTO NEGATIVE (NEGATIVE); NITRITE, URINE AUTO NEGATIVE (NEGATIVE); PROTEIN, URINE AUTO 1+ mg/dL (NEGATIVE); RBC, URINE AUTO TNTC /HPF (0-3); SQUAMOUS EPITHELIAL CELL UR AU 1 /HPF (0-6); UROBILINOGEN, URINE AUTO 0.2 mg/dL (0.0-2.0); WBC, URINE AUTO 3 /HPF (0-3)
== END ==
LOC: M LAB REF 17:36
PROVIDERS: ATTEND Nurse Practitioner Family
DX: R31.0 Gross hematuria (principal)
CPT/HCPCS: 81000; 81001; 87086; 88108; G0463

== ENCOUNTER → 2019-12-01 | Outpatient (CLI) | payer MEDICARE, BC | LOC: M LABSMTC 10:36 | PROVIDERS: ATTEND Anesthesiology | DX: Z01.812 Encounter for preprocedural laboratory examination (principal); Z20.828 Contact with and (suspected) exposure to other viral communicable diseases | CPT/HCPCS: C9803; U0003 ==

== ENCOUNTER 2019-12-06 06:09 | Day surgery (SDC) | payer MEDICARE, BC ==
[~2019-12-06] VITALS: Ht 157.5 cm; Wt 58.5 kg
[~2019-12-06 06:09] MED LIST changes: +ceFAZolin SOD 2 GM in IV 1 EA IV ONE
[2019-12-06] MEDS ORDERED: ceFAZolin 2 GM/D5W 50 ML IV BAG (J0690 PER 500MG) As Ordered ONE (06:36)
[2019-12-06] MEDS ORDERED: propofoL 200 MG/20 ML VIAL As Ordered ONE (06:45)
[2019-12-06] MEDS ORDERED: MIDAZOLAM INJ 2MG/2ML VIAL (J2250 PER 1MG) As Ordered ONE (06:45)
[2019-12-06] MEDS ORDERED: LIDOCAINE 2% 100MG/5ML SDV (FOR ANES.) As Ordered ONE (06:45)
[2019-12-06] MEDS ORDERED: ONDANSETRON 4MG/2ML VIAL As Ordered ONE (06:45)
[2019-12-06] MEDS ORDERED: dexameTHASONE 4 MG/ML 1ML VIAL (J1100 PER 1MG) As Ordered ONE (06:45)
[2019-12-06] MEDS ORDERED: CONRAY-60 60% 50ML VIAL (Q9961) As Ordered ONE (07:14)
[2019-12-06] MEDS ORDERED: ETOMIDATE INJ 20MG/10ML VIAL As Ordered ONE (07:18)
[2019-12-06] MEDS ORDERED: ACETAMINOPHEN 1000MG 100ML IV BTL (OFIRMEV) (J0131 PER 10MG) As Ordered ONE (07:51)
[2019-12-06] MEDS ORDERED: fentaNYL 100 MCG/2 ML INJECTION (J3010) As Ordered ONE (08:04)
[2019-12-06] MEDS ORDERED: ePHEDrine SULFATE 25 MG/5 ML(5MG/ML) SYRINGE As Ordered ONE (08:21)
[2019-12-06] MEDS ORDERED: PHENYLephrine HCL 500 MCG/5 ML (100MCG/ML) SYRINGE (J2370) As Ordered ONE (08:21)
[2019-12-06] MEDS ORDERED: METOCLOPRAMIDE INJ 10MG/2ML VIAL (J2765 PER 1) IV PRN (09:15)
[2019-12-06] MEDS ORDERED: oxyCODONE 5MG TAB PO PRN (09:15)
[2019-12-06] MEDS ORDERED: HYDROMORPHONE HCL 0.5 MG/ 0.5 ML SYRINGE (J1170 PER 1) IV PRN (09:15)
[2019-12-06] MEDS ORDERED: PERCOCET 5MG/325MG TAB PO PRN (09:15)
[2019-12-06] MEDS ORDERED: LR 1,000 ML IV SCH (09:15)
[2019-12-06] MEDS ORDERED: ONDANSETRON 4MG/2ML VIAL IV PRN (09:15)
[2019-12-06] MEDS ORDERED: fentaNYL 100 MCG/2 ML INJECTION (J3010) IV PRN (09:15)
[2019-12-06 09:35] VITALS: BP 158/68
--- NOTE | 2019-12-14 09:47 | REP ---
C-ARM VIEWS ABDOMEN AND PELVIS HISTORY: Right ureteral stent placement. TECHNIQUE: Four C-arm views of the abdomen and pelvis performed. FINDINGS: Contrast partially opacifies the right pelvicalyceal system. A right ureteral stent is placed with the proximal end coiled in the right renal pelvis and the distal end coiled in the urinary bladder. 17 seconds of fluoroscopy time utilized. MTDD
[2019-12-15 15:10] LABS: CA Oxalate Dihy 80 % (.); Ca Ox Monohydrate 20 % (.); Size 4x3 mm (.)
--- NOTE | 2019-12-18 10:23 | RO ---
DATE OF OPERATION: December 06, 2019 PRE-PROCEDURE DIAGNOSIS: Right kidney stone. POST-PROCEDURE DIAGNOSIS: Right kidney stone. PROCEDURES: * Cystoscopy. * Right ureteroscopy with laser lithotripsy and basket extraction of stones. * Right retrograde pyelogram with intraoperative interpretative images. * Right ureteral stent exchange. SURGEON: Joseph Younger MD. MANAGER SECONDARY: None. ANESTHESIA: General. OPERATIVE INDICATIONS: This is an 79-year-old female who was found to have an obstructing 9-mm right ureteropelvic junction stone on recent CAT scan. She was brought to the operating room today for treatment. DESCRIPTION OF PROCEDURE: The patient was brought to the operating room and general anesthesia was induced. Prophylactic antibiotics were infused. She was placed in the dorsal lithotomy position, prepped, and draped in the usual sterile fashion. A rigid cystoscope was inserted into the urethral meatus and advanced into the bladder. A guidewire was advanced up the right collecting system. A ureteral access sheath was advanced up the right collecting system. I went up the ureteral access sheath with the flexible ureteroscope and it was in the right renal pelvis and a 9-mm stone was seen. The stone was fragmented into smaller pieces using a 272 micron laser fiber. Then, all of the fragments were removed using a basket. Once satisfied that all of the stone fragments were removed, a retrograde pyelogram was performed and it was notable for moderate right hydronephrosis with no extravasation. I then withdrew the ureteroscope along with the access sheath and no additional stones were seen inside the ureter. I then utilized the guidewire to advance a 6-Azerbaijani x 22-32 cm JJ ureteral stent into the right collecting system. The wire was removed and there were adequate curls of the stent in the right renal pelvis and in the bladder. The bladder was then emptied of all fluid. This marked the conclusion of the procedure. The patient was then taken out of the dorsal lithotomy position, awakened from anesthesia, and transferred to the recovery room in stable condition. ESTIMATED BLOOD LOSS: 10 mL. COMPLICATIONS: None. SPECIMEN: Kidney stone fragments. PLAN: The patient will follow up in the Urology Clinic within the next few weeks for stent removal. KASH
== END 2019-12-06 10:07 | disposition home or self-care (01) ==
LOC: M SDC 06:09
PROVIDERS: ATTEND Urology
DX: N20.1 Calculus of ureter (principal); I10 Essential (primary) hypertension; E78.00 Pure hypercholesterolemia, unspecified; E03.9 Hypothyroidism, unspecified; E11.9 Type 2 diabetes mellitus without complications; J45.909 Unspecified asthma, uncomplicated; Z95.2 Presence of prosthetic heart valve; Z86.73 Personal history of transient ischemic attack (TIA), and cerebral infarction without residual deficits; Z88.0 Allergy status to penicillin; Z79.82 Long term (current) use of aspirin; Z79.51 Long term (current) use of inhaled steroids; Z79.899 Other long term (current) drug therapy; Z92.21 Personal history of antineoplastic chemotherapy
CPT/HCPCS: 52356; 74420; 82365; 88300; C1769; C1894; C2617; J0131; J0690; J1100; J2250; J2370; J2405; J3010; Q9961

== ENCOUNTER → 2022-05-05 | Outpatient (CLI) | payer MEDICARE, BC ==
[~2022-05-05] MED LIST changes: +CLOP75TA99 PO; +ISOVUE-370 76% 100ML VIAL As Ordered ONE; -LISI-542 PO; +LISI5TAB11 PO; -PLAV1TAB2 PO; -ceFAZolin SOD 2 GM in IV 1 EA IV ONE
== END ==
LOC: M RAD 17:06
PROVIDERS: ATTEND Physician Assistant Medical
DX: D37.030 Neoplasm of uncertain behavior of the parotid salivary glands (principal)
CPT/HCPCS: 70491; Q9967

== ENCOUNTER → 2022-06-17 | Outpatient (CLI) | payer MEDICARE, BC ==
[~2022-06-17] MED LIST changes: +FLUT50SP17 NARES; -FLUTISP NARES; -ISOVUE-370 76% 100ML VIAL As Ordered ONE; +LIDOCAINE 1% MDV 20ML VIAL As Ordered ONE
[2022-06-17 12:52] VITALS: BP 180/85
== END ==
LOC: M IRPRO 11:54
PROVIDERS: ATTEND Internal Medicine
DX: D11.0 Benign neoplasm of parotid gland (principal)

== ENCOUNTER → 2023-01-15 | Outpatient (CLI) | payer MEDICARE, BC ==
[~2023-01-15] MED LIST changes: -LIDOCAINE 1% MDV 20ML VIAL As Ordered ONE
== END ==
LOC: M RAD 10:41
PROVIDERS: ATTEND Internal Medicine
DX: M25.562 Pain in left knee (principal)

== ENCOUNTER → 2024-07-04 | Outpatient (REF) | payer MEDICARE, BC ==
[~2024-07-04] MED LIST changes: -ADV250INH INH; +ADVA1AER9 INH; -FLUT50SP17 NARES; +FLUTISP NARES
== END ==
LOC: M LAB REF 16:59
PROVIDERS: ATTEND Physician Assistant Medical
DX: N39.0 Urinary tract infection, site not specified (principal)